=== PATIENT | female | born 1940 | race Caucasian/White ===

== ENCOUNTER → 2018-10-20 14:11 | Outpatient (CLI) | payer OTHER, SELFPAY ==
--- NOTE | 2018-10-20 | DI.ECHO.S_ITS ---
[facility]---------+ [facility] +---------+ : : [address] : [address] : : : : [id number] : : : : Phone: [phone]+ Echocardiogram Report + + :Name: SERENE EVANGELISTA Study Date: 10/20/2018 Height: 69 in : :[facility] Exam Location: [place] Weight: 148 lb : : Gender: Female BSA: 1.8 m2 : :: 1940 Age: 78 yrs BP: 120/78 mmHg: :Reason For Study: Tricuspid regurgitation : :Ordering Physician: Sal : :Kulwant Performed By: Janelle Vicente : :Referring: ASL AGEE : + + Interpretation Summary The left ventricle is normal in size. The ejection fraction is estimated to be 60-65%. The atrial septum is aneurysmal. There is mild aortic valve sclerosis. There is mild aortic regurgitation. There is moderate to severe tricuspid regurgitation. The right ventricular systolic pressure is estimated to be at least 28 mmHg based on an estimated right atrial pressure of 3 mm Hg. Compared to the prior echo exam, there has been no change in TR severity. Procedure: A two-dimensional transthoracic echocardiogram with color flow and Doppler was performed. The study quality was technically adequate. Comparison is made with the echocardiogram of 08/18/2017. The patient was in normal sinus rhythm during the exam. The patient had occasional PACs during the exam. Left Ventricle: The left ventricle is normal in size. There is normal left ventricular wall thickness. Proximal septal thickening is noted. The ejection fraction is estimated to be 60-65%. Left ventricular wall motion is normal. Right Ventricle: The right ventricle is mildly dilated. The right ventricular systolic function is normal. Atria: The left atrium is mildly dilated. Borderline right atrial enlargement. The interatrial septum is intact with no evidence for an atrial septal defect. The atrial septum is aneurysmal. Echolucency noted on the RA aspect of IAS is artifactual. Mitral Valve: The mitral valve leaflets appear mildly thickened, but open well. There is trace mitral regurgitation. Aortic Valve: The aortic valve is trileaflet. The aortic valve opens well. There is mild aortic valve sclerosis. There is mild aortic regurgitation. Tricuspid Valve: The tricuspid annulus is dilated. The tricuspid valve leaflets are thin and pliable. There is moderate to severe tricuspid regurgitation. The right ventricular systolic pressure is estimated to be at least 28 mmHg based on an estimated right atrial pressure of 3 mm Hg. Compared to the prior echo exam, there has been no change in TR severity. Pulmonic Valve: The pulmonic valve is not well seen, but is grossly normal. There is a trace or physiologic amount of pulmonic regurgitation. Great Vessels: The aortic root is normal size. The ascending aorta could not be visualized. The IVC is of normal diameter and collapses greater than 50% with a sniff. This suggests a low right atrial pressure of 3 mm Hg. Pericardium/ Pleura There is no pericardial effusion. There is an anterior echo-free space consistent with a fat pad. There is no pleural effusion. MMode/2D Measurements & Calculations LVIDd: 4.3 cm LVOT diam: 2.3 cm LVIDs: 2.4 cm Ao root diam: 3.5 cm FS: 43.7 % Ao Arch Diam (Prox Trans): 2.9 cm IVSd: 0.92 cm LVPWd: 1.1 cm LV peng. diameter/BSA (cm/m^2): 2.4 LV sys. diameter/BSA (cm/m^2): 1.3 LA A2 area: 17.7 cm2 RA long axis: 5.0 cm LA A4 area: 24.1 cm2 RA area: 17.7 cm2 LA length (vol): 5.0 cm RA vol: 53.1 ml LA vol: 72.4 ml RA : 29.2 ml/m2 LA vol index: 39.8 ml/m2 Doppler Measurements & Calculations Ao V2 max: 108.4 cm/sec LVOT Max Onofre: 86.5 cm/sec Ao V2 mean: 77.8 cm/sec LV V1 max P.0 mmHg Ao max P.7 mmHg LV V1 VTI: 15.2 cm Ao mean P.6 mmHg VINNIE(I,D): 3.3 cm2 Ao V2 VTI: 19.3 cm VINNIE(V,D): 3.3 cm2 sev ratio: 0.79 VINNIE indexed to BSA (cm^2/m^2): 1.8 MV E max onofre: 50.1 cm/sec TR max onofre: 248.9 cm/sec MV A max onofre: 79.1 cm/sec TR max P.8 mmHg MV E/A: 0.63 Med Peak E' Onofre: 6.7 cm/sec E/E' med: 7.4 Lat Peak E' Onofre: 7.7 cm/sec E/E' lat: 6.5 E/e' average: 7.0 MV dec time: 0.14 sec SV(LVOT): 62.7 ml Reading Physician:04:56 PM
== END ==
PROVIDERS: PCP Family Medicine; Visit Provider Internal Medicine Cardiovascular Disease
DX: I08.2 Rheumatic disorders of both aortic and tricuspid valves (principal)
CPT/HCPCS: 93306

== ENCOUNTER → 2018-12-09 12:24 | Outpatient (CLI) | payer OTHER, SELFPAY ==
--- NOTE | 2018-12-09 | DI.MRI.S_ITS ---
PROCEDURE: MR KNEE LT WO CON INDICATIONS: Unilateral primary osteoarthritis, left knee TECHNIQUE: Noncontrast sagittal PD fast spin echo and T2 fast spin echo with fat saturation, sagittal 3-D FLASH with fat saturation; coronal T1 spin echo and PD fast spin echo with fat saturation, and axial PD fast spin echo with fat saturation through the knee. COMPARISON: None. FINDINGS: Image quality: Excellent. Menisci: There is peripheral displacement of medial meniscus bowing medial collateral ligament. Complex tear involving body and posterior horn of medial meniscus is seen extending to both superior and inferior articulating surfaces. There is also suggestion of oblique tear involving anterior horn of lateral meniscus extending to inferior articulating surface. The meniscal root ligaments appear intact. Cruciate ligaments: There is absence of normal anterior cruciate ligament, suggestive of chronic ACL rupture. Posterior cruciate ligament is intact. Medial structures: The medial collateral ligament appears intact. The The posterior oblique ligament, semimembranosus tendon insertions, oblique popliteal ligament, and meniscocapsular junction appear intact. Visualized portions of the pes anserinus tendons appear normal. No abnormal bursal fluid. Lateral structures: The lateral collateral ligament, long and short heads of the biceps femoris tendon appear intact. The popliteus tendon appears normal; the popliteofibular ligament appears intact. The posterosuperior and anteroinferior popliteomeniscal fascicles appear intact. The arcuate and fabellofibular ligaments appear intact, on either side of the lateral inferior geniculate artery. Iliotibial band appears normal. Anterior structures: The quadriceps and patellar tendons appear intact. Patellar alignment is normal. No femoral trochlear dysplasia or ventral trochlear prominence. No edema in the infrapatellar fat pad. Bones and cartilage: A moderate to severe tricompartmental osteoarthritis and chondromalacia is seen more prominently involving lateral femoral tibial compartment. Marrow edema involving lateral tibial plateau is seen with multiple subchondral cysts formation which may represent osteochondral lesions and measures up to 5 x 3 mm in size. No acute fracture or dislocation. Joint space: There is moderate amount of joint fluid.. Small popliteal cyst is seen.. Normal appearing synovial plicae are incidentally noted. IMPRESSION: 1. Suggestion of chronic ACL rupture. Posterior cruciate ligament is intact. 2. Moderate to severe tricompartmental osteoarthritis more prominent in lateral femoral tibial compartment. Suggestion of osteochondral lesions involving lateral tibial plateau. No fracture or dislocation. Moderate amount of joint effusion. Small popliteal cyst. 3. Complex tear involving body and posterior horn of medial meniscus extending to both superior and inferior articulating surfaces. Oblique tear involving anterior horn of lateral meniscus extending to inferior articulating surface. Dictated by: Diego De La Paz M.D. on 12/09/2018 at 14:04 Approved by: Diego De La Paz M.D. on 12/09/2018 at 14:11
== END ==
PROVIDERS: PCP Family Medicine; Visit Provider Orthopaedic Surgery
DX: M17.12 Unilateral primary osteoarthritis, left knee (principal); M25.462 Effusion, left knee; M71.22 Synovial cyst of popliteal space [Baker], left knee; S83.232A Complex tear of medial meniscus, current injury, left knee, initial encounter; S83.282A Other tear of lateral meniscus, current injury, left knee, initial encounter
CPT/HCPCS: 73721

== ENCOUNTER 2019-02-09 12:05 | Inpatient (IN) | payer OTHER, SELFPAY ==
[2019-02-01 12:58] VITALS: BMI 23.8
[2019-02-09] VITALS (15 sets, daily range): BP systolic 98–144; BP diastolic 59–88; PULSE 62–94; RESP 10–24; TEMP 35.6–36.8; O2SAT 94–100; BMI 23.8
--- NOTE | 2019-02-09 06:00 | DI.RAD.S_ITS ---
PROCEDURE: XR KNEE LT 1TO2V INDICATIONS: post op films TECHNIQUE: 2 view(s) of the knee acquired. COMPARISON: None. FINDINGS: Bones: Patient is status post knee joint arthroplasty. Hardware components are in expected positions. Visualized bony structures are intact. Soft tissues: Overlying postoperative changes are noted. IMPRESSION: Status post knee arthroplasty. Dictated by: Ania Perez M.D. on 02/10/2019 at 11:27 Approved by: Ania Perez M.D. on 02/10/2019 at 11:28
[2019-02-09] MEDS: PREGABALIN 75 MG CAPSULE PO (12:36)
[2019-02-09] MEDS: ACETAMINOPHEN 325 MG TABLET 975 MG PO ×2 (12:36→20:27)
[2019-02-09] MEDS: LACTATED RINGERS 1,000 ML 42 ML IV (12:36)
[2019-02-09] MEDS: VANCOMYCIN 1,000 MG/200 ML PIGGYBACK 200 MG IV (12:37)
--- NOTE | 2019-02-09 12:54 | SUR.PREOP ---
pt has large scrape to right knee. Informed Dr. Forrest and showed her the abrasion.
--- NOTE | 2019-02-09 13:05 | PM.PREOP ---
Pre-operative Note Interval Note History & Physical reviewed/Exam performed by Physician: Yes Changes to H&P: No
--- NOTE | 2019-02-09 13:05 | PM.OP.1 ---
Operative Date/Time/Diagnoses Date of procedure: 02/09/19 Time of procedure: 13:56 Pre-op diagnosis: Left knee osteoarthritis Post-op diagnosis: same Procedure & Clinicians Procedure: Left total knee arthroplasty Same procedure as scheduled: Yes Indications: The patient has had progressively worsening left knee pain with radiographic changes consistent with arthritis. Non-operative management has failed and the patient has requested total knee replacement. The risks, benefits and alternatives to surgery were discussed with the patient prior to proceeding. Risks discussed included, but were not limited to, failure to relieve pain, stiffness, infection, nerve damage, deep venous thrombosis, pulmonary embolism, stroke, coma, heart attack, permanent paralysis and , as well as the potential need for eventual revision of the prosthetic. Surgeon: Ro Forrest Special Agent In Charge: Judith Angelo Anesthesia Type: General and Spinal Operative Notes Findings: Severe left knee osteoarthritis, good stability, Closure Type: primary Specimen(s): none sent Prosthetic devices, grafts, tissues, transplants, or devices: Journey BCS 2 size 6 femur, size 5 tibia, +10 poly, 38 mm patella Applied: drain(s) Estimated Blood Loss (mL): 250 Blood products transfused: none Tourniquet time (min): 85 Procedure in detail: The patient was seen in the pre-operative area, where the patient identified the left knee as the operative site and this was marked with my initials. The patient received pre-operative antibiotics, and was taken to the operating room and placed on the operative table in the supine position. After satisfactory anesthesia, a multimedia editor out was performed. The left leg was encircled with a tourniquet about the proximal thigh, and the leg was prepared from the toes to the tourniquet with ChloroPrep in the usual fashion and draped through sterile drapes. The leg was elevated and exsanguinated with Eschmark bandage and the tourniquet inflated to [250] mmHg pressure. The knee was approached through an approximately 18 cm incision centered over the patella and carried into the knee through a medial parapatellar arthrotomy. A portion of the medial and lateral meniscus was resected. Soft tissue was carefully mobilized around the patella the patella was measured with a caliper. Bone was resected from the patella and the patellar height was reconstituted with up an appropriate sized patellar component. A cover was then placed on the patella. A small amount of additional medial and lateral meniscus was resected. The visionare guide fit well to the distal femur. It looked like an appropriate distal femoral cut and the cut was made without difficulty. The rotation was assessed and the appropriate size femoral guide was placed on the distal femur and finishing cuts were made. There was no evidence of notching. The anterior, posterior and chamfer cuts were then made. The posterior osteophytes and soft tissues were then removed. The posterior capsule was injected with part of a mixture of 60 ml 0.25% Marcaine mixed with 20 ml Exparel for post operative pain control. The remainder of this mixture was injected into the capsule and subcutaneous tissues during cement curing. The tibia was prepared and the visionaire guide fit well to the distal tibia. The rotation was assessed. The patient was placed in extension residual medial and lateral meniscus as well as any residual bone was carefully resected. [2mm] additional tibia was resected. Hemostasis was achieved especially posteriorly. Additional local was injected into the posterior capsule. The extension gap was assessed and additional releases for gap balancing were performed as necessary. It was checked with the gap associate product manager. The femoral component was trial was placed and the notch was finished. Trial tibial and femoral components were then placed and the knee placed through a range of motion. Range of motion was [0-130], with good stability throughout the range. The trials were then removed, and the tibia was finished. The bone was prepared with pulsatile lavage, and dried with a sponge. Cement was applied and the final prosthetics placed. Excess cement was removed during and after cement curing. A brief Betadine soak was performed. After confirming there was no extruded cement posteriorly, the final tibial insert was placed. The knee was copiously irrigated and the tourniquet deflated. Hemostasis was obtained with the Bovie. A drain was placed and brought out superolaterally. The capsule was closed with interrupted Vicryl. The subcutaneous layer was closed with barbed sutures, and the skin with a running 3-0 V-Lock suture and Surgical glue. An Aquacel Ag dressing was applied and the patient was taken to recovery having tolerated the procedure well. Complications: none Condition: stable Disposition: Acute Care Plan for aftercare: The patient will be maintained on a standard total knee replacement protocol with weight bearing as tolerated. The patient will receive aspirin and sequential compression devices for DVT prophylaxis. The patient will be discharged home when safe for the home environment.
--- NOTE | 2019-02-09 13:08 | P.OP_ITS ---
Operative Date/Time/Diagnoses Date of procedure: 02/09/19 Time of procedure: 13:56 Pre-op diagnosis: Left knee osteoarthritis Post-op diagnosis: same Procedure & Clinicians Procedure: Left total knee arthroplasty Same procedure as scheduled: Yes Indications: The patient has had progressively worsening left knee pain with radiographic changes consistent with arthritis. Non-operative management has failed and the patient has requested total knee replacement. The risks, benefits and alternatives to surgery were discussed with the patient prior to proceeding. Risks discussed included, but were not limited to, failure to relieve pain, stiffness, infection, nerve damage, deep venous thrombosis, pulmonary embolism, stroke, coma, heart attack, permanent paralysis and , as well as the potential need for eventual revision of the prosthetic. Surgeon: Ro Forrest Insurance Assistant: Judith Angelo Anesthesia Type: General and Spinal Operative Notes Findings: Severe left knee osteoarthritis, good stability, Closure Type: primary Specimen(s): none sent Prosthetic devices, grafts, tissues, transplants, or devices: Journey BCS 2 size 6 femur, size 5 tibia, +10 poly, 38 mm patella Applied: drain(s) Estimated Blood Loss (mL): 250 Blood products transfused: none Tourniquet time (min): 85 Procedure in detail: The patient was seen in the pre-operative area, where the patient identified the left knee as the operative site and this was marked with my initials. The patient received pre-operative antibiotics, and was taken to the operating room and placed on the operative table in the supine position. After satisfactory anesthesia, a time clock inspector out was performed. The left leg was encircled with a tourniquet about the proximal thigh, and the leg was prepared from the toes to the tourniquet with ChloroPrep in the usual fashion and draped through sterile drapes. The leg was elevated and exsanguinated with Eschmark bandage and the tourniquet inflated to [250] mmHg pressure. The knee was approached through an approximately 18 cm incision centered over the patella and carried into the knee through a medial parapatellar arthrotomy. A portion of the medial and lateral meniscus was resected. Soft tissue was carefully mobilized around the patella the patella was measured with a caliper. Bone was resected from the patella and the patellar height was reconstituted with up an appropriate sized patellar component. A cover was then placed on the patella. A small amount of additional medial and lateral meniscus was resected. The visionare guide fit well to the distal femur. It looked like an appropriate distal femoral cut and the cut was made without difficulty. The rotation was assessed and the appropriate size femoral guide was placed on the distal femur and finishing cuts were made. There was no evidence of notching. The anterior, posterior and chamfer cuts were then made. The posterior osteophytes and soft tissues were then removed. The posterior capsule was injected with part of a mixture of 60 ml 0.25% Marcaine mixed with 20 ml Exparel for post operative pain control. The remainder of this mixture was injected into the capsule and subcutaneous tissues during cement curing. The tibia was prepared and the visionaire guide fit well to the distal tibia. The rotation was assessed. The patient was placed in extension residual medial and lateral meniscus as well as any residual bone was carefully resected. [2mm] additional tibia was resected. Hemostasis was achieved especially posteriorly. Additional local was injected into the posterior capsule. The extension gap was assessed and additional releases for gap balancing were performed as necessary. It was checked with the gap clinical administrator. The femoral component was trial was yasmeen vinh and the notch was finished. Trial tibial and femoral components were then placed and the knee placed through a range of motion. Range of motion was [0- 130], with good stability throughout the range. The trials were then removed, and the tibia was finished. The bone was prepared with pulsatile lavage, and dried with a sponge. Cement was applied and the final prosthetics placed. Excess cement was removed during and after cement curing. A brief Betadine soak was performed. After confirming there was no extruded cement posteriorly, the final tibial insert was placed. The knee was copiously irrigated and the tourniquet deflated. Hemostasis was obtained with the Bovie. A drain was placed and brought out superolaterally. The capsule was closed with interrupted Vicryl. The subcutaneous layer was closed with barbed sutures, and the skin with a running 3-0 V-Lock suture and Surgical glue. An Aquacel Ag dressing was applied and the patient was taken to recovery having tolerated the procedure well. Complications: none Condition: stable Disposition: Acute Care Plan for aftercare: The patient will be maintained on a standard total knee replacement protocol with weight bearing as tolerated. The patient will receive aspirin and sequential compression devices for DVT prophylaxis. The patient will be discharged home when safe for the home environment.
[2019-02-09] MEDS: CEFAZOLIN 2 GM/100 ML FROZ.PIGGY IV ×2 (14:11→21:27)
[2019-02-09] MEDS: TRANEXAMIC ACID 1,000 MG VIAL 1000 MG INJ ×2 (14:41→15:24)
--- NOTE | 2019-02-09 15:11 | SUR.OPER ---
Supine on padded OR bed. Pillow under head, arms secured on padded armboards <90 degree abduction. Safety belt across torso. Non-operative leg secured with tape over blanket over lower leg. Operative leg secured in DeMayo/Rohan positioner. Foam padded brace at thigh of operative leg.
--- NOTE | 2019-02-09 15:20 | SUR.OPER ---
GLASSES TO PACU WITH PATIENT IN LABELED CASE.
[2019-02-09] MEDS: BUPIVACAINE LIPOSOME 266 MG/20 ML VIAL INJ (15:22)
[2019-02-09] MEDS: BUPIVACAINE 0.25% W/ EPI 30 ML VIAL 60 ML INJ (15:22)
--- NOTE | 2019-02-09 17:21 | SUR.PHASEI ---
REPORT CALLED TO MIKE HENRIQUEZ ON ACUTE CARE FLOOR. PT IN STABLE CONDITION, VSS. PT LAYING IN BED WITH EYES CLOSED, EASILY AROUSABLE TO VOICE WHEN SPOKEN TO. PT BEING TRANSFERRED TO ACUTE CARE FLOOR AT THIS TIME.
--- NOTE | 2019-02-09 17:33 | SUR.PHASEI ---
PT TRANSFERRED TO ACUTE CARE FLOOR IN STABLE CONDITION. BEDSIDE REPORT GIVEN TO MIKE HENRIQUEZ UPON ARRIVAL TO ROOM. NO CHANGE IN PT CONDITION DURING TRANSPORT TO ACUTE CARE FLOOR. TRANSFERRED CARE OF PT TO MIKE HENRIQUEZ AT THAT TIME.
--- NOTE | 2019-02-09 17:54 | PC.NURSE ---
Andree shift note: Patient admitted from PACU, awake, alert and pleasant. Oriented to room, environment, and plan of care. VSS and afebrile. On RA 98%. Call light within reach.
[2019-02-09] MEDS: LACTATED RINGERS 1,000 ML 125 ML IV (18:06)
[2019-02-09] MEDS: ASPIRIN EC 81 MG TABLET PO (20:28)
[2019-02-09] MEDS: DOCUSATE 100 MG CAPSULE PO (20:28)
[2019-02-09] MEDS: SIMVASTATIN 10 MG TABLET PO (20:28)
[2019-02-10] VITALS (9 sets, daily range): BP systolic 106–130; BP diastolic 49–70; PULSE 59–87; RESP 16–20; TEMP 36.2–36.9; O2SAT 93–100
[2019-02-10] MEDS: OXYCODONE IR 5 MG TABLET PO ×5 (00:30→21:29)
--- NOTE | 2019-02-10 00:46 | PC.NURSE ---
Addendum entered by Rohini Arroyo R.N. 02/10/19 05:57: Slept most of night. States pain this morning is 6/10; medicated with Oxycodone but declines ice pack. Original Note: Patient is alert and oriented. Breath sounds CTA with RA sat of 100%; on continuous oximetry. HRR but bradycardic at 59 bpm. Denies nausea. BT hypoactive and denies flatus. Having urinary urgency but denies dysuria or frequency. Is able to turn self in bed. Needing 1 assist + walker when up to BSC. Aquacel + bharat wrap to left knee is CDI. Hemovac is intact and compressed. Initially having minimal pain and declined pain medication but after being up to urinate states pain is 9/10 so medicated with Oxycodone and ice applied; left leg elevated on pillows. Does have 1+ edema in left LE. Had fall prior to admission and has abrasion on right anterior LE just above knee and a bruised left 4th toe. Wearing bilateral SCD's. CMS is intact. Fall risk score is high and bed alarm is activated.
[2019-02-10] MEDS: LACTATED RINGERS 1,000 ML 125 ML IV (03:07)
[2019-02-10] MEDS: CEFAZOLIN 2 GM/100 ML FROZ.PIGGY IV (05:49)
[2019-02-10] MEDS: LEVOTHYROXINE 25 MCG TABLET PO (05:49)
[2019-02-10 07:16] LABS: Hematocrit 36.6 % (36-46); Hemoglobin 12.3 g/dL (12.0-16.0)
[2019-02-10] MEDS: ASPIRIN EC 81 MG TABLET PO ×2 (09:07→20:13)
[2019-02-10] MEDS: LISINOPRIL 5 MG TABLET PO (09:07)
[2019-02-10] MEDS: METOPROLOL ER 25 MG TABLET PO (09:07)
[2019-02-10] MEDS: FUROSEMIDE 20 MG TABLET PO (09:07)
[2019-02-10] MEDS: DOCUSATE 100 MG CAPSULE PO ×2 (09:07→20:13)
[2019-02-10] MEDS: ACETAMINOPHEN 325 MG TABLET 975 MG PO ×3 (09:09→20:11)
--- NOTE | 2019-02-10 09:20 | PT.IIE ---
Current Diagnoses Rheumatoid arthritis, unspecified (02/09/19) Unilateral primary osteoarthritis, left knee (02/09/19) Surgery Performed Operation Date: 02/09/19 13:45 Actual Procedures p Total Knee Arthroplasty(Left) - Ro Forrest MD Surgical History (Last Updated 02/01/19 @ 14:34 by Radha Chandler RN) Hx of hand surgery (Acute) Hx of tonsillectomy (Acute) Hx of tubal ligation (Acute) Medical History (Last Updated 02/01/19 @ 14:34 by Radha Chandler RN) Asthma (Acute) Atrial fibrillation (Acute) COPD (chronic obstructive pulmonary disease) (Acute) Depression (Acute) Easy bruisability (Acute) Edema (Acute) Former smoker (Acute) GI bleed (Acute ~2018) HLD (hyperlipidemia) (Acute) HTN (hypertension) (Acute) Hip fracture, left (Acute ~10/2010) History of left heart catheterization (Acute ~10/2010) Hypothyroidism (Acute) NSVT (nonsustained ventricular tachycardia) (Acute) Neck pain (Acute) Neuropathy (Acute) Pulmonary hypertension, mild (Acute) Raynauds phenomenon (Acute) Rheumatoid arthritis (Acute) Tinnitus (Acute) Tricuspid regurgitation (Acute) Physical Therapy Inpatient Evaluation/Re-Eval M1 PT/OT-IP Prior Functional Status Start: 02/10/19 13:01 Freq: NEEDED Status: Active Protocol: Document 02/10/19 09:20 AB (Rec: 02/10/19 13:16 AB [id number]) Medical Review Prior Functional Status Medical History Reviewed Yes Communication able to make needs known Mobility and Gait pt stated that she is independent with all mobilities and ambulation without AD but occasionally uses a SPC. Social History Household Members children Living Arrangements House Number of Floors (Floors) One Floor Number of Stairs To Enter/Railing? 3 steps with L rail ascending Home Environment Standard Height Toilet Walk in Shower Built-In Shower Seat Home Equipment Straight Cane Hand Held Shower Grab Bars Near Toilet Additional Social History Comment pt's son lives with her and can assist pt if needed. M2 PT-IP Current Condition Start: 02/10/19 13:01 Freq: NEEDED Status: Active Protocol: Document 02/10/19 09:20 AB (Rec: 02/10/19 13:16 AB [id number]) Physical Therapy Current Condition Current Condition Evaluation Date 02/10/19 Treatment Diagnosis s/p L TKA; difficulty in walking Onset Date 02/09/19 Weight Bearing Status Weight Bearing Status Weight Bear as Tolerated M3 PT-IP Subjective Start: 02/10/19 13:01 Freq: NEEDED Status: Active Protocol: Document 02/10/19 09:20 AB (Rec: 02/10/19 13:16 AB [id number]) Subjective Physical Therapy Visit Type Type Initial Evaluation Visit Start Time 09:20 Visit Stop Time 10:06 Total Visit Minutes 46 Number of CUSTOM CAR BUILDER Visits 0 Physical Therapy Visit Comments Patient Comments pt agreeable to do PT Therapy Pain Assessment Pain When Pain Assessed At Rest Pain Present Pain Present Pain Reported Location Left Knee Intensity 4 Scale Used increases with weight bearing Pain Management Techniques Apply Cold Re-positioning Timing of Activity with Medications M4 PT-IP Mobility and Gait Start: 02/10/19 13:01 Freq: NEEDED Status: Active Protocol: Document 02/10/19 09:20 AB (Rec: 02/10/19 13:16 AB [id number]) PT-Bed Mobility Assessment Supine to Sit Supine to Sit Standby Assistance 1 Person Assistance PT-Transfer Assessment Sit to and From Stand Sit to and from Stand Minimal Assistance 1 Person Assistance Use of Upper Extremities Equipment Transfer Assistive Device Gait Belt Front Wheeled Walker Orthotic/Prosthetic Devices or Brace: No Transfers Transfer Destination Chair Bedside Commode Transfer Technique pt ambulated using FWW Transfer Ability Level of Assist Minimal Assistance Use of Upper Extremities Comments Mobility Comments pt is easily distracted and requires cues to focus on task . initial goal was to ambulate to the toilet but pt unable to complete and has to sit on the chair. Pt c/o dizziness during mobility. BP checked: 143/86 pt required increase time to complete tasks with frequent stand rest breaks during ambulation to the chair. pt requested to the bedside commode and completed stand step transfer using FWW min A and cues. Gait Assessment Gait Gait Assistance Required: Minimum Assistance Distance (Feet) 10 Able to Maintain Weight Bearing Status Yes During Gait Assistive Devices Assistive Device Gait Belt Front Wheeled Walker Gait Deviations General Gait Pattern Antalgic Decreased Stride Length Decreased Feet Clearance Step-to Gait Factors Limiting Gait Function Factors Limiting Gait Function Decreased Activity Tolerance Decreased Strength Difficulty Following Directions Limited Range of Motion Pain Poor Balance Poor Safety Awareness PT-Balance Assessment Sitting Balance and Reactions Static Sitting Balance Ability Good Dynamic Sitting Balance Ability Good Standing Balance and Reactions Static Standing Balance Ability Fair Dynamic Standing Balance Ability Fair Device Used FWW M5 PT-IP Objective Assessments Start: 02/10/19 13:01 Freq: NEEDED Status: Active Protocol: Document 02/10/19 09:20 AB (Rec: 02/10/19 13:16 AB [id number]) Orientation Orientation/Cognition Level of Alertness Alert Orientation Name Place Situation Safety Awareness Decreased Safety Awareness Memory Description Short Term Impaired Gross Range of Motion Lower Extremity ROM Impairments L knee flexion: ~ 70 deg L knee extension: ~ 15 deg to O Strength Lower Extremity Strength Assessment Left Impaired Hip 4-/5 Knee 3+/5 Coordination Assessment Gross Coordination Gross Coordination WNL Sensation Assessment Sensation Gross Sensation WNL Muscle Tone Muscle Tone WNL Yes M6 PT-IP Treatment Start: 02/10/19 13:01 Freq: NEEDED Status: Active Protocol: Document 02/10/19 09:20 AB (Rec: 02/10/19 13:16 AB [id number]) Physical Therapy Treatment Exercises Exercises Quad Sets Heel Slides Education Education Provided Precautions Weight Bearing Status Post-Op Packet Safety M7 PT-IP Assessment and Plan Start: 02/10/19 13:01 Freq: NEEDED Status: Active Protocol: Document 02/10/19 09:20 AB (Rec: 02/10/19 13:16 AB [id number]) PT Summary Assessment and Plan Potential Rehabilitation Potential Good Status of Condition at Evaluation Evolving Summary Impairments Pain ROM Strength Balance Coordination Sensation Tone Cognition Bed Mobility Transfers Gait Activity Tolerance Assessment Summary pt requiring min A with mobility but unable to tolerate much activity this morning and was only able to ambulate ~ 10 ft to get to the chair. pt with c/o dizziness during mobility. pt also requires max cues with all tasks. will continue to assess progress. Goals Bed Mobility Goal Standby Assistance Transfer Goal Standby Assistance Front Wheeled Walker Gait Goal Standby Assistance Front Wheel Walker Gait Distance 150 Other Goals up/down 3 steps using L rail ascending SBA Days to Meet Goals 5 Frequency of Treatment Frequency Of Treatment Twice a Day Treatment Plan Physical Therapy Treatment Plan Bed Mobility Training Transfer Training Gait Training Therapeutic Exercise Balance Retraining Post Op Education Discharge Planning Hot or Cold Pack Neuromuscular Re-ed Coordination Retraining Manual Therapy Other Recommendations and Next Treatment ambulation, stair climbing Focus Recommendations To Nursing Amount of Assist Needed 1 Person Assist Discharge Recommendations PT Discharge Recommendations Home with 24/ Assist SNF Rehab Outpatient PT Other Discharge Recommendations depending on progress: SNF vs home wiht 24/7 and outpt PT
--- NOTE | 2019-02-10 10:21 | P.DS_ITS ---
History of Present Illness Date Patient Seen: 02/10/19 Time Patient Seen: 10:18 Chief complaint: [id number] Narrative: Hospital day 2, postop day 1 following left total knee arthroplasty by Dr. Forrest. Patient remained stable. Pain controlled with Tylenol and oxycodone. She has not had physical therapy yet. Has Hemovac in place. She is a [facility] patient and would like to go home. She does have a son who is her caregiver. She is scheduled to go to [facility] and [place]. Discharge Providers Date of admission: 02/09/19 12:05 Discharge Date: 02/10/19 Primary care physician: Leslie Williamson MD Consults: 02/09/19 06:00 Consult to Anesthesiology Routine Comment: Consulting Provider: Anesthesiologist Reason for consultation: Regional block for post operative pain control 02/09/19 17:35 Consult to Discharge Planning Routine Comment: Consult to Physical Therapy Evaluate & Treat Comment: Physician Instructions: postop TKA protocol Consult to Respiratory Therapy Evaluate & Treat Comment: Physician Instructions: Evaluate and treat 02/09/19 17:44 Consult to Respiratory Therapy Evaluate & Treat Comment: Physician Instructions: Evaluate and treat Discharge provider: Home Baez PA-C Summary Discharge Diagnosis: Status post left total knee arthroplasty Hospital Course: Patient brought to hospital on 02/09/2019 for above noted surgery. She remained stable postoperatively. Progressed with PT. Discharged home on postop day 1. Status at Discharge Cognitive/behavioral status at discharge: oriented Functional status at discharge: uses cane/walker Overall status at discharge: patient is progressing back to baseline Time Spent with Patient Less than 30 minutes Exam Vital Signs (past 8 hours): - 02/10/19 06:00 02/10/19 07:30 02/10/19 09:04 Temperature 97.2 F L Pulse Rate 67 80 Respiratory Rate 17 Blood Pressure 114/66 118/67 Pulse Oximetry 98 96 99 Oxygen Delivery Method Room Air Oxygen Flow Rate 0 Narrative Exam Narrative: Alert, oriented no acute distress resting in bed. Legs. Sammy wrap an Aquacel dressing to left knee is dry without drainage or inflammation. Hemovac in place. No calf pain or swelling. Pulses symmetrical. Objective Labs Result Diagrams: 02/10/19 06:50 Labs: Laboratory Results - last 24 hr 02/10/19 06:50 Hgb 12.3 Hct 36.6 Discharge Plan Discharge Plan Patient Disposition: Home Discharge comment: Discharge home today after cleared by PT. She has a [facility] patient and has prescription at home for oxycodone. She is scheduled to go to [facility] in [place]. Discharge Med Rec/Prescriptions Prescriptions: New acetaminophen 325 mg Tablet 975 mg PO TID Qty: 30 RF: 0 aspirin 81 mg Tablet,Delayed Release (Dr/Ec) 81 mg PO BID Qty: 60 RF: 0 Continued simvastatin [Zocor] 20 MG tablet 10 mg PO HS Qty: 0 RF: 0 Enbrel 50 MG/1 ML syringe 50 mg SC QWEEK Qty: 0 RF: 0 methotrexate sodium 2.5 mg Tablet 7 tab PO QWEEK Qty: 0 RF: 0 lisinopril 5 mg Tablet 5 mg PO DAILY RF: 0 metoprolol succinate 25 mg Tablet Extended Release 24 Hr 25 mg PO DAILY RF: 0 furosemide 20 mg Tablet 20 mg PO QAM RF: 0 levothyroxine 25 mcg Capsule 25 mcg PO DAILY RF: 0 ranitidine HCl 150 mg Capsule 150 mg PO BEDTIME RF: 0 Discontinued aspirin 81 mg Tablet,Delayed Release (Dr/Ec) 81 mg PO DAILY RF: 0 Follow up/Referrals: Leslie Williamson MD [Primary Care Provider] - Provider Discharge Instructions Diet: Diet as Tolerated Activity: Ambulate as tolerated. Use walker as needed. Do range of motion of left knee as much as possible. Cold/Heat Therapy: Cold pack to left knee as needed. Skin/Wound/Dressing Care Report to your healthcare provider any signs of infection, such as:: chills, fever, night sweats, increased pain, unusual drainage and unusual redness Dressing: Keep Aquacel dressing in place until postop visit. Visit Report/Discharge Packet Instructions: DI for Knee Replacement, How to Prevent Falls, DI for Postoperative Pain Stand Alone Forms: Surgery Discharge Visit Report Forms: Stroke Signs & Symptoms Discharge Data Primary Care Provider: Leslie Williamson Attending Provider: Ro Forrest Admit Date/Time: 02/09/19 12:05
--- NOTE | 2019-02-10 11:32 | CM.IDA ---
Initial DCP Assessment Note: Pt is a 78 yo female, resident of [place], now POD#1 from Lft knee surgery w/ Dr Forrest PCP: Leslie Williamson Payer: Tino RAY Reviewed chart, pt discussed in multidisciplinary rounds this morning. Pt has planned for home, DC order from [facility] has already been initiated this morning pending eval from PT and clearance for home. No needs expected from DC planning team although will remain available in case this changes today. ADRIANA Gonzalez Discharge Planning/Care Management CM Discharge Assessment Start: 02/10/19 11:06 Freq: Status: Active Protocol: Document 02/10/19 11:06 ZOE (Rec: 02/10/19 11:32 ZOE [id number]) Discharge Planning Assessment Assigned Medical Sales Associate ADRIANA Black DPOA/Assigned Designee Name yasmine Pantoja Contact Information [phone] Advance Directives? Yes Advance Directives on File No History Provided By Patient Family Member Medical Record Prior Living Arrangements House Household Members children Independent with ADL's Yes Is patient alert and oriented? Yes Barriers to Discharge No Comment Pending PT eval Discharge Plan Home Transportation Arrangement Family Referrals Initiated None needed Review Status In Process
--- NOTE | 2019-02-10 13:45 | PT.IPTN ---
Current Diagnoses Rheumatoid arthritis, unspecified (02/09/19) Unilateral primary osteoarthritis, left knee (02/09/19) Surgery Performed Operation Date: 02/09/19 13:45 Actual Procedures p Total Knee Arthroplasty(Left) - Ro Forrest MD Physical Therapy Treatment Note M2 PT-IP Current Condition Start: 02/10/19 13:01 Freq: NEEDED Status: Active Protocol: Document 02/10/19 09:20 AB (Rec: 02/10/19 13:16 AB [id number]) Physical Therapy Current Condition Current Condition Evaluation Date 02/10/19 Treatment Diagnosis s/p L TKA; difficulty in walking Onset Date 02/09/19 Weight Bearing Status Weight Bearing Status Weight Bear as Tolerated M3 PT-IP Subjective Start: 02/10/19 13:01 Freq: NEEDED Status: Active Protocol: Document 02/10/19 14:25 GGD (Rec: 02/10/19 16:20 GGD [id number]) Subjective Physical Therapy Visit Type Type Treatment Note Visit Start Time 13:55 Visit Stop Time 14:25 Total Visit Minutes 30 Number of DOOR REPAIRMAN Visits 1 Physical Therapy Visit Comments Patient Comments Pt states she is feeling better. Therapy Pain Assessment Pain When Pain Assessed At Rest Pain Present Pain Present Pain Reported M4 PT-IP Mobility and Gait Start: 02/10/19 13:01 Freq: NEEDED Status: Active Protocol: Document 02/10/19 14:25 GGD (Rec: 02/10/19 16:20 GGD [id number]) PT-Transfer Assessment Sit to and From Stand Sit to and from Stand Contact Guard Assistance 1 Person Assistance Equipment Transfer Assistive Device Gait Belt Front Wheeled Walker Orthotic/Prosthetic Devices or Brace: No Transfers Transfer Destination Chair Wheelchair Transfer Ability Level of Assist Contact Guard Assistance 1 Person Assistance Use of Upper Extremities Comments Mobility Comments Pt needed min cues Gait Assessment Gait Gait Assistance Required: Minimum Assistance Distance (Feet) 150 Able to Maintain Weight Bearing Status Yes During Gait Assistive Devices Assistive Device Gait Belt Front Wheeled Walker Gait Deviations General Gait Pattern Antalgic Decreased Stride Length Decreased Feet Clearance Step-to Gait Factors Limiting Gait Function Factors Limiting Gait Function Decreased Activity Tolerance Decreased Strength Difficulty Following Directions Limited Range of Motion Pain Poor Balance Poor Safety Awareness Comments Gait Comments Pt ambulated 50 feet and then 100 feet with FWW and CGA Stair Climbing Assessment Evaluation Level of Assist On Stairs Contact Guard Assistance Devices Stair Climbing Assistive Devices Left Railing Technique/Endurance Stair Climbing Direction Ascend and Descend Stair Climbing Technique Step to Step Number of Steps Climbed 3 Stair Climbing Set # Repetitions (reps) 1 Comments Stair Climbing Comments pt need mod cues. M5 PT-IP Objective Assessments Start: 02/10/19 13:01 Freq: NEEDED Status: Active Protocol: Document 02/10/19 09:20 AB (Rec: 02/10/19 13:16 AB [id number]) Orientation Orientation/Cognition Level of Alertness Alert Orientation Name Place Situation Safety Awareness Decreased Safety Awareness Memory Description Short Term Impaired Gross Range of Motion Lower Extremity ROM Impairments L knee flexion: ~ 70 deg L knee extension: ~ 15 deg to O Strength Lower Extremity Strength Assessment Left Impaired Hip 4-/5 Knee 3+/5 Coordination Assessment Gross Coordination Gross Coordination WNL Sensation Assessment Sensation Gross Sensation WNL Muscle Tone Muscle Tone WNL Yes M6 PT-IP Treatment Start: 02/10/19 13:01 Freq: NEEDED Status: Active Protocol: Document 02/10/19 14:25 GGD (Rec: 02/10/19 16:20 GGD [id number]) Physical Therapy Treatment Exercises Exercises Ankle Pumps Quad Sets Heel Slides Seated Knee Flexion/Extension Education Education Provided Safety M7 PT-IP Assessment and Plan Start: 02/10/19 13:01 Freq: NEEDED Status: Active Protocol: Document 02/10/19 14:25 GGD (Rec: 02/10/19 16:20 GGD [id number]) PT Summary Assessment and Plan Summary Assessment Summary Pt improving with mobility. She was able to progress gait distance. She need mod cues for gait pattern and knee flexion. She was safe with stair mobility. Pt safe for home D/C when medically stable . Frequency of Treatment Frequency Of Treatment Twice a Day Treatment Plan Physical Therapy Treatment Plan Bed Mobility Training Transfer Training Gait Training Therapeutic Exercise Balance Retraining Post Op Education Discharge Planning Hot or Cold Pack Neuromuscular Re-ed Coordination Retraining Manual Therapy Recommendations To Nursing Amount of Assist Needed 1 Person Assist Discharge Recommendations PT Discharge Recommendations Home with Assistance Outpatient PT Equipment Needed for Home Before FWW Discharge
--- NOTE | 2019-02-10 13:48 | PC.NURSE ---
Pain controleld with PRN Oxycodone given X2 this shift, first dose this AM, pt reported feeling slightly whoozy. Still able to ambulate OOB with PT. Hemovac drain removed at 1345 without difficulty, Cleansed area with NS, Dry 2X2 folded gauze and tegaderm placed over site. Left knee aquacel dressing CDI. CMS+, PPP, Pt has chronic edema to BLE L>R. Plan to discharge home tomorrow. LIU Zhou aware around 1230.
[2019-02-10] MEDS: SIMVASTATIN 10 MG TABLET PO (20:10)
[2019-02-11 05:06] VITALS: BP 150/77; PULSE 83; RESP 16; TEMP 36.5; O2SAT 98
[2019-02-11] MEDS: LEVOTHYROXINE 25 MCG TABLET PO (06:28)
[2019-02-11 09:00] VITALS: BP 110/80; PULSE 92; RESP 15; TEMP 36.9; O2SAT 96
[2019-02-11] MEDS: METOPROLOL ER 25 MG TABLET PO (09:35)
[2019-02-11] MEDS: OXYCODONE IR 5 MG TABLET PO (09:35)
[2019-02-11] MEDS: ASPIRIN EC 81 MG TABLET PO (09:35)
[2019-02-11] MEDS: FUROSEMIDE 20 MG TABLET PO (09:35)
[2019-02-11] MEDS: ACETAMINOPHEN 325 MG TABLET 975 MG PO (09:36)
[2019-02-11] MEDS: DOCUSATE 100 MG CAPSULE PO (09:36)
--- NOTE | 2019-02-11 10:55 | PT.IPTN ---
Current Diagnoses Rheumatoid arthritis, unspecified (02/09/19) Unilateral primary osteoarthritis, left knee (02/09/19) Surgery Performed Operation Date: 02/09/19 13:45 Actual Procedures p Total Knee Arthroplasty(Left) - Ro Forrest MD Physical Therapy Treatment Note M2 PT-IP Current Condition Start: 02/10/19 13:01 Freq: NEEDED Status: Active Protocol: Document 02/10/19 09:20 AB (Rec: 02/10/19 13:16 AB [id number]) Physical Therapy Current Condition Current Condition Evaluation Date 02/10/19 Treatment Diagnosis s/p L TKA; difficulty in walking Onset Date 02/09/19 Weight Bearing Status Weight Bearing Status Weight Bear as Tolerated M3 PT-IP Subjective Start: 02/10/19 13:01 Freq: NEEDED Status: Active Protocol: Document 02/11/19 10:55 GGD (Rec: 02/11/19 11:38 GGD [id number]) Subjective Physical Therapy Visit Type Type Treatment Note Visit Start Time 10:30 Visit Stop Time 10:55 Total Visit Minutes 25 Number of INFORMATION SYSTEMS ANALYST Visits 2 Physical Therapy Visit Comments Patient Comments Pt states her knee hurting more. Therapy Pain Assessment Pain When Pain Assessed At Rest Pain Present Pain Present Pain Reported Location Left Knee Intensity 6 Scale Used Numeric (1 - 10) Pain Management Techniques Apply Cold Re-positioning Timing of Activity with Medications M4 PT-IP Mobility and Gait Start: 02/10/19 13:01 Freq: NEEDED Status: Active Protocol: Document 02/11/19 10:55 GGD (Rec: 02/11/19 11:38 GGD [id number]) PT-Bed Mobility Assessment Sit to Supine Sit to Supine Standby Assistance Scooting Scooting to Edge of Bed Standby Assistance PT-Transfer Assessment Sit to and From Stand Sit to and from Stand Contact Guard Assistance 1 Person Assistance Equipment Transfer Assistive Device Gait Belt Front Wheeled Walker Orthotic/Prosthetic Devices or Brace: No Transfers Transfer Destination Chair Transfer Ability Level of Assist Contact Guard Assistance 1 Person Assistance Use of Upper Extremities Comments Mobility Comments Pt needed min cues. Gait Assessment Gait Gait Assistance Required: Minimum Assistance Distance (Feet) 220 Able to Maintain Weight Bearing Status Yes During Gait Assistive Devices Assistive Device Gait Belt Front Wheeled Walker Gait Deviations General Gait Pattern Antalgic Decreased Stride Length Decreased Feet Clearance Step-to Gait Factors Limiting Gait Function Factors Limiting Gait Function Decreased Activity Tolerance Decreased Strength Difficulty Following Directions Limited Range of Motion Pain Poor Balance Poor Safety Awareness M5 PT-IP Objective Assessments Start: 02/10/19 13:01 Freq: NEEDED Status: Active Protocol: Document 02/10/19 09:20 AB (Rec: 02/10/19 13:16 AB [id number]) Orientation Orientation/Cognition Level of Alertness Alert Orientation Name Place Situation Safety Awareness Decreased Safety Awareness Memory Description Short Term Impaired Gross Range of Motion Lower Extremity ROM Impairments L knee flexion: ~ 70 deg L knee extension: ~ 15 deg to O Strength Lower Extremity Strength Assessment Left Impaired Hip 4-/5 Knee 3+/5 Coordination Assessment Gross Coordination Gross Coordination WNL Sensation Assessment Sensation Gross Sensation WNL Muscle Tone Muscle Tone WNL Yes M6 PT-IP Treatment Start: 02/10/19 13:01 Freq: NEEDED Status: Active Protocol: Document 02/11/19 10:55 GGD (Rec: 02/11/19 11:38 GGD [id number]) Physical Therapy Treatment Exercises Exercises Ankle Pumps Quad Sets Heel Slides Seated Knee Flexion/Extension Education Education Provided Safety Equipment Issued Equipment Type and Company FWW M7 PT-IP Assessment and Plan Start: 02/10/19 13:01 Freq: NEEDED Status: Active Protocol: Document 02/11/19 10:55 GGD (Rec: 02/11/19 11:38 GGD [id number]) PT Summary Assessment and Plan Summary Assessment Summary Pt able to progress gait distance. She need min cues for safety and gait pattern. Pt safe for home D/C when medically stable. Frequency of Treatment Frequency Of Treatment Twice a Day Treatment Plan Physical Therapy Treatment Plan Bed Mobility Training Transfer Training Gait Training Therapeutic Exercise Balance Retraining Post Op Education Discharge Planning Hot or Cold Pack Neuromuscular Re-ed Coordination Retraining Manual Therapy Recommendations To Nursing Amount of Assist Needed 1 Person Assist Discharge Recommendations PT Discharge Recommendations Home with Assistance Outpatient PT
[2019-02-11 12:44] VITALS: O2SAT 97
--- NOTE | 2019-02-11 13:15 | PC.NURSE ---
Discharge Pt cleared by PT, up with SBA and FWW. pt states she took all belongings with her. d/c instructions provided to pt and her family. Aware to check on f/u apts with MD. PT already scheduled. Clarified with [facility] [place], ok for pt to take tylenol and ibuprofen, relayed to pt and family. Has oxy at home already. PIV removed without issue. pt left in w/c with EXHIBITS COORDINATOR escort.
== END 2019-02-11 12:45 | disposition home or self-care (01) | DRG 470 ==
PROVIDERS: Admitting Provider Orthopaedic Surgery; PCP Family Medicine; Visit Provider Orthopaedic Surgery
PROC: 0SRD0JZ Replacement of Left Knee Joint with Synthetic Substitute, Open Approach (ICD-10-PCS; CPT 27447; principal; 2019-02-09 13:45)
DX: M17.12 Unilateral primary osteoarthritis, left knee (principal); I47.2 Ventricular tachycardia; M06.9 Rheumatoid arthritis, unspecified; I10 Essential (primary) hypertension; E78.5 Hyperlipidemia, unspecified; I36.1 Nonrheumatic tricuspid (valve) insufficiency
CPT/HCPCS: 36415; 73560; 85014; 85018; 94762; 97116; 97162; 97530; C1776; C9290; J0690; J1100; J2250; J2405; J2704; J3010

== ENCOUNTER → 2019-02-16 15:12 | Outpatient (CLI) | payer OTHER, SELFPAY ==
[2019-02-09 17:55] VITALS: BMI 23.8
--- NOTE | 2019-02-16 | DI.US.S_ITS ---
PROCEDURE: US PERIPH VENOUS LOW EXTREM LT INDICATIONS: OSTEOARTHRITISOF LEFT KNEE / POST PROCEDURE TECHNIQUE: Real-time imaging, as well as color and pulse Doppler interrogation, were performed of the lower extremity deep veins from the inguinal ligament to the popliteal fossa. COMPARISON: None. FINDINGS: The common femoral, femoral and popliteal veins are normally compressible, and free of intraluminal thrombus. Color and pulse Doppler demonstrate normal phasic intraluminal flow. There is normal augmentation response to distal compression maneuver. IMPRESSION: No DVT found. Dictated by: John Daniels M.D. on 02/16/2019 at 16:34 Approved by: John Daniels M.D. on 02/16/2019 at 16:34
== END ==
PROVIDERS: Family Provider Family Medicine; PCP Family Medicine; Visit Provider Physician Assistant Medical
DX: M17.12 Unilateral primary osteoarthritis, left knee (principal)
CPT/HCPCS: 93971

== ENCOUNTER 2019-02-27 17:16 | Emergency (ER) | payer OTHER, SELFPAY ==
[2019-02-09 17:55] VITALS: BMI 23.8
[2019-02-27 17:21] VITALS: BP 159/88; PULSE 86; RESP 18; TEMP 36.6; O2SAT 100; BMI 22.7
[2019-02-27 17:57] LABS: Add Manual Diff / Slide Review NO; Basophils Absolute Auto 100 /uL (0-100); Basophils Percent Auto 0.7 % (0-2); Eosinophils Absolute Auto 100 /uL (0-450); Eosinophils Percent Auto 1.5 % (2-4); Hematocrit 32.7 % (36-46); Lymphocytes Absolute Auto 1500 /uL (1100-4500); Lymphocytes Percent Auto 18.6 % (25-40); Mean Corpuscular HGB Conc 33.6 % (30-36); Mean Corpuscular Hemoglobin 33.4 PG (26-34); Mean Corpuscular Volume 99.3 fL (80-100); Monocytes Absolute Auto 1200 /uL (0-900); Monocytes Percent Auto 14.1 % (3-14); Neutrophils Absolute Auto 5400 /uL (1500-7000); Neutrophils Percent Auto 65.1 % (50-75); Platelet Count 494 X10^3/uL (150-400); Red Blood Cell Count 3.29 X10^6/uL (4.0-5.2); Red Cell Distribution Width 15.5 % (11.6-14.8); White Blood Cell Count 8.3 X10^3/uL (4.5-11.0)
[2019-02-27 18:04] LABS: Alanine Aminotransferase 20 IU/L (9-52); Albumin 3.8 g/dL (3.5-5.0); Albumin Globulin Ratio 1.2 (1.0-2.8); Alkaline Phosphatase 163 U/L (38-126); Aspartate Aminotransferase 22 IU/L (14-36); BUN Creatinine Ratio 22.2 (6-22); Bilirubin Total 0.4 mg/dL (0.2-1.3); Blood Urea Nitrogen 20 mg/dL (7-17); Calcium 9.2 mg/dL (8.4-10.2); Carbon Dioxide 28 mmol/L (22-32); Chloride 105 mmol/L (98-107); Estimated Glomerular Filt Rate > 60.0 mL/min (>60); Globulin 3.1 g/dL (1.7-4.1); Glucose 103 mg/dL (80-110); HEMOLYSIS < 15 (0-50); Potassium 3.7 mmol/L (3.4-5.1); Sodium 141 mmol/L (137-145); Total Protein 6.9 g/dL (6.3-8.2)
[2019-02-27 20:17] VITALS: BP 156/70; PULSE 75; RESP 18; O2SAT 100
--- NOTE | 2019-02-27 20:28 | DI.US.S_ITS ---
PROCEDURE: US PERIPH VENOUS LOW EXTREM LT INDICATIONS: PAIN, REDNESS,SWELLING, WARMTH, RECENT SURGURY TECHNIQUE: Real-time imaging, as well as color and pulse Doppler interrogation, were performed of the lower extremity deep veins from the inguinal ligament to the popliteal fossa. COMPARISON: None. FINDINGS: The common femoral, femoral and popliteal veins are normally compressible, and free of intraluminal thrombus. Color and pulse Doppler demonstrate normal phasic intraluminal flow. There is normal augmentation response to distal compression maneuver. Incidental note made of a 4.4 x 0.7 x 0.6 cm popliteal cyst. IMPRESSION: No evidence of deep vein thrombosis involving the left lower extremity. Dictated by: Carmen Bazan MD, PhD on 02/28/2019 at 7:10 Approved by: Carmen Bazan MD, PhD on 02/28/2019 at 7:10
[2019-02-27 20:47] LABS: C-Reactive Protein Quant 2.2 mg/dL (<1.0)
[2019-02-27 21:01] LABS: Erythrocyte Sedimentation Rate 40 MM/HR (0-20)
[2019-02-27 21:53] VITALS: BP 139/72; PULSE 81; RESP 16; TEMP 36.4; O2SAT 96
[2019-02-27] MEDS: DOXYCYCLINE HYCLATE 100 MG TABLET PO (23:07)
[2019-02-27 23:11] VITALS: BP 141/79; PULSE 79; RESP 16; O2SAT 99
--- NOTE | 2019-02-28 05:08 | ED_ITS ---
HPI - Extremity Problem General Chief complaint: Extremity Problem,Nontraumatic Stated complaint: L Lower extremity pain, cellulitis Time Seen by Provider: 02/27/19 19:00 Source: patient and EMS Mode of arrival: EMS Limitations: no limitations History of Present Illness HPI Narrative: 78-year-old female nonsmoker with history of hypertension, hyperlipidemia, COPD, migraines and recent left knee surgery with subsequent left lower extremity cellulitis finish her antibiotics earlier today and states she still has some swelling and pain in her leg. She denies systemic findings such as fever, chills nor nausea or vomiting. She denies any drainage from the incisions she denies any abdominal pain or dysuria, frequency or urgency. She denies any injury. MD Complaint: extremity pain and extremity swelling Onset (ago): day(s) Pain Consistency: constant Location: left Quality: aching Radiation: none Relieving factors: rest Exacerbating factors: walking and palpation Associated symptoms: denies other symptoms Context: recent surgery/procedure and history of DVT Related Data Home Medications Medication Instructions Recorded Confirmed Enbrel 50 mg SC QWEEK #0 08/10/11 02/09/19 methotrexate sodium 7 tab PO QWEEK #0 08/10/11 02/09/19 furosemide 20 mg PO QAM 02/01/19 02/27/19 metoprolol succinate 25 mg PO DAILY 02/01/19 02/27/19 levothyroxine 25 mcg PO DAILY 02/27/19 02/27/19 lisinopril 5 mg PO DAILY 02/27/19 02/27/19 ranitidine HCl 150 mg PO DAILY 02/27/19 02/27/19 simvastatin 10 mg PO DAILY 02/27/19 02/27/19 Previous Rx's Medication Instructions Recorded acetaminophen 975 mg PO TID #30 tab 02/10/19 aspirin 81 mg PO BID #60 tab 02/10/19 doxycycline hyclate 100 mg PO BID #20 tab 02/27/19 Allergies Allergy/AdvReac Type Severity Reaction Status Date / Time NSAIDS (Non-Steroidal AdvReac Mild Gastrointestinal Verified 02/27/19 17:19 Anti-Inflamma Upset Review of Systems Constitutional Denies chills, Denies fever(s), Denies lethargy and Denies weakness Eyes Denies change in vision, Denies eye discharge, Denies irritation and Denies loss of vision ENT Ears, Nose, Mouth, and Throat: Denies change in voice, Denies neck pain and Denies sore throat Cardiovascular Denies chest pain, Denies irregular heart rhythm, Denies lightheadedness, Denies palpitations, Denies dyspnea, Denies dyspnea on exertion and Denies orthopnea Respiratory Denies cough, Denies dyspnea, Denies dyspnea on exertion and Denies wheezing Gastrointestinal Gastrointestinal: Denies abdominal pain, Denies change in bowel habits, Denies diarrhea, Denies nausea and Denies vomiting Genitourinary Denies hematuria, Denies flank pain, Denies urinary incontinence and Denies urinary urgency Musculoskeletal Denies neck pain Integumentary/Breasts Denies pruritus, Reports erythema, Denies rash and Denies wounds Neurologic Denies confusion, Denies loss of vision and Denies weakness Psychiatric Denies anxiety, Denies confusion, Denies depression, Denies homicidal ideation and Denies suicidal ideation Endocrine Denies palpitations Hematologic/Lymphatic Denies easy bruising Allergic/Immunologic Denies wheezing [facility] Medical History Asthma (Acute) Atrial fibrillation (Acute) COPD (chronic obstructive pulmonary disease) (Acute) Depression (Acute) Easy bruisability (Acute) Edema (Acute) Former smoker (Acute) GI bleed (Acute ~2017) HLD (hyperlipidemia) (Acute) HTN (hypertension) (Acute) Hip fracture, left (Acute ~10/2010) History of left heart catheterization (Acute ~10/2010) Hypothyroidism (Acute) NSVT (nonsustained ventricular tachycardia) (Acute) Neck pain (Acute) Neuropathy (Acute) Pulmonary hypertension, mild (Acute) Raynauds phenomenon (Acute) Rheumatoid arthritis (Acute) Tinnitus (Acute) Tricuspid regurgitation (Acute) Surgical History Hx of hand surgery (Acute) Hx of tonsillectomy (Acute) Hx of tubal ligation (Acute) Social History household members: children Smoking Status: Former smoker alcohol intake: former Social History household members: children Smoking Status: Former smoker alcohol intake: former Exam Narrative Exam Narrative: GENERAL: 78-year-old female appears stated age, in no obvious distress, a bit anxious HEAD: Atraumatic. Normocephalic. EYES: Pupils equal round and reactive. Extraocular motions intact. ENT: Nose without bleeding, purulent drainage or septal hematoma. Airway patent. NECK: Trachea midline. No JVD or lymphadenopathy. Supple, nontender, no meningeal signs. CARDIOVASCULAR: Regular rate and rhythm without murmurs, gallops, or rubs. RESPIRATORY: Clear to auscultation. Breath sounds equal bilaterally. No wheezes, rales, or rhonchi. GASTROINTESTINAL: Abdomen soft, non-tender, nondistended. No hepato- splenomegaly, or palpable masses. No guarding. EXTREMITIES: Left knee demonstrates appropriate healing. Incisions are clean, dry and intact. No swelling, erythema or effusion of knee. There is some swelling of the left lower extremity below the knee was 1+ edema and mild erythema with warmth to touch. She does complain of pain on palpation of her calf. BACK: Nontender without deformity or crepitance. No flank tenderness. NEURO: AOx3. SKIN: No rash or erythema. Initial Vital Signs Initial Vital Signs: Vital Signs Temperature 97.8 F 02/27/19 17:21 Pulse Rate 86 02/27/19 17:21 Respiratory Rate 18 02/27/19 17:21 Blood Pressure 159/88 H 02/27/19 17:21 Pulse Oximetry 100 02/27/19 17:21 Course Orders Ordered: ED Orders 02/27/19 20:28 periph venous low extrem lt Stat Discontinued Medications Doxycycline Hyclate (Vibramycin) 100 mg PO NOW ONE Stop: 02/27/19 23:00 Last Admin: 02/27/19 23:07 Dose: 100 mg Reevaluation(s) Reevaluation #1: Patient ambulates using a walker without any significant difficulty. Her son agrees to meet her at the cab and will ensure she gets in the home safely, he lives with her Vital Signs - 8 hr 02/27/19 21:53 02/27/19 23:11 Temperature 97.6 F Pulse Rate 81 79 Respiratory Rate 16 16 Blood Pressure [Right Arm] 139/72 141/79 H Pulse Oximetry 96 99 MDM - Extremity (Nontraumatic) Lab Data Result diagrams: 02/27/19 17:45 02/27/19 17:45 Lab Results 02/27/19 02/27/19 02/27/19 Range/Units 17:45 17:45 17:45 WBC 8.3 (4.5-11.0) X10^3/uL RBC 3.29 L (4.0-5.2) X10^6/uL Hgb 11.0 L (12.0-16.0) g/dL Hct 32.7 L (36-46) % MCV 99.3 (80-100) fL MCH 33.4 (26-34) PG MCHC 33.6 (30-36) % RDW 15.5 H (11.6-14.8) % Plt Count 494 H (150-400) X10^3/uL Neut % (Auto) 65.1 (50-75) % Lymph % (Auto) 18.6 L (25-40) % Allen % (Auto) 14.1 H (3-14) % Eos % (Auto) 1.5 L (2-4) % Baso % (Auto) 0.7 (0-2) % Neut # (Auto) 5400 (8647-7268) /uL Lymph # (Auto) 1500 (9669-4384) /uL Allen # (Auto) 1200 H (0-900) /uL Eos # (Auto) 100 (0-450) /uL Baso # (Auto) 100 (0-100) /uL ESR 40 H (0-20) MM/HR Sodium 141 (137-145) mmol/L Potassium 3.7 (3.4-5.1) mmol/L Chloride 105 (98-107) mmol/L Carbon Dioxide 28 (22-32) mmol/L BUN 20 H (7-17) mg/dL Creatinine 0.90 (0.52-1.04) mg/dL Estimated GFR > 60.0 (>60) mL/min BUN/Creatinine Ratio 22.2 H (6-22) Glucose 103 (80-110) mg/dL Calcium 9.2 (8.4-10.2) mg/dL Total Bilirubin 0.4 (0.2-1.3) mg/dL AST 22 (14-36) IU/L ALT 20 (9-52) IU/L Alkaline Phosphatase 163 H (38-126) U/L C-Reactive Protein (<1.0) mg/dL Total Protein 6.9 (6.3-8.2) g/dL Albumin 3.8 (3.5-5.0) g/dL Globulin 3.1 (1.7-4.1) g/dL Albumin/Globulin Ratio 1.2 (1.0-2.8) 02/27/19 Range/Units 17:45 WBC (4.5-11.0) X10^3/uL RBC (4.0-5.2) X10^6/uL Hgb (12.0-16.0) g/dL Hct (36-46) % MCV (80-100) fL MCH (26-34) PG MCHC (30-36) % RDW (11.6-14.8) % Plt Count (150-400) X10^3/uL Neut % (Auto) (50-75) % Lymph % (Auto) (25-40) % Allen % (Auto) (3-14) % Eos % (Auto) (2-4) % Baso % (Auto) (0-2) % Neut # (Auto) (7165-3144) /uL Lymph # (Auto) (5140-6037) /uL Allen # (Auto) (0-900) /uL Eos # (Auto) (0-450) /uL Baso # (Auto) (0-100) /uL ESR (0-20) MM/HR Sodium (137-145) mmol/L Potassium (3.4-5.1) mmol/L Chloride (98-107) mmol/L Carbon Dioxide (22-32) mmol/L BUN (7-17) mg/dL Creatinine (0.52-1.04) mg/dL Estimated GFR (>60) mL/min BUN/Creatinine Ratio (6-22) Glucose (80-110) mg/dL Calcium (8.4-10.2) mg/dL Total Bilirubin (0.2-1.3) mg/dL AST (14-36) IU/L ALT (9-52) IU/L Alkaline Phosphatase (38-126) U/L C-Reactive Protein 2.2 H (<1.0) mg/dL Total Protein (6.3-8.2) g/dL Albumin (3.5-5.0) g/dL Globulin (1.7-4.1) g/dL Albumin/Globulin Ratio (1.0-2.8) Imaging Data Venous US: Radiologist's impression: Negative for DVT MDM Narrative Medical decision making narrative: 78-year-old female with relatively recent left total knee presents with minimal ongoing redness, warmth and swelling and had just completed a 7 day course of doxycycline for the treatment of cellulitis. She denies systemic findings to suggest sepsis. Labs are very reassuring as is physical exam. Ultrasound rules out DVT. Ambulation trial goes well. Return precautions given, patient had questions answered to her a pparent satisfaction Discharge Plan Departure Patient Disposition: Home Clinical Impression: Lower extremity edema Cellulitis Qualifiers: Site of cellulitis: extremity Site of cellulitis of extremity: lower extremity Laterality: left Qualified Code(s): L03.116 - Cellulitis of left lower limb Discharge Date/Time: 02/28/19 00:40 Interventions: ED Discharge Assessment Last Done: 02/28/19 00:40 Instructions: DI for Cellulitis -- Adult Activity Restrictions/Additional Instructions: *You have been diagnosed with [left lower leg swelling, possible mild cellulitis. DVT has been ruled out] *What to do: *Take medications as directed *Follow up with your primary care provider in 2-3 days, call for an appointment. Let them know you were seen in the Emergency Department and that we ask that you be seen in follow up *Return to ER if you should have any new, worsening or concerning symptoms Prescriptions: New doxycycline hyclate 100 mg tablet 100 mg PO BID Qty: 20 RF: 0 No Action Enbrel 50 MG/1 ML syringe 50 mg SC QWEEK Qty: 0 RF: 0 methotrexate sodium 2.5 mg Tablet 7 tab PO QWEEK Qty: 0 RF: 0 metoprolol succinate 25 mg Tablet Extended Release 24 Hr 25 mg PO DAILY RF: 0 furosemide 20 mg Tablet 20 mg PO QAM RF: 0 acetaminophen 325 mg Tablet 975 mg PO TID Qty: 30 RF: 0 aspirin 81 mg Tablet,Delayed Release (Dr/Ec) 81 mg PO BID Qty: 60 RF: 0 simvastatin 10 mg tablet 10 mg PO DAILY RF: 0 levothyroxine 25 mcg tablet 25 mcg PO DAILY RF: 0 ranitidine HCl 150 mg Tablet 150 mg PO DAILY RF: 0 lisinopril 10 mg tablet 5 mg PO DAILY RF: 0 Referrals: Leslie Williamson MD [Primary Care Provider] -
== END 2019-02-28 00:40 | disposition home or self-care (01) ==
PROVIDERS: Emergency Medicine; Emergency Provider Emergency Medicine; Family Provider Family Medicine; PCP Family Medicine
DX: R60.0 Localized edema (principal); L03.116 Cellulitis of left lower limb
CPT/HCPCS: 36415; 80053; 85025; 85651; 86140; 93971; 99283; 99284

== ENCOUNTER 2019-06-07 14:49 | Observation (INO) | payer OTHER, SELFPAY ==
[2019-02-09 17:55] VITALS: BMI 23.8
[2019-06-07 15:06] VITALS: BP 118/71; PULSE 76; RESP 19; O2SAT 100
--- NOTE | 2019-06-07 15:29 | ED.LOWEXIN ---
HPI - Extremity Injury (Lower) <Estela FreyLADARIUS - Last Filed: 06/07/19 21:11> General Chief Complaint: Extremity Injury, Lower Stated Complaint: GLF, hip pain Time Seen by Provider: 06/07/19 14:56 Source: patient Mode of arrival: Ambulatory History of Present Illness HPI Narrative: 79-year-old female presents emergency department after being sent from the Orthopedics office for fall during and ortho visit reguarding left femur fracture. After the fall, she sustaining a left inferior and superior pubic rami fracture. She was seeing Dr. Forrest at this time. The clinic had physical therapy evaluate the patient but she was unable to ambulate successfully. Patient lives at home with her son and is unable to make it into the house due to stairs. Additionally, provider had concern about the care of the elder by her son due to the signs drinking habits. Patient reports left-sided hip pain 5/10 dull aching that is worse with movement and better with rest. She denies any chest pain, shortness of breath, fevers, chills, nausea, vomiting, diarrhea, or other concerns. Related Data Home Medications Medication Instructions Recorded Confirmed Enbrel 50 mg SC QWEEK #0 08/10/11 06/07/19 methotrexate sodium 6 tab PO QWEEK #0 08/10/11 06/07/19 furosemide 20 mg PO QAM 02/01/19 06/07/19 metoprolol succinate 25 mg PO DAILY 02/01/19 06/07/19 levothyroxine 25 mcg PO DAILY 02/27/19 06/07/19 lisinopril 5 mg PO DAILY 02/27/19 06/07/19 simvastatin 10 mg PO DAILY 02/27/19 06/07/19 ascorbic acid (vitamin C) 1,000 mg PO DAILY 06/07/19 06/07/19 biotin 5,000 mcg SUBLINGUAL DAILY 06/07/19 06/07/19 calcium carbonate [Calcium 500] 1,200 mg PO DAILY 06/07/19 06/07/19 cholecalciferol (vitamin D3) 2,000 unit PO DAILY 06/07/19 06/07/19 [Vitamin D3] cyanocobalamin (vitamin B-12) 5,000 mcg SUBLINGUAL DAILY 06/07/19 06/07/19 [Vitamin B-12] folic acid 1,600 mcg PO DAILY 06/07/19 06/07/19 magnesium 500 mg PO DAILY 06/07/19 06/07/19 nb-dp-MO-vit G-mhxpt-qcm-coQ10 1 cap PO DAILY 06/07/19 06/07/19 [Daily Multivitamin] omega 2-gqr-zzo-fish oil [Fish Oil] 1 cap PO DAILY 06/07/19 06/07/19 pantoprazole 40 mg PO DAILY 06/07/19 06/07/19 thiamine HCl (vitamin B1) [Vitamin 100 mg PO DAILY 06/07/19 06/07/19 B-1] Allergies Allergy/AdvReac Type Severity Reaction Status Date / Time NSAIDS (Non-Steroidal AdvReac Mild Gastrointestinal Verified 02/27/19 17:19 Anti-Inflamma Upset aspirin AdvReac Verified 06/07/19 20:17 Review of Systems <LADARIUS Aguirre - Last Filed: 06/07/19 21:11> Review of Systems Narrative: REVIEW OF SYSTEMS: GENERAL: Denies fever or chills. HENT: No head trauma. EYES: No double vision or vision loss. CARDIOVASCULAR: No chest pain or syncope. RESPIRATORY: No shortness of breath or cough. GASTROINTESTINAL: No nausea, vomiting, diarrhea, or constipation. GENITOURINARY: No flank pain or dysuria. MUSCULOSKELETAL: Complains of left hip pain, see HPI. INTEGUMENTARY: No rash, lesions, or pruritus. NEURO: No numbness, tingling. PSYCH: No behavior or mood changes. Patient History <LADARIUS Aguirre - Last Filed: 06/07/19 21:11> Medical History Asthma (Acute) Atrial fibrillation (Acute) COPD (chronic obstructive pulmonary disease) (Acute) Depression (Acute) Easy bruisability (Acute) Edema (Acute) Former smoker (Acute) GI bleed (Acute ~2018) Hip fracture, left (Acute ~10/2010) History of left heart catheterization (Acute ~10/2010) HLD (hyperlipidemia) (Acute) HTN (hypertension) (Acute) Hypothyroidism (Acute) Neck pain (Acute) Neuropathy (Acute) NSVT (nonsustained ventricular tachycardia) (Acute) Pulmonary hypertension, mild (Acute) Raynauds phenomenon (Acute) Rheumatoid arthritis (Acute) Tinnitus (Acute) Tricuspid regurgitation (Acute) Surgical History Hx of hand surgery (Acute) Hx of tonsillectomy (Acute) Hx of tubal ligation (Acute) Social History household members: children Smoking Status: Former smoker alcohol intake: former Substance Use Type: does not use Exam <LADARIUS Aguirre - Last Filed: 06/07/19 21:11> Initial Vital Signs Initial Vital Signs: Vital Signs Pulse Rate 76 06/07/19 15:06 Respiratory Rate 19 06/07/19 15:06 Blood Pressure 118/71 06/07/19 15:06 Pulse Oximetry 100 06/07/19 15:06 PHYSICAL EXAMINATION: GENERAL: Well groomed, alert, and cooperative. Answers questions promptly and appropriately. Vital signs noted. HENT: Normocephalic, atraumatic. EYES: Symmetrical, sclera white, no periorbital swelling. CARDIOVASCULAR: S1 and S2 sounds normal. Regular rate and rhythm, no murmurs, clicks, or bruits. RESPIRATORY: Normal respiratory rate, trachea midline, airway patent. No stridor, nasal flaring or accessory muscle use. Lungs are clear in all woods. MUSCULOSKELETAL: Tenderness to left hip and groin with palpation, unable to bear weight on left leg, two person assist required to transfer patient. Tenderness with palpation to left. EXTREMITIES: CMS intact. Pedal pulses 2+ and equal bilaterally. SKIN: Warm, dry, soft, appropriate color for ethnicity. No lesions, rashes, or wounds. NEURO: Alert and Oriented X 3. No sensory deficits. PSYCH: Appropriate affect and mood. <Misael Mendoza DO - Last Filed: 06/07/19 21:18> Initial Vital Signs Initial Vital Signs: Vital Signs Pulse Rate 76 06/07/19 15:06 Respiratory Rate 19 06/07/19 15:06 Blood Pressure 118/71 06/07/19 15:06 Pulse Oximetry 100 06/07/19 15:06 Course <LADARIUS Aguirre - Last Filed: 06/07/19 21:11> Course Course Narrative: I spoke with Dr. Forrest prior to patient's arrival who reports inferior and superior left pelvic rami fracture on x-ray an office. PT evaluated patient and patient cannot ambulate on leg, she reports she had extensive pain. I spoke with Dr. Constantino about patient admission, she suggested plevic CT, basic labs, and urine for admission. Dr. Constantino accepted patient for observation. Patient refused insertion of Fletcher catheter. Dr. Forrest saw the patient in the emergency department. Orders Ordered: ED Orders 06/07/19 16:29 CT pelvis wo con Stat 06/07/19 17:51 Consult to Orthopedic Surgery Stat 06/07/19 18:10 Complete Blood Count AUTO DIFF Stat Comprehensive Metabolic Panel Stat Influenza Virus Vaccine (Flu Vaccine) 0.5 ml IM .ONCE ONE Stop: 06/08/19 09:01 Reevaluation(s) Reevaluation #1: Patient staffed with Dr. Mendoza. Vital Signs Vital signs: Vital Signs - 8 hr 06/07/19 15:06 06/07/19 18:00 06/07/19 18:26 Pulse Rate 76 76 81 Respiratory Rate 19 17 12 Blood Pressure [Left Arm] 118/71 148/77 H 158/57 H Pulse Oximetry 100 96 98 <Misael Mendoza DO - Last Filed: 06/07/19 21:18> Orders Ordered: ED Orders 06/07/19 16:29 CT pelvis wo con Stat 06/07/19 17:51 Consult to Orthopedic Surgery Stat 06/07/19 18:10 Complete Blood Count AUTO DIFF Stat Comprehensive Metabolic Panel Stat Influenza Virus Vaccine (Flu Vaccine) 0.5 ml IM .ONCE ONE Stop: 06/08/19 09:01 Vital Signs Vital signs: Vital Signs - 8 hr 06/07/19 15:06 06/07/19 18:00 06/07/19 18:26 Pulse Rate 76 76 81 Respiratory Rate 19 17 12 Blood Pressure [Left Arm] 118/71 148/77 H 158/57 H Pulse Oximetry 100 96 98 MDM - Extremity Injury (Lower) <LADARIUS Aguirre - Last Filed: 06/07/19 21:11> Medical Records Attestation: I reviewed the patient's medical records. Lab Data Attestation: I reviewed the patient's lab results. Result diagrams: 06/07/19 18:10 06/07/19 18:10 Labs: Lab Results 11/13/19 11/13/19 Range/Units 18:10 18:10 WBC 8.9 (4.5-11.0) X10^3/uL RBC 3.81 L (4.0-5.2) X10^6/uL Hgb 11.8 L (12.0-16.0) g/dL Hct 35.9 L (36-46) % MCV 94.1 (80-100) fL MCH 31.0 (26-34) PG MCHC 32.9 (30-36) % RDW 16.4 H (11.6-14.8) % Plt Count 263 (150-400) X10^3/uL Neut % (Auto) 76.4 H (50-75) % Lymph % (Auto) 15.5 L (25-40) % [place] % (Auto) 6.6 (3-14) % Eos % (Auto) 1.3 L (2-4) % Baso % (Auto) 0.2 (0-2) % Neut # (Auto) 6800 (5480-7435) /uL Lymph # (Auto) 1400 (1565-5764) /uL [place] # (Auto) 600 (0-900) /uL Eos # (Auto) 100 (0-450) /uL Baso # (Auto) 0 (0-100) /uL Sodium 139 (137-145) mmol/L Potassium 4.0 (3.4-5.1) mmol/L Chloride 103 (98-107) mmol/L Carbon Dioxide 27 (22-32) mmol/L BUN 29 H (7-17) mg/dL Creatinine 1.00 (0.52-1.04) mg/dL Estimated GFR 53.3 L (>60) mL/min BUN/Creatinine Ratio 29.0 H (6-22) Glucose 104 (80-110) mg/dL Calcium 9.2 (8.4-10.2) mg/dL Total Bilirubin 0.5 (0.2-1.3) mg/dL AST 31 (14-36) IU/L ALT 19 (<35) IU/L Alkaline Phosphatase 137 H (38-126) U/L Total Protein 6.9 (6.3-8.2) g/dL Albumin 4.1 (3.5-5.0) g/dL Globulin 2.8 (1.7-4.1) g/dL Albumin/Globulin Ratio 1.5 (1.0-2.8) Urine Dip Bedside Urine Glucose Negative Bedside Urine Bilirubin - Negative Bedside Urine Ketone - Negative Urine Specific [place] 1.010 Bedside Urine Occult Blood - Negative Bedside Urine pH 8 Bedside Urine Protein - Negative Bedside Urine Urobilinogen - Negative Bedside Urine Nitrite - Negative Bedside Urine Leukocytes - Negative Esterase Imaging Data Pelvis CT: Radiologist's impression: [address] [address] [address] Scan Report Signed Patient: Eileen Yeh [facility]#: [id number] : 9Acct:[id number] Age/Sex: 79 / FDate of Service: 06/07/19 Loc: ED Accession Number: [id number] Procedure: CT pelvis wo con Ordering Provider: Estela Frey PROCEDURE: CT PEL WO CON INDICATIONS: Left hip pain TECHNIQUE: Noncontrast 3 mm axial sections acquired through the bony pelvis, with coronal and sagittal reformatting. COMPARISON: [facility], , XR PELVIS WITH LATERAL HIP LEFT, 06/07/2019, 13:46. FINDINGS: Image quality: Diagnostic. Beam hardening artifact from left hip prosthesis is seen. Bones: Patient is status post left total hip arthroplasty. Comminuted fracture involving medial aspect of left superior pubic ramus is seen. There is also acute on chronic fracture involving left inferior pubic ramus. No right hip fracture or dislocation is seen. Right-sided superior and inferior pubic rami are intact. No gross left-sided hardware loosening or failure is noted. There is moderate right hip joint osteoarthritis with no evidence of avascular necrosis of femoral head. Osteoarthritic change is also seen in symphysis pubis and bilateral sacroiliac joints. No gross acute sacral fracture. No acute coccygeal fracture. Soft tissues: There is no peritoneal free fluid or free air. Prominent cystic structures in bilateral adnexa are seen, which may represent bilateral ovarian cysts and measures 3.8 x 5.7 cm in size on the left side and 3.1 x 5.7 cm in size on the right side. Extensive sigmoid diverticulosis is seen, no CT evidence of acute diverticulitis. No evidence of bowel structure. Visualized bilateral kidneys show no hydronephrosis. There is suggestion of cholelithiasis with no obvious CT evidence of acute cholecystitis. IMPRESSION: 1. Prior left total hip arthroplasty. No gross hardware loosening or failure. 2. Acute comminuted fracture involving left superior pubic ramus. Acute on chronic comminuted left inferior pubic ramus fracture. No right hip or right hemipelvic fracture. 3. Osteoarthritic changes throughout bony pelvis. No evidence of avascular necrosis of right femoral head. 4. Prominent cystic structures in bilateral adnexa which may represent ovarian cysts. TRAINING DEVELOPMENT MANAGER correlation is recommended to rule out cystic neoplasm. Extensive sigmoid diverticulosis and mild fecal stasis throughout the colon. No CT evidence of acute cholecystitis. No free fluid or free air. Dictated by: Diego De La Paz M.D. on 06/07/2019 at 17:05 Approved by: Diego De La Paz M.D. on 06/07/2019 at 17:12 [facility] Narrative Medical decision making narrative: This is an 79-year-old female with a history of a left femur fracture and RA, presents emergency department after a fall in the orthopedics office in a sustained pelvic rami fracture. Patient was failed her PT evaluation in the office due to pain and inability to bear weight on her leg. Patient was admitted to Dr. Constantino, whom admitted patient under observation. No acute changes are disease processes suspect due to unremarkable lab work. Fracture confirmed via CT without concern for pelvic hematoma. <Misael Mendoza, - Last Filed: 06/07/19 21:18> Lab Data Labs: Lab Results 06/07/19 06/07/19 Range/Units 18:10 18:10 WBC 8.9 (4.5-11.0) X10^3/uL RBC 3.81 L (4.0-5.2) X10^6/uL Hgb 11.8 L (12.0-16.0) g/dL Hct 35.9 L (36-46) % MCV 94.1 (80-100) fL MCH 31.0 (26-34) PG MCHC 32.9 (30-36) % RDW 16.4 H (11.6-14.8) % Plt Count 263 (150-400) X10^3/uL Neut % (Auto) 76.4 H (50-75) % Lymph % (Auto) 15.5 L (25-40) % [place] % (Auto) 6.6 (3-14) % Eos % (Auto) 1.3 L (2-4) % Baso % (Auto) 0.2 (0-2) % Neut # (Auto) 6800 (7588-9861) /uL Lymph # (Auto) 1400 (2343-8693) /uL [place] # (Auto) 600 (0-900) /uL Eos # (Auto) 100 (0-450) /uL Baso # (Auto) 0 (0-100) /uL Sodium 139 (137-145) mmol/L Potassium 4.0 (3.4-5.1) mmol/L Chloride 103 (98-107) mmol/L Carbon Dioxide 27 (22-32) mmol/L BUN 29 H (7-17) mg/dL Creatinine 1.00 (0.52-1.04) mg/dL Estimated GFR 53.3 L (>60) mL/min BUN/Creatinine Ratio 29.0 H (6-22) Glucose 104 (80-110) mg/dL Calcium 9.2 (8.4-10.2) mg/dL Total Bilirubin 0.5 (0.2-1.3) mg/dL AST 31 (14-36) IU/L ALT 19 (<35) IU/L Alkaline Phosphatase 137 H (38-126) U/L Total Protein 6.9 (6.3-8.2) g/dL Albumin 4.1 (3.5-5.0) g/dL Globulin 2.8 (1.7-4.1) g/dL Albumin/Globulin Ratio 1.5 (1.0-2.8) Urine Dip Bedside Urine Glucose Negative Bedside Urine Bilirubin - Negative Bedside Urine Ketone - Negative Urine Specific [place] 1.010 Bedside Urine Occult Blood - Negative Bedside Urine pH 8 Bedside Urine Protein - Negative Bedside Urine Urobilinogen - Negative Bedside Urine Nitrite - Negative Bedside Urine Leukocytes - Negative Esterase Discharge Plan Departure Admit Date/Time: 06/07/19 19:00 Admit Provider: Martina Constantino <Misael Mendoza, DO - Last Filed: 06/07/19 21:18> Sign Out Provider Sign Out Attestation: Dr Mendoza Co-Sign Statement: I was available for consultation during this patient's emergency department visit. This chart is signed by myself for administrative purposes only. I did not have direct contact with this patient during this visit. They were seen independently by the APC.
--- NOTE | 2019-06-07 16:29 | DI.CT.S_ITS ---
PROCEDURE: CT PEL WO CON INDICATIONS: Left hip pain TECHNIQUE: Noncontrast 3 mm axial sections acquired through the bony pelvis, with coronal and sagittal reformatting. COMPARISON: [facility], [place], XR PELVIS WITH LATERAL HIP LEFT, 06/07/2019, 13:46. FINDINGS: Image quality: Diagnostic. Beam hardening artifact from left hip prosthesis is seen. Bones: Patient is status post left total hip arthroplasty. Comminuted fracture involving medial aspect of left superior pubic ramus is seen. There is also acute on chronic fracture involving left inferior pubic ramus. No right hip fracture or dislocation is seen. Right-sided superior and inferior pubic rami are intact. No gross left-sided hardware loosening or failure is noted. There is moderate right hip joint osteoarthritis with no evidence of avascular necrosis of femoral head. Osteoarthritic change is also seen in symphysis pubis and bilateral sacroiliac joints. No gross acute sacral fracture. No acute coccygeal fracture. Soft tissues: There is no peritoneal free fluid or free air. Prominent cystic structures in bilateral adnexa are seen, which may represent bilateral ovarian cysts and measures 3.8 x 5.7 cm in size on the left side and 3.1 x 5.7 cm in size on the right side. Extensive sigmoid diverticulosis is seen, no CT evidence of acute diverticulitis. No evidence of bowel structure. Visualized bilateral kidneys show no hydronephrosis. There is suggestion of cholelithiasis with no obvious CT evidence of acute cholecystitis. IMPRESSION: 1. Prior left total hip arthroplasty. No gross hardware loosening or failure. 2. Acute comminuted fracture involving left superior pubic ramus. Acute on chronic comminuted left inferior pubic ramus fracture. No right hip or right hemipelvic fracture. 3. Osteoarthritic changes throughout bony pelvis. No evidence of avascular necrosis of right femoral head. 4. Prominent cystic structures in bilateral adnexa which may represent ovarian cysts. LANDSCAPE DRAFTER correlation is recommended to rule out cystic neoplasm. Extensive sigmoid diverticulosis and mild fecal stasis throughout the colon. No CT evidence of acute cholecystitis. No free fluid or free air. Dictated by: Diego De La Paz M.D. on 06/07/2019 at 17:05 Approved by: Diego De La Paz M.D. on 06/07/2019 at 17:12
[2019-06-07 18:00] VITALS: BP 148/77; PULSE 76; RESP 17; O2SAT 96
[2019-06-07 18:26] VITALS: BP 158/57; PULSE 81; RESP 12; O2SAT 98
[2019-06-07 18:32] LABS: Add Manual Diff / Slide Review NO; Basophils Absolute Auto 0 /uL (0-100); Basophils Percent Auto 0.2 % (0-2); Eosinophils Absolute Auto 100 /uL (0-450); Eosinophils Percent Auto 1.3 % (2-4); Hematocrit 35.9 % (36-46); Hemoglobin 11.8 g/dL (12.0-16.0); Lymphocytes Absolute Auto 1400 /uL (1100-4500); Lymphocytes Percent Auto 15.5 % (25-40); Mean Corpuscular HGB Conc 32.9 % (30-36); Mean Corpuscular Volume 94.1 fL (80-100); Monocytes Absolute Auto 600 /uL (0-900); Monocytes Percent Auto 6.6 % (3-14); Neutrophils Absolute Auto 6800 /uL (1500-7000); Neutrophils Percent Auto 76.4 % (50-75); Platelet Count 263 X10^3/uL (150-400); Red Blood Cell Count 3.81 X10^6/uL (4.0-5.2); Red Cell Distribution Width 16.4 % (11.6-14.8); White Blood Cell Count 8.9 X10^3/uL (4.5-11.0)
[2019-06-07 18:47] LABS: Alanine Aminotransferase 19 IU/L (<35); Albumin 4.1 g/dL (3.5-5.0); Albumin Globulin Ratio 1.5 (1.0-2.8); Alkaline Phosphatase 137 U/L (38-126); Aspartate Aminotransferase 31 IU/L (14-36); Bilirubin Total 0.5 mg/dL (0.2-1.3); Blood Urea Nitrogen 29 mg/dL (7-17); Calcium 9.2 mg/dL (8.4-10.2); Carbon Dioxide 27 mmol/L (22-32); Chloride 103 mmol/L (98-107); Estimated Glomerular Filt Rate 53.3 mL/min (>60); Globulin 2.8 g/dL (1.7-4.1); Glucose 104 mg/dL (80-110); HEMOLYSIS < 15 (0-50); Sodium 139 mmol/L (137-145); Total Protein 6.9 g/dL (6.3-8.2)
[2019-06-07 20:10] VITALS: BMI 21.9
[2019-06-07 20:22] VITALS: BP 130/74; PULSE 92; RESP 19; TEMP 36.9; O2SAT 98
--- NOTE | 2019-06-07 21:49 | PC.NURSE ---
Admit Note - Patient admitted to room 227. Brought to room on stretcher by nursing staff. Transferred to bed using slider board. Alert and oriented with pleasant affect. Denies pain except with movement. Oriented to room and call light. Call light within reach and bed alarm on.
[2019-06-07] MEDS: SODIUM CHLORIDE 0.9% 1,000 ML 75 ML IV (21:55)
[2019-06-07 22:20] LABS: Bacteria Urine None Seen; WBC Urine None Seen (0-5/HPF)
[2019-06-07 22:21] LABS: Appearance Urine UA CLEAR; Bilirubin Urine UA NEGATIVE (NEGATIVE); Color Urine UA YELLOW; Glucose Urine UA NEGATIVE (Negative); Ketones Urine UA NEGATIVE (NEGATIVE); Leukocyte Esterase Urine UA NEGATIVE (NEGATIVE); Nitrite Urine UA NEGATIVE (Negative); Occult Blood Urine UA 1+ (Negative); Protein Urine UA NEGATIVE (Negative); Urobilinogen Urine UA 0.2 E.U./dL (0.2)
[2019-06-07 22:30] LABS: pH Urine UA 7.5 (4.5-8.0)
[2019-06-07 22:34] LABS: RBC Urine 1-5/HPF (0-5/HPF)
[2019-06-07 22:37] LABS: Culture Indicated Urine Cult Not Indicated
[2019-06-07 22:43] LABS: Magnesium 2.1 mg/dL (1.6-2.3)
--- NOTE | 2019-06-07 22:50 | P.HP_ITS ---
History of Present Illness History of Present Illness Date Patient Seen: 06/07/19 Time Patient Seen: 20:15 Chief complaint: GLF, hip pain Narrative: Ms. Eileen Yeh is an 79-year-old female with a complex medical history most significant for CAD, atrial fibrillation, COPD, hyperlipidemia, hypertension, hypothyroidism, peptic ulcer disease and osteop enia who presents to the ER following a fall at her orthopedist's office. The patient was being seen at Dr. Forrest is office in follow-up to a femur fracture when she sustained a ground level fall. The patient has been using a walker but at the encouragement of her physical therapist has been attempting to minimize its use and was walking unaided into the exam room when she stumbled and fell. She had no syncope and denies striking her head and denies neck or back pain. She had immediate left hip pain. Imaging was obtained at Dr. Forrest office which identifies a pubic rami fracture. The patient is sent to the ER for treatment due to intractable pain and inability to ambulate. The patient states that prior to her fall she is feeling well with no recent colds or illness and denies fevers or chills, nasal congestion or sore throat. She reports no chest pain or palpitations, shortness of breath cough or wheezing. She has had no abdominal pain or heartburn and no nausea vomiting. She denies constipation or diarrhea reports no urinary symptoms of frequency urgency or burning. She had recent cellulitis of the left lower extremity resolved with 3 courses of antibiotics on outpatient basis. Upon arrival to the emergency department she had a temperature of 98.4?, heart rate of 76, blood pressure 118/71, respirations of 19 saturating 100% on room air. A CT examination the pelvis reveals comminuted acute left superior pelvic rami fracture and a chronic inferior pubic rami fracture. Additionally identify cystic structures in bilateral and DEXA and sigmoid diverticulosis. Labs obtained reveal white count of 8.9, hemoglobin 11.8, hematocrit of 35.9 and platelets of 263. Her electrolytes are all within normal limits with a BUN of 29 and creatinine 1.0. She has a nonfasting glucose of 104. Her liver function tests reveal a total bilirubin of 0.5, AST 31, ALT 19 elevated alkaline phosphatase of 137. The patient is admitted to the hospital service for pelvic fracture with intractable pain and inability to ambulate. Patient History Medical History Asthma (Acute) Atrial fibrillation (Acute) COPD (chronic obstructive pulmonary disease) (Acute) Depression (Acute) Edema (Acute) Fracture of inferior pubic ramus (Inactive) Gastric ulcer (Acute) GI bleed (Acute ~2018) Gout (Acute) Hip fracture, left (Acute ~10/2010) HLD (hyperlipidemia) (Acute) HTN (hypertension) (Acute) Hypothyroidism (Acute) Migraine headache with aura (Acute) Neck pain (Acute) Neuropathy (Acute) NSVT (nonsustained ventricular tachycardia) (Acute) Osteopenia (Acute) Pulmonary hypertension, mild (Acute) Raynauds phenomenon (Acute) Rheumatoid arthritis (Acute) Tinnitus (Acute) Tricuspid regurgitation (Acute) Surgical History History of left heart catheterization (Acute ~10/2010) History of total hip arthroplasty (Acute) History of total knee arthroplasty (Acute) Hx of hand surgery (Acute) Hx of tonsillectomy (Acute) Hx of tubal ligation (Acute) Family & Social History Family History (Updated 06/08/19 @ 00:07 by LADARIUS Lee) Father Alcoholism /alcohol abuse Mother Migraines Brother History of knee replacement Sister No significant medical problems Son Alcoholism /alcohol abuse Social History: household members children Safety & Behavioral: Feels Safe in Current Yes Environment Been Physically Hurt or No Threatened By a Person Suicidal Ideation Description None Suicide Plan Description No Plan Tobacco & Substance use: Smoking Status Former smoker alcohol intake former Substance Use Type does not use Comment: The patient is for 4 years and [facility] her [facility] with [facility]. She reports no significant family history of cancer, heart disease, kidney disease or hypertension. 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 Alcohol: Formally consumed alcohol after work daily but no longer drinks for several years. Substance use: The patient denies recreational pharmaceuticals, herbal or cannabis products. Advanced directives: The patient does have formal advanced directive and states her desire to be FULL CODE. She designates her son Carlos Alberto to be her surrogate decision maker. Meds Home Medications and Allergies Home Medications Medication Instructions Recorded Confirmed Type Enbrel 50 mg SC QWEEK #0 08/10/11 06/07/19 History methotrexate sodium 6 tab PO QWEEK #0 08/10/11 06/07/19 History furosemide 20 mg PO QAM 02/01/19 06/07/19 History metoprolol succinate 25 mg PO DAILY 02/01/19 06/07/19 History levothyroxine 25 mcg PO DAILY 02/27/19 06/07/19 History lisinopril 5 mg PO DAILY 02/27/19 06/07/19 History simvastatin 10 mg PO DAILY 02/27/19 06/07/19 History ascorbic acid (vitamin C) 1,000 mg PO DAILY 06/07/19 06/07/19 History biotin 5,000 mcg SUBLINGUAL DAILY 06/07/19 06/07/19 History calcium carbonate [Calcium 500] 1,200 mg PO DAILY 06/07/19 06/07/19 History cholecalciferol (vitamin D3) 2,000 unit PO DAILY 06/07/19 06/07/19 History [Vitamin D3] cyanocobalamin (vitamin B-12) 5,000 mcg SUBLINGUAL DAILY 06/07/19 06/07/19 History [Vitamin B-12] folic acid 1,600 mcg PO DAILY 06/07/19 06/07/19 History magnesium 500 mg PO DAILY 06/07/19 06/07/19 History bf-rg-UP-vit I-oqnbh-anl-coQ10 1 cap PO DAILY 06/07/19 06/07/19 History [Daily Multivitamin] omega 2-guy-pbi-fish oil [Fish Oil] 1 cap PO DAILY 06/07/19 06/07/19 History pantoprazole 40 mg PO DAILY 06/07/19 06/07/19 History thiamine HCl (vitamin B1) [Vitamin 100 mg PO DAILY 06/07/19 06/07/19 History B-1] Allergies Allergy/AdvReac Type Severity Reaction Status Date / Time NSAIDS (Non-Steroidal AdvReac Mild Gastrointestinal Verified 02/27/19 17:19 Anti-Inflamma Upset aspirin AdvReac Verified 06/07/19 20:17 Review of Systems Review of Systems ROS Unobtainable: All systems reviewed & are unremarkable except as noted in HPI and below Exam Vital Signs (past 8 hours): - 06/07/19 18:00 06/07/19 18:26 06/07/19 20:22 Temperature 98.4 F Pulse Rate 76 81 92 H Respiratory Rate 17 12 19 Blood Pressure 130/74 Blood Pressure [Left Arm] 148/77 H 158/57 H Pulse Oximetry 96 98 98 06/07/19 23:00 Temperature 98.9 F Pulse Rate 78 Respiratory Rate 18 Blood Pressure 110/62 Blood Pressure [Left Arm] Pulse Oximetry 96 Oxygen Delivery Method Room Air Oxygen Flow Rate 0 Narrative Exam Narrative: GENERAL APPEARANCE: well developed, slender elderly female resting quietly in bed in no acute distress. HEENT: Atraumatic, wears glasses, PERRLA, conjunctiva clear, EOMs intact without nystagmus, no sinus tenderness to percussion, no rhinorrhea, mucous membranes are moist and pink without lesions or exudate. NECK/THYROID: neck supple, no JVD, no carotid bruit, no thyromegaly, trachea m idline. LYMPH NODES: no cervical or supraclavicular lymphadenopathy. SKIN: [place], warm and dry, residual redness left lower extremity with dry flaky skin without tenderness warmth or swelling. HEART: regular rate and rhythm, S1-S2, 1/6 systolic murmur, 2nd capillary refill, 1+ bilateral pedal edema LUNGS: clear to auscultation bilaterally, no coarseness crackles or wheezing, no cough present CHEST: Symmetrical movement, no accessory muscle use, no pain to AP and lateral compression. ABDOMEN: Soft, no distention, no abdominal tenderness, no guarding or peritoneal signs, no organomegaly, no flank or suprapubic tenderness, active bowel tones. EXTREMITIES: Moves distal extremities, decreased range of motion left leg due to pain, no deformities or joint effusions. NEUROLOGIC: AAO x4, no focal neurologic deficits, cranial nerves II-XII grossly intact, sensation intact to light touch, hearing grossly normal to speech. PSYCH: alert, cognitive function intact, good eye contact, appropriate with stable behavior Objective Labs Result Diagrams: 06/07/19 18:10 06/07/19 18:10 Labs: Laboratory Results - last 24 hr 06/07/19 06/07/19 06/07/19 18:10 18:10 18:10 WBC 8.9 RBC 3.81 L Hgb 11.8 L Hct 35.9 L MCV 94.1 MCH 31.0 MCHC 32.9 RDW 16.4 H Plt Count 263 Neut % (Auto) 76.4 H Lymph % (Auto) 15.5 L [place] % (Auto) 6.6 Eos % (Auto) 1.3 L Baso % (Auto) 0.2 Neut # (Auto) 6800 Lymph # (Auto) 1400 [place] # (Auto) 600 Eos # (Auto) 100 Baso # (Auto) 0 Sodium 139 Potassium 4.0 Chloride 103 Carbon Dioxide 27 BUN 29 H Creatinine 1.00 Estimated GFR 53.3 L BUN/Creatinine Ratio 29.0 H Glucose 104 Calcium 9.2 Magnesium 2.1 Total Bilirubin 0.5 AST 31 ALT 19 Alkaline Phosphatase 137 H Total Protein 6.9 Albumin 4.1 Globulin 2.8 Albumin/Globulin Ratio 1.5 Urine Color Urine Appearance Urine pH Ur Specific [place]hard Urine Protein Urine Glucose (UA) Urine Ketones Urine Occult Blood Urine Nitrate Urine Bilirubin Urine Urobilinogen Ur Leukocyte Esterase Urine RBC Urine WBC Urine Bacteria Ur Culture Indicated? 06/07/19 22:00 WBC RBC Hgb Hct MCV MCH MCHC RDW Plt Count Neut % (Auto) Lymph % (Auto) [place] % (Auto) Eos % (Auto) Baso % (Auto) Neut # (Auto) Lymph # (Auto) [place] # (Auto) Eos # (Auto) Baso # (Auto) Sodium Potassium Chloride Carbon Dioxide BUN Creatinine Estimated GFR BUN/Creatinine Ratio Glucose Calcium Magnesium Total Bilirubin AST ALT Alkaline Phosphatase Total Protein Albumin Globulin Albumin/Globulin Ratio Urine Color Yellow Urine Appearance Clear Urine pH 7.5 Ur Specific [place]hard 1.010 Urine Protein Negative Urine Glucose (UA) Negative Urine Ketones Negative Urine Occult Blood 1+ H Urine Nitrate Negative Urine Bilirubin Negative Urine Urobilinogen 0.2 Ur Leukocyte Esterase Negative Urine RBC 1-5/hpf Urine WBC None seen Urine Bacteria None seen Ur Culture Indicated? Cult not indicated Assessment & Plan Assessment & Plan narrative: This is an 79-year-old female patient who has a pre-existing left inferior pubic rami fracture and sustained a fall today fractu ring the left superior pubic rami. Patient has immobility is related to pain and cannot ambulate and lives at home with stairs. 1. Superior left pubic rami fracture, acute, present on admission, active. -patient stained a fall today when ambulating without her walker at her orthopedist's office where she is being followed up on for prior femur fracture. No associated trauma. -CT scan identifies an acute comminuted superior rami pelvic fracture with a chronic inferior ramus fracture. No disruption identified of her hip prosthesis. -the patient is unable to bear weight due to pain -we appreciate Dr. Forrest consult and recommendations. -ordered Tylenol 975 mg scheduled every 8 hours for pain. -oxycodone 5 mg every 6 hours as needed for severe pain. -PT and OT to consult and treat. 2. Paroxysmal atrial fibrillation, in sinus rhythm on admission, stable. -patient denies complaints chest pain palpitations has no shortness of breath. Her heart rhythm is regular with ectopic beats, no telemetry indicated -most recent echocardiogram of 10/20/2018 finds an EF of 60-65% with normal LV wall in function, mild aortic regurgitation and moderate to severe tricuspid regurgitation stable from prior exam. -she is not currently on any anticoagulation, history of gastric ulcers and GI bleed. -history of CAD for which she takes simvastatin 10 mg which is continued daily -continue home regimen of metoprolol succinate 25 mg daily. -will continue home regimen of magnesium supplement 500 mg daily. 3. Essential hypertension, chronic, stable. -blood pressure is well controlled with admitting blood pressure of 118/71. -Will continue patient's home regimen of lisinopril 5 mg daily and furosemide 20 mg daily. 4. Rheumatoid arthritis, chronic, stable. -will continue home regimens of Enbrel weekly (last dose 06/04/2019), methotrexate weekly. 5. Hypothyroidism, acquired, stable. -will continue home regimen of levothyroxine 25 mcg daily. 6. Gastric ulcers, chronic, stable. -will continue GI protection with pantoprazole 40 mg daily. This is an 79-year-old female patient who sustained a ground level fall resulting in pelvic fracture with intractable pain and and inability to ambulate. The patient is admitted as an inpatient with expected length of stay to be greater than 2 midnights. Scores GCS [place] coma scale eye opening: Spontaneous Vicki coma scale verbal response: Orientated [place] coma scale motor response: Obey commands Cow[place] coma scale total score: 15 Quality VTE Deep Vein Thrombosis/Pulmonary Embolism Present on Admission: No
[2019-06-07 23:00] VITALS: BP 110/62; PULSE 78; RESP 18; TEMP 37.2; O2SAT 96
[2019-06-08] VITALS (12 sets, daily range): BP systolic 94–142; BP diastolic 54–80; PULSE 72–88; RESP 16–19; TEMP 36.2–37.3; O2SAT 92–100
[2019-06-08 05:10] LABS: Add Manual Diff / Slide Review NO; Basophils Absolute Auto 0 /uL (0-100); Basophils Percent Auto 0.4 % (0-2); Eosinophils Absolute Auto 100 /uL (0-450); Eosinophils Percent Auto 2.6 % (2-4); Hematocrit 31.2 % (36-46); Hemoglobin 10.4 g/dL (12.0-16.0); Lymphocytes Absolute Auto 1100 /uL (1100-4500); Lymphocytes Percent Auto 21.8 % (25-40); Mean Corpuscular HGB Conc 33.4 % (30-36); Mean Corpuscular Hemoglobin 31.3 PG (26-34); Mean Corpuscular Volume 93.6 fL (80-100); Monocytes Absolute Auto 600 /uL (0-900); Monocytes Percent Auto 11.8 % (3-14); Neutrophils Absolute Auto 3300 /uL (1500-7000); Neutrophils Percent Auto 63.4 % (50-75); Platelet Count 214 X10^3/uL (150-400); Red Blood Cell Count 3.33 X10^6/uL (4.0-5.2); Red Cell Distribution Width 16.4 % (11.6-14.8); White Blood Cell Count 5.2 X10^3/uL (4.5-11.0)
[2019-06-08] MEDS: ACETAMINOPHEN 325 MG TABLET 975 MG PO ×2 (05:21→15:08)
[2019-06-08] MEDS: DOCUSATE 100 MG CAPSULE PO (05:21)
[2019-06-08] MEDS: OXYCODONE IR 5 MG TABLET PO (05:21)
[2019-06-08 05:37] LABS: Blood Urea Nitrogen 22 mg/dL (7-17); Calcium 8.6 mg/dL (8.4-10.2); Carbon Dioxide 26 mmol/L (22-32); Chloride 109 mmol/L (98-107); Estimated Glomerular Filt Rate 53.3 mL/min (>60); Glucose 105 mg/dL (80-110); HEMOLYSIS < 15 (0-50); Potassium 4.1 mmol/L (3.4-5.1); Sodium 140 mmol/L (137-145)
--- NOTE | 2019-06-08 05:53 | PC.NURSE ---
Addendum entered by Zandra Martinez R.N. 06/08/19 06:02: Fletcher patent in place due to pelvic fractures, draining clear yellow urine, 400cc out overnight. Con't IVF of NS @75cc/hr. Original Note: Pt rates pain at pelvis 2/10 when at rest in bed, reports pain increases to 8/10 with slight movement. Pt assist x1 overnight for slight position changes/shift weight. Pt given oxycodone at 0500 for major turn in bed. Skin intact without redness to sacrum/coccyx. Resolving cellulitis to LLE, appears pinkish with flaky skin. Pt compliant with SCDs. Winces with slight movement to bilat legs. Pt pleasant, A&O x4. Hx Rheumatoid arthritis and is on qweek Methotrexate, monitor for infection due to slight immunosuppression. Cardiac history including non sustained Vtach, no symptoms overnight. Fall risk, bed alarm on and teach back use of call light, pt made no attempts to get OOB unassisted overnight. Conversed with pt regarding her home life and if she feels safe, pt affirmed that she felt safe, stated I've never really thought about it.
[2019-06-08] MEDS: CALCIUM CARBONATE 500 MG TAB 1000 MG PO (08:26)
[2019-06-08] MEDS: THIAMINE 100 MG TABLET PO (08:26)
[2019-06-08] MEDS: SIMVASTATIN 10 MG TABLET PO (08:26)
[2019-06-08] MEDS: PANTOPRAZOLE 40 MG TABLET PO (08:28)
[2019-06-08] MEDS: CHOLECALCIFEROL (VITAMIN D3) 1,000 UNIT TABLET 2000 UNIT PO (08:28)
[2019-06-08] MEDS: HEPARIN 5,000 UNIT/ML VIAL 5000 UNIT SUBCUT ×2 (08:31→21:06)
[2019-06-08] MEDS: LEVOTHYROXINE 25 MCG TABLET PO (08:36)
[2019-06-08] MEDS: METOPROLOL ER 25 MG TABLET PO (08:38)
[2019-06-08] MEDS: INFLUENZA VACCINE 0.5 ML SYRINGE IM (08:43)
--- NOTE | 2019-06-08 09:40 | PT.IIE ---
This is to certify that I have reviewed this documentation and is involved with this pt's care Surgical History (Last Reviewed 06/08/19 @ 00:05 by LADARIUS Lee) History of left heart catheterization (Acute ~10/2010) History of total hip arthroplasty (Acute) History of total knee arthroplasty (Acute) Hx of hand surgery (Acute) Hx of tonsillectomy (Acute) Hx of tubal ligation (Acute) Medical History (Last Reviewed 06/08/19 @ 00:05 by LADARIUS Lee) Asthma (Acute) Atrial fibrillation (Acute) COPD (chronic obstructive pulmonary disease) (Acute) Depression (Acute) Edema (Acute) Fracture of inferior pubic ramus (Inactive) Gastric ulcer (Acute) GI bleed (Acute ~2018) Gout (Acute) Hip fracture, left (Acute ~10/2010) HLD (hyperlipidemia) (Acute) HTN (hypertension) (Acute) Hypothyroidism (Acute) Migraine headache with aura (Acute) Neck pain (Acute) Neuropathy (Acute) NSVT (nonsustained ventricular tachycardia) (Acute) Osteopenia (Acute) Pulmonary hypertension, mild (Acute) Raynauds phenomenon (Acute) Rheumatoid arthritis (Acute) Tinnitus (Acute) Tricuspid regurgitation (Acute) Physical Therapy Inpatient Evaluation/Re-Eval M1 PT/OT-IP Prior Functional Status Start: 06/08/19 11:36 Freq: NEEDED Status: Active Protocol: Document 06/08/19 09:40 MT (Rec: 06/08/19 12:11 MT [id number]) Medical Review Prior Functional Status Medical History Reviewed Yes Diet/Fluid Consistency Regular Communication Pt able to make needs known Mobility and Gait Pt reports being independent with 2WW and SPC. Per her PT, she was told to try to wean off the walker, so she was starting to not use an AD. Activities of Daily Living and IADL's pt reports being independent with all of her ADL's Social History Household Members children Living Arrangements House Number of Floors (Floors) One Floor Number of Stairs To Enter/Railing? Pt has 3 stairs to enter into house with railing on L side Home Environment Standard Height Toilet,Walk in Shower,Built-In Shower Seat Home Equipment Front Wheel Walker,Straight Cane,Shower Seat with Backrest ,Shower Seat without Backrest, Hand Held Shower,Grab Bars Near Toilet Employment Status Retired Additional Social History Comment Pt reported that her son would be able to assist her, but on further questioning it sounded like the pt's son would not be able to provide her with that much assistance. M2 PT-IP Current Condition Start: 06/08/19 11:36 Freq: NEEDED Status: Active Protocol: Document 06/08/19 09:40 MT (Rec: 06/08/19 12:11 MT [id number]) Physical Therapy Current Condition Current Condition Evaluation Date 06/08/19 Treatment Diagnosis reduced mobility and impaired gait s/p superior R pelvic fracture from GLF Onset Date 06/07/19 Precautions Other Precautions falls Weight Bearing Status Weight Bearing Status Weight Bear as Tolerated M3 PT-IP Subjective Start: 06/08/19 11:36 Freq: NEEDED Status: Active Protocol: Document 06/08/19 09:40 MT (Rec: 06/08/19 12:11 MT [id number]) Subjective Physical Therapy Visit Type Type Initial Evaluation Visit Start Time 09:40 Visit Stop Time 10:20 Total Visit Minutes 40 Number of TOOL ROOM MACHINIST Visits 0 Physical Therapy Visit Comments Patient Comments Pt was agreeable to particiapte in PT session Therapy Pain Assessment Pain When Pain Assessed At Rest Pain Present Pain Present Pain Reported Location Left Hip Intensity 0 Scale Used 8/10 at it's worst Description Aching Pain Behaviors Facial Grimacing M4 PT-IP Mobility and Gait Start: 06/08/19 11:36 Freq: NEEDED Status: Active Protocol: Document 06/08/19 09:40 MT (Rec: 06/08/19 12:11 MT [id number]) PT-Bed Mobility Assessment Rolling Type of Rolling Roll to Left Level of Assist Maximal Assistance,2 Person Assistance Supine to Sit Supine to Sit Maximum Assistance,2 Person Assistance Scooting Scooting to Edge of Bed Standby Assistance Scooting Up and Down in Bed Standby Assistance PT-Transfer Assessment Sit to and From Stand Sit to and from Stand Maximum Assistance,2 Person Assistance,Use of Upper Extremities Equipment Transfer Assistive Device Gait Belt,Front Wheeled Walker Orthotic/Prosthetic Devices or Brace: No Transfers Transfer Destination Chair Transfer Technique sit to stand with ambulation to chair Transfer Ability Level of Assist Moderate Assistance,Maximum Assistance,2 Person Assistance ,Use of Upper Extremities Comments Mobility Comments Pt was found laying in bed. Pt's vitals were assess prior to movement: BP: 103/56, O2: 94%. Pt performed bed mobility involving rolling to the left with MaxAx2 and cueing for proper hand/foot placement and sequencing of task. Pt performed supine to sit bed mobiltiy with MaxA x2 and cueing for proper hand/ foot placement and sequencing of events. Pt was able to further scoot herself to the edge of bed with SBA. Pt performed sit to stand transfer MaxAx2 with 2WW and cueing for pushing up from bed and proper use fo AD for safety. Gait Assessment Gait Gait Assistance Required: Minimum Assistance,Moderate Assistance,Maximum Assistance, 2 Person Assist Distance (Feet) 15 Able to Maintain Weight Bearing Status Yes During Gait Assistive Devices Assistive Device Gait Belt,Front Wheeled Walker Orthotic/Prosthetic Devices or Brace: No Gait Deviations General Gait Pattern Antalgic,Ataxic,Decreased Stride Length,Decreased Feet Clearance,Flexed Trunk,Step-to Gait Factors Limiting Gait Function Factors Limiting Gait Function Decreased Activity Tolerance, Decreased Strength,Pain,Poor Balance Comments Gait Comments Pt ambulated 15ft within her room. Pt was educated on how to use the walker to push through with her arms to take weigth off her L LE and on proper sequencing of steps with use fo AD. She initally required MaxA x2 w/ 2WW in for ambulation and max cueing for proper sequencing of ambulation with AD and safety, but pt was able to progress to [place] x1 during ambulation with 2WW. Stair Climbing Assessment Comments Stair Climbing Comments not assessed at this time PT-Balance Assessment Sitting Balance and Reactions Static Sitting Balance Ability Good Dynamic Sitting Balance Ability Good Standing Balance and Reactions Static Standing Balance Ability Fair Dynamic Standing Balance Ability Fair Device Used 2WW M5 PT-IP Objective Assessments Start: 06/08/19 11:36 Freq: NEEDED Status: Active Protocol: Document 06/08/19 09:40 MT (Rec: 06/08/19 12:11 MT [id number]) Orientation Orientation/Cognition Level of Alertness Alert Orientation Name,Place,Situation Language Function Ability No Deficits Noted Safety Awareness Understands Safety Issues Memory Description No Deficits Noted Gross Range of Motion Lower Extremity ROM Assessment Left Impaired Impairments limited L LE d/t pain Strength Upper Extremity Strength Assessment Left Impaired Lower Extremity Strength Assessment Left Impaired Hip flexion: 3/5 Knee flexion: 4/5 extension: 4/5 Ankle WFL Comments Strength Comments limited L LE d/t pain M6 PT-IP Treatment Start: 06/08/19 11:36 Freq: NEEDED Status: Active Protocol: Document 06/08/19 09:40 MT (Rec: 06/08/19 12:11 MT [id number]) Physical Therapy Treatment Education Education Provided Weight Bearing Status,Safety M7 PT-IP Assessment and Plan Start: 06/08/19 11:36 Freq: NEEDED Status: Active Protocol: Document 06/08/19 09:40 MT (Rec: 06/08/19 12:11 MT [id number]) PT Summary Assessment and Plan Potential Rehabilitation Potential Good Status of Condition at Evaluation Evolving Summary Impairments Pain,ROM,Strength,Balance,Bed Mobility,Transfers,Gait, Activity Tolerance Assessment Summary See above for mobility and gait notes. Pt presents to PT with severe pain in her L LE following GLF from which she sustained a superior pelvic fracture. She was educated that she is WBAT on her R side . She requires MaxAx2 and 2WW with bed mobility and transfers. She intially required MaxAx2 for ambualtion , but was able to progress to [place] x1 with 2WW. She requires frequnet cueing for saefty and sequencing of tasks . She has decreased balance and strength due to pain, putting at high risk of falls, and it is unsure whether her son will be able to provide her with the assistance she needs at home. She will benefit from discharge to a SNF in order to get the assistance level that she needs to be safe with her mobility and ambulation. Goals Bed Mobility Goal Standby Assistance Transfer Goal Standby Assistance,Front Wheeled Walker Gait Goal Standby Assistance,Front Wheel Walker Gait Distance 100 Other Goals SBA with ascend/descend 3 steps with L HR and 2WW Days to Meet Goals 5 Frequency of Treatment Frequency Of Treatment Twice a Day Treatment Plan Physical Therapy Treatment Plan Bed Mobility Training,Transfer Training,Gait Training, Therapeutic Exercise,Balance Retraining,Discharge Planning, Hot or Cold Pack Recommendations To Nursing Amount of Assist Needed 2 Person Assist Discharge Recommendations PT Discharge Recommendations SNF Rehab
--- NOTE | 2019-06-08 10:42 | CM.DANOTE ---
Addendum entered by Lachelle Newton R.N. 06/08/19 16:13: Initiated PASSRSheila at [place] is aware that patient will be ready for discharge tomorrow. Addendum entered by Lachelle Newton R.N. 06/08/19 14:51: Also, gave Leydi at [facility], information on patient in case [facility] does not call back. Addendum entered by Lachelle Newton R.N. 06/08/19 14:47: Patient stated, she would want to go to [facility], if she needs skilled. Attempted to reach Melissa at [facility] admissions, left her a voice mail regarding potential referral, and faxed her over clinicals. If no response, can attempt [facility] Addendum entered by Lachelle Newton R.N. 06/08/19 14:24: Noted that P.T. is recommending skilled, two person transfer. Went ahead and faxed today's P.T. note to [place] for review, and let them know that patient should be discharged tomorrow, but will need jail. Will speak to patient again regarding jail facilities. Original Note: DCP: Case received, EMR reviewed and met with patient. Introduced self and role. Was able to meet with patient to obtain baseline health and activity information. DCP template/assessment completed with information currently available. Patient is an 79 year old female who admitted yesterday afternoon to the care of the hospitalist/orthopedic team. PCP: Dr. Williamson. Payer: confirmed: [facility]. Patient came to the hospital sent over by the orthopedic office secondary to a fall at the clinic. Patient stated she was using her cane when they called her name, and her foot stuck to the ground, and she fell. Stated, I should have been using my walker. Patient is alert and oriented. She stated that her son lives with her, and lost his approximately 10 years ago. She stated that he is an alcoholic. Asked patient if she felt safe at home, if he ever became agitated or irritable with her, and she denied, and stated that she feels safe. She mentioned that after he lost his , he started drinking. He had gone to at one time as well, but she stated, he just likes to drink. Asked her if her son helps her around the house, and she stated, yes, but I have to ask him. She uses her walker at home at baseline, and mentioned that she has been able to cook meals, and is still driving. Mentioned possibility of jail if approved by [place]. She would need to work with physical therapy here at hospital to see how she does. Patient stated, I would prefer to go home, I was at [facility] for several days, and had to pay $400.00 when I left. It is unclear at this time as to why she had to pay, if [employer] covered her. P: DCP will follow case closely, she may need jail, and she could potentially have surgery here. Will follow closely, and work with orthopedic and P.T. team to collaborate for safe discharge planning for patient. Lachelle Newton RN/[employer] Intern
[2019-06-08] MEDS: SODIUM CHLORIDE 0.9% 1,000 ML 75 ML IV (11:35)
--- NOTE | 2019-06-08 12:58 | DIET.PN ---
Dietary Note Assessment: Mrs. Yeh is an 79 yof assessed as high risk. She is admitted for a GLF w/ hip pain. She has a hx of CAD, atrial fibrillation, COPD, hyperlipidemia, hypertension, hypothyroidism, peptic ulcer disease and osteopenia. During our visit she admits to eating processed foods and loves candy. She discusses family hx of alcoholism and that since her passed 4 yrs ago she is living with her son who is a very heavy drinker and she is concerned for him. She does not report any dietary restrictions. HT: 170.18 cm WT: 64.7 kg UBW: 66 kg BMI: 22.3 Labs: Hgb: 10.4 Hct: 31.2 BUN: 22 eGFR: 53.3 Alk Phos: 137 MNA: 11 Tor: 17 Nutrition Diagnosis: No nutrition DX. Interventions: 1. Discussed HH nutrition therapy. Reviewed sodium needs/day as well as HH fats. 2. Discussed pro needs. Rec aiming for 1-2 oz pro for bf and 3 oz w/ lunch/dinner. Diet Order: Heart Healthy Monitoring/Evaluations:
--- NOTE | 2019-06-08 14:14 | PC.NURSE ---
Pain/mobility: Pt reports the oxycodone is to strong for her, made her sleepy and didn't wear off until lunch. Offered to obtain something else for pain but pt is reporting the tylenol seems to be working for now. If she changes her mind she will let staff know. Did work with PT and has been in chair for several hours, she says she is still comfortable. Bp sl low this am and Dr. Gonzalez made aware, lisinopril and lasix held for today. hx of a-fib so metoprolol was given. Awaits ortho consult. Cont w/poc.
--- NOTE | 2019-06-08 15:12 | PM.PN.1 ---
Subjective Subjective Date Patient Seen: 06/08/19 Time Patient Seen: 15:25 Interval history: Eileen Yeh is an 79 year old female with PMH of CAD, atrial fibrillation, COPD, hyperlipidemia, hypertension, hypothyroidism, peptic ulcer disease and osteopenia who presents to the ER following a fall at her orthopedist's office. She had a pre-existing left inferior pubic rami fracture and sustained a fracture after the fall the left superior pubic rami. Patient has immobility is related to pain and cannot ambulate and lives at home with stairs. She further has a complex home social situation per orthopedic providers and concern about her ability to get proper care at home. I spoke with Dr. Forrest, her orthopedic surgeon, who states that she is weight-bearing as tolerated on that hip and that there will be no operative intervention for this fracture. She should continue to work with physical therapy, and will attempt to place into rehab given her new decrease from baseline with the above fracture. Exam Vital Signs (past 8 hours): - 06/08/19 07:40 06/08/19 08:05 06/08/19 08:38 Temperature 97.2 F L Pulse Rate 72 Respiratory Rate 16 Blood Pressure 95/54 L 97/64 Pulse Oximetry 97 96 06/08/19 10:25 06/08/19 11:00 Temperature 97.9 F Pulse Rate 76 72 Respiratory Rate 16 Blood Pressure 130/69 98/57 L Pulse Oximetry 96 Oxygen Delivery Method Room Air Oxygen Flow Rate 0 Narrative Exam Narrative: GENERAL APPEARANCE: well developed, slender elderly female resting quietly in bed in no acute distress. HEENT: Atraumatic, wears glasses, PERRLA, conjunctiva clear, EOMs intact without nystagmus, no sinus tenderness to percussion, no rhinorrhea, mucous membranes are moist and pink without lesions or exudate. NECK/THYROID: neck supple, no JVD, no carotid bruit, no thyromegaly, trachea midline. LYMPH NODES: no cervical or supraclavicular lymphadenopathy. SKIN: [place], warm and dry, residual redness left lower extremity with dry flaky skin without tenderness warmth or swelling. HEART: regular rate and rhythm, S1-S2, 1/6 systolic murmur, 2nd capillary refill, 1+ bilateral pedal edema LUNGS: clear to auscultation bilaterally, no coarseness crackles or wheezing, no cough present CHEST: Symmetrical movement, no accessory muscle use, no pain to AP and lateral compression. ABDOMEN: Soft, no distention, no abdominal tenderness, no guarding or peritoneal signs, no organomegaly, no flank or suprapubic tenderness, active bowel tones. EXTREMITIES: Moves distal extremities, decreased range of motion left leg due to pain, no deformities or joint effusions. NEUROLOGIC: AAO x4, no focal neurologic deficits, cranial nerves II-XII grossly intact, sensation intact to light touch, hearing grossly normal to speech. PSYCH: alert, cognitive function intact, good eye contact, appropriate with stable behavior Objective Labs Result Diagrams: 06/08/19 04:50 06/08/19 04:50 Labs: Laboratory Results - last 24 hr 06/07/19 06/07/19 06/07/19 18:10 18:10 18:10 WBC 8.9 RBC 3.81 L Hgb 11.8 L Hct 35.9 L MCV 94.1 MCH 31.0 MCHC 32.9 RDW 16.4 H Plt Count 263 Neut % (Auto) 76.4 H Lymph % (Auto) 15.5 L [place] % (Auto) 6.6 Eos % (Auto) 1.3 L Baso % (Auto) 0.2 Neut # (Auto) 6800 Lymph # (Auto) 1400 [place] # (Auto) 600 Eos # (Auto) 100 Baso # (Auto) 0 Sodium 139 Potassium 4.0 Chloride 103 Carbon Dioxide 27 BUN 29 H Creatinine 1.00 Estimated GFR 53.3 L BUN/Creatinine Ratio 29.0 H Glucose 104 Calcium 9.2 Magnesium 2.1 Total Bilirubin 0.5 AST 31 ALT 19 Alkaline Phosphatase 137 H Total Protein 6.9 Albumin 4.1 Globulin 2.8 Albumin/Globulin Ratio 1.5 Urine Color Urine Appearance Urine pH Ur Specific [place] Urine Protein Urine Glucose (UA) Urine Ketones Urine Occult Blood Urine Nitrate Urine Bilirubin Urine Urobilinogen Ur Leukocyte Esterase Urine RBC Urine WBC Urine Bacteria Ur Culture Indicated? 06/07/19 06/08/19 06/08/19 22:00 04:50 04:50 WBC 5.2 RBC 3.33 L Hgb 10.4 L Hct 31.2 L MCV 93.6 MCH 31.3 MCHC 33.4 RDW 16.4 H Plt Count 214 Neut % (Auto) 63.4 Lymph % (Auto) 21.8 L [place] % (Auto) 11.8 Eos % (Auto) 2.6 Baso % (Auto) 0.4 Neut # (Auto) 3300 Lymph # (Auto) 1100 [place] # (Auto) 600 Eos # (Auto) 100 Baso # (Auto) 0 Sodium 140 Potassium 4.1 Chloride 109 H Carbon Dioxide 26 BUN 22 H Creatinine 1.00 Estimated GFR 53.3 L BUN/Creatinine Ratio 22.0 Glucose 105 Calcium 8.6 Magnesium Total Bilirubin AST ALT Alkaline Phosphatase Total Protein Albumin Globulin Albumin/Globulin Ratio Urine Color Yellow Urine Appearance Clear Urine pH 7.5 Ur Specific [place] 1.010 Urine Protein Negative Urine Glucose (UA) Negative Urine Ketones Negative Urine Occult Blood 1+ H Urine Nitrate Negative Urine Bilirubin Negative Urine Urobilinogen 0.2 Ur Leukocyte Esterase Negative Urine RBC 1-5/hpf Urine WBC None seen Urine Bacteria None seen Ur Culture Indicated? Cult not indicated Assessment & Plan Assessment & Plan narrative: This is an 79-year-old female patient who has a pre-existing left inferior pubic rami fracture and sustained a fall fracturing the left superior pubic rami. Patient has immobility is related to pain and cannot ambulate and lives at home with stairs. Physical therapy has recommended SNF rehab. There will be no operative intervention for the acute fracture. 1. Superior left pubic rami fracture, acute, present on admission, active. -patient stained a fall today when ambulating without her walker at her orthopedist's office where she is being followed up on for prior femur fracture. No associated trauma. -CT scan identifies an acute comminuted superior rami pelvic fracture with a chronic inferior ramus fracture. No disruption identified of her hip prosthesis. -weight-bearing as tolerated per Orthopedic surgery, no operative interventions. -ordered Tylenol 975 mg scheduled every 8 hours for pain. -oxycodone 5 mg every 6 hours as needed for severe pain. -PT and OT to consult and treat. 2. Paroxysmal atrial fibrillation, in sinus rhythm on admission, stable. -patient denies complaints chest pain palpitations has no shortness of breath. Her heart rhythm is regular with ectopic beats, no telemetry indicated -most recent echocardiogram of 10/20/2018 finds an EF of 60-65% with normal LV wall in function, mild aortic regurgitation and moderate to severe tricuspid regurgitation stable from prior exam. -she is not currently on any anticoagulation, history of gastric ulcers and GI bleed. -history of CAD for which she takes simvastatin 10 mg which is continued daily -continue home regimen of metoprolol succinate 25 mg daily. -will continue home regimen of magnesium supplement 500 mg daily. 3. Essential hypertension, chronic, stable. -blood pressure is well controlled with admitting blood pressure of 118/71. -Will continue patient's home regimen of lisinopril 5 mg daily and furosemide 20 mg daily. 4. Rheumatoid arthritis, chronic, stable. -will continue home regimens of Enbrel weekly (last dose 06/04/2019), methotrexate weekly. 5. Hypothyroidism, acquired, stable. -will continue home regimen of levothyroxine 25 mcg daily. 6. Gastric ulcers, chronic, stable. -will continue GI protection with pantoprazole 40 mg daily. This is an 79-year-old female patient who sustained a ground level fall resulting in pelvic fracture with intractable pain and and inability to ambulate. [place] authorization for rehab will be attempted tomorrow, plan is for discharge to rehab at this time. Quality VTE Deep Vein Thrombosis/Pulmonary Embolism Present on Admission: No
--- NOTE | 2019-06-08 15:30 | OT.IP.TRT ---
Occupational Therapy Treatment Note M3 OT- IP Subjective and Pain Start: 06/08/19 16:47 Freq: Status: Active Protocol: Document 06/08/19 15:30 PJM (Rec: 06/08/19 16:49 PJM [id number]) OT- Subjective Occupational Therapy Visit Type Type Administrative Note Visit Start Time 15:30 Notes OT referral received. Pt too fatigued from previous P.T. session to participate in eval today. Will see pt in AM. No charge.
--- NOTE | 2019-06-08 15:43 | PT.IPTN ---
Physical Therapy Treatment Note M2 PT-IP Current Condition Start: 06/08/19 11:36 Freq: NEEDED Status: Active Protocol: Document 06/08/19 09:40 MT (Rec: 06/08/19 12:11 MT [id number]) Physical Therapy Current Condition Current Condition Evaluation Date 06/08/19 Treatment Diagnosis reduced mobility and impaired gait s/p superior R pelvic fracture from GLF Onset Date 06/07/19 Precautions Other Precautions falls Weight Bearing Status Weight Bearing Status Weight Bear as Tolerated M3 PT-IP Subjective Start: 06/08/19 11:36 Freq: NEEDED Status: Active Protocol: Document 06/08/19 15:20 SHARRON (Rec: 06/08/19 16:09 SHARRON [id number]) Subjective Physical Therapy Visit Type Type Treatment Note Visit Start Time 15:20 Visit Stop Time 15:43 Total Visit Minutes 23 Notes Treatment supervised by TATYANA Aguayo. Number of STONE SANDBLASTER Visits 1 Physical Therapy Visit Comments Patient Comments Pt agreeable to work with therapy. Therapy Pain Assessment Pain When Pain Assessed At Rest Pain Present Pain Present Pain Reported Location Left Hip Intensity 4 Scale Used Numeric (1 - 10) Description Aching Pain Management Techniques Modification of Treatment,Re- positioning M4 PT-IP Mobility and Gait Start: 06/08/19 11:36 Freq: NEEDED Status: Active Protocol: Document 06/08/19 15:20 SHARRON (Rec: 06/08/19 16:09 SHARRON [id number]) PT-Bed Mobility Assessment Rolling Type of Rolling Roll to Right Level of Assist Moderate Assistance,1 Person Assistance Supine to Sit Supine to Sit Moderate Assistance,1 Person Assistance Scooting Scooting to Edge of Bed Standby Assistance Scooting Up and Down in Bed Standby Assistance PT-Transfer Assessment Sit to and From Stand Sit to and from Stand Contact Guard Assistance,1 Person Assistance,Use of Upper Extremities Equipment Transfer Assistive Device Gait Belt,Front Wheeled Walker Orthotic/Prosthetic Devices or Brace: No Transfers Transfer Destination Bed Transfer Technique Pt ambulated with FWW. Transfer Ability Level of Assist Minimal Assistance,Moderate Assistance,1 Person Assistance Comments Mobility Comments Pt had increased mobility and decreased need for assistance this afternoon. Pt was in bed upon arrival. Reported 4/10 pain. Initiated training to use gait belt to self assist LE out of bed. Pt required mod A of LE support for sup<>sit EOB, able to scoot SBA. Demonstrated proper STS w/ FWW and CGA and use of UE. Cueing to bring FWW all the way back to bed and reach back for stand<>sit. Pt left in bed with all needs in reach and denied increase in pain. Gait Assessment Gait Gait Assistance Required: Contact Guard Assist,1 Person Assist Distance (Feet) 15 Able to Maintain Weight Bearing Status Yes During Gait Assistive Devices Assistive Device Gait Belt,Front Wheeled Walker Orthotic/Prosthetic Devices or Brace: No Gait Deviations General Gait Pattern Antalgic,Ataxic,Decreased Stride Length,Decreased Feet Clearance,Flexed Trunk,Step-to Gait Factors Limiting Gait Function Factors Limiting Gait Function Decreased Activity Tolerance, Decreased Strength,Pain,Poor Balance Comments Gait Comments Pt ambulated from R side of bed around to L side with FWW and CGA. Required frequent cueing to bend L knee and practice heel to toe stepping. Step to gait and decreased stride length due to L hip pain while weight bearing on L LE. Heavily relied on use of bilat UE to decrease weight bearing on L LE. Stair Climbing Assessment Comments Stair Climbing Comments not assessed at this time PT-Balance Assessment Sitting Balance and Reactions Static Sitting Balance Ability Good Dynamic Sitting Balance Ability Good Standing Balance and Reactions Static Standing Balance Ability Fair Dynamic Standing Balance Ability Fair Device Used FWW M5 PT-IP Objective Assessments Start: 06/08/19 11:36 Freq: NEEDED Status: Active Protocol: Document 06/08/19 09:40 MT (Rec: 06/08/19 12:11 MT [id number]) Orientation Orientation/Cognition Level of Alertness Alert Orientation Name,Place,Situation Language Function Ability No Deficits Noted Safety Awareness Understands Safety Issues Memory Description No Deficits Noted Gross Range of Motion Lower Extremity ROM Assessment Left Impaired Impairments limited L LE d/t pain Strength Upper Extremity Strength Assessment Left Impaired Lower Extremity Strength Assessment Left Impaired Hip flexion: 3/5 Knee flexion: 4/5 extension: 4/5 Ankle WFL Comments Strength Comments limited L LE d/t pain M6 PT-IP Treatment Start: 06/08/19 11:36 Freq: NEEDED Status: Active Protocol: Document 06/08/19 15:20 SHARRON (Rec: 06/08/19 16:09 SHARRON [id number]) Physical Therapy Treatment Education Education Provided Weight Bearing Status,Safety M7 PT-IP Assessment and Plan Start: 06/08/19 11:36 Freq: NEEDED Status: Active Protocol: Document 06/08/19 15:20 SHARRON (Rec: 06/08/19 16:09 SHARRON [id number]) PT Summary Assessment and Plan Potential Rehabilitation Potential Good Status of Condition at Evaluation Evolving Summary Impairments Pain,ROM,Strength,Balance,Bed Mobility,Transfers,Gait, Activity Tolerance Assessment Summary Pt had improved ambulation from min A to CGA. Required frequent cueing during ambulation for step pattern and L knee flexion because pt ambulates by lifting L heel and weight shifting onto R LE to advance L LE. Poor balance due to pain and deconditioning , will benefit from SNF to increase pts LOF. Goals Bed Mobility Goal Standby Assistance Transfer Goal Standby Assistance,Front Wheeled Walker Gait Goal Standby Assistance,Front Wheel Walker Gait Distance 100 Other Goals SBA with ascend/descend 3 steps with L HR and 2WW Days to Meet Goals 5 Frequency of Treatment Frequency Of Treatment Twice a Day Treatment Plan Physical Therapy Treatment Plan Bed Mobility Training,Transfer Training,Gait Training, Therapeutic Exercise,Balance Retraining,Discharge Planning, Hot or Cold Pack Recommendations To Nursing Amount of Assist Needed 1 Person Assist Discharge Recommendations PT Discharge Recommendations SNF Rehab
[2019-06-09] VITALS (8 sets, daily range): BP systolic 103–148; BP diastolic 59–90; PULSE 65–85; RESP 14–16; TEMP 36.6–36.9; O2SAT 93–99
[2019-06-09] MEDS: SODIUM CHLORIDE 0.9% 1,000 ML 75 ML IV (01:43)
[2019-06-09] MEDS: ACETAMINOPHEN 325 MG TABLET 975 MG PO ×3 (05:46→20:43)
[2019-06-09] MEDS: LEVOTHYROXINE 25 MCG TABLET PO (06:08)
--- NOTE | 2019-06-09 06:27 | PC.NURSE ---
Pt denies pain at rest and pain increases to 5/10 when repositioning in bed. Able to shift weight in bed with prompts. Fletcher remains in place due to pelvic fractures. DC plan for pt to go to rehab to build strength. Pt compliant with SCDS. IVF of NS 75cc/hr. Drinking water at bedside overnight, took AM pills with applesauce.
[2019-06-09] MEDS: CHOLECALCIFEROL (VITAMIN D3) 1,000 UNIT TABLET 2000 UNIT PO (08:51)
[2019-06-09] MEDS: CALCIUM CARBONATE 500 MG TAB 1000 MG PO (08:51)
[2019-06-09] MEDS: METOPROLOL ER 25 MG TABLET PO (08:52)
[2019-06-09] MEDS: LISINOPRIL 10 MG TABLET 5 MG PO (08:52)
[2019-06-09] MEDS: THIAMINE 100 MG TABLET PO (08:52)
[2019-06-09] MEDS: SIMVASTATIN 10 MG TABLET PO (08:52)
[2019-06-09] MEDS: PANTOPRAZOLE 40 MG TABLET PO (08:52)
[2019-06-09] MEDS: HEPARIN 5,000 UNIT/ML VIAL 5000 UNIT SUBCUT ×2 (08:52→20:43)
[2019-06-09] MEDS: FUROSEMIDE 20 MG TABLET PO (08:52)
--- NOTE | 2019-06-09 09:35 | OT.IP.EVAL ---
Past Medical History (Last Reviewed 06/08/19 @ 00:05 by LADARIUS Lee) Asthma (Acute) Atrial fibrillation (Acute) COPD (chronic obstructive pulmonary disease) (Acute) Depression (Acute) Edema (Acute) Fracture of inferior pubic ramus (Inactive) Gastric ulcer (Acute) GI bleed (Acute ~2018) Gout (Acute) Hip fracture, left (Acute ~10/2010) HLD (hyperlipidemia) (Acute) HTN (hypertension) (Acute) Hypothyroidism (Acute) Migraine headache with aura (Acute) Neck pain (Acute) Neuropathy (Acute) NSVT (nonsustained ventricular tachycardia) (Acute) Osteopenia (Acute) Pulmonary hypertension, mild (Acute) Raynauds phenomenon (Acute) Rheumatoid arthritis (Acute) Tinnitus (Acute) Tricuspid regurgitation (Acute) Surgical History (Last Reviewed 06/08/19 @ 00:05 by LADARIUS Lee) History of left heart catheterization (Acute ~10/2010) History of total hip arthroplasty (Acute) History of total knee arthroplasty (Acute) Hx of hand surgery (Acute) Hx of tonsillectomy (Acute) Hx of tubal ligation (Acute) Occupational Therapy Inpatient Evaluation/Re-Eval M1 PT/OT-IP Prior Functional Status Start: 06/08/19 11:36 Freq: NEEDED Status: Active Protocol: Document 06/09/19 09:30 [facility] (Rec: 06/09/19 09:51 [facility] [id number]) Medical Review Prior Functional Status Medical History Reviewed Yes Diet/Fluid Consistency Regular Communication Pt able to make needs known Mobility and Gait Pt reports being independent with 2WW and SPC. Per her PT, she was told to try to wean off the walker, so she was starting to not use an AD. Activities of Daily Living and IADL's pt reports being independent with all of her ADL's and IADl 's. Pt's son take care of the cat. Social History Household Members children Living Arrangements House Number of Floors (Floors) One Floor Number of Stairs To Enter/Railing? Pt has 3 stairs to enter into house with railing on L side Home Environment Standard Height Toilet,Walk in Shower,Built-In Shower Seat Home Equipment Front Wheel Walker,Straight Cane,Shower Seat with Backrest ,Shower Seat without Backrest, Hand Held Shower,Grab Bars Near Toilet Employment Status Retired Additional Social History Comment Pt reported that her son would be able to assist her, but on further questioning it sounded like the pt's son would not be able to provide her with that much assistance. M2 OT-IP Current Condition Start: 06/08/19 16:47 Freq: Status: Active Protocol: Document 06/09/19 09:30 [facility] (Rec: 06/09/19 09:51 [facility] [id number]) Occupational Therapy Current Condition Current Condition Evaluation Date 06/09/19 Treatment Diagnosis left comminuted superior pelvis rami fx, decreased seflf-care and mobility Diagnosis Onset Date 06/06 Weight Bearing Status Weight Bearing Status Weight Bear as Tolerated M3 OT- IP Subjective and Pain Start: 06/08/19 16:47 Freq: Status: Active Protocol: Document 06/09/19 09:30 [facility] (Rec: 06/09/19 09:51 [facility] [id number]) OT- Subjective Occupational Therapy Visit Type Type Initial Evaluation Visit Start Time 09:35 Visit Stop Time 10:29 Total Visit Minutes 54 Occupational Therapy Visit Comments Patient Comments Pt already in the recliner and eating breakfast. Patient/Caregiver Goals Pt wanting to go to skilled rehab prior to going home. OT Pain Assessment Pain When Pain Assessed During Mobility Pain Present Pain Present Pain Reported Location Left Hip Intensity 8 Scale Used Numeric (1 - 10) M4 OT- IP ADL's Start: 06/08/19 16:47 Freq: Status: Active Protocol: Document 06/09/19 09:30 [facility] (Rec: 06/09/19 09:51 [facility] [id number]) OT [id number] General Evaluation Self-Feeding Ability Independent OT ADL-Grooming General Evaluation Grooming Ability Standby Assistance Areas Needing Assistance Retrieving/Set-up of Grooming Items Comments OT Grooming Comments Pt able to stand by sink with with FWW and needing assist for set-up. OT ADL-Oral Care General Eval Oral Care Ability Independent OT ADL-Dressing General Eval Lower Body Dressing Ability Moderate Assistance Areas Needing Assistance Underpants/Brief,Pants/Shorts Comments OT Dressing Comments Pt able to lean forwards while sitting to vani/doff socks. Pt needing assist to stand and assist to help get LB clothing over her hips due to decreased balance. OT ADL-Toileting Comments OT Toileting Comments Pt asif in. M5 OT- IP IADL's Start: 06/08/19 16:47 Freq: Status: Active Protocol: Document 06/09/19 09:30 [facility] (Rec: 06/09/19 09:51 [facility] [id number]) OT-Instrumental Activities of Daily Living Home Safety Awareness Awareness of Need for Assistance at Home Good Awareness Ability to Problem Solve Emergency Able to Problem Solve Situations Home Safety Comments Pt 80% accurate for home safety questions and stated would open the door for a stranger. When cued , pt realized would look through the peep hole first before opening the door. Medication Management Medication Management Comments Pt states does her own medications. Money Management Money Management Comments Pt states pays her own bills. Pt needing increased time for money management questions. At this time would benefit from supervision. Meal Preparation Meal Preparation Comments At this time, pt will need assist. Veterinary Medicine Teacher Veterinary Medicine Teacher Caregiver Provides Assist M6 OT- IP Functional Cognition Start: 06/08/19 16:47 Freq: Status: Active Protocol: Document 06/09/19 09:30 [facility] (Rec: 06/09/19 09:51 [facility] [id number]) Cognitive Factors Limiting Selfcare Function Cognitive Ability Level of Alertness Alert Patient Orientation Name,Age,Birthday,Month,Date, Year,Day of Week,Place, Situation Attention Span Ability Capable of Focused Attention, Capable of Sustained Attention Ability to Follow Commands Able to Follow One Step Commands Memory Description Short Term Impaired Problem Solving Ability Unable to Identify Errors, Needs Assist to Identify Solutions Executive Function Ability Unable to Remember Details Cognitive Tests SLUMS Pt scored 23/30 which implies mild cognitive deficits as normal core for her education level is 27/30. Pt having trouble to recall the directions. Cognitive Comments Cognitive Assessment Comments Pt during SLums, only able to recall 3/5 words, able to name 11 animals in one minute, unable to draw the clock hands correctly, and only able to recall 3/4 questions after paragraph read. OT- Vision and Hearing OT- Hearing Assessment OT- Hearing Assessment WFL OT- Vision Assessment Visual Acuity Glasses All The Time Vision Assessment Comments Pt able to read the clock. M7 OT- IP Mobility and Balance Start: 06/08/19 16:47 Freq: Status: Active Protocol: Document 06/09/19 09:30 [facility] (Rec: 06/09/19 09:51 [facility] [id number]) OT-Transfer Assessment Sit to and From Stand Sit to and from Stand Moderate Assistance Transfers Transfer Ability Minimal Assistance/MODA Technique Transfer Destination Chair Transfer Technique Stand Step Pivot Devices Transfer Assistive Devices Gait Belt,Front Wheeled Walker Comments Mobility Comments Pt needing MODA to come to stand and heavily relies on her BUE so able to take a few steps to th sink with FWW AND patricia. Pt will need more assist coming up from lower surfaces . Pt only able to tolerate walking 5 ft and after grooming needing MIN/MODA with FWW to get back to the recliner. OT- Balance Assessment Sitting Balance and Reactions Static Sitting Balance Ability Normal Dynamic Sitting Balance Ability Normal Standing Balance and Reactions Static Standing Balance Ability Fair M8 OT- IP Objective Assessments Start: 06/08/19 16:47 Freq: Status: Active Protocol: Document 06/09/19 09:30 [facility] (Rec: 06/09/19 09:51 [facility] [id number]) OT Gross Range of Motion Upper Extremity Range of Motion Assessment Within Functional Limits OT Strength Upper Extremity Strength Assessment Within Functional Limits OT-Muscle Tone Assessment Muscle Tone WNL Yes M9 OT- IP Assessment and Plan Start: 06/08/19 16:47 Freq: Status: Active Protocol: Document 06/09/19 09:30 [facility] (Rec: 06/09/19 09:51 [facility] [id number]) OT Summary Assessment and Plan Potential Rehabilitation Potential Good Analytic Complexity at Evaluation Low Summary OT Impairments Pain,Balance,Functional Cognition,Functional Mobility, Dressing,Toileting,Bathing, Toilet Transfers,Shower Transfers Progress Towards Goals Slow Progress due to Pain,Slow Progress due to Activity Tolerance Assessment Summary Pt low complexity and main barriers are steps, pain, decreased activity tolerance and now needing assist for ADl's and functional mobility. Pt heavily relies on her BUE on the FWW in order to take steps . Pt needing MODA to come up to stand from the recliner. Pt is a high fall risk and would benefit from skilled rehab prior to going home as currently far from baseline of being JOCELYN with all ADL and functional mobility needs. Goals Grooming Goal Independent Dressing Goal Independent Toileting Goal Independent Bathing Goal Independent Toilet Transfer Goal Independent Shower Transfer Goal Independent Days to Meet Goals 15 Frequency of Treatment Frequency Of Treatment Once a Day Treatment Plan OT Treatment Plan ADL Training,Functional Cognition Training,Functional Mobility,Patient/Family Education,Discharge Planning Other Treatment Recommendations and Next Shower Treatment Focus Discharge Recommendations OT Discharge Recommendations SNF Rehab
--- NOTE | 2019-06-09 11:13 | PM.CHAP ---
Nice visit with patient. Many family grief issues. Info re grief support at . Spiritual support.
--- NOTE | 2019-06-09 11:25 | CM.DPC ---
Addendum entered by Roseline Forrest R.N. 06/09/19 14:54: CM/RN spoke to Dr. Pollard and let her know that [facility] cannot take the patient until 10am tomorrow due to the medication issue. PEDRO Called and left a voicemail with Melissa at [facility] attempting to confirm transport time for tomorrow. [facility] called and left a message with Leydi to call CM back. Roseline Forrest RN. Addendum entered by Roseline Forrest R.N. 06/09/19 14:10: DCP continued: Melissa from [facility] called and stated that they need the patients son to bring home medication Embriel to [facility] prior to them accepting the patient for admission and they would need to know by 2pm for transport. CM/RN contacted the patients son at [phone]. Patients son stated he would bring over patients medication today. CM/RN called Melissa back at 1:45pm to let her know that the patients son stated he would bring the medication to [facility] and Melissa said that they cannot accept the patient until they have the medication there at their facility even though the next dose of this medication is not due until Wednesday06/11/2019. Melissa said they can accept patient tomorrow as long as her medication is delivered to [facility] today and have transport ready at 10am. CM/RN contacted Leydi at [facility] to see it they are willing to accept the patient today for admission. Leydi stated that she will work on it and get back to soon. CM/RN let patients nurse know what was going on. Roseline Forrest RN. Original Note: DCP continued: EMR Reviewed: RN/CM called [place] to verify that we have an authorization for SNF placement at [facility]. PEDRO contacted Melissa to verify they will accept the patient. Melissa stated they will accept the patient. PEDRO Faxed a copy of [facility] to [facility] along with the current progress notes and OT/PT notes. Melissa set up transport for picker and sorter load and unload at 2pm. CM/Rn let patients RN know as well as the SHIFT SUPERVISOR RN to get the D/C packet ready. PEDRO spoke with Dr. Pollard and she will get his D/C orders done at will be set for D/C at 2pm. Plan: D/C to [facility] today at 2pm. CM/RN to Follow patient to assist with any d/c planning needs that might arise. Roseline Forrest RN
--- NOTE | 2019-06-09 11:26 | P.DS_ITS ---
History of Present Illness History of Present Illness Date Patient Seen: 06/09/19 Chief complaint: GLF, hip pain Narrative: Ms. Eileen Yeh is an 79-year-old female with a com plex medical history most significant for CAD, atrial fibrillation, COPD, hyperlipidemia, hypertension, hypothyroidism, peptic ulcer disease and osteopenia who presents to the ER following a fall at her orthopedist's office. The patient was being seen at Dr. Forrest is office in follow-up to a femur fracture when she sustained a ground level fall. The patient has been using a walker but at the encouragement of her physical therapist has been attempting to minimize its use and was walking unaided into the exam room when she stumbled and fell. She had no syncope and denies striking her head and denies neck or back pain. She had immediate left hip pain. Imaging was obtained at Dr. Forrest office which identifies a pubic rami fracture. The patient is sent to the ER for treatment due to intractable pain and inability to ambulate. The patient states that prior to her fall she is feeling well with no recent colds or illness and denies fevers or chills, nasal congestion or sore throat. She reports no chest pain or palpitations, shortness of breath cough or wheezing. She has had no abdominal pain or heartburn and no nausea vomiting. She denies constipation or diarrhea reports no urinary symptoms of frequency urgency or burning. She had recent cellulitis of the left lower extremity resolved with 3 courses of antibiotics on outpatient basis. Upon arrival to the emergency department she had a temperature of 98.4?, heart rate of 76, blood pressure 118/71, respirations of 19 saturating 100% on room air. A CT examination the pelvis reveals comminuted acute left superior pelvic rami fracture and a chronic inferior pubic rami fracture. Additionally identify cystic structures in bilateral and DEXA and sigmoid diverticulosis. Labs obtained reveal white count of 8.9, hemoglobin 11.8, hematocrit of 35.9 and platelets of 263. Her electrolytes are all within normal limits with a BUN of 29 and creatinine 1.0. She has a nonfasting glucose of 104. Her liver function tests reveal a total bilirubin of 0.5, AST 31, ALT 19 elevated alkaline phosphatase of 137. The patient is admitted to the hospital service for pelvic fracture with intractable pain and inability to ambulate. Discharge Providers Provider Date of admission: 06/07/19 19:00 Discharge Date: 06/09/19 Primary care physician: Leslie Williamson MD Consults: 06/07/19 17:51 Consult to Orthopedic Surgery Stat Comment: Consulting Provider: Ro Forrest Reason for consultation: Patient of Dr. Forrest's; Dr. Forrest requesting consult. 06/07/19 20:14 Consult to Dietitian, Adult Routine Comment: Reason For Exam: assessed at high risk 06/07/19 21:26 Consult to Discharge Planning Routine Comment: Consult to Occupational Therapy Evaluate & Treat Comment: pelvic fx, wt bearing as tolerated Physician Instructions: Evaluate and treat Consult to Physical Therapy Evaluate & Treat Comment: pelvic fx, wt bearing as tolerated Physician Instructions: Evaluate and Treat 06/08/19 00:22 Consult to Orthopedic Surgery Routine Comment: Consulting Provider: Ro Forrest Reason for consultation: Acute superior, chronic inferior left pubic rami fracture Has provider been notified: Yes Discharge provider: Britney Pollard MD Summary Hospital Course Discharge Diagnosis: 1. Acute superior pubic ramus fracture following a fall 2. Chronic inferior pubic ramus fracture 3. Osteoporosis 4. Osteopenia 5. Coronary artery disease 6. History of atrial fibrillation 7. COPD 8. Hyperlipidemia 9. Hypothyroidism Hospital Course: Patient was admitted to the hospital following a ground level fall. She underwent CT scan which demonstrated an acute superior pubic ramus fracture. The patient had a chronic inferior pubic ramus fracture. She had difficulty ambulating. She was seen by Physical therapy and Occupational therapy. Arrangements were made for her to go to subacute rehabilitation at discharge patient reports her pain is improved today. She has no specific compl aints. Patient was able to transfer from the bed to the chair without difficulty. The patient was evaluated by PT OT and arrangements were made for her to be discharged to [facility] for ongoing care. Status at Discharge Cognitive/behavioral status at discharge: oriented Functional status at discharge: uses cane/walker Overall status at discharge: patient is not back to baseline Time Spent with Patient Time spent: Less than 30 minutes Exam Vital Signs (past 8 hours): - 06/09/19 05:00 06/09/19 08:00 Temperature 97.8 F 98.4 F Pulse Rate 85 65 Respiratory Rate 16 16 Blood Pressure 124/71 129/80 Pulse Oximetry 94 93 Oxygen Delivery Method Room Air Oxygen Flow Rate 0 Narrative Exam Narrative: Pleasant female sitting in a chair in no obvious distress Lungs: Clear to auscultation Cardiac exam: Regular rate rhythm normal S1-S2 Abdomen: Soft and nontender Extremities: No edema Objective Labs Result Diagrams: 06/08/19 04:50 06/08/19 04:50 Discharge Plan Discharge Plan Discharge Problem: Decreased GFR, Fracture of inferior pubic ramus Patient Disposition: SNF Transfer to: [facility] Transportation: [facility] I certify the postop hospital detention care is medically necessary on a continuing basis for any conditions for which he/ she received care during this hospitalization.: Yes The receiving facility has agreed to accept transfer and provide medical treatment.: Yes Discharge orders & Medications Prescriptions: New oxycodone 5 mg Tablet 5 mg PO Q6HR PRN (Reason: Pain, Severe (7-10)) Qty: 10 RF: 0 Continued Enbrel 50 MG/1 ML syringe 50 mg SC QWEEK Qty: 0 RF: 0 methotrexate sodium 2.5 mg Tablet 6 tab PO QWEEK Qty: 0 RF: 0 metoprolol succinate 25 mg Tablet Extended Release 24 Hr 25 mg PO DAILY RF: 0 furosemide 20 mg Tablet 20 mg PO QAM RF: 0 simvastatin 10 mg tablet 10 mg PO DAILY RF: 0 levothyroxine 25 mcg tablet 25 mcg PO DAILY RF: 0 lisinopril 10 mg tablet 5 mg PO DAILY RF: 0 pantoprazole 40 mg Tablet,Delayed Release (Dr/Ec) 40 mg PO DAILY RF: 0 ascorbic acid (vitamin C) 1,000 mg Tablet 1,000 mg PO DAILY RF: 0 Daily Multivitamin 200-100-500 mcg Capsule 1 cap PO DAILY RF: 0 thiamine HCl (vitamin B1) [Vitamin B-1] 100 mg Tablet 100 mg PO DAILY RF: 0 calcium carbonate [Calcium 500] 500 mg calcium (1,250 mg) Tablet 1,200 mg PO DAILY RF: 0 magnesium 250 mg Tablet 500 mg PO DAILY RF: 0 folic acid 800 mcg Tablet 1,600 mcg PO DAILY RF: 0 cholecalciferol (vitamin D3) [Vitamin D3] 2,000 unit Tablet 2,000 unit PO DAILY RF: 0 omega 0-tsr-lbn-fish oil [Fish Oil] 1,000 mg (120 mg-180 mg) Capsule 1 cap PO DAILY RF: 0 cyanocobalamin (vitamin B-12) [Vitamin B-12] 5,000 mcg Tablet, Sublingual 5,000 mcg SUBLINGUAL DAILY RF: 0 biotin 5,000 mcg Tablet, Sublingual 5,000 mcg SUBLINGUAL DAILY RF: 0 Follow up/Referrals: Leslie Williamson MD [Primary Care Provider] - Diet/Activity/Treatments Diet: Low-fat and Low-sodium Liquid consistency: Normal/Thin Food texture: Regular Skin/Wound/Dressing Care Report to your healthcare provider any signs of infection, such as:: chills, fever and night sweats Special Rehabilitation Services Reason for rehabilitation: Recovery r/t decondition Rehab type: Physical therapy and Occupational therapy Discharge Data Primary Care Provider: Leslie Williamson Attending Provider: Martina Constantino Admit Date/Time: 06/07/19 19:00 Quality VTE Deep Vein Thrombosis/Pulmonary Embolism Present on Admission: No
--- NOTE | 2019-06-09 11:28 | PT.IPTN ---
Physical Therapy Treatment Note M2 PT-IP Current Condition Start: 06/08/19 11:36 Freq: NEEDED Status: Active Protocol: Document 06/08/19 09:40 MT (Rec: 06/08/19 12:11 MT [id number]) Physical Therapy Current Condition Current Condition Evaluation Date 06/08/19 Treatment Diagnosis reduced mobility and impaired gait s/p superior R pelvic fracture from GLF Onset Date 06/07/19 Precautions Other Precautions falls Weight Bearing Status Weight Bearing Status Weight Bear as Tolerated M3 PT-IP Subjective Start: 06/08/19 11:36 Freq: NEEDED Status: Active Protocol: Document 06/09/19 11:28 AB (Rec: 06/09/19 12:15 AB [email or web address]) Subjective Physical Therapy Visit Type Type Treatment Note Visit Start Time 11:28 Visit Stop Time 11:49 Total Visit Minutes 21 Number of POST DOCTORAL FELLOW Visits 0 Physical Therapy Visit Comments Patient Comments pt agreed to do PT Therapy Pain Assessment Pain When Pain Assessed During Mobility Location Left Hip Scale Used pain scale not stated Pain Management Techniques Re-positioning,Timing of Activity with Medications M4 PT-IP Mobility and Gait Start: 06/08/19 11:36 Freq: NEEDED Status: Active Protocol: Document 06/09/19 11:28 AB (Rec: 06/09/19 12:15 AB [email or web address]) PT-Transfer Assessment Sit to and From Stand Sit to and from Stand Contact Guard Assistance, Minimal Assistance,1 Person Assistance,Use of Upper Extremities Equipment Transfer Assistive Device Gait Belt,Front Wheeled Walker Orthotic/Prosthetic Devices or Brace: No Gait Assessment Gait Gait Assistance Required: Contact Guard Assist,Minimum Assistance Distance (Feet) 30 Able to Maintain Weight Bearing Status Yes During Gait Assistive Devices Assistive Device Gait Belt,Front Wheeled Walker Orthotic/Prosthetic Devices or Brace: No Gait Deviations General Gait Pattern Antalgic,Decreased Stride Length,Decreased Feet Clearance,Step-to Gait Factors Limiting Gait Function Factors Limiting Gait Function Decreased Activity Tolerance, Decreased Strength,Limited Range of Motion,Pain,Poor Balance,Poor Safety Awareness Comments Gait Comments pt requires increase time to complete tasks. presents with very slow radha with ambulation and antalgic gait. occasionally requires assist with weight shifting and cues for safety. M5 PT-IP Objective Assessments Start: 06/08/19 11:36 Freq: NEEDED Status: Active Protocol: Document 06/08/19 09:40 MT (Rec: 06/08/19 12:11 MT [id number]) Orientation Orientation/Cognition Level of Alertness Alert Orientation Name,Place,Situation Language Function Ability No Deficits Noted Safety Awareness Understands Safety Issues Memory Description No Deficits Noted Gross Range of Motion Lower Extremity ROM Assessment Left Impaired Impairments limited L LE d/t pain Strength Upper Extremity Strength Assessment Left Impaired Lower Extremity Strength Assessment Left Impaired Hip flexion: 3/5 Knee flexion: 4/5 extension: 4/5 Ankle WFL Comments Strength Comments limited L LE d/t pain M6 PT-IP Treatment Start: 06/08/19 11:36 Freq: NEEDED Status: Active Protocol: Document 06/09/19 11:28 AB (Rec: 06/09/19 12:15 AB [email or web address]) Physical Therapy Treatment Education Education Provided Safety M7 PT-IP Assessment and Plan Start: 06/08/19 11:36 Freq: NEEDED Status: Active Protocol: Document 06/09/19 11:28 AB (Rec: 06/09/19 12:15 AB [email or web address]) PT Summary Assessment and Plan Potential Rehabilitation Potential Good Summary Impairments Pain,ROM,Strength,Balance, Coordination,Sensation, Cognition,Bed Mobility, Transfers,Gait,Activity Tolerance Progress Towards Goals Progressing Toward Goals Assessment Summary pt requiring CGA to min A with ambulation using FWW but presents with decrease activity tolerance and requires increase time to complete tasks. pt will benefit from SNF rehab to improve mobility and functional independence. Goals Bed Mobility Goal Standby Assistance Transfer Goal Standby Assistance,Front Wheeled Walker Gait Goal Standby Assistance,Front Wheel Walker Gait Distance 100 Other Goals SBA with ascend/descend 3 steps with L HR and 2WW Days to Meet Goals 5 Frequency of Treatment Frequency Of Treatment Twice a Day Treatment Plan Physical Therapy Treatment Plan Bed Mobility Training,Transfer Training,Gait Training, Therapeutic Exercise,Balance Retraining,Discharge Planning, Hot or Cold Pack Recommendations To Nursing Amount of Assist Needed 1 Person Assist Discharge Recommendations PT Discharge Recommendations SNF Rehab
--- NOTE | 2019-06-09 12:30 | PM.PN.1 ---
Subjective Subjective Date Patient Seen: 06/09/19 Time Patient Seen: 07:50 Interval history: Patient complains of pain in left hip and groin. Pain well managed. Mobilizing with PT/OT - 1 assist. No other complaints. Denies fever, chills, shortness of breath, chest pain, calf pain. Exam Vital Signs (past 8 hours): - 06/09/19 05:00 06/09/19 07:40 06/09/19 08:00 Temperature 97.8 F 98.4 F Pulse Rate 85 65 Respiratory Rate 16 16 Blood Pressure 124/71 129/80 Pulse Oximetry 94 95 93 Oxygen Delivery Method Room Air Oxygen Flow Rate 0 Narrative Exam Narrative: 79 year old female lying comfortably in bed, in no apparent distress. A&Ox3. L hip ttp, mild swelling and ecchymosis. Able to actively plantar flex/dorsiflex. Sensory function grossly intact to light touch in LE bl. Dorsalis pedis 2+ bl. Capillary refill <2sec LE bl. Calves soft, warm, compressible, nttp. Objective Labs Result Diagrams: 06/08/19 04:50 06/08/19 04:50 Assessment & Plan Assessment & Plan narrative: comminuted acute left superior pelvic rami fracture and a chronic inferior pubic rami fracture secondary to ground level fall - weight-bearing as tolerated - no operative intervention - continue mobilizing with physical therapy/occupational therapy Likely discharge to [facility] rehab Quality VTE Deep Vein Thrombosis/Pulmonary Embolism Present on Admission: No
--- NOTE | 2019-06-09 12:48 | CM.DPC ---
DCP Cont: Faxed signed med list, SNF orders and discharge summary to [facility] at fax # [phone]. Fax confirmation scanned in. [employer]
[2019-06-09] MEDS: SODIUM CHLORIDE 0.9% FLUSH 10 ML IV (20:43)
[2019-06-10] VITALS: O2SAT 96
[2019-06-10 00:15] VITALS: BP 126/71; PULSE 79; RESP 17; TEMP 37.3; O2SAT 97
[2019-06-10 04:00] VITALS: O2SAT 96
[2019-06-10] MEDS: ACETAMINOPHEN 325 MG TABLET 975 MG PO (05:23)
[2019-06-10] MEDS: SODIUM CHLORIDE 0.9% FLUSH 10 ML IV (05:23)
[2019-06-10] MEDS: LEVOTHYROXINE 25 MCG TABLET PO (05:26)
[2019-06-10 05:52] VITALS: BP 136/79; PULSE 65; RESP 18; TEMP 37.2; O2SAT 95
[2019-06-10 07:35] VITALS: BP 123/78; PULSE 77; RESP 16; TEMP 36.4; O2SAT 94
[2019-06-10 07:53] VITALS: O2SAT 96
--- NOTE | 2019-06-10 08:51 | P.EN_ITS ---
Event Note Date Patient Seen: 06/10/19 Event Note: Patient was scheduled to be discharged yesterday. However the assisted facility declined to accept her. Her Fletcher catheter was discontinued. She continues to have some pain with ambulation. Patient was able to ambulate 2 ft without difficulty. She has no other complaints. Physical examination Lungs: Clear to auscultation Cardiac exam: Regular rate and rhythm normal S1-S2 with a 2/6 systolic ejection murmur Abdomen: Soft nontender nondistended Extremity: No edema Patient will be discharged to the assisted unit at [facility]
--- NOTE | 2019-06-10 08:54 | CM.DPC ---
DCP continued: EMR Reviewed: CM/ RN spoke with Melissa at [facility] this morning and determined that they have patients Embril medication due for wednesday. They received it yesterday at 3:40pm. [facility] agreed to accept patient and has transport set up to pick patient up at 11am. Patients nurse notified, D/C Summary, medications, SNF order and PASRR faxed to [facility] at [phone]. Roseline Vasquez RN.
[2019-06-10] MEDS: CALCIUM CARBONATE 500 MG TAB 1000 MG PO (08:59)
[2019-06-10] MEDS: METOPROLOL ER 25 MG TABLET PO (09:02)
[2019-06-10] MEDS: SIMVASTATIN 10 MG TABLET PO (09:02)
[2019-06-10] MEDS: LISINOPRIL 10 MG TABLET 5 MG PO (09:02)
[2019-06-10] MEDS: FUROSEMIDE 20 MG TABLET PO (09:03)
[2019-06-10] MEDS: PANTOPRAZOLE 40 MG TABLET PO (09:03)
[2019-06-10] MEDS: THIAMINE 100 MG TABLET PO (09:03)
[2019-06-10] MEDS: CHOLECALCIFEROL (VITAMIN D3) 1,000 UNIT TABLET 2000 UNIT PO (09:03)
[2019-06-10] MEDS: HEPARIN 5,000 UNIT/ML VIAL 5000 UNIT SUBCUT (09:06)
--- NOTE | 2019-06-10 09:10 | PT.IPTN ---
Physical Therapy Treatment Note M2 PT-IP Current Condition Start: 06/08/19 11:36 Freq: NEEDED Status: Discharge Protocol: Document 06/08/19 09:40 MT (Rec: 06/08/19 12:11 MT [id number]) Physical Therapy Current Condition Current Condition Evaluation Date 06/08/19 Treatment Diagnosis reduced mobility and impaired gait s/p superior R pelvic fracture from GLF Onset Date 06/07/19 Precautions Other Precautions falls Weight Bearing Status Weight Bearing Status Weight Bear as Tolerated M3 PT-IP Subjective Start: 06/08/19 11:36 Freq: NEEDED Status: Discharge Protocol: Document 06/10/19 09:10 AB (Rec: 06/10/19 12:28 AB [id number]) Subjective Physical Therapy Visit Type Type Treatment Note Visit Start Time 09:10 Visit Stop Time 09:33 Total Visit Minutes 23 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 of 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 Visits 0 Physical Therapy Visit Comments Patient Comments pt agreeable to do PT Therapy Pain Assessment Pain When Pain Assessed During Mobility Pain Present Pain Present Pain Reported Location Left Hip Scale Used unable to stated pain scale Pain Management Techniques Timing of Activity with Medications M4 PT-IP Mobility and Gait Start: 06/08/19 11:36 Freq: NEEDED Status: Discharge Protocol: Document 06/10/19 09:10 AB (Rec: 06/10/19 12:28 AB [id number]) PT-Transfer Assessment Sit to and From Stand Sit to and from Stand Contact Guard Assistance,1 Person Assistance,Use of Upper Extremities Equipment Transfer Assistive Device Gait Belt,Front Wheeled Walker Orthotic/Prosthetic Devices or Brace: No Gait Assessment Gait Gait Assistance Required: Contact Guard Assist Distance (Feet) 40 Able to Maintain Weight Bearing Status Yes During Gait Assistive Devices Assistive Device Gait Belt,Front Wheeled Walker Orthotic/Prosthetic Devices or Brace: No Gait Deviations General Gait Pattern Antalgic,Decreased Stride Length,Decreased Feet Clearance Factors Limiting Gait Function Factors Limiting Gait Function Decreased Activity Tolerance, Decreased Strength,Limited Range of Motion,Pain,Poor Balance,Poor Safety Awareness Comments Gait Comments pt completed ambulation in room using FWW ~ 40 ft and cues for safety. pt presents with antalgic gait, difficulty with moving LLE and requires increase time to complete task . M5 PT-IP Objective Assessments Start: 06/08/19 11:36 Freq: NEEDED Status: Discharge Protocol: Document 06/08/19 09:40 MT (Rec: 06/08/19 12:11 MT [id number]) Orientation Orientation/Cognition Level of Alertness Alert Orientation Name,Place,Situation Language Function Ability No Deficits Noted Safety Awareness Understands Safety Issues Memory Description No Deficits Noted Gross Range of Motion Lower Extremity ROM Assessment Left Impaired Impairments limited L LE d/t pain Strength Upper Extremity Strength Assessment Left Impaired Lower Extremity Strength Assessment Left Impaired Hip flexion: 3/5 Knee flexion: 4/5 extension: 4/5 Ankle WFL Comments Strength Comments limited L LE d/t pain M6 PT-IP Treatment Start: 06/08/19 11:36 Freq: NEEDED Status: Discharge Protocol: Document 06/09/19 11:28 AB (Rec: 06/09/19 12:15 AB [email or web address]) Physical Therapy Treatment Education Education Provided Safety M7 PT-IP Assessment and Plan Start: 06/08/19 11:36 Freq: NEEDED Status: Discharge Protocol: Document 06/10/19 09:10 AB (Rec: 06/10/19 12:28 AB [id number]) PT Summary Assessment and Plan Potential Rehabilitation Potential Good Summary Impairments Pain,ROM,Strength,Balance, Coordination,Sensation,Tone, Cognition,Bed Mobility, Transfers,Gait,Activity Tolerance Progress Towards Goals Progressing Toward Goals Assessment Summary Pt progressing with PT but continues to be limited with mobility requiring CGA for safety and has decrease activity tolerance. pt will benefit from SNF rehab to improve mobility and independence. Goals Bed Mobility Goal Standby Assistance Transfer Goal Standby Assistance,Front Wheeled Walker Gait Goal Standby Assistance,Front Wheel Walker Gait Distance 100 Other Goals SBA with ascend/descend 3 steps with L HR and 2WW Days to Meet Goals 5 Frequency of Treatment Frequency Of Treatment Twice a Day Treatment Plan Physical Therapy Treatment Plan Bed Mobility Training,Transfer Training,Gait Training, Therapeutic Exercise,Balance Retraining,Discharge Planning, Hot or Cold Pack Recommendations To Nursing Amount of Assist Needed 1 Person Assist Discharge Recommendations PT Discharge Recommendations SNF Rehab
--- NOTE | 2019-06-10 11:44 | PC.NURSE ---
Day shift: Pt left unit w/ SNF transport person at approx 1130. Packet is w/ Pt. Pt has all personal belongings. scripts in packet.
--- NOTE | 2019-06-10 12:00 | PC.NURSE ---
Day shift: Report called to [facility]. All questions answered.
== END 2019-06-10 12:00 ==
LOC: ED 18:56 → AC 19:00
PROVIDERS: Nurse Practitioner Adult Health; Admitting Provider Internal Medicine; Emergency Provider Nurse Practitioner; Family Provider Family Medicine; PCP Family Medicine; Visit Provider Internal Medicine
DX: S32.512A Fracture of superior rim of left pubis, initial encounter for closed fracture (principal); M25.552 Pain in left hip; Z23 Encounter for immunization; I25.10 Atherosclerotic heart disease of native coronary artery without angina pectoris; J44.9 Chronic obstructive pulmonary disease, unspecified; I10 Essential (primary) hypertension; I48.0 Paroxysmal atrial fibrillation; E03.9 Hypothyroidism, unspecified; K25.7 Chronic gastric ulcer without hemorrhage or perforation; W18.30XA Fall on same level, unspecified, initial encounter; Z91.81 History of falling; Y93.9 Activity, unspecified; Y92.531 Health care provider office as the place of occurrence of the external cause; S72.92XD Unspecified fracture of left femur, subsequent encounter for closed fracture with routine healing
CPT/HCPCS: 36415; 51701; 72192; 80048; 80053; 81001; 81003; 83735; 85025; 90471; 90656; 94760; 96360; 96361; 96372; 97116; 97162; 97165; 97530; 97535; 99283; 99284; G0378; J1644; Q2038

== ENCOUNTER → 2020-07-31 14:16 | Outpatient (CLI) | payer OTHER, SELFPAY ==
[2020-07-31 16:07] LABS: COVID19 -Nasal RAPID Negative (Negative)
== END ==
PROVIDERS: Family Provider Family Medicine; PCP Family Medicine; Visit Provider Physician Assistant
DX: Z20.822 Contact with and (suspected) exposure to COVID-19 (principal)
CPT/HCPCS: 87635

== ENCOUNTER 2020-08-02 09:50 | Day surgery (SDC) | payer OTHER, SELFPAY ==
[2020-07-30 10:54] VITALS: BMI 23.5
[2020-08-02] VITALS (11 sets, daily range): BP systolic 114–128; BP diastolic 57–76; PULSE 60–76; RESP 12–18; TEMP 36.5–36.9; O2SAT 94–98; BMI 23.5
[2020-08-02] MEDS: LACTATED RINGERS 1,000 ML 100 ML IV ×2 (10:58→12:24)
--- NOTE | 2020-08-02 11:31 | PM.PREOP ---
Pre-operative Note COVID-19 COVID-19 status: Negative Interval Note History & Physical reviewed/Exam performed by Physician: Yes Changes to H&P: No
--- NOTE | 2020-08-02 11:51 | PM.OP.1 ---
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 She has failed conservative treatment. He has been indicated for surgery. She is managed by rehabilitation counsellor for her medications and she has appropriately held her Enbrel. She will continue her methotrexate. She has been indicated for a hallux interphalangeal fusion for severe hallux valgus interphalangeal and lesser toe rheumatoid deformities. She will have excision of the 2nd through 5th metatarsal heads and correction of the hammertoes. This will be a variation of the clean Brambila procedure however dressing the interphalangeal joint of the great toe rather than the 1st MTP. The risks and benefits of the procedure have been discussed with the patient even opportunity to ask questions. The risks of surgery include but are not limited to infection, malunion, nonunion, persistence of pain, damage to nerves and blood vessels, posttraumatic arthritis, DVT, PE, cardiopulmonary complications and . The patient expressed a thorough understanding of the risks and benefits of surgery and has elected to proceed. Consent was signed in the office. Surgeon: Yaneth Fuller Continuing Education Director: Judith Angelo Anesthesia Type: General and Peripheral nerve block Operative Notes Findings: Left foot deformity is hallux valgus interphalangeus the left. Rigid hammertoe deformities of the 2nd 3rd 4th and 5th toes with metatarsalgia a tailor's bunionette. Closure Type: primary Specimen(s): none sent Prosthetic devices, grafts, tissues, transplants, or devices: 4.0 headless cannulated screw paragon 28 062 K-wire x4 Applied: implant(s) ( 062 K-wires. 4.0 cannulated screw for IP fusion) Estimated Blood Loss (mL): 20 Blood products transfused: none Tourniquet time (min): 79 Procedure in detail: patient seen in the preoperative area the her site of surgery marked informed consent confirmed. She was brought back to the operating room by the anesthesia team. A regional block was placed by the anesthesia team for postoperative pain control. Patient was positioned supine on the operative table. All bony problems well padded. Well-padded thigh tourniquet was placed. An SCD was on the contralateral lower extremity. A formal time-out procedure was performed confirming the patient's side and site of surgery administration of preoperative antibiotics and presence of informed consent. All were in agreement. Attention was turned to the right lower extremity. The incision sites were marked out on the skin. An Esmarch bandage was used for exsanguination the tourniquet raised to 250 mm of mercury Great toe IP joint fusion: incision started with a lazy-S incision over the IP joint of the left great toe. This was taken down the directly through the soft tissues and extensor tendon to the level of the bone. Flaps were elevated. The extremely eburnated proximal phalanx bone at the IP joint was demonstrated. A saw was used to excise a wedge of this at the level of the deformity. The wedge was wider medially to account for the hallux valgus interphalangeus. Once this was removed the distal phalanx bone was debrided down to bleeding cancellous bone. The joint was reduced and pinned. A guide hole was placed through the proximal phalanx then the wire was advanced out the distal phalanx out the tip of the toe and then advanced back into the proximal phalanx. I an incision was made over the wire. This was measured. A of 4-0 headless screw was selected. This was overdrilled and then placed obtaining excellent correction and compression. Wire was removed. Metatarsal head excisions: attention was turned to the metatarsal head resections. A separate incision was placed between the 2nd and 3rd metatarsal heads this was taken down through the skin subcutaneous tissue. The extensor tendons were Z-lengthened. The 2nd metatarsal neck was exposed and Hohmann retractors placed around this. The saw was used to make an osteotomy of and the 2nd metatarsal head was excised. Next attention was turned to the 3rd metatarsal where again the metatarsal neck was exposed and the saw again was used to transect the metatarsal neck and then the combination of towel clip and a rongeur to remove the metatarsal head. Noted that the metatarsal head bone of the lesser toes was extremely osteopenic and crushed and crumbled with excision. Next a separate incision was made over the metatarsal head of the 4th metatarsal in the same fashion the subcutaneous tissues were divided the extensor tendons were lengthening and the metatarsal neck was isolated and then transected with a saw and the metatarsal head was removed. A separate incision more lateral over the 5th metatarsal head was then made because of the severe bunionette deformity. Extensor tendon was lengthened and the neck was exposed and extend excised in the same fashion as dictated above. hammertoe corrections: attention was then turned to the 2nd 3rd 4th and 5th hammertoe corrections. Incisions were made over the PIP joints extensor tendon was split and retracted to the side is is were longitudinal incisions. The proximal phalanx was exposed after each joint and then transected with the saw shortening the toe and allowing correction. Curettes were used to prepare the middle phalanx base. These were then aligned and at 062 K-wires were advanced from the proximal phalanx out the middle phalanx and distal end of the toe and then readvanced into the metatarsal for each of the 2nd 3rd 4th and 5th metatarsals. Fluoroscopic imaging in the OR confirmed alignment of the IP J screw and the 2nd 3rd 4th and 5th metatarsal and toe K-wires. Gigi satisfied with our alignment of the IPJ and lesser toes. All were plantigrade and straight. Tourniquet was released. The toes pinked up well. Hemostasis was achieved. The wounds were irrigated. The extensor tendons were sewn in the lengthened fashion with 4-0 Vicryl. Subcutaneous closure was with 4-0 Vicryl and 4-0 Monocryl. 4-0 nylon was placed in the skin. Xeroform gauze Webril was placed. And the placed was placed into a postoperative boot. She was woken from anesthesia and taken to recovery room in good condition. There no immediate complications from this procedure. Complications: none Post-operative Condition: stable Disposition: PACU Plan for aftercare: heel weight-bearing in the boot. Oxycodone for pain control. pins will stay in place 6 weeks
[2020-08-02] MEDS: CEFAZOLIN 2 GM/100 ML FROZ.PIGGY IV (11:56)
--- NOTE | 2020-08-02 12:27 | SUR.OPER ---
Supine on padded OR bed, head on pillow, arms secured on padded arm boards at <90 degrees abduction, legs uncrossed, safety belt at abdomen, left leg on blankets stacks, right leg taped to bed, bump under left hip.
--- NOTE | 2020-08-02 12:49 | P.PCN_ITS ---
Procedures Date/Time Date of procedure: 08/02/20 Time of procedure: 11:40 General Procedure description: Ultrasound guided popliteal sciatic nerve block for post op pain control after left foot surgery by Dr. Fuller. Risk and benefits of p rocedure discussed with patient. ASA monitoring applied to patient. Oxygen given via nasal cannula. 2 mg Versed and 50 mcg fentanyl given for procedural sedation. Skin site was prepped with chlorhexidine and allowed to fully dry. Sterile gloves, mask, hat and probe cover were used to maintain sterility. 2% lidocaine and 30ga needle was used to make a small skin wheal at needle insertion site. Under ultrasound guidance, a 21ga 100mm Pajunk needle was directed near the division of the sciatic nerve into tibial and peroneal nerve in the popliteal fossa (lateral approach). Patient reported no parasthesias. After negative aspiration, 20 mL 0.5% ropivicaine and 10mg dexamethasone were injected around sciatic nerve. Patient tolerated procedure well.
[2020-08-02] MEDS: OXYCODONE IR 5 MG TABLET PO (15:12)
--- NOTE | 2020-08-02 16:38 | SUR.PHASEII ---
Pt met criteria for discharge: VSS, Awake/Alert, Denied pain or nausea. Up to toilet to void x 1. Able to drink fluids without diffuculty. Discharge instructions discussed at length, all questions answered. Assisted pt with getting dressed. Transported via W/C to private vehicle.
== END 2020-08-02 16:28 | disposition home or self-care (01) ==
PROVIDERS: Family Provider Family Medicine; PCP Family Medicine; Referring Provider Orthopaedic Surgery Foot and Ankle Surgery; Visit Provider Orthopaedic Surgery Foot and Ankle Surgery
PROC: (CPT 28755; principal; 2020-08-02 11:15)
DX: M05.772 Rheumatoid arthritis with rheumatoid factor of left ankle and foot without organ or systems involvement (principal); M20.42 Other hammer toe(s) (acquired), left foot; M20.12 Hallux valgus (acquired), left foot; M21.622 Bunionette of left foot; I25.10 Atherosclerotic heart disease of native coronary artery without angina pectoris; I10 Essential (primary) hypertension; E78.5 Hyperlipidemia, unspecified; J44.9 Chronic obstructive pulmonary disease, unspecified
CPT/HCPCS: 28755; 28285 ×4; 28112 ×3; 28113; J0690; J1100; J2250; J2405; J2704; J3010

== ENCOUNTER → 2020-09-13 10:59 | Outpatient (CLI) | payer OTHER, SELFPAY ==
--- NOTE | 2020-09-13 | DI.CT.S_ITS ---
PROCEDURE: CT CHEST WO CON INDICATIONS: Sprain of left sternoclavicular joint TECHNIQUE: Noncontrast 5 mm thick sections acquired from the pulmonary apices to the posterior costophrenic angles. 1 mm lung window, 5 mm thick coronal and sagittal and 7 mm axial MIP reformats were then acquired. For radiation dose reduction, the following was used: automated exposure control, adjustment of mA and/or kV according to patient size. COMPARISON: None. FINDINGS: Image quality: Excellent. Lungs and pleura: There is a small central patch of airspace opacity in the posterior right upper lobe (3/94) in close association with bronchovascular markings. Patchy mild pleural plaquing is present at both lung apices. Part solid 5 mm nodule posterolateral right lower lobe (3/130). There are several tiny juxta fissural nodules bilaterally. No pleural effusions or pneumothorax. Central and peripheral airways are patent and normal in caliber. Mediastinum: Heart size is normal. Moderate coronary artery calcification. No pericardial effusion. No mediastinal adenopathy by size criteria. The ascending aorta is aneurysmal measuring 4.3 cm in AP diameter. Mild arch calcification. Distal thoracic aorta is normal caliber.. Esophagus is normal in caliber. Large hiatal hernia. Bones and chest wall: There is an impacted, comminuted, subacute appearing fracture of the proximal left clavicle head with involvement of the sternoclavicular joint. There is very slight widening of the left SC joint compared to the right. Partially ossified callus is seen cranially to the left clavicle head. There is asymmetric overlying soft tissue thickening. Small dystrophic fragments are seen within the sternoclavicular joints bilaterally. The sternomanubrial joint appears intact. There are nondisplaced deformities of the right anterior 2nd and 3rd ribs. There is a chronic appearing anterior wedge compression fracture of T7 and degenerative disc and endplate changes in the lower thoracic spine. No axillary or supraclavicular adenopathy by size criteria. Thyroid gland is normal . Abdomen: Visualized upper abdominal solid organs and bowel loops appear normal in the absence of contrast. IMPRESSION: 1. Subacute, healing impacted left clavicle head fracture with slight widening of the sternoclavicular joint. 2. Subtle nondisplaced right 2nd and 3rd anterior rib fractures of uncertain chronicity. 3. Mildly aneurysmal ascending thoracic aorta. Consider follow-up. 4. Large hiatal hernia. 5. Small scattered pulmonary nodules and a small patch of airspace opacity in the right upper lobe. 6-12 month follow-up chest CT is recommended based on patient risk factors. Dictated by: Nora Gaston M.D. on 09/13/2020 at 11:09 Approved by: Nora Gaston M.D. on 09/13/2020 at 11:28
== END ==
PROVIDERS: Family Provider Family Medicine; PCP Physician Assistant Medical; Referring Provider Orthopaedic Surgery Foot and Ankle Surgery; Visit Provider Orthopaedic Surgery Foot and Ankle Surgery
DX: S43.62XA Sprain of left sternoclavicular joint, initial encounter (principal); S42.002A Fracture of unspecified part of left clavicle, initial encounter for closed fracture; S22.41XA Multiple fractures of ribs, right side, initial encounter for closed fracture; R91.8 Other nonspecific abnormal finding of lung field; I71.2 Thoracic aortic aneurysm, without rupture; K44.9 Diaphragmatic hernia without obstruction or gangrene; X58.XXXA Exposure to other specified factors, initial encounter
CPT/HCPCS: 71250

== ENCOUNTER → 2021-03-11 14:57 | Outpatient (CLI) | payer OTHER, SELFPAY ==
--- NOTE | 2021-03-11 | DI.ECHO.S_ITS ---
[place]---------+ [facility] +---------+ : : [address] : : : : [id number] : : : : Phone: [phone] Echocardiogram Report + + :Name: SERENE EVANGELISTA Study Date: 03/11/2021 Height: 67 in : :[facility] ReadingLocation: Weight: 145 lb : : Gender: Female BSA: 1.8 m2 : :: 1940 Age: 80 yrs BP: 161/93 mmHg: :Reason For Study: TRICUSPID INSUFFICIENCY : :Ordering Physician: CYNDIE, : :SAL Performed By: Crissy Mcqueen : :Referring: SAL AGEE : + + Interpretation Summary The left ventricle is normal in size. The ejection fraction is estimated to be 55-60%. LV dyssynchrony during PVCs. The right ventricle is mildly dilated. The right ventricular systolic function is normal. There is moderate to severe tricuspid regurgitation. Compared to the prior echo exam, there has been no change in TR severity. The right ventricular systolic pressure is estimated to be at least 38 mmHg based on an estimated right atrial pressure of 3 mm Hg. Compared to the prior echo exam, there has been an increase in the severity of pulmonary hypertension. There is mild luminal irregularity and echogenicity in the abdominal aorta, suggestive of aortic atherosclerotic disease. Mild atherosclerotic plaque(s) in the aortic arch. Procedure: A two-dimensional transthoracic echocardiogram with color flow and Doppler was performed. The study quality was technically adequate. Comparison is made with the echocardiogram of 10/20/2018. The patient was in sinus rhythm with heart rates between 76-92 bpm during the exam. The patient had frequent PVCs during the exam. Left Ventricle: The left ventricle is normal in size. Proximal septal thickening is noted. There is no thrombus. The ejection fraction is estimated to be 55-60%. LV dyssynchrony during PVCs. Diastolic parameters suggest a relaxation abnormality of the left ventricle, consistent with probable normal filling pressures. Right Ventricle: The right ventricle is mildly dilated. The right ventricular systolic function is normal. Atria: The left atrial size is normal. The left atrium has mildly decreased in size since the prior echo exam. The right atrium is mildly dilated. There is no Doppler evidence for an interatrial shunt. Mitral Valve: The mitral valve leaflets appear mildly thickened, but open well. There is mild mitral annular calcification. There is mild mitral regurgitation. Aortic Valve: The aortic valve is trileaflet. The aortic valve opens well. There is no aortic valve stenosis. There is mild aortic regurgitation. Tricuspid Valve: The tricuspid valve leaflets are thin and pliable. There is moderate to severe tricuspid regurgitation. The right ventricular systolic pressure is estimated to be at least 38 mmHg based on an estimated right atrial pressure of 3 mm Hg. Compared to the prior echo exam, there has been no change in TR severity. Compared to the prior echo exam, there has been an increase in the severity of pulmonary hypertension. Pulmonic Valve: The pulmonic valve leaflets are thin and pliable; valve motion is normal. There is mild pulmonic regurgitation. Great Vessels: The aortic root is normal size. The ascending aorta is mildly enlarged. There is mild luminal irregularity and echogenicity in the abdominal aorta, suggestive of aortic atherosclerotic disease. Mild atherosclerotic plaque(s) in the aortic arch. The IVC is of normal diameter and collapses greater than 50% with a sniff. This suggests a low right atrial pressure of 3 mm Hg. Pericardium/ Pleura There is no pericardial effusion. There is no pleural effusion. MMode/2D Measurements & Calculations LVIDd: 4.1 cm LVOT diam: 2.1 cm LVIDs: 2.6 cm Ao root diam: 3.4 cm FS: 36.7 % asc Aorta Diam: 3.7 cm IVSd: 0.73 cm Ao Arch Diam (Prox Trans): 3.4 cm LVPWd: 0.64 cm LV peng. diameter/BSA (cm/m^2): 2.3 LV sys. diameter/BSA (cm/m^2): 1.5 LA A2 area: 17.2 cm2 RA long axis: 5.5 cm LA A4 area: 18.3 cm2 RA area: 19.1 cm2 LA length (vol): 5.0 cm RA vol: 56.5 ml LA vol: 53.3 ml RA : 32.0 ml/m2 LA vol index: 30.2 ml/m2 IVC diam: 0.70 cm RVD1 (basal): 3.0 cm TAPSE: 2.8 cm Doppler Measurements & Calculations Ao V2 max: 110.3 cm/sec LVOT Max Onofre: 92.2 cm/sec Ao V2 mean: 72.8 cm/sec LV V1 max P.4 mmHg Ao max P.9 mmHg LV V1 VTI: 18.1 cm Ao mean P.4 mmHg VINNIE(I,D): 2.9 cm2 Ao V2 VTI: 21.6 cm VINNIE(V,D): 2.9 cm2 sev ratio: 0.84 VINNIE indexed to BSA (cm^2/m^2): 1.6 MV E max onofre: 54.5 cm/sec TR max onofre: 296.4 cm/sec MV A max onofre: 77.8 cm/sec TR max P.1 mmHg MV E/A: 0.70 PA V2 max: 84.2 cm/sec Med Peak E' Onofre: 5.5 cm/sec PA V2 mean: 55.6 cm/sec E/E' med: 9.9 PA mean P.4 mmHg Lat Peak E' Onofre: 7.9 cm/sec PA pr(Accel): 44.7 mmHg E/E' lat: 6.9 E/e' average: 8.4 MV dec time: 0.19 sec SV(LVOT): 62.5 ml Reading Physician:04:47 PM
== END ==
PROVIDERS: Family Provider Family Medicine; PCP Physician Assistant Medical; Referring Provider Internal Medicine Cardiovascular Disease; Visit Provider Internal Medicine Cardiovascular Disease
DX: I08.3 Combined rheumatic disorders of mitral, aortic and tricuspid valves (principal); I77.89 Other specified disorders of arteries and arterioles
CPT/HCPCS: 93306

== ENCOUNTER → 2022-05-13 12:40 | Outpatient (CLI) | payer OTHER, SELFPAY | PROVIDERS: Family Provider Family Medicine; PCP Physician Assistant Medical; Referring Provider Physician Assistant Medical; Visit Provider Family Medicine | DX: I89.0 Lymphedema, not elsewhere classified (principal); L97.822 Non-pressure chronic ulcer of other part of left lower leg with fat layer exposed; L08.9 Local infection of the skin and subcutaneous tissue, unspecified; M06.9 Rheumatoid arthritis, unspecified; Z79.899 Other long term (current) drug therapy | CPT/HCPCS: 87070; 87075; 87077; 87147; 87185; 87186; 87205; 97597; 99204; 99213 ==

== ENCOUNTER → 2022-05-15 14:04 | Outpatient (CLI) | payer OTHER, SELFPAY | PROVIDERS: Family Provider Family Medicine; PCP Physician Assistant Medical; Referring Provider Physician Assistant Medical; Visit Provider Nurse Practitioner Family | DX: I87.2 Venous insufficiency (chronic) (peripheral) (principal); L97.822 Non-pressure chronic ulcer of other part of left lower leg with fat layer exposed | CPT/HCPCS: 29581 ==

== ENCOUNTER → 2022-05-21 13:06 | Outpatient (CLI) | payer OTHER, SELFPAY | PROVIDERS: Family Provider Family Medicine; PCP Physician Assistant Medical; Referring Provider Physician Assistant Medical; Visit Provider Family Medicine | DX: I89.0 Lymphedema, not elsewhere classified (principal); L97.821 Non-pressure chronic ulcer of other part of left lower leg limited to breakdown of skin; L08.9 Local infection of the skin and subcutaneous tissue, unspecified; B95.61 Methicillin susceptible Staphylococcus aureus infection as the cause of diseases classified elsewhere; M06.9 Rheumatoid arthritis, unspecified; Z79.899 Other long term (current) drug therapy | CPT/HCPCS: 97597; 99214 ==

== ENCOUNTER → 2022-05-27 13:50 | Outpatient (CLI) | payer OTHER, SELFPAY | PROVIDERS: Family Provider Family Medicine; PCP Physician Assistant Medical; Referring Provider Physician Assistant Medical; Visit Provider Family Medicine | DX: S41.102A Unspecified open wound of left upper arm, initial encounter (principal); E11.628 Type 2 diabetes mellitus with other skin complications | CPT/HCPCS: 97597; 99213 ==

== ENCOUNTER → 2022-06-04 13:21 | Outpatient (CLI) | payer OTHER, SELFPAY | PROVIDERS: Family Provider Family Medicine; PCP Physician Assistant Medical; Referring Provider Physician Assistant Medical; Visit Provider Family Medicine | DX: I89.0 Lymphedema, not elsewhere classified (principal); I87.2 Venous insufficiency (chronic) (peripheral); Z79.899 Other long term (current) drug therapy | CPT/HCPCS: 99212 ==

== ENCOUNTER 2023-04-10 18:06 | Observation (INO) | payer OTHER, SELFPAY ==
[2023-04-10] VITALS (20 sets, daily range): BP systolic 92–170; BP diastolic 50–73; PULSE 60–98; RESP 16–29; TEMP 36.6; O2SAT 93–99; BMI 23.1
--- NOTE | 2023-04-10 18:38 | ED_ITS ---
HPI - General Adult General Chief complaint: Fall Stated complaint: Fall/+LOC/No Thinners Time Seen by Provider: 04/10/23 18:09 Source: patient Mode of arrival: EMS History of Present Illness HPI narrative: 82-year-old woman with a history of rheumatoid arthritis, hypertension, hyperlipidemia, COPD prior femur fracture secondary to falls, multiple falls and concern for home situation was found outside her house face down on the ground b y her neighbor 911 was called. The patient does not recall falling or events around it. She is slightly confused. She is not nauseated. She has moderate facial trauma and C2 tenderness on palpation. She has some minor other musculoskeletal aches and pains. She states that recently she is actually been doing relatively well. She had a flat tire yesterday she and her neighbor took the tire to [facility] this morning came back ate lunch and everything seemed fine. She is not complaining of chest pain, recent fevers or cough, abdominal pain dyspnea and she has chronic lower extremity lymphedema with wound care compression dressings in place. Related Data Home Medications Medication Instructions Recorded Confirmed methotrexate sodium 2.5 mg tablet 6 tab PO QWEEK ##0 08/10/11 12/23/21 furosemide 20 mg tablet 20 mg PO QAM 02/01/19 12/23/21 metoprolol succinate 25 mg 25 mg PO DAILY 02/01/19 12/23/21 tablet,extended release 24 hr levothyroxine 25 mcg tablet 25 mcg PO DAILY 02/27/19 12/23/21 lisinopril 10 mg tablet 5 mg PO DAILY 02/27/19 12/23/21 simvastatin 10 mg tablet 10 mg PO DAILY 02/27/19 12/23/21 ascorbic acid (vitamin C) 1,000 mg 1,000 mg PO DAILY 06/07/19 12/23/21 tablet biotin 5,000 mcg sublingual tablet 5,000 mcg sublingual DAILY 06/07/19 12/23/21 calcium carbonate 500 mg calcium 1,200 mg PO DAILY 06/07/19 12/23/21 (1,250 mg) tablet (Calcium 500) cholecalciferol (vitamin D3) 50 2,000 unit PO DAILY 06/07/19 12/23/21 mcg (2,000 unit) tablet (Vitamin D3) cyanocobalamin (vitamin B-12) 5,000 mcg sublingual DAILY 06/07/19 12/23/21 5,000 mcg sublingual tablet (Vitamin B-12) folic acid 800 mcg tablet 1,600 mcg PO DAILY 06/07/19 12/23/21 magnesium 250 mg tablet 500 mg PO DAILY 06/07/19 12/23/21 [id number] 200 mcg-vit K 100 1 cap PO DAILY 06/07/19 08/02/20 mcg-lycop 500 [id number] capsule (Daily Multivitamin) omega 5-miu-oge-fish oil 1,000 mg 1 cap PO DAILY 06/07/19 12/23/21 (120 mg-180 mg) capsule (Fish Oil) pantoprazole 40 mg tablet,delayed 40 mg PO DAILY 06/07/19 12/23/21 release Previous Rx's Medication Instructions Recorded ondansetron HCl 4 mg tablet 4 mg PO Q8H PRN nausea and 08/02/20 (Zofran) vomiting #5 tabs Allergies Allergy/AdvReac Type Severity Reaction Status Date / Time aspirin AdvReac Mild Gastrointestinal Verified 04/10/23 18:13 Upset NSAIDS (Non-Steroidal AdvReac Mild Gastrointestinal Verified 04/10/23 18:13 Anti-Inflamma Upset Review of Systems Review of Systems Narrative: Pertinent positive and negative findings as per HPI Patient History Medical History (Updated 04/10/23 @ 21:51 by Lamar Inman MD) Asthma Atrial fibrillation CAD (coronary artery disease) COPD (chronic obstructive pulmonary disease) DDD (degenerative disc disease) Depression Edema Fracture of inferior pubic ramus Gastric ulcer GI bleed (~2018) Gout Hip fracture, left (~10/2010) History of varicose veins HLD (hyperlipidemia) HTN (hypertension) Hypothyroidism Memory impairment Migraine headache with aura Neck pain Neuropathy NSVT (nonsustained ventricular tachycardia) Osteopenia Peripheral neuropathy Pulmonary hypertension, mild Raynauds phenomenon Rheumatoid arthritis DALE (stress urinary incontinence, female) Tinnitus Tricuspid regurgitation Surgical History (Updated 07/30/20 @ 11:50 by Radha Chandler RN) History of left heart catheterization History of total hip arthroplasty History of total knee arthroplasty (02/09/19) Hx of hand surgery Hx of tonsillectomy Hx of tubal ligation Family History (Updated 06/08/19 @ 00:07 by LADARIUS Lee) Father Alcoholism /alcohol abuse Mother Migraines Brother History of knee replacement Sister No significant medical problems Son Alcoholism /alcohol abuse Social History household members: children Smoking Status: Former smoker alcohol intake: former Smoking Status: Former smoker alcohol intake frequency: holidays/special occasions only Substance Use Type: does not use Exam Initial Vital Signs Initial Vital Signs: Vital Signs Temperature 97.8 F 04/10/23 17:40 Pulse Rate 98 H 04/10/23 17:40 Respiratory Rate 16 04/10/23 17:40 Blood Pressure 170/71 H 04/10/23 17:40 Pulse Oximetry 99 04/10/23 17:40 Oxygen Delivery Method Room Air 04/10/23 17:40 General: Frail-appearing, in no acute distress. Able to give answer questions and participate with exam but has minimal recollection of events HEENT: Moist mucous membranes, normal sclera with reactive pupils, shows a contusion mid forehead over the bridge of her nose the upper lip midline and over the tip of her chin. No TMJ tenderness and no dental articulation abnormalities Neck: No JVD, C2 midline tenderness to palpation Respiratory: Lungs are clear to auscultation, no wheezing no rales no rhonchi. Full and symmetrical air movement Cardiac: Regular rate and rhythm no murmurs no bruits Abdomen: Soft, nontender, good bowel tones, no flank pain Skin: Warm and dry, abrasion to the left knee that is minor large hematoma approximately 24 hours old on her right hip and upper thigh. Lymphedema dressings are not removed Neurologic: Grossly neurologically intact with no obvious asymmetries or abnormalities, NIH=0 Extremities: No tenderness at pelvis, hips or knees. Well perfused. She does have secondary sequelae of rheumatoid arthritis in her hands and shoulders. Right shoulder with some tenderness over the anterior deltoid with otherwise uninhibited range of motion at that joint Psych: Cooperative, slightly confused but good eye contact, fluent speech and appropriate affect Procedures Orthopedic Joint Reduction Right 4th finger PIP: Time of procedure: 22:55 Side: right Joint Reduction Location: finger Analgesia: nerve block Local Anesthesia: lidocaine 1% Amount of anesthesic used (mL): 3 Technique used: direct manipulation Post-reduction neuro exam: intact Post-reduction vascular: intact Post Reduction X-Ray Obtained: No Splint Applied: Yes Patient Tolerated Procedure: Well Additional Comments: Was able to flex her finger through full range of motion after the reduction. Course Orders Ordered: ED Orders 04/10/23 18:46 XR hand RT min 3V Stat XR shoulder RT min 2V Stat 04/10/23 18:48 CT cervical spine wo con Stat CT head/brain wo con Stat XR chest 1V Stat 04/10/23 18:52 Comprehensive Metabolic Panel Stat Troponin I Stat 04/10/23 19:13 EKG-12 Lead Stat 04/10/23 20:23 Urinalysis and Microscopic Stat 04/10/23 21:50 Trop I [Troponin I] Stat Discontinued Medications Lidocaine HCl (Lidocaine 1% 20 Ml) 20 ml INJ INTRA-OP ONE Stop: 04/10/23 20:45 Last Admin: 04/10/23 20:47 Dose: 20 ml Documented By: GEORGE Vital Signs Vital signs: Vital Signs - 8 hr 04/10/23 17:40 04/10/23 18:13 04/10/23 18:13 Temperature 97.8 F Pulse Rate 98 H 96 H Respiratory Rate 16 Blood Pressure 170/71 H 170/70 H Pulse Oximetry 99 97 Oxygen Delivery Method Room Air 04/10/23 18:30 04/10/23 18:30 04/10/23 18:45 Temperature Pulse Rate 83 Respiratory Rate 18 Blood Pressure 119/63 132/73 Pulse Oximetry 97 Oxygen Delivery Method Room Air 04/10/23 18:45 04/10/23 20:20 04/10/23 20:21 Temperature Pulse Rate 88 60 87 Respiratory Rate 29 H Blood Pressure Pulse Oximetry 97 98 Oxygen Delivery Method Room Air 04/10/23 20:21 04/10/23 20:30 04/10/23 20:30 Temperature Pulse Rate 82 Respiratory Rate Blood Pressure 145/73 H 141/70 H Pulse Oximetry 98 Oxygen Delivery Method Room Air 04/10/23 20:45 04/10/23 20:45 04/10/23 21:00 Temperature Pulse Rate 80 Respiratory Rate 16 Blood Pressure 147/73 H 133/60 Pulse Oximetry 99 Oxygen Delivery Method 04/10/23 21:00 04/10/23 21:15 04/10/23 21:15 Temperature Pulse Rate 80 83 Respiratory Rate 24 24 Blood Pressure 134/61 Pulse Oximetry 98 98 Oxygen Delivery Method Room Air 04/10/23 21:30 04/10/23 21:46 04/10/23 21:46 Temperature Pulse Rate 84 84 Respiratory Rate 24 23 Blood Pressure 121/59 L Pulse Oximetry 98 Oxygen Delivery Method 04/10/23 22:00 04/10/23 22:00 Temperature Pulse Rate 82 Respiratory Rate 25 H Blood Pressure 115/68 Pulse Oximetry 97 Oxygen Delivery Method Room Air Medical Decision Making Lab Data 04/10/23 18:52 Labs: Lab Results 04/10/23 04/10/23 04/10/23 Range/Units 18:52 20:23 21:50 Sodium 139 (137-145) mmol/L Potassium 3.9 (3.4-5.1) mmol/L Chloride 107 (98-107) mmol/L Carbon Dioxide 26 (22-32) mmol/L BUN 24 H (7-17) mg/dL Creatinine 0.79 (0.52-1.04) mg/dL Estimated GFR > 60 (>60) mL/min BUN/Creatinine Ratio 30.4 H (6-22) Glucose 106 (80-110) mg/dL Calcium 8.8 (8.4-10.2) mg/dL Total Bilirubin 0.7 (0.2-1.3) mg/dL AST 33 (14-36) IU/L ALT 22 (<35) IU/L Alkaline Phosphatase 50 (38-126) U/L Troponin I < 0.012 < 0.012 (0.01-0.034) ng/mL Total Protein 7.1 (6.3-8.2) g/dL Albumin 4.1 (3.5-5.0) g/dL Globulin 3.0 (1.7-4.1) g/dL Albumin/Globulin Ratio 1.4 (1.0-2.8) Urine Color Yellow Urine Appearance Clear Urine pH 6.0 (4.5-8.0) Ur Specific Duff 1.010 (1.000-1.035) Urine Protein Negative (Negative) Urine Glucose (UA) Negative (Negative) g/dL Urine Ketones Trace H (NEGATIVE) Urine Occult Blood Negative (Negative) Urine Nitrate Negative (Negative) Urine Bilirubin Negative (NEGATIVE) Urine Urobilinogen 0.2 (0.2) E.U./dL Ur Leukocyte Esterase Negative (NEGATIVE) Urine RBC 0-1/hpf (0-5/HPF) Urine WBC 0-1/hpf (0-5/HPF) Ur Squamous Epith Cells 0-1 /hpf (0-5/HPF) Urine Bacteria Occasional (0-1) (None) Ur Culture Indicated? Cult not indicated Urine Dip Bedside Urine Glucose Negative Bedside Urine Bilirubin - Negative Bedside Urine Ketone +/- 5 Urine Specific Duff 1.01 Bedside Urine Occult Blood - Negative Bedside Urine pH 6 Bedside Urine Protein - Negative Bedside Urine Urobilinogen - Negative Bedside Urine Nitrite - Negative Bedside Urine Leukocytes - Negative Esterase Point of care testing: Urine Dip Bedside Urine Glucose Negative Bedside Urine Bilirubin - Negative Bedside Urine Ketone +/- 5 Urine Specific Duff 1.01 Bedside Urine Occult Blood - Negative Bedside Urine pH 6 Bedside Urine Protein - Negative Bedside Urine Urobilinogen - Negative Bedside Urine Nitrite - Negative Bedside Urine Leukocytes - Negative Esterase MDM Narrative Medical decision making narrative: CC: Syncope, fall Complicating co-morbidities: No recollection of events, hypertension, hyperlipidemia, frequent falls Data collected from: patient, medics Social determinants of health that may influence the patients condition: Currently lives at home with her son who recently had hip surgery and she describes ?they have been taking care of each other? Medical records reviewed: Seen at [facility], no significant hospital records are available, prior ER notes reviewed Differential considered: Syncope -uncertain etiology but stroke, cardiac arrhythmia, acute coronary syndrome all within the differential. Trauma with facial injury, possibility of intracranial hemorrhage cervical spine injury right shoulder injury finger fracture Exam documented above, pertinent findings include: Significant contusion along the midline of her face. There is no maxillary tenderness and no mandibular tenderness abnormalities or articulation abnormalities to suggest a jaw fracture. Cervical spine is tender at C2 midline. She has some tenderness in the right anterior shoulder with a mild effusion unclear if this is new or chronic. Some swelling and ecchymosis around the PIP joint right 4th finger, she has a large bruise on her right hip from a fall off the couch last night, minor abrasion on the left knee. Heart, lungs, abdomen, neurologic exam are all otherwise unremarkable. She does have compression wraps in place for her chronic lower extremity lymphedema Lab Test results independently reviewed as above. Pertinent findings: CBC shows normal white blood cell count mild anemia at 10.4 and 31.2 with a normal MCV Chemistries are reassuring with no evidence of acute renal failure. No liver abnormality Troponin is 0.012 Urine has trace ketones only Independently reviewed EKG as above sinus rhythm at a rate of 81. Normal intervals, normal axis. No acute ischemic changes Imaging studies independently reviewed: CT scan of the head shows no acute intracranial abnormalities or bleed Chest x-ray shows no acute disease, moderate cardiomegaly, multiple nonacute left rib fractures CT cervical spine shows no acute bony abnormalities Shoulder x-ray shows no acute bony abnormalities, question of a Hill-Sachs deformity of the humeral head and suspected rotator cuff calcific tendinitis XR hand dislocated 4th pip joint. Radiologist questions the distal ulnar fracture. There is no clinical correlation, she does not have wrist pain and specifically does not have distal ulnar tenderness Consultations: Dr Oconnell, hospitalist Treatments: Right PIP dislocation is relocated. Digital nerve block is used. Splint is placed by me, she is neurovascularly intact after splint placement Re-evaluations: Findings reviewed with the patient. It is point I do not have evidence for stroke, acute coronary syndrome, cardiac dysrhythmia remains within the differential. She still has no recollection of events and it is unclear if this is because of the fall and the loss of consciousness with head injury and concussion or because of her baseline cognitive difficulties. At this point I have no explanation for her syncopal episode and it sounds like there was a relatively prolonged loss of consciousness. Recommendation at this point will be to admit for further workup of her syncopal episode. Additional Information: MIPS: Emergency Medicine: Utilization of CT for Minor Blunt Head Trauma (Adult) Patient is 18 or older, presenting with minor blunt head trauma. Head CT was ordered by an emergency health care legal assistant for trauma because Reasons: Patient is 65 or older Other: significant midline facial bruising Patient has loss of consciousness and (must select one of the following): -Short term memory deficit -Evidence of trauma above the clavicles Discharge Plan Departure Patient Disposition: Admitted as Observation Clinical Impression: Syncope, Concussion, Contusion of face, Closed dislocation finger, proximal interphalangeal joint, traumatic, Contusion of hip, right, Frequent falls, Coagulopathy Prescriptions: No Action methotrexate sodium 2.5 mg Tablet 6 tab PO QWEEK Qty: 0 Rx Instructions: Every wednesday metoprolol succinate 25 mg Tablet Extended Release 24 Hr 25 mg PO DAILY furosemide 20 mg Tablet 20 mg PO QAM simvastatin 10 mg tablet 10 mg PO DAILY levothyroxine 25 mcg tablet 25 mcg PO DAILY lisinopril 10 mg tablet 5 mg PO DAILY pantoprazole 40 mg Tablet,Delayed Release (Dr/Ec) 40 mg PO DAILY ascorbic acid (vitamin C) 1,000 mg Tablet 1,000 mg PO DAILY Daily Multivitamin 200-100-500 mcg Capsule 1 cap PO DAILY calcium carbonate [Calcium 500] 500 mg calcium (1,250 mg) Tablet 1,200 mg PO DAILY magnesium 250 mg Tablet 500 mg PO DAILY folic acid 800 mcg Tablet 1,600 mcg PO DAILY cholecalciferol (vitamin D3) [Vitamin D3] 2,000 unit Tablet 2,000 unit PO DAILY omega 3-nop-ssg-fish oil [Fish Oil] 1,000 mg (120 mg-180 mg) Capsule 1 cap PO DAILY cyanocobalamin (vitamin B-12) [Vitamin B-12] 5,000 mcg Tablet, Sublingual 5,000 mcg SUBLINGUAL DAILY biotin 5,000 mcg Tablet, Sublingual 5,000 mcg SUBLINGUAL DAILY ondansetron HCl [Zofran] 4 mg tablet 4 mg PO Q8H PRN (Reason: nausea and vomiting) Qty: 5 1RF Referrals: Sneha Lam PA-C [Primary Care Provider] - Admit Date/Time: 04/10/23 22:54 Admit Provider: Germán Oconnell
--- NOTE | 2023-04-10 18:46 | DI.RAD.S_ITS ---
PROCEDURE: XR SHOULDER RT MIN 2V INDICATIONS: fall TECHNIQUE: 3 views of the shoulder were acquired. COMPARISON: None. FINDINGS: Bones: Question Hill-Sachs deformity of the humeral head. No fractures or dislocations. No suspicious bony lesions. Visualized ribs appear intact. Soft tissues: Calcification over the humeral head likely related to calcific tendinitis of the rotator cuff tendons. IMPRESSION: 1. No acute osseous abnormality. 2. Question Hill-Sachs deformity of the humeral head. 3. Suspect rotator cuff calcific tendinitis. Dictated by: Dany Fitzpatrick M.D. on 04/10/2023 at 19:55 Approved by: Dany Fitzpatrick M.D. on 04/10/2023 at 19:56
--- NOTE | 2023-04-10 18:46 | DI.RAD.S_ITS ---
PROCEDURE: XR HAND RT MIN 3V INDICATIONS: fall TECHNIQUE: 2 views of the hand(s) acquired. COMPARISON: [facility], CR, XR SHOULDER RT MIN 2V, 04/10/2023, 18:55. FINDINGS: Bones: There is distal ulnar fracture of uncertain chronicity. Severe degenerative joint disease in wrist and hand. There is subluxation at the 2nd and 3rd metacarpophalangeal joint. Cystic changes in the distal radius at the radiocarpal joint. Carpal bones are normally aligned. No suspicious bony lesions. There is osteopenia. Soft tissues: No suspicious soft tissue calcifications. Soft tissue swelling. IMPRESSION: 1. Possible distal ulnar fracture. 2. Severe degenerative joint disease in wrist and hand. 3. Subluxation at the 2nd and 3rd metacarpophalangeal joint. 4. Osteopenia. 5. Soft tissue swelling on round wrist. Dictated by: Dany Fitzpatrick M.D. on 04/10/2023 at 19:54 Approved by: Dany Fitzpatrick M.D. on 04/10/2023 at 20:56
--- NOTE | 2023-04-10 18:48 | DI.CT.S_ITS ---
PROCEDURE: CT CERVICAL SPINE WO CON INDICATIONS: Fall. TECHNIQUE: Noncontrast 3 mm thick sections acquired from the skull base to the T4 level. Sagittal and coronal reformats were then constructed. For radiation dose reduction, the following was used: automated exposure control, adjustment of mA and/or kV according to patient size. COMPARISON: None. FINDINGS: Image quality: Excellent. Bones: No fractures or dislocations. Grade 1 anterolisthesis of C4 on C5 and C7 on T1. Degenerative disc disease, severe at C5-C6 and moderate at other levels. Moderate to severe bilateral facet arthropathy throughout in cervical spine. Osteopenia. Visualized superior ribs are intact. Soft tissues: Prevertebral soft tissues are normal in thickness. No paravertebral hematomas. No apical pneumothoraces. IMPRESSION: 1. No cervical spine fractures. 2 degenerative changes as described. Dictated by: Dany Fitzpatrick M.D. on 04/10/2023 at 19:17 Approved by: Dany Fitzpatrick M.D. on 04/10/2023 at 19:19
--- NOTE | 2023-04-10 18:48 | DI.CT.S_ITS ---
PROCEDURE: CT HEAD/BRAIN WO CON INDICATIONS: Fall. TECHNIQUE: Noncontrast 4.5 mm thick angled axial sections acquired from the foramen magnum to the vertex, with coronal and sagittal reformats. For radiation dose reduction, the following was used: automated exposure control, adjustment of mA and/or kV according to patient size. COMPARISON: None. FINDINGS: Image quality: Excellent. CSF spaces: Basal cisterns are patent. No extra-axial fluid collections. The ventricles are symmetric in size and shape. Brain: No intracranial bleeds or masses. There is moderate cerebral volume loss, with resultant ventricular and sulcal prominence. There are severe periventricular and deep white matter chronic small vessel ischemic changes. There is intracranial internal carotid artery atherosclerosis. Skull and face: Calvarium and visualized facial bones appear intact, without suspicious lesions. Mild left frontal contusion. Sinuses: Visualized sinuses and mastoids are clear. IMPRESSION: 1. No acute intracranial abnormalities. 2. Cerebral volume loss and chronic microvascular ischemic changes. Dictated by: Dany Fitzpatrick M.D. on 04/10/2023 at 19:15 Approved by: Dany Fitzpatrick M.D. on 04/10/2023 at 19:16
--- NOTE | 2023-04-10 18:48 | DI.RAD.S_ITS ---
PROCEDURE: XR CHEST 1V INDICATIONS: syncope, fall TECHNIQUE: One view of the chest was acquired. COMPARISON: [facility] [place], [place], XR CHEST 1 VIEW, 08/07/2020, 15:18. [facility], CT, CT CHEST WO CON, 09/13/2020, 11:11. FINDINGS: Surgical changes and devices: None. Lungs and pleura: Lungs are clear. No pleural effusions or pneumothorax. Mediastinum: Mediastinal contours appear normal. Heart size is moderately increased. There is a moderate-sized hiatal hernia. Bones and chest wall: Multiple nonacute left rib fractures. No suspicious bony lesions. Overlying soft tissues appear unremarkable. IMPRESSION: 1. No acute cardiopulmonary disease. 2. Moderate cardiomegaly. 3. Moderate-sized hiatal hernia. 4. Multiple nonacute left rib fractures. Dictated by: Dany Fitzpatrick M.D. on 04/10/2023 at 19:53 Approved by: Dany Fitzpatrick M.D. on 04/10/2023 at 19:54
[2023-04-10 19:19] LABS: Alanine Aminotransferase 22 IU/L (<35); Albumin 4.1 g/dL (3.5-5.0); Albumin Globulin Ratio 1.4 (1.0-2.8); Alkaline Phosphatase 50 U/L (38-126); Aspartate Aminotransferase 33 IU/L (14-36); BUN Creatinine Ratio 30.4 (6-22); Bilirubin Total 0.7 mg/dL (0.2-1.3); Blood Urea Nitrogen 24 mg/dL (7-17); Calcium 8.8 mg/dL (8.4-10.2); Carbon Dioxide 26 mmol/L (22-32); Chloride 107 mmol/L (98-107); Estimated Glomerular Filt Rate > 60 mL/min (>60); Glucose 106 mg/dL (80-110); Potassium 3.9 mmol/L (3.4-5.1); Sodium 139 mmol/L (137-145); Total Protein 7.1 g/dL (6.3-8.2)
[2023-04-10 19:20] LABS: HEMOLYSIS 59 (0-50)
[2023-04-10 19:31] LABS: Troponin I < 0.012 ng/mL (0.01-0.034)
--- NOTE | 2023-04-10 19:57 | PC.NURSE ---
c-collar removed per Dr Inman
[2023-04-10 20:31] LABS: Appearance Urine UA CLEAR; Bilirubin Urine UA NEGATIVE (NEGATIVE); Color Urine UA YELLOW; Glucose Urine UA NEGATIVE (Negative); Ketones Urine UA TRACE (NEGATIVE); Leukocyte Esterase Urine UA NEGATIVE (NEGATIVE); Nitrite Urine UA NEGATIVE (Negative); Occult Blood Urine UA NEGATIVE (Negative); Protein Urine UA NEGATIVE (Negative); Urobilinogen Urine UA 0.2 E.U./dL (0.2)
[2023-04-10 20:41] LABS: Bacteria Urine Occasional (0-1); RBC Urine 0-1/HPF (0-5/HPF); WBC Urine 0-1/HPF (0-5/HPF)
[2023-04-10 20:42] LABS: Culture Indicated Urine Cult Not Indicated; Squamous Epithelial Cell Urine 0-1 /HPF (0-5/HPF)
[2023-04-10] MEDS: LIDOCAINE 1% 20 ML INJ (20:47)
[2023-04-10 22:22] LABS: Troponin I < 0.012 ng/mL (0.01-0.034)
--- NOTE | 2023-04-10 22:53 | PC.NURSE ---
Pt blood pressure decreased. Asked patient if she took any of her home meds and she reported yes. Pt reports taking metoprolol ER 25mg and Lisinopril 5mg. Education given regarding not taking home medications while in the ED and hospital. Pt verbalized understanding. Provider Storm made aware.
--- NOTE | 2023-04-11 05:16 | P.HP_ITS ---
There is already finalized H & P. Please delete this unfinished H&P History of Present Illness History of Present Illness Chief complaint: Fall/+LOC/No Thinners Narrative: 82 y/y with PMH of HTN, CAD, COPD, Hypothyroidism, A-fib, neuropathy, Raynauds, RA, sustained syncopal episode, GLF with facial injury and consussion. Found by a neighbour in her yard. She he complete amnesia for the period preceding the syncope, likely from concussion. Complains on facial pain and neck pain, Rt wrist pain where she sustained 2nd and 3rd MCP dislocations. Denies palpityations, chest pain or shortness of breath. [facility] Medical History Asthma Atrial fibrillation CAD (coronary artery disease) COPD (chronic obstructive pulmonary disease) DDD (degenerative disc disease) Depression Edema Fracture of inferior pubic ramus Gastric ulcer GI bleed (~2017) Gout Hip fracture, left (~10/2010) History of varicose veins HLD (hyperlipidemia) HTN (hypertension) Hypothyroidism Memory impairment Migraine headache with aura Neck pain Neuropathy NSVT (nonsustained ventricular tachycardia) Osteopenia Peripheral neuropathy Pulmonary hypertension, mild Raynauds phenomenon Rheumatoid arthritis DALE (stress urinary incontinence, female) Tinnitus Tricuspid regurgitation Surgical History History of left heart catheterization History of total hip arthroplasty History of total knee arthroplasty (02/09/19) Hx of hand surgery Hx of tonsillectomy Hx of tubal ligation Family History Father Alcoholism /alcohol abuse Mother Migraines Brother History of knee replacement Sister No significant medical problems Son Alcoholism /alcohol abuse Social History household members: children Smoking Status: Former smoker alcohol intake: former Meds Home Medications and Allergies Home Medications Medication Instructions Recorded Confirmed Type methotrexate sodium 2.5 mg tablet 6 tab PO QWEEK ##0 08/10/11 04/11/23 History metoprolol succinate 25 mg 25 mg PO DAILY 02/01/19 04/11/23 History tablet,extended release 24 hr levothyroxine 25 mcg tablet 75 mcg PO DAILY 02/27/19 04/11/23 History lisinopril 10 mg tablet 5 mg PO DAILY 02/27/19 04/11/23 History pantoprazole 40 mg tablet,delayed 40 mg PO DAILY 06/07/19 04/11/23 History release atorvastatin 20 mg tablet 20 mg PO DAILY 04/11/23 04/11/23 History cephalexin 500 mg capsule 500 mg PO 3XD 04/11/23 04/11/23 History methylprednisolone 4 mg PO DAILY 04/11/23 04/11/23 History tolterodine 4 mg capsule,extended 4 mg PO DAILY 04/11/23 04/11/23 History release 24 hr Allergies Allergy/AdvReac Type Severity Reaction Status Date / Time aspirin AdvReac Mild Gastrointestinal Verified 04/10/23 18:13 Upset NSAIDS (Non-Steroidal AdvReac Mild Gastrointestinal Verified 04/10/23 18:13 Anti-Inflamma Upset Review of Systems Constitutional Comments: w/o fever or chills Eyes Comments: w/o recent vision changes ENT Comments: w/o vertigo, headache or dizziness preceding the fall Cardiovascular Comments: w/o palpitations or chest pain Respiratory Comments: has baseline shortness of breath from asthma or COPD, no recent flares Gastrointestinal Comments: w/o pain Genitourinary Comments: w/o dysuria Musculoskeletal Comments: facial tenderness, neck tenderness Neurologic Comments: w/o deficits Psychiatric Comments: lucid, appropriate mood Endocrine Comments: w/o polyuria or polydipsia, w/o heat or cold intolerance Hematologic/Lymphatic Comments: w/o bleeding Exam Vital Signs (past 8 hours): - 04/10/23 21:30 04/10/23 21:46 04/10/23 21:46 Pulse Rate 84 84 Respiratory Rate 24 23 Blood Pressure 121/59 L Pulse Oximetry 98 Oxygen Delivery Method 04/10/23 22:00 04/10/23 22:00 04/10/23 22:15 Pulse Rate 82 Respiratory Rate 25 H Blood Pressure 115/68 113/60 Pulse Oximetry 97 Oxygen Delivery Method Room Air 04/10/23 22:15 04/10/23 22:30 04/10/23 22:30 Pulse Rate 80 81 Respiratory Rate 20 19 Blood Pressure 110/57 L Pulse Oximetry 98 96 Oxygen Delivery Method 04/10/23 22:45 04/10/23 22:45 04/10/23 22:46 Pulse Rate 79 82 Respiratory Rate 18 Blood Pressure 93/50 L Pulse Oximetry 93 94 Oxygen Delivery Method Room Air 04/10/23 22:46 04/10/23 23:00 04/10/23 23:00 Pulse Rate 82 Respiratory Rate 20 Blood Pressure 99/56 L 92/53 L Pulse Oximetry 93 Oxygen Delivery Method 04/10/23 23:15 04/10/23 23:15 04/10/23 23:30 Pulse Rate 80 Respiratory Rate 18 Blood Pressure 94/52 L 95/53 L Pulse Oximetry 93 Oxygen Delivery Method Room Air 04/10/23 23:30 04/10/23 23:22 Pulse Rate 78 Respiratory Rate 18 Blood Pressure Pulse Oximetry 94 Oxygen Delivery Method Room Air Room Air Oxygen Delivery Method Room Air Const Other: sitting in bed in no distress HENMT Other: extensive facial bruising Eyes Other: batool, eomi Neck Other: supple Neuro Other: w/o acute deficits Extrem Other: 2nd and 3rd Rt fingers Objective Labs 04/10/23 18:52 Labs: Laboratory Results - last 24 hr 04/10/23 04/10/23 04/10/23 18:52 20:23 21:50 Sodium 139 Potassium 3.9 Chloride 107 Carbon Dioxide 26 BUN 24 H Creatinine 0.79 Estimated GFR > 60 BUN/Creatinine Ratio 30.4 H Glucose 106 Calcium 8.8 Total Bilirubin 0.7 AST 33 ALT 22 Alkaline Phosphatase 50 Troponin I < 0.012 < 0.012 Total Protein 7.1 Albumin 4.1 Globulin 3.0 Albumin/Globulin Ratio 1.4 Urine Color Yellow Urine Appearance Clear Urine pH 6.0 Ur Specific [place] 1.010 Urine Protein Negative Urine Glucose (UA) Negative Urine Ketones Trace H Urine Occult Blood Negative Urine Nitrate Negative Urine Bilirubin Negative Urine Urobilinogen 0.2 Ur Leukocyte Esterase Negative Urine RBC 0-1/hpf Urine WBC 0-1/hpf Ur Squamous Epith Cells 0-1 /hpf Urine Bacteria Occasional (0-1) Ur Culture Indicated? Cult not indicated
[2023-04-11 05:50] VITALS: BP 112/67; PULSE 70; RESP 18; TEMP 36.3; O2SAT 97
[2023-04-11 06:22] LABS: Add Manual Diff / Slide Review NO; Basophils Absolute Auto 100 /uL (0-100); Basophils Percent Auto 0.8 % (0-2); Eosinophils Absolute Auto 100 /uL (0-450); Hemoglobin 11.3 g/dL (12.0-16.0); Lymphocytes Absolute Auto 1900 /uL (1100-4500); Mean Corpuscular HGB Conc 34.4 % (30-36); Mean Corpuscular Hemoglobin 33.1 PG (26-34); Mean Corpuscular Volume 96.1 fL (80-100); Monocytes Absolute Auto 900 /uL (0-900); Monocytes Percent Auto 12.3 % (3-14); Neutrophils Absolute Auto 4200 /uL (1500-7000); Neutrophils Percent Auto 58.9 % (50-75); Platelet Count 214 X10^3/uL (150-400); Red Blood Cell Count 3.43 X10^6/uL (4.0-5.2); Red Cell Distribution Width 14.9 % (11.6-14.8); White Blood Cell Count 7.1 X10^3/uL (4.5-11.0)
[2023-04-11 06:30] LABS: BUN Creatinine Ratio 26.4 (6-22); Blood Urea Nitrogen 19 mg/dL (7-17); Calcium 8.9 mg/dL (8.4-10.2); Carbon Dioxide 26 mmol/L (22-32); Chloride 108 mmol/L (98-107); Estimated Glomerular Filt Rate > 60 mL/min (>60); Glucose 99 mg/dL (80-110); HEMOLYSIS < 15 (0-50); Potassium 3.4 mmol/L (3.4-5.1); Sodium 139 mmol/L (137-145)
[2023-04-11 08:15] VITALS: BP 112/61; PULSE 74; RESP 19; TEMP 35.9; O2SAT 97
--- NOTE | 2023-04-11 08:54 | PM.HP.1 ---
History of Present Illness History of Present Illness Chief complaint: Fall/+LOC/No Thinners Narrative: 82 y/y with PMH of HTN, CAD, COPD, Hypothyroidism, A-fib, neuropathy, Raynauds, RA, sustained syncopal episode, GLF with facial injury and consussion. Found by a neighbour in her yard. She he complete amnesia for the period preceding the syncope, likely from concussion. Complains on facial pain and neck pain, Rt wrist pain where she sustained 2nd and 3rd MCP dislocations. Denies palpityations, chest pain or shortness of breath. [facility] Medical History Asthma Atrial fibrillation CAD (coronary artery disease) COPD (chronic obstructive pulmonary disease) DDD (degenerative disc disease) Depression Edema Fracture of inferior pubic ramus Gastric ulcer GI bleed (~2017) Gout Hip fracture, left (~10/2010) History of varicose veins HLD (hyperlipidemia) HTN (hypertension) Hypothyroidism Memory impairment Migraine headache with aura Neck pain Neuropathy NSVT (nonsustained ventricular tachycardia) Osteopenia Peripheral neuropathy Pulmonary hypertension, mild Raynauds phenomenon Rheumatoid arthritis DALE (stress urinary incontinence, female) Tinnitus Tricuspid regurgitation Surgical History History of left heart catheterization History of total hip arthroplasty History of total knee arthroplasty (02/09/19) Hx of hand surgery Hx of tonsillectomy Hx of tubal ligation Family History Father Alcoholism /alcohol abuse Mother Migraines Brother History of knee replacement Sister No significant medical problems Son Alcoholism /alcohol abuse Social History household members: children Smoking Status: Former smoker alcohol intake: former Meds Home Medications and Allergies Home Medications Medication Instructions Recorded Confirmed Type methotrexate sodium 2.5 mg tablet 6 tab PO QWEEK ##0 08/10/11 04/11/23 History metoprolol succinate 25 mg 25 mg PO DAILY 02/01/19 04/11/23 History tablet,extended release 24 hr levothyroxine 25 mcg tablet 75 mcg PO DAILY 02/27/19 04/11/23 History lisinopril 10 mg tablet 5 mg PO DAILY 02/27/19 04/11/23 History pantoprazole 40 mg tablet,delayed 40 mg PO DAILY 06/07/19 04/11/23 History release atorvastatin 20 mg tablet 20 mg PO DAILY 04/11/23 04/11/23 History cephalexin 500 mg capsule 500 mg PO 3XD 04/11/23 04/11/23 History methylprednisolone 4 mg PO DAILY 04/11/23 04/11/23 History tolterodine 4 mg capsule,extended 4 mg PO DAILY 04/11/23 04/11/23 History release 24 hr Allergies Allergy/AdvReac Type Severity Reaction Status Date / Time aspirin AdvReac Mild Gastrointestinal Verified 04/10/23 18:13 Upset NSAIDS (Non-Steroidal AdvReac Mild Gastrointestinal Verified 04/10/23 18:13 Anti-Inflamma Upset Review of Systems Constitutional Comments: generalized weakness Eyes Comments: w/o recent vision changes ENT Comments: w/o headache, dizziness or vertigo prior to the event Cardiovascular Comments: w/o palpitations Respiratory Comments: baseline shortness of breath Gastrointestinal Comments: w/o pain Genitourinary Comments: w/o dysuria Musculoskeletal Comments: art 2nd and 3rd fingers and Rty wrist pain Facial pain Exam Vital Signs (past 8 hours): - 04/11/23 05:50 04/11/23 08:15 Temperature 97.4 F L 96.7 F L Pulse Rate 70 74 Respiratory Rate 18 19 Blood Pressure 112/67 112/61 Pulse Oximetry 97 97 Oxygen Flow Rate 0 Oxygen Delivery Method Room Air Oxygen Flow Rate 0 Const Other: in no distress HENMT Other: extensive facial bruising Eyes Other: batool, eomi Neck Other: tender posterior neck, normal ROMs Resp Other: normal respiratory effort, not wheezy Cardio Other: RRR GI Other: not distended Extrem Other: 2nd and 3rd rt fingers splinted b/l hand deformities from RA Objective Labs 04/11/23 06:00 04/11/23 06:00 Labs: Laboratory Results - last 24 hr 04/10/23 04/10/23 04/10/23 18:52 20:23 21:50 WBC RBC Hgb Hct MCV MCH MCHC RDW Plt Count Neut % (Auto) Lymph % (Auto) [place] % (Auto) Eos % (Auto) Baso % (Auto) Neut # (Auto) Lymph # (Auto) [place] # (Auto) Eos # (Auto) Baso # (Auto) Sodium 139 Potassium 3.9 Chloride 107 Carbon Dioxide 26 BUN 24 H Creatinine 0.79 Estimated GFR > 60 BUN/Creatinine Ratio 30.4 H Glucose 106 Calcium 8.8 Magnesium Total Bilirubin 0.7 AST 33 ALT 22 Alkaline Phosphatase 50 Troponin I < 0.012 < 0.012 Total Protein 7.1 Albumin 4.1 Globulin 3.0 Albumin/Globulin Ratio 1.4 Urine Color Yellow Urine Appearance Clear Urine pH 6.0 Ur Specific [place] 1.010 Urine Protein Negative Urine Glucose (UA) Negative Urine Ketones Trace H Urine Occult Blood Negative Urine Nitrate Negative Urine Bilirubin Negative Urine Urobilinogen 0.2 Ur Leukocyte Esterase Negative Urine RBC 0-1/hpf Urine WBC 0-1/hpf Ur Squamous Epith Cells 0-1 /hpf Urine Bacteria Occasional (0-1) Ur Culture Indicated? Cult not indicated 04/11/23 04/11/23 06:00 06:00 WBC 7.1 RBC 3.43 L Hgb 11.3 L Hct 33.0 L MCV 96.1 MCH 33.1 MCHC 34.4 RDW 14.9 H Plt Count 214 Neut % (Auto) 58.9 Lymph % (Auto) 27.0 [place] % (Auto) 12.3 Eos % (Auto) 1.0 L Baso % (Auto) 0.8 Neut # (Auto) 4200 Lymph # (Auto) 1900 [place] # (Auto) 900 Eos # (Auto) 100 Baso # (Auto) 100 Sodium 139 Potassium 3.4 Chloride 108 H Carbon Dioxide 26 BUN 19 H Creatinine 0.72 Estimated GFR > 60 BUN/Creatinine Ratio 26.4 H Glucose 99 Calcium 8.9 Magnesium 2.0 Total Bilirubin AST ALT Alkaline Phosphatase Troponin I Total Protein Albumin Globulin Albumin/Globulin Ratio Urine Color Urine Appearance Urine pH Ur Specific [place] Urine Protein Urine Glucose (UA) Urine Ketones Urine Occult Blood Urine Nitrate Urine Bilirubin Urine Urobilinogen Ur Leukocyte Esterase Urine RBC Urine WBC Ur Squamous Epith Cells Urine Bacteria Ur Culture Indicated? Assessment & Plan Assessment & Plan narrative: 1. Syncope / HTN - potline monitor - holding BBB and ACEI - borderline hypotensive 2. GLF / Consussion - she has retrograde memory loss - extensive facial bruising but w/o fractures - pain management 3. MCP dislocation of Rt 2nd and 3rd fingers - splinted in ED 4.GERD - PPI 5. RA - methylprednisolone, methotrexate 6. Hypothyroidism - levothyroxine 7. Urinary Incontinence - Tolterodine 8. HLD - statin DVT prophylaxis - SCDs
[2023-04-11] MEDS: OXYBUTYNIN 5 MG ER TAB 10 MG PO (10:55)
[2023-04-11] MEDS: PANTOPRAZOLE DR 40 MG TABLET PO (10:55)
[2023-04-11] MEDS: methylPREDNISolone 4 MG TABLET PO (10:55)
[2023-04-11] MEDS: ACETAMINOPHEN 325 MG TABLET 650 MG PO (10:57)
--- NOTE | 2023-04-11 10:59 | CM.DANOTE ---
Addendum entered by Lachelle Newton R.N. 04/11/23 14:46: Spoke to Gayathri, [place] most likely will not cover alf. Went ahead and met with patient, went over home health agencies on notebook, stated she heard that [facility] is pretty good. Ordering [facility]. Called [facility], spoke to Erika, told her about the referral. Faxing over face sheet, PCandidot. notes, face to face, orders, and H&P. Patient is going to see if she can find someone to pick her up, when she is ready to discharge. Ordering RN, P.T, and O.t. Original Note: DCP: Case received, EMR reviewed and met with patient. Introduced self and role. Was able to obtain information regarding patient's baseline activity level prior to hospitalization. DCP assessment completed with information currently available. Patient is an 82 year old female who admitted yesterday evening to the care of the hospitalist team. PCP: Dr. Sneha Lam. Payer: confirmed: [facility] [employer]. Patient came to the hospital via ambulance secondary to a ground level fall that occurred outside her home. Notes indicate that patient's neighbor had found patient on the ground, face down. She then called 911. Notes also indicate she did not recall falling, or the events around it. Patient had a flat tire yesterday, and asked the neighbor to take the tire to [facility]. She had lunch, was feeling fine. Patient was admitted for syncope, right hand dislocation to 4th joint. Patient had also noted facial injury and concussion. Met with patient in her room. She was sitting up in her chair, noted bandage and splint to her right hand, facial bruising. She was alert, stated, she did remember falling and losing her balance. Confirmed that she resides in [place] with son, Josue. Stated that her son was recovering from recent hip surgery from [facility]. Her son is not currently driving, but patient has been prior to the fall, and uses no DME. Discussed home health services versus skilled. Asked patient if she had been falling frequently at home, stated, she had not fallen in a while. Discussed working with P.T. here in the hospital. She is [place], and mentioned the possibility of home versus alf. Stated, if she does go home, has no one to pick her up. She is open to home health, as long as her insurance covers it. She is also open to alf if she needs to go, let her know that this will depend upon how she does with P.T, and if [facility] will auth her. Placed P.T. orders per hospitalist. P: DCP to continue to follow. Will see how she does with P.T. Plan will be home with home health versus alf depending upon how she mobilizes. Lachelle Newton RN/Wall And Floor Tiler Discharge Planning/Care Management CM Discharge Assessment Start: 04/11/23 10:54 Freq: Status: Active Protocol: Document 04/11/23 10:54 (Rec: 04/11/23 10:59 [id number]) Discharge Planning Assessment Assigned Hand Plug Shaper Lachelle Newton RN/Wall And Floor Tiler Advance Directives? Yes Advance Directives on File No History Provided By Patient,Family Member,Medical Record Prior Living Arrangements House Household Members children Type of transporation used prior to Drives own vehicle admit Independent with ADL's Yes Is patient alert and oriented? Yes Caregiver for Another No Patient/Family Preference Halfway Facility,Home with Home Health Comment Will need to work with P.T. first Barriers to Discharge Yes Comment lives with son that recently had hip surgery, frequent falls. Discharge Plan Halfway Facility Transportation Arrangement Friend, or facility if able to get into alf. Referrals Initiated Other Additional Comment Will see how she does with P.T . If patient plan is home with home health No : Has signed face to face form been completed? If patient plan is SNF: Has PASSR been No completed? SNF/HH Preference Awaiting P.T, heath, and if [facility] will auth. Whiteboard Updated in Patient Room with Yes name and ext. # of Hand Plug Shaper Review Status In Process Next Review Type Continued Stay Review
[2023-04-11 12:18] VITALS: BP 101/56; PULSE 69; RESP 18; TEMP 36; O2SAT 97
--- NOTE | 2023-04-11 13:06 | PT.IIE ---
Surgical History (Last Reviewed 04/11/23 @ 05:22 by Germán Oconnell MD) History of left heart catheterization History of total hip arthroplasty History of total knee arthroplasty (02/09/19) Hx of hand surgery Hx of tonsillectomy Hx of tubal ligation Medical History (Last Reviewed 04/11/23 @ 05:22 by Germán Oconnell MD) Asthma Atrial fibrillation CAD (coronary artery disease) COPD (chronic obstructive pulmonary disease) DDD (degenerative disc disease) Depression Edema Fracture of inferior pubic ramus Gastric ulcer GI bleed (~2017) Gout Hip fracture, left (~10/2010) History of varicose veins HLD (hyperlipidemia) HTN (hypertension) Hypothyroidism Memory impairment Migraine headache with aura Neck pain Neuropathy NSVT (nonsustained ventricular tachycardia) Osteopenia Peripheral neuropathy Pulmonary hypertension, mild Raynauds phenomenon Rheumatoid arthritis DALE (stress urinary incontinence, female) Tinnitus Tricuspid regurgitation Physical Therapy Inpatient Evaluation/Re-Eval M1 PT/OT-IP Prior Functional Status Start: 04/11/23 13:55 Freq: NEEDED Status: Active Protocol: Document 04/11/23 13:55 AB (Rec: 04/11/23 14:17 AB [id number]) Medical Review Prior Functional Status Medical History Reviewed Yes Communication Pt is able to express all needs. Mobility and Gait Pt reports she sometimes uses SPC or 4WW to ambulate in her home, and SPC for community distances. Activities of Daily Living and IADL's IND with ADLs and IADLs, though reports she recieves assistance from her son before his surgery with some activities. Prior Functional Level (Other details) Pt reports hx of falls prior to this fall. Social History Household Members children Living Arrangements House Number of Floors (Floors) One Floor Number of Stairs To Enter/Railing? 3 PARISA with hand rail on left side Home Environment Walk in Shower,Built-In Shower Seat Home Equipment Four Wheel Walker,Straight Cane,Raised Toilet Seat w/ Armrests,Shower Seat with Backrest,Hand Held Shower, Hospital Bed Additional Social History Comment Pt reports her son recently had back sx, so he is unable to assist her. She also reports she has a hospital bed that she does not use, but that her bed is adjustable. M2 PT-IP Current Condition Start: 04/11/23 13:55 Freq: NEEDED Status: Active Protocol: Document 04/11/23 13:55 AB (Rec: 04/11/23 14:17 AB [id number]) Physical Therapy Current Condition Current Condition Evaluation Date 04/11/23 Treatment Diagnosis Fall, frequent falls; imbalance Onset Date M3 PT-IP Subjective Start: 04/11/23 13:55 Freq: NEEDED Status: Active Protocol: Document 04/11/23 13:55 AB (Rec: 04/11/23 14:17 AB [id number]) Subjective Physical Therapy Visit Type Type Initial Evaluation Visit Start Time 13:06 Visit Stop Time 13:40 Total Visit Minutes 34 Notes Pt present in bed with HOB elevated, having finished her lunch. Number of LAMINATOR PREFORMS Visits 0 Physical Therapy Visit Comments Patient Comments The pt reports she is having some pain in her ribs, but is agreeable to PT eval this afternoon. Therapy Pain Assessment Pain When Pain Assessed At Rest Pain Present Pain Present Pain Reported M4 PT-IP Mobility and Gait Start: 04/11/23 13:55 Freq: NEEDED Status: Active Protocol: Document 04/11/23 13:55 AB (Rec: 04/11/23 14:17 AB [id number]) PT-Bed Mobility Assessment Rolling Type of Rolling Bilateral Level of Assist Standby Assistance Supine to Sit Supine to Sit Standby Assistance Sit to Supine Sit to Supine Standby Assistance Scooting Scooting to Edge of Bed Standby Assistance Scooting Up and Down in Bed Standby Assistance PT-Transfer Assessment Sit to and From Stand Sit to and from Stand Standby Assistance,Use of Upper Extremities Equipment Transfer Assistive Device Gait Belt,Front Wheeled Walker Transfers Transfer Destination Bed Transfer Technique Stand Step Pivot Transfer Ability Level of Assist Standby Assistance,Use of Upper Extremities Comments Mobility Comments Pt demonstrates significant foward trunk lean when performing STS. She also requires 2 attempts to stand. Gait Assessment Gait Gait Assistance Required: Contact Guard Assist Distance (Feet) 100 Assistive Devices Assistive Device Gait Belt,Front Wheeled Walker Gait Deviations General Gait Pattern Decreased Stride Length,Flexed Trunk,Narrow Based Gait Factors Limiting Gait Function Factors Limiting Gait Function Decreased Activity Tolerance, Decreased Strength,Poor Balance Comments Gait Comments Pt requires verbal cues to maintain FWW near her and to improve foward flexed posture while ambulating. Stair Climbing Assessment Evaluation Level of Assist On Stairs Contact Guard Assistance Devices Stair Climbing Assistive Devices Left Railing Technique/Endurance Stair Climbing Direction Ascend and Descend Stair Climbing Technique Step to Step Number of Steps Climbed 3 Query Text: Stair Climbing Set # Repetitions (reps) 1 PT-Balance Assessment Sitting Balance and Reactions Static Sitting Balance Ability Good Dynamic Sitting Balance Ability Fair Standing Balance and Reactions Static Standing Balance Ability Fair Dynamic Standing Balance Ability Fair Device Used FWW M5 PT-IP Objective Assessments Start: 04/11/23 13:55 Freq: NEEDED Status: Active Protocol: Document 04/11/23 13:55 AB (Rec: 04/11/23 14:17 AB [id number]) Orientation Orientation/Cognition Level of Alertness Alert Orientation Name,Date,Place,Situation Language Function Ability No Deficits Noted Safety Awareness Understands Safety Issues Memory Description No Deficits Noted Gross Range of Motion Upper Extremity ROM Assessment Within Functional Limits Lower Extremity ROM Assessment Within Functional Limits Strength Upper Extremity Strength Assessment Within Functional Limits Lower Extremity Strength Assessment Within Functional Limits M6 PT-IP Treatment Start: 04/11/23 13:55 Freq: NEEDED Status: Active Protocol: Document 04/11/23 13:55 AB (Rec: 04/11/23 14:17 AB [id number]) Physical Therapy Treatment Education Education Provided Safety Brace Education Patient Other Treatments Other Treatment Performed At end of session, the pt returned to bed with all needs met and call light within reach. M7 PT-IP Assessment and Plan Start: 04/11/23 13:55 Freq: NEEDED Status: Active Protocol: Document 04/11/23 13:55 AB (Rec: 04/11/23 14:17 AB [id number]) PT Summary Assessment and Plan Potential Rehabilitation Potential Good Status of Condition at Evaluation Stable Summary Impairments Pain,Strength,Balance,Bed Mobility,Transfers Assessment Summary Eileen Yeh is an 82 year old female patient who presents after and fall, and has a history of fall. Today's PT evaluation revealed LE weakness, balance deficits with dynamic activities in sitting, statically in standing and dynamically in standing. She requires SBA for bed mobility, STS and transfers, and CGA for ambulation and stairs due to imbalance and instability noted. She is able to ambulate 100 ft with FWW and CGA before requiring a break, and is able to ascend/descend stairs with CGA using 1 hand rail. Based on her current level of function home health PT is recommended to improve these deficits and reduce her fall risk upon discharge. Continued skilled PT intervention is recommended during the pt's hospital stay to help her discharge at her highest level of function. Goals Bed Mobility Goal Independent Transfer Goal Independent,Front Wheeled Walker Gait Goal Independent,Cane,Front Wheel Walker Gait Distance 200 Other Goals Pt to be able to ascend/ descend 3 steps using 1 hand rail independently to demonstrate she is able to go home safely. Days to Meet Goals 10 Frequency of Treatment Frequency Of Treatment Once a Day Treatment Plan Physical Therapy Treatment Plan Bed Mobility Training,Transfer Training,Gait Training, Therapeutic Exercise,Balance Retraining,Discharge Planning, Hot or Cold Pack,Neuromuscular Re-ed Precautions Other Precautions Fall risk Recommendations To Nursing Amount of Assist Needed Standby Assistance,1 Person Assist Discharge Recommendations PT Discharge Recommendations Home with Assistance,Home Health Other Discharge Recommendations Home health PT is recommended due to balance deficits and increased risk for falls. Equipment Needed for Home Before May need FWW depending on Discharge level of function at discharge . Transportation Needs at Discharge Private Vehicle,Wheelchair/ Cabulance
[2023-04-11] MEDS: POTASSIUM CHLORIDE 20 MEQ TAB PO (13:46)
[2023-04-11 16:00] VITALS: BP 118/63; PULSE 74; RESP 17; TEMP 36.5; O2SAT 98
--- NOTE | 2023-04-11 16:40 | DI.CT.S_ITS ---
PROCEDURE: CT UE RT WO CON INDICATIONS: Possible distal ulnar fx TECHNIQUE: Noncontrast 1 mm axial sections acquired through the carpal bones, with coronal and sagittal reformats. COMPARISON: [facility], CR, XR HAND RT MIN 3V, 04/10/2023, 18:55. [facility], CR, XR SHOULDER RT MIN 2V, 04/10/2023, 18:55. FINDINGS: Image quality: Excellent. Bones: In this patient with this given history, scrutiny is given to distal ulna. There is a potential fracture along the radial aspect of the ulna, which is best seen on series 4, image 60. However, this is said with confidence, given the regional osteophytes. There is a lucent lesion seen involving the distal radius, with well-defined sclerotic margins. There is absence of the cortex along the palmar aspect of the distal radius. No associated fracture is identified. There is prominent degenerative change seen throughout, with prominent irregular osteophyte formation. This is seen involving the radiocarpal and ulnar carpal interface. The radial ulnar interface also demonstrates prominent focal degenerative change. Degenerative change can be seen throughout the carpus, which is overall worst proximally. Soft tissues: Generalized soft tissue swelling is seen. Calcification can be seen involving the triangular fibrocartilage. IMPRESSION: There is a potential fracture seen involving the distal ulna. Differential diagnosis includes osteophytes, however. There is a chronic appearing lesion involving the distal radius, with well-defined sclerotic margins. However, there is absence of portions of the cortex seen along the palmar aspect of the distal radius. Although no acute fractures seen at this site, this patient is at high risk for a future pathologic fracture. Advanced underlying degenerative changes are seen. Dictated by: Dany Lopez M.D. on 04/11/2023 at 16:39 Approved by: Dany Lopez M.D. on 04/11/2023 at 16:48
--- NOTE | 2023-04-11 16:40 | P.PN_ITS ---
Subjective Subjective Interval history: 82-year-old female with hypertension, coronary artery disease, COPD, hypo thyroidism, AFib, peripheral neuropathy, Raynaud's, rheumatoid arthritis on methotrexate, who was admitted overnight after a syncopal episode. Patient was found by a neighbor in her yd. Patient does not recall the episode. She was found to have facial bruising/injuries without any fracture. She was complaining also of right wrist pain and was noted to have sublux 2nd and 3rd MCP joints. There is also question of distal ulnar fracture. Right humeral head revealed a possible Hill-Sachs deformity. Further workup revealed negative C-spine findings negative head CT, and multiple nonacute rib fractures. Exam Vital Signs (past 8 hours): - 04/11/23 12:18 Temperature 96.8 F L Pulse Rate 69 Respiratory Rate 18 Blood Pressure 101/56 L Pulse Oximetry 97 Oxygen Delivery Method Room Air Oxygen Flow Rate 0 Narrative Exam Narrative: GEN: Very pleasant elderly female, Alert and oriented x 3, NAD HEENT:NC, Face symmetric, significant bruising noted bilaterally under her eyes, to the nasal bridge and punctate bruising noted to the rest of her nose CHEST: Respiratory excursions symmetric, CTAB CV: RRR, no M/R/G ABD: Soft, NT/ND, BT present in all 4 quadrants, no organomegaly or masses EXTR: warm, well perfused, no C/C/E, significant deformity noted related to rheumatoid arthritis, as she was worried her splint was too tight on her right 4th finger, I did loosen it there is some MCP swelling/bruising but there was no evidence of impaired circulation, the nail bed and fingertips were pink SKIN: warm and dry, no rash NEURO: Alert and oriented x 3, nonfocal Objective Labs 04/11/23 06:00 04/11/23 06:00 Labs: Laboratory Results - last 24 hr 04/10/23 04/10/23 04/10/23 18:52 20:23 21:50 WBC RBC Hgb Hct MCV MCH MCHC RDW Plt Count Neut % (Auto) Lymph % (Auto) [place] % (Auto) Eos % (Auto) Baso % (Auto) Neut # (Auto) Lymph # (Auto) [place] # (Auto) Eos # (Auto) Baso # (Auto) Sodium 139 Potassium 3.9 Chloride 107 Carbon Dioxide 26 BUN 24 H Creatinine 0.79 Estimated GFR > 60 BUN/Creatinine Ratio 30.4 H Glucose 106 Calcium 8.8 Magnesium Total Bilirubin 0.7 AST 33 ALT 22 Alkaline Phosphatase 50 Troponin I < 0.012 < 0.012 Total Protein 7.1 Albumin 4.1 Globulin 3.0 Albumin/Globulin Ratio 1.4 Urine Color Yellow Urine Appearance Clear Urine pH 6.0 Ur Specific [place] 1.010 Urine Protein Negative Urine Glucose (UA) Negative Urine Ketones Trace H Urine Occult Blood Negative Urine Nitrate Negative Urine Bilirubin Negative Urine Urobilinogen 0.2 Ur Leukocyte Esterase Negative Urine RBC 0-1/hpf Urine WBC 0-1/hpf Ur Squamous Epith Cells 0-1 /hpf Urine Bacteria Occasional (0-1) Ur Culture Indicated? Cult not indicated 04/11/23 04/11/23 06:00 06:00 WBC 7.1 RBC 3.43 L Hgb 11.3 L Hct 33.0 L MCV 96.1 MCH 33.1 MCHC 34.4 RDW 14.9 H Plt Count 214 Neut % (Auto) 58.9 Lymph % (Auto) 27.0 Gage % (Auto) 12.3 Eos % (Auto) 1.0 L Baso % (Auto) 0.8 Neut # (Auto) 4200 Lymph # (Auto) 1900 [place] # (Auto) 900 Eos # (Auto) 100 Baso # (Auto) 100 Sodium 139 Potassium 3.4 Chloride 108 H Carbon Dioxide 26 BUN 19 H Creatinine 0.72 Estimated GFR > 60 BUN/Creatinine Ratio 26.4 H Glucose 99 Calcium 8.9 Magnesium 2.0 Total Bilirubin AST ALT Alkaline Phosphatase Troponin I Total Protein Albumin Globulin Albumin/Globulin Ratio Urine Color Urine Appearance Urine pH Ur Specific [place] Urine Protein Urine Glucose (UA) Urine Ketones Urine Occult Blood Urine Nitrate Urine Bilirubin Urine Urobilinogen Ur Leukocyte Esterase Urine RBC Urine WBC Ur Squamous Epith Cells Urine Bacteria Ur Culture Indicated? [facility] Medical History Asthma Atrial fibrillation CAD (coronary artery disease) COPD (chronic obstructive pulmonary disease) DDD (degenerative disc disease) Depression Edema Fracture of inferior pubic ramus Gastric ulcer GI bleed (~2018) Gout Hip fracture, left (~10/2010) History of varicose veins HLD (hyperlipidemia) HTN (hypertension) Hypothyroidism Memory impairment Migraine headache with aura Neck pain Neuropathy NSVT (nonsustained ventricular tachycardia) Osteopenia Peripheral neuropathy Pulmonary hypertension, mild Raynauds phenomenon Rheumatoid arthritis DALE (stress urinary incontinence, female) Tinnitus Tricuspid regurgitation Surgical History History of left heart catheterization History of total hip arthroplasty History of total knee arthroplasty (02/09/19) Hx of hand surgery Hx of tonsillectomy Hx of tubal ligation Family History Father Alcoholism /alcohol abuse Mother Migraines Brother History of knee replacement Sister No significant medical problems Son Alcoholism /alcohol abuse Social History household members: children Smoking Status: Former smoker alcohol intake: former Assessment & Plan Assessment & Plan narrative: 1. Syncope [place] likely to be secondary to borderline hypotension last night. Her antihypertensive therapy was therefore held. Her blood pressures have remained relatively hypotensive with her most recent blood pressure being 101/56. CT scan showed no acute process. Her last echocardiogram was 2 years ago, at that time revealed no evidence of aortic stenosis. Her EF was 55-60%. She did have moderate to severe tricuspid regurgitation. Could consider repeating an echocardiogram to ensure that her LV function remains intact. However, given her relative hypotension and advanced age, it might be prudent to reduce her antihypertensive therapy and tolerate blood pressures that are overall higher. 2. Possible distal right ulnar fracture CT of the upper extremity. 3. 2/3 right MCP dislocations Patient has a splint on her 4th digit. And son her x-ray was concerning for a 4th digit PIP dislocation (may simply be secondary to her rheumatoid arthritis). Splint can remain in place for pain, but may not be required overall. 4. Hypertension As noted blood pressures have been relatively low. Holding her antihypertensive therapy. 5. Coronary artery disease Currently asymptomatic 6. Hypothyroidism Continue levothyroxine. Will check a TSH to ensure her thyroid replacement is adequate 7. Rheumatoid arthritis Patient is on methotrexate, therefore has been placed in chemotherapy precautions. She is also chronically on methylprednisolone. This has been continued. 8. Urinary incontinence Continue Detrol 9. Hyperlipidemia Continue statin therapy Code status Full Prophylaxis Low [place] score Disposition PT evaluated today and feels she is safe to discharge home with home health. Patient does report that her son is chronically ill and can not provide much help to her. He and she do live together. However, patient feels she will likely be able to continue independently at home with the assistance of home health. It may be prudent to initiate planning for higher level of care in the near future.
[2023-04-11 17:50] LABS: TSH w/ Reflex to FT4 1.24 uIU/mL (0.47-4.68)
[2023-04-11 20:00] VITALS: BP 122/61; PULSE 74; RESP 16; TEMP 35.9; O2SAT 96
[2023-04-11] MEDS: SENNOSIDES 8.6 MG TABLET 17.2 MG PO (20:21)
[2023-04-11] MEDS: ATORVASTATIN 20 MG TABLET PO (20:21)
[2023-04-12 00:14] VITALS: BP 105/55; PULSE 71; RESP 16; TEMP 35.8; O2SAT 93
[2023-04-12 04:50] VITALS: BP 108/71; PULSE 65; RESP 16; TEMP 35.8; O2SAT 95
[2023-04-12] MEDS: LEVOTHYROXINE 75 MCG TABLET PO (06:16)
[2023-04-12 06:44] LABS: Add Manual Diff / Slide Review NO; Basophils Absolute Auto 0 /uL (0-100); Basophils Percent Auto 0.6 % (0-2); Eosinophils Absolute Auto 200 /uL (0-450); Eosinophils Percent Auto 3.3 % (2-4); Hematocrit 34.1 % (36-46); Hemoglobin 11.6 g/dL (12.0-16.0); Lymphocytes Absolute Auto 1600 /uL (1100-4500); Lymphocytes Percent Auto 22.8 % (25-40); Mean Corpuscular Hemoglobin 32.8 PG (26-34); Mean Corpuscular Volume 96.6 fL (80-100); Monocytes Absolute Auto 900 /uL (0-900); Neutrophils Absolute Auto 4300 /uL (1500-7000); Neutrophils Percent Auto 60.3 % (50-75); Platelet Count 225 X10^3/uL (150-400); Red Blood Cell Count 3.52 X10^6/uL (4.0-5.2); Red Cell Distribution Width 15.1 % (11.6-14.8); White Blood Cell Count 7.1 X10^3/uL (4.5-11.0)
[2023-04-12 07:03] LABS: Blood Urea Nitrogen 20 mg/dL (7-17); Calcium 8.9 mg/dL (8.4-10.2); Carbon Dioxide 25 mmol/L (22-32); Chloride 107 mmol/L (98-107); Estimated Glomerular Filt Rate > 60 mL/min (>60); Glucose 103 mg/dL (80-110); HEMOLYSIS < 15 (0-50); Potassium 3.9 mmol/L (3.4-5.1); Sodium 138 mmol/L (137-145)
[2023-04-12 07:45] VITALS: BP 136/74; PULSE 69; RESP 20; TEMP 36.8; O2SAT 96
[2023-04-12] MEDS: OXYBUTYNIN 5 MG ER TAB 10 MG PO (08:50)
[2023-04-12] MEDS: PANTOPRAZOLE DR 40 MG TABLET PO (08:50)
[2023-04-12] MEDS: methylPREDNISolone 4 MG TABLET PO (08:50)
[2023-04-12] MEDS: SODIUM CHLORIDE 0.9% FLUSH 10 ML IV (09:39)
[2023-04-12 10:48] VITALS: BP 130/75; PULSE 70; RESP 19; TEMP 36.7; O2SAT 95
--- NOTE | 2023-04-12 11:00 | PM.DS.1 ---
History of Present Illness History of Present Illness Date Patient Seen: 04/12/23 Time Patient Seen: 09:35 Chief complaint: Fall/+LOC/No Thinners Narrative: 82 y/y with PMH of HTN, CAD, COPD, Hypothyroidism, A-fib, neuropathy, Raynauds, RA, sustained syncopal episode, GLF with facial injury and consussion. Found by a neighbour in her yard. She he complete amnesia for the period preceding the syncope, likely from concussion. Complains on facial pain and neck pain, Rt wrist pain where she sustained 2nd and 3rd MCP dislocations. Denies palpityations, chest pain or shortness of breath. Discharge Providers Provider Date of admission: 04/10/23 22:54 Discharge Date: 04/12/23 Primary care physician: Sneha Lam PA-C Consults: 04/11/23 11:09 Consult to Occupational Therapy Evaluate & Treat Comment: Physician Instructions: Evaluate and treat Consult to Physical Therapy Evaluate & Treat Comment: Physician Instructions: Evaluate and Treat 04/11/23 14:40 Consult to Home Health Routine Comment: Reason For Exam: Home Health RN, P.T, O.T. Discharge provider: Home Gonzalez DO Summary Hospital Course Discharge Diagnosis: 1. Syncope, due to iatrogenic hypotension 2. Possible distal right ulnar fracture 3. 2/3 right MCP dislocations 4. History of Hypertension 5. Coronary artery disease 6. Hypothyroidism 7. Rheumatoid arthritis 8. Urinary incontinence 9. Hyperlipidemia Hospital Course: 82-year-old female with hypertension, coronary artery disease, COPD, hypothyroidism, AFib, peripheral neuropathy, Raynaud's, rheumatoid arthritis on methotrexate, who was admitted after a syncopal episode.? Patient was found by a neighbor in her yd.? Patient does not recall the episode.? She was found to have facial bruising/injuries without any fracture.? She was complaining also of right wrist pain and was noted to have sublux 2nd and 3rd MCP joints.? There is also question of distal ulnar fracture.? Right humeral head revealed a possible Hill-Sachs deformity.? Further workup revealed negative C-spine findings negative head CT, and multiple nonacute rib fractures. After evaluation and noted borderline hypotension, her syncope is suspected to be due to hypotension. Her BP remained normal after cessation of her home antihypertensives and these were discontinued on discharge. She was evaluated by therapies and deemed appropriate for discharge home. She will follow up with her orthopedic provider for possible fractures noted above on presenting imaging. TSH was 1.24, no additional changes to thyroid medications are recommended on discharge. Time Spent with Patient Time spent: Less than 30 minutes Exam Vital Signs (past 8 hours): - 04/12/23 04:50 04/12/23 07:45 Temperature 96.4 F L 98.2 F Pulse Rate 65 69 Respiratory Rate 16 20 Blood Pressure 108/71 136/74 Pulse Oximetry 95 96 Oxygen Flow Rate 0 0 Oxygen Delivery Method Room Air Oxygen Flow Rate 0 Narrative Exam Narrative: GEN: Very pleasant elderly female, Alert and oriented x 3, NAD HEENT:NC, Face symmetric, significant bruising noted bilaterally under her eyes, to the nasal bridge and punctate bruising noted to the rest of her nose CHEST: Respiratory excursions symmetric, CTAB CV: RRR, no M/R/G ABD: Soft, NT/ND, BT present in all 4 quadrants, no organomegaly or masses EXTR: warm, well perfused, no C/C/E, significant deformity noted related to rheumatoid arthritis, as she was worried her splint was too tight on her right 4th finger, I did loosen it there is some MCP swelling/bruising but there was no evidence of impaired circulation, the nail bed and fingertips were pink SKIN: warm and dry, no rash NEURO: Alert and oriented x 3, nonfocal Objective Labs 04/12/23 06:21 04/12/23 06:21 Labs: Laboratory Results - last 24 hr 04/11/23 04/12/23 04/12/23 06:00 06:21 06:21 WBC 7.1 RBC 3.52 L Hgb 11.6 L Hct 34.1 L MCV 96.6 MCH 32.8 MCHC 34.0 RDW 15.1 H Plt Count 225 Neut % (Auto) 60.3 Lymph % (Auto) 22.8 L [place] % (Auto) 13.0 Eos % (Auto) 3.3 Baso % (Auto) 0.6 Neut # (Auto) 4300 Lymph # (Auto) 1600 [place] # (Auto) 900 Eos # (Auto) 200 Baso # (Auto) 0 Sodium 138 Potassium 3.9 Chloride 107 Carbon Dioxide 25 BUN 20 H Creatinine 0.74 Estimated GFR > 60 BUN/Creatinine Ratio 27.0 H Glucose 103 Calcium 8.9 TSH 1.24 PFSH Medical History Asthma Atrial fibrillation CAD (coronary artery disease) COPD (chronic obstructive pulmonary disease) DDD (degenerative disc disease) Depression Edema Fracture of inferior pubic ramus Gastric ulcer GI bleed (~2018) Gout Hip fracture, left (~10/2010) History of varicose veins HLD (hyperlipidemia) HTN (hypertension) Hypothyroidism Memory impairment Migraine headache with aura Neck pain Neuropathy NSVT (nonsustained ventricular tachycardia) Osteopenia Peripheral neuropathy Pulmonary hypertension, mild Raynauds phenomenon Rheumatoid arthritis DALE (stress urinary incontinence, female) Tinnitus Tricuspid regurgitation Surgical History History of left heart catheterization History of total hip arthroplasty History of total knee arthroplasty (02/09/19) Hx of hand surgery Hx of tonsillectomy Hx of tubal ligation Family History Father Alcoholism /alcohol abuse Mother Migraines Brother History of knee replacement Sister No significant medical problems Son Alcoholism /alcohol abuse Social History household members: children Smoking Status: Former smoker alcohol intake: former Discharge Plan Discharge Plan Patient Disposition: Home Provider Discharge Comment: You were admitted to the hospital after a fall. Your BP was a bit low, and you should stop taking your lisinopril. Please continue to follow up with primary care provider for BP management, and discuss your possible right forearm fracture with Dr. Forrest this week. Discharge orders & Medications Prescriptions: Continued methotrexate sodium 2.5 mg Tablet 6 tab PO QWEEK Qty: 0 Rx Instructions: Every wednesday cephalexin 500 mg capsule 500 mg PO 3XD atorvastatin 20 mg tablet 20 mg PO DAILY tolterodine 4 mg capsule,extended release 24hr 4 mg PO DAILY methylprednisolone tablet 4 mg PO DAILY Rx Instructions: Take 1 tab as directed levothyroxine 25 mcg tablet 75 mcg PO DAILY pantoprazole 40 mg Tablet,Delayed Release (Dr/Ec) 40 mg PO DAILY Discontinued metoprolol succinate 25 mg Tablet Extended Release 24 Hr 25 mg PO DAILY lisinopril 10 mg tablet 5 mg PO DAILY Follow up/Referrals: Sneha Lam PA-C [Primary Care Provider] - Diet/Activity/Treatments Diet: Diet as Tolerated and Regular Diet comment: As tolerated no restrictions Visit Report/Discharge Packet Instructions: How to Prevent Falls, DI for Hypotension Stand Alone Forms: Patient Portal/API, Stroke Signs & Symptoms Discharge Data Primary Care Provider: Sneha Lam Attending Provider: Germán Oconnell Admit Date/Time: 04/10/23 22:54 Discharges patient from system. Discharge Date/Time: 04/12/23 14:30
--- NOTE | 2023-04-12 11:44 | PT.IPTN ---
Physical Therapy Treatment Note M2 PT-IP Current Condition Start: 04/11/23 13:55 Freq: NEEDED Status: Active Protocol: Document 04/11/23 13:55 AB (Rec: 04/11/23 14:17 AB [id number]) Physical Therapy Current Condition Current Condition Evaluation Date 04/11/23 Treatment Diagnosis Fall, frequent falls; imbalance Onset Date M3 PT-IP Subjective Start: 04/11/23 13:55 Freq: NEEDED Status: Active Protocol: Document 04/12/23 11:44 AW (Rec: 04/12/23 12:03 AW [id number]) Subjective Physical Therapy Visit Type Type Treatment Note Visit Start Time 11:25 Visit Stop Time 11:44 Total Visit Minutes 19 Physical Therapy Visit Comments Patient Comments Pt is willing to participate with PT. Patient Goals She is hopeful to discharge home today. Therapy Pain Assessment Pain When Pain Assessed At Rest Pain Present Pain Present Pain Reported M4 PT-IP Mobility and Gait Start: 04/11/23 13:55 Freq: NEEDED Status: Active Protocol: Document 04/12/23 11:44 AW (Rec: 04/12/23 12:03 AW [id number]) PT-Bed Mobility Assessment Supine to Sit Supine to Sit Standby Assistance Scooting Scooting to Edge of Bed Standby Assistance PT-Transfer Assessment Sit to and From Stand Sit to and from Stand Standby Assistance,Use of Upper Extremities Equipment Transfer Assistive Device Gait Belt,4 Wheeled Walker Transfers Transfer Destination Chair,Toilet Transfer Technique Stand Step Pivot Transfer Ability Level of Assist Standby Assistance,Use of Upper Extremities Comments Mobility Comments Pt completed bed mobility from flat bed with SBA. She stood and used 4WW to ambulate 220 feet with SBA. She complained of R knee pain which is chronic. On return to the room , she transferred initially to a chair and then to the toilet using 4WW safely with SBA. She tends to lean forward with trunk nearly parallel to the floor during sit <> stand transfers but no LOB noted. Gait Assessment Gait Gait Assistance Required: Standby Assistance Distance (Feet) 220 Assistive Devices Assistive Device Gait Belt,4 Wheeled Walker Gait Deviations General Gait Pattern Antalgic,Decreased Stride Length,Decreased Feet Clearance,Flexed Trunk Factors Limiting Gait Function Factors Limiting Gait Function Decreased Strength,Pain,Poor Balance Comments Gait Comments Pt walks safely with 4WW and can drug safety scientist it sufficiently in spite of splinted right hand. Stair Climbing Assessment Evaluation Level of Assist On Stairs Standby Assistance,Contact Guard Assistance Devices Stair Climbing Assistive Devices Left Railing Technique/Endurance Stair Climbing Direction Ascend and Descend Stair Climbing Technique Step to Step Number of Steps Climbed 3 Stair Climbing Set # Repetitions (reps) 1 Comments Stair Climbing Comments Descends leading with RLE turned sideways, away from hand rail PT-Balance Assessment Sitting Balance and Reactions Static Sitting Balance Ability Good Dynamic Sitting Balance Ability Fair Standing Balance and Reactions Static Standing Balance Ability Fair Dynamic Standing Balance Ability Fair Device Used 4WW Functional Assessments Other Functional Tests Performed modified DGI: 11/04 (scores 1 point for each condition) M5 PT-IP Objective Assessments Start: 04/11/23 13:55 Freq: NEEDED Status: Active Protocol: Document 04/11/23 13:55 AB (Rec: 04/11/23 14:17 AB [id number]) Orientation Orientation/Cognition Level of Alertness Alert Orientation Name,Date,Place,Situation Language Function Ability No Deficits Noted Safety Awareness Understands Safety Issues Memory Description No Deficits Noted Gross Range of Motion Upper Extremity ROM Assessment Within Functional Limits Lower Extremity ROM Assessment Within Functional Limits Strength Upper Extremity Strength Assessment Within Functional Limits Lower Extremity Strength Assessment Within Functional Limits M6 PT-IP Treatment Start: 04/11/23 13:55 Freq: NEEDED Status: Active Protocol: Document 04/12/23 11:44 AW (Rec: 04/12/23 12:03 AW [id number]) Physical Therapy Treatment Education Education Provided Safety Other Treatments Other Treatment Performed Recommended use of FWW or 4WW at all times to mitigate falls risk. M7 PT-IP Assessment and Plan Start: 04/11/23 13:55 Freq: NEEDED Status: Active Protocol: Document 04/12/23 11:44 AW (Rec: 04/12/23 12:03 AW [id number]) PT Summary Assessment and Plan Potential Rehabilitation Potential Good Summary Impairments Pain,Strength,Balance,Bed Mobility,Transfers,Gait, Activity Tolerance Progress Towards Goals Progressing Toward Goals Assessment Summary Marcos continues to require SBA for mobility generally and CGA specifically on stairs. She complains of chronic right knee pain which may be affecting her balance although she indicates this is not her only balance concern. She scores 4/12 on modified Dynamic Gait Index, indicating significantly impaired dynamic balance. PT continues to recommend pt discharge home with assist and home PT to progress strength, gait, and balance. Goals Bed Mobility Goal Independent Transfer Goal Independent,Front Wheeled Walker Gait Goal Independent,Cane,Front Wheel Walker Gait Distance 200 Other Goals Pt to be able to ascend/ descend 3 steps using 1 hand rail independently to demonstrate she is able to go home safely. Days to Meet Goals 10 Frequency of Treatment Frequency Of Treatment Once a Day Treatment Plan Physical Therapy Treatment Plan Bed Mobility Training,Transfer Training,Gait Training, Therapeutic Exercise,Balance Retraining,Discharge Planning, Hot or Cold Pack,Neuromuscular Re-ed Other Recommendations and Next Treatment ambulation, stair climbing Focus Precautions Other Precautions Fall risk Recommendations To Nursing Amount of Assist Needed Standby Assistance,1 Person Assist Discharge Recommendations PT Discharge Recommendations Home with Assistance,Home Health Other Discharge Recommendations Home health PT is recommended due to balance deficits and increased risk for falls. Equipment Needed for Home Before Per pt, she has FWW and 4WW Discharge Transportation Needs at Discharge Private Vehicle
--- NOTE | 2023-04-12 11:58 | OT.IP.EVAL ---
Past Medical History (Last Reviewed 04/11/23 @ 05:22 by Germán Oconnell MD) Asthma Atrial fibrillation CAD (coronary artery disease) COPD (chronic obstructive pulmonary disease) DDD (degenerative disc disease) Depression Edema Fracture of inferior pubic ramus Gastric ulcer GI bleed (~2017) Gout Hip fracture, left (~10/2010) History of varicose veins HLD (hyperlipidemia) HTN (hypertension) Hypothyroidism Memory impairment Migraine headache with aura Neck pain Neuropathy NSVT (nonsustained ventricular tachycardia) Osteopenia Peripheral neuropathy Pulmonary hypertension, mild Raynauds phenomenon Rheumatoid arthritis DALE (stress urinary incontinence, female) Tinnitus Tricuspid regurgitation Surgical History (Last Reviewed 04/11/23 @ 05:22 by Germán Oconnell MD) History of left heart catheterization History of total hip arthroplasty History of total knee arthroplasty (02/09/19) Hx of hand surgery Hx of tonsillectomy Hx of tubal ligation Occupational Therapy Inpatient Evaluation/Re-Eval M1 PT/OT-IP Prior Functional Status Start: 04/11/23 13:55 Freq: NEEDED Status: Active Protocol: Document 04/12/23 12:22 CGR (Rec: 04/12/23 12:40 CGR [id number]) Medical Review Prior Functional Status Medical History Reviewed Yes Communication Pt is able to express all needs. Mobility and Gait Pt reports she sometimes uses SPC or 4WW to ambulate in her home, and SPC for community distances. Activities of Daily Living and IADL's IND with ADLs and IADLs, though reports she recieves assistance from her son before his surgery with some activities. Prior Functional Level (Other details) Pt reports hx of falls prior to this fall. Social History Household Members children Living Arrangements House Number of Floors (Floors) One Floor Number of Stairs To Enter/Railing? 3 PARISA with hand rail on left side Home Environment Walk in Shower,Built-In Shower Seat Home Equipment Four Wheel Walker,Straight Cane,Raised Toilet Seat w/ Armrests,Shower Seat with Backrest,Hand Held Shower, Hospital Bed Employment Status Retired Additional Social History Comment Pt reports her son recently had back sx, so he is unable to assist her. She also reports she has a hospital bed that she does not use, but that her bed is adjustable. M2 OT-IP Current Condition Start: 04/12/23 12:22 Freq: Status: Active Protocol: Document 04/12/23 12:22 CGR (Rec: 04/12/23 12:40 CGR [id number]) Occupational Therapy Current Condition Current Condition Evaluation Date 04/12/23 Treatment Diagnosis syncope, fall, facial injury, concussion, 2nd and third MCP dislocations Diagnosis Onset Date 04/10/23 M3 OT- IP Subjective and Pain Start: 04/12/23 12:22 Freq: Status: Active Protocol: Document 04/12/23 12:22 CGR (Rec: 04/12/23 12:40 CGR [id number]) OT- Subjective Occupational Therapy Visit Type Type Initial Evaluation Visit Start Time 11:43 Visit Stop Time 11:58 Total Visit Minutes 15 Notes P.T. finishing up with pt when OT entered. Occupational Therapy Visit Comments Patient Comments It is difficult to wipe with this thing (refering to splint ) OT Pain Assessment Pain When Pain Assessed During Mobility Pain Present Pain Present Pain Reported Location Bilateral Shoulder Scale Used did not rate Management Techniques Modification of Treatment,Re- positioning M4 OT- IP ADL's Start: 04/12/23 12:22 Freq: Status: Active Protocol: Document 04/12/23 12:22 CGR (Rec: 04/12/23 12:40 CGR [id number]) OT [id number] Comments OT Self-Feeding Comments not meal time OT ADL-Grooming General Evaluation Grooming Ability Standby Assistance Comments OT Grooming Comments standing at sink for washing hands. OT ADL-Oral Care Comments Oral Care Comments not performed OT ADL-Dressing General Eval Lower Body Dressing Ability Independent Areas Needing Assistance Socks OT ADL-Toileting General Evaluation Toileting Ability Independent Comments OT Toileting Comments Pt states difficulty with wiping but is able to do using both her right and left at different times. OT ADL-Bathing Comments OT Bathing Comments not performed M5 OT- IP IADL's Start: 04/12/23 12:22 Freq: Status: Active Protocol: Document 04/12/23 12:22 CGR (Rec: 04/12/23 12:40 CGR [id number]) OT-Instrumental Activities of Daily Living Deficits IADL Deficits Identified Deficits Home Safety Awareness Awareness of Need for Assistance at Home Decreased Awareness Ability to Problem Solve Emergency Able to Problem Solve Situations Medication Management Medication Management Caregiver Administers Money Management Money Management Caregiver Provides Assistance Meal Preparation Meal Preparation Caregiver Provides Assist Cardroom Hand Cardroom Hand Caregiver Provides Assist M6 OT- IP Functional Cognition Start: 04/12/23 12:22 Freq: Status: Active Protocol: Document 04/12/23 12:22 CGR (Rec: 04/12/23 12:40 R [id number]) Cognitive Factors Limiting Selfcare Function Cognitive Ability Level of Alertness Alert Patient Orientation Name,Age,Birthday,Month,Date, Year,Day of Week,Place, Situation Attention Span Ability Capable of Focused Attention, Capable of Sustained Attention Ability to Follow Commands Able to Follow One Step Commands with Increased Time, Able to Follow One Step Commands with Repetition OT- Vision and Hearing OT- Hearing Assessment OT- Hearing Assessment WFL OT- Vision Assessment Visual Acuity Glasses All The Time Visual Attentiveness WFL Occular Pursuits WFL Visual Convergence WFL Vision Assessment Comments Pt states that her glasses are now scratched from her fall. M7 OT- IP Mobility and Balance Start: 04/12/23 12:22 Freq: Status: Active Protocol: Document 04/12/23 12:22 CGR (Rec: 04/12/23 12:40 R [id number]) OT-Transfer Assessment Sit to and From Stand Sit to and from Stand Standby Assistance Transfers Transfer Ability Standby Assistance Technique Transfer Destination Chair,Toilet Transfer Technique Stand Step Pivot Devices Transfer Assistive Devices Gait Belt,4 Wheeled Walker Comments Mobility Comments pt in bathroom when OT entered . Pt ambualted from bathroom to sink then to toilet. OT- Balance Assessment Sitting Balance and Reactions Static Sitting Balance Ability Good Dynamic Sitting Balance Ability Good M8 OT- IP Objective Assessments Start: 04/12/23 12:22 Freq: Status: Active Protocol: Document 04/12/23 12:22 CGR (Rec: 04/12/23 12:40 R [id number]) OT Gross Range of Motion Upper Extremity Range of Motion Assessment Bilaterally Impaired ROM Impairments B shld impairments d/t pain, R wrist and hand impairments d/ t dislocation and possible fx. OT Strength Upper Extremity Strength Assessment Within Functional Limits Comments Strength Comments R hand and L shld not tested, otherwise 4 to 4-/5 OT- Coordination Assessment Upper Extremity Finger to Nose Test Within Functional Limits Finger Tapping Test Right UE Impaired OT-Muscle Tone Assessment Muscle Tone WNL Yes OT Sensation Assessment Edema Edema Absent M9 OT- IP Assessment and Plan Start: 04/12/23 12:22 Freq: Status: Active Protocol: Document 04/12/23 12:22 CGR (Rec: 04/12/23 12:40 CGR [id number]) OT Summary Assessment and Plan Potential Rehabilitation Potential Good Analytic Complexity at Evaluation Moderate Summary OT Impairments Pain,Strength,Balance, Functional Mobility,Grooming, Dressing,Toileting,Bathing, Toilet Transfers,Shower Transfers,Activity Tolerance Progress Towards Goals Slow Progress due to Pain,Slow Progress due to Activity Tolerance Assessment Summary Pt presents as a moderate complexity evaluation s/p admit for syncope and fall with concussion, facial injury , 2nd and 3rd R MCP dislocations and likely fx of the R distal ulna. Pt is able to ambulate around the room and perform simple ADLs. Pt will benefit from home health and meals on wheels for some time after her return home. Goals Grooming Goal Independent Dressing Goal Independent Toileting Goal Independent Bathing Goal Independent Toilet Transfer Goal Independent Shower Transfer Goal Independent Days to Meet Goals 10 Frequency of Treatment Frequency Of Treatment Once a Day Treatment Plan OT Treatment Plan ADL Training,Functional Mobility,Patient/Family Education,Discharge Planning Other Treatment Recommendations and Next shower, home safety Treatment Focus Discharge Recommendations OT Discharge Recommendations Home with 15/02 Assist Available Transportation Needs at Discharge Private Vehicle
--- NOTE | 2023-04-12 13:01 | CM.DPC ---
DCP Cont. BATCH FREEZER reviewed EMR for medical status and cont. d/c needs. Met w/pt at bedside, discussed the plan for [facility] to contact her after d/c to begin in-home OT/PT. Pt was unable to secure a ride home with a neighbor, BATCH FREEZER provided a taxi voucher for return home. Discussed food insecurity concerns. Provided pt with the info and contact information for Meals on Wheels through [employer]. Pt to d/c home today w/son as supportive cg. No further d/c needs indicated at this time.
--- NOTE | 2023-04-12 13:05 | PC.NURSE ---
Addendum entered by Jonathon Reyes R.N. 04/12/23 14:27: Patient taken out via wheelchair to catch taxi home. Original Note: Patient states she is unable to reach her friend today for a ride and her son does not drive. Taxi set up by case management. Patient states her son can meet her on the other end at home to help her get into the house safely. Patient worked with P.T. and O.T. this morning. Patient denies pain. Patient has no further questions or concerns at this time.
== END 2023-04-12 14:30 | disposition home or self-care (01) ==
LOC: ED 18:35 → AC 22:54
PROVIDERS: Family Medicine; Admitting Provider Internal Medicine; Emergency Provider Emergency Medicine; Family Provider Family Medicine; PCP Physician Assistant Medical; Referring Provider Emergency Medicine; Visit Provider Internal Medicine
DX: S00.83XA Contusion of other part of head, initial encounter (principal); R41.0 Disorientation, unspecified; W18.30XA Fall on same level, unspecified, initial encounter; I95.89 Other hypotension; Z91.81 History of falling; Y92.89 Other specified places as the place of occurrence of the external cause; I10 Essential (primary) hypertension; E78.5 Hyperlipidemia, unspecified; J44.9 Chronic obstructive pulmonary disease, unspecified; I48.91 Unspecified atrial fibrillation; S63.210A Subluxation of metacarpophalangeal joint of right index finger, initial encounter; S63.212A Subluxation of metacarpophalangeal joint of right middle finger, initial encounter; M06.9 Rheumatoid arthritis, unspecified; R32 Unspecified urinary incontinence
CPT/HCPCS: 26742; 36415; 70450; 71045; 72125; 73030; 73130; 73200; 80048; 80053; 81001; 81003; 83735; 84443; 84484; 85025; 93005; 93010; 97161; 97166; 97530; 99283; 99284; G0378; J8610

== ENCOUNTER → 2023-06-04 12:04 | Outpatient (CLI) | payer OTHER, SELFPAY ==
[2023-04-10 23:22] VITALS: BMI 23.1
[2023-06-04 13:39] LABS: Alanine Aminotransferase 16 IU/L (<35); Albumin 3.8 g/dL (3.5-5.0); Albumin Globulin Ratio 1.3 (1.0-2.8); Alkaline Phosphatase 71 U/L (38-126); Aspartate Aminotransferase 23 IU/L (14-36); BUN Creatinine Ratio 28.2 (6-22); Bilirubin Total 0.8 mg/dL (0.2-1.3); Blood Urea Nitrogen 20 mg/dL (7-17); Calcium 9.5 mg/dL (8.4-10.2); Carbon Dioxide 28 mmol/L (22-32); Chloride 103 mmol/L (98-107); Cholesterol 132 mg/dL (140-199); Estimated Glomerular Filt Rate > 60 mL/min (>60); Globulin 2.9 g/dL (1.7-4.1); Glucose 89 mg/dL (80-110); HDL Cholesterol 64 mg/dL (40-60); HEMOLYSIS < 15 (0-50); LDL Cholesterol Calculated 56 mg/dL (<100); Potassium 4.4 mmol/L (3.4-5.1); Sodium 139 mmol/L (137-145); Total Protein 6.7 g/dL (6.3-8.2); Triglycerides 60 mg/dL (35-150)
== END ==
PROVIDERS: Family Provider Family Medicine; PCP Physician Assistant Medical; Referring Provider Nurse Practitioner; Visit Provider Nurse Practitioner
DX: E78.5 Hyperlipidemia, unspecified (principal); I10 Essential (primary) hypertension
CPT/HCPCS: 36415; 80053; 80061

== ENCOUNTER → 2023-09-03 11:16 | Outpatient (CLI) | payer OTHER, SELFPAY ==
[2023-04-10 23:22] VITALS: BMI 23.1
[2023-09-03 13:32] LABS: Appearance Urine UA CLEAR; Bilirubin Urine UA NEGATIVE (NEGATIVE); Color Urine UA YELLOW; Glucose Urine UA NEGATIVE (Negative); Ketones Urine UA NEGATIVE (NEGATIVE); Leukocyte Esterase Urine UA NEGATIVE (NEGATIVE); Nitrite Urine UA NEGATIVE (Negative); Occult Blood Urine UA NEGATIVE (Negative); Protein Urine UA NEGATIVE (Negative); Urobilinogen Urine UA 0.2 E.U./dL (0.2)
[2023-09-03 13:34] LABS: Add Manual Diff / Slide Review NO; Basophils Absolute Auto 0 /uL (0-100); Basophils Percent Auto 0.5 % (0-2); Eosinophils Absolute Auto 100 /uL (0-450); Eosinophils Percent Auto 0.9 % (2-4); Hematocrit 37.9 % (36-46); Hemoglobin 12.9 g/dL (12.0-16.0); Lymphocytes Absolute Auto 1500 /uL (1100-4500); Lymphocytes Percent Auto 23.2 % (25-40); Mean Corpuscular Hemoglobin 32.3 PG (26-34); Mean Corpuscular Volume 95.2 fL (80-100); Monocytes Absolute Auto 600 /uL (0-900); Monocytes Percent Auto 9.3 % (3-14); Neutrophils Absolute Auto 4400 /uL (1500-7000); Neutrophils Percent Auto 66.1 % (50-75); Platelet Count 233 X10^3/uL (150-400); Red Blood Cell Count 3.98 X10^6/uL (4.0-5.2); Red Cell Distribution Width 16.7 % (11.6-14.8); White Blood Cell Count 6.7 X10^3/uL (4.5-11.0)
[2023-09-03 13:36] LABS: Urine Volume 10mL (spun); pH Urine UA 6.5 (4.5-8.0)
[2023-09-03 13:38] LABS: Bacteria Urine None Seen; Culture Indicated Urine Cult Not Indicated; RBC Urine None Seen (0-5/HPF); Squamous Epithelial Cell Urine None Seen (0-5/HPF); WBC Urine None Seen (0-5/HPF)
[2023-09-03 13:53] LABS: BUN Creatinine Ratio 31.3 (6-22); Blood Urea Nitrogen 25 mg/dL (7-17); Calcium 9.4 mg/dL (8.4-10.2); Carbon Dioxide 28 mmol/L (22-32); Chloride 103 mmol/L (98-107); Estimated Glomerular Filt Rate > 60 mL/min (>60); Glucose 95 mg/dL (80-110); HEMOLYSIS < 15 (0-50); Potassium 3.9 mmol/L (3.4-5.1); Sodium 141 mmol/L (137-145)
[2023-09-05 09:40] LABS: x Labcorp Estim. Avg Glu (eAG) 126 mg/dL (.)
== END ==
PROVIDERS: Family Provider Family Medicine; PCP Physician Assistant Medical; Referring Provider Orthopaedic Surgery; Visit Provider Orthopaedic Surgery
DX: Z01.818 Encounter for other preprocedural examination (principal); Z01.812 Encounter for preprocedural laboratory examination; R73.9 Hyperglycemia, unspecified; N39.0 Urinary tract infection, site not specified
CPT/HCPCS: 36415; 80048; 81001; 83036; 85025; 93005; 93010

== ENCOUNTER → 2023-11-25 10:29 | Outpatient (CLI) | payer OTHER, SELFPAY ==
[2023-04-10 23:22] VITALS: BMI 23.1
--- NOTE | 2023-11-25 10:29 | DI.ECHO.S_ITS ---
[facility] : : [address] : : [place] : : [id number] : : Phone: [phone] Echocardiogram Report + + :Name: SERENE EVANGELISTA Study Date: 11/25/2023 Height: 64 in : :[facility] ReadingLocation: Weight: 135 lb : : Gender: Female BSA: 1.7 m2 : :: 1940 Age: 83 yrs BP: 148/85 mmHg: :Reason For Study: ATHEROSCLEROTIC HEART DISEASE : :Ordering Physician: CYNDIE, : :SAL Performed By: Kartik Ashley : :Referring: SAL AGEE : + + Interpretation Summary The left ventricle is normal in size. The ejection fraction is estimated to be 60-65%. Previous LVEF 55 to 60%. The right ventricle is mildly dilated. The right ventricular systolic function is normal. There is mild to moderate aortic regurgitation. Previously mild AI. There is moderate to severe tricuspid regurgitation. Compared to the prior echo exam, there has been no change in TR severity. The right ventricular systolic pressure is estimated to be at least 44 mmHg based on an estimated right atrial pressure of 8 mm Hg. Previously 38 mmHg. There is mild luminal irregularity and echogenicity in the abdominal aorta, suggestive of aortic atherosclerotic disease. Mild atherosclerotic plaque(s) in the aortic arch. No significant change. Near the junction with right atrium, there is a elongated echogenic structure seen in the IVC which does not have any independent mobility. Reviewed previous echoes. Similar structure was seen in August 18, 2017 echo as well but less visible. In today's echocardiogram IVC is more visible. However in the echocardiogram done in September 2018 and February 2021, the structure was not well-visualized likely due to the way section of IVC obtained with ultrasound. Procedure: A two-dimensional transthoracic echocardiogram with color flow and Doppler was performed. The study quality was technically adequate. Comparison is made with the echocardiogram of 03/11/2021. The patient was in sinus rhythm with heart rates between 63-82 bpm during the exam. Left Ventricle: The left ventricle is normal in size. Proximal septal thickening is noted. There is no echo evidence for significant left ventricular outflow tract obstruction. There is no thrombus. The ejection fraction is estimated to be 60-65%. The left ventricular ejection fraction is normal. There are no focal wall motion abnormalities. Diastolic parameters suggest a relaxation abnormality of the left ventricle, consistent with probable normal filling pressures. Right Ventricle: The right ventricle is mildly dilated. There has been no significant change since the previous study. The right ventricular systolic function is normal. Atria: The left atrium is mildly dilated. The right atrium is mildly dilated. There has been no significant change since the previous study. The interatrial septum grossly appears intact with no obvious evidence for an atrial septal defect. Mitral Valve: There is mild mitral annular calcification. The mitral valve leaflets appear mildly thickened, but open well. There is no mitral valve stenosis. There is trace mitral regurgitation. Compared to the prior echo study, there has been a decrease in the severity of mitral regurgitation. Aortic Valve: The aortic valve is trileaflet. The aortic valve is mildly calcified. There is no aortic valve stenosis. There is mild to moderate aortic regurgitation. Tricuspid Valve: The tricuspid valve is normal. There is no tricuspid stenosis. There is moderate to severe tricuspid regurgitation. The right ventricular systolic pressure is estimated to be at least 44 mmHg based on an estimated right atrial pressure of 8 mm Hg. Compared to the prior echo exam, there has been no change in TR severity. Pulmonic Valve: The pulmonic valve is not well visualized. There is no pulmonic valvular stenosis. There is mild pulmonic regurgitation. Great Vessels: The aortic root is normal size. The ascending aorta could not be visualized. There is mild luminal irregularity and echogenicity in the abdominal aorta, suggestive of aortic atherosclerotic disease. Mild atherosclerotic plaque(s) in the aortic arch. The IVC is dilated (diameter is greater than 2.1 cm) yet it collapses greater than 50% with a sniff. This suggests a right atrial pressure of 8 mm Hg. Near the junction with right atrium, there is a elongated echogenic structure seen in the IVC which does not have any independent mobility. Reviewed previous echoes. Similar structure was seen in August 18, 2017 echo as well. In today's echocardiogram IVC is more visible. However in the echocardiogram done in September 2018 and February 2021, the structure was not well-visualized likely due to the way section of IVC obtained with ultrasound. Pericardium/ Pleura There is no pericardial effusion. There is no pleural effusion. MMode/2D Measurements & Calculations LVIDd: 4.5 cm LVOT diam: 2.4 cm LVIDs: 2.7 cm Ao root diam: 2.8 cm FS: 39.1 % Ao Arch Diam (Prox Trans): 3.4 cm IVSd: 0.88 cm LVPWd: 0.85 cm LV peng. diameter/BSA (cm/m^2): 2.7 LV sys. diameter/BSA (cm/m^2): 1.6 LA A2 area: 16.3 cm2 RA long axis: 5.3 cm LA A4 area: 18.0 cm2 RA area: 19.0 cm2 LA length (vol): 4.7 cm RA vol: 58.3 ml LA vol: 53.0 ml RA : 35.2 ml/m2 LA vol index: 32.0 ml/m2 IVC diam: 2.6 cm RVD1 (basal): 3.3 cm RVD2 (mid): 2.5 cm TAPSE: 1.9 cm Doppler Measurements & Calculations Ao V2 max: 138.8 cm/sec LVOT Max Onofre: 89.0 cm/sec Ao V2 mean: 85.3 cm/sec LV V1 max P.2 mmHg Ao max P.7 mmHg LV V1 VTI: 21.4 cm Ao mean P.4 mmHg VINNIE(I,D): 3.5 cm2 Ao V2 VTI: 26.9 cm VINNIE(V,D): 2.8 cm2 sev ratio: 0.79 VINNIE indexed to BSA (cm^2/m^2): 2.1 MV E max onofre: 60.1 cm/sec TR max onofre: 300.2 cm/sec MV A max onofre: 92.3 cm/sec TR max P.0 mmHg MV E/A: 0.65 PA V2 max: 96.2 cm/sec Med Peak E' Onofre: 6.5 cm/sec PA V2 mean: 63.3 cm/sec E/E' med: 9.3 PA mean P.8 mmHg Lat Peak E' Onofre: 8.8 cm/sec PA pr(Accel): 43.0 mmHg E/E' lat: 6.8 E/e' average: 8.1 MV dec time: 0.22 sec SV(LVOT): 93.7 ml Reading Physician:03:48 PM
--- NOTE | 2023-11-26 02:03 | DI.NM.S_ITS ---
DATE OF SERVICE: 11/25/2023 PROCEDURE: Pharmacologic vasodilator stress and rest myocardial perfusion imaging with gating to assess ejection fraction and regional wall motion. ORDERING PROVIDER: Fina Blum MD INDICATIONS: The patient is an 83-year-old female with known nonobstructive coronary disease and severe tricuspid regurgitation who requires orthopedic surgery. This study is performed for risk stratification. CARDIAC STRESS: Per protocol, 0.4 mg of regadenoson was infused with a normal hemodynamic response. She developed a mild cough and mild dyspnea, but no chest discomfort. Her resting ECG was normal,and there were no significant ST-segment shifts with stress. There were no arrhythmias. Per protocol, 24.7 millicuries of technetium-99m Myoview was injected, and she was imaged 15 minutes later using a gated SPECT acquisition protocol. Earlier in the day while at rest, she had been injected with 10.9 millicuries of technetium-99m Myoview and was imaged 15 minutes later, again using a gated SPECT acquisition protocol. FINDINGS: 1. Raw data. There is fair myocardial tracer uptake with mild breast shadows noted. While the lung/heart ratio is elevated at 0.63, which can be a sign of pulmonary congestion, this is not visually evident and is nonspecific. The TID ratio was normal at 1.13. 2. Quantitated gated SPECT: Post stress ejection fraction is 68% without any focal wall motion abnormality. The right ventricle is enlarged with increased tracer uptake, concerning for a right ventricular overload state. The resting ejection fraction is 65% with a normal resting end-diastolic volume of 96 mL. 3. Myocardial perfusion imaging: Post-stress supine images show a fairly normal myocardial perfusion pattern without any obvious perfusion defects although no prone images available for review. The resting images are somewhat compromised by suboptimal image quality with less intense tracer activity globally with a small defect in the distal inferior wall that was not evident on the stress images and likely reflects differential diaphragmatic attenuation. There are no reversible perfusion defects to suggest any significant ischemia. IMPRESSION: 1. Probable normal myocardial perfusion study. 2. No reversible perfusion defects to suggest myocardial ischemia or previous myocardial infarction. 3. Normal left ventricular size and systolic function without any focal wall motion abnormality. While the lung/heart ratio is elevated, which can be a sign of pulmonary congestion, this is not visually evident and requires clinical correlation. The right ventricle appears to be enlarged with increased tracer uptake, suggestive of a possible right ventricular overload condition, but again clinical correlation is necessary. 4. No angina or ECG evidence of ischemia with pharmacologic vasodilator stress. Isa Yehline - MARCELLUS/aleyda/donnell doc#: [id number]/job#: [id number] dd: 11/25/2023 16:22:00 dt: 11/26/2023 01:53:00 DICTATING MD/COPIES TO: Josue Arora MD; Fina Blum MD COPIES MNE: UBALDO;
== END ==
PROVIDERS: Family Provider Family Medicine; PCP Physician Assistant Medical; Referring Provider Internal Medicine Cardiovascular Disease; Visit Provider Internal Medicine Cardiovascular Disease
DX: I25.10 Atherosclerotic heart disease of native coronary artery without angina pectoris (principal); I51.7 Cardiomegaly; I35.1 Nonrheumatic aortic (valve) insufficiency; I07.1 Rheumatic tricuspid insufficiency; I70.0 Atherosclerosis of aorta
CPT/HCPCS: 78452; 93017; 93306; A9502; J2785

== ENCOUNTER 2024-06-20 16:41 | Inpatient (IN) | payer OTHER, SELFPAY ==
[2023-04-10 23:22] VITALS: BMI 23.1
[2024-06-07 12:42] VITALS: BMI 23.1
[2024-06-20] VITALS (13 sets, daily range): BP systolic 108–149; BP diastolic 51–80; PULSE 63–74; RESP 11–18; TEMP 35.4–36.6; O2SAT 92–98; BMI 23.0
--- NOTE | 2024-06-20 06:00 | DI.RAD.S_ITS ---
PROCEDURE: XR KNEE RT 1TO2V INDICATIONS: TKA TECHNIQUE: 2 view(s) of the knee acquired. COMPARISON: [facility], CR, XR KNEE LT 1TO2V, 02/09/2019, 16:53. FINDINGS: Bones: Patient is status post knee joint arthroplasty. Hardware components are in expected positions. Visualized bony structures are intact. Soft tissues: Overlying postoperative changes are noted. Normal postsurgical soft tissue emphysema is present. IMPRESSION: Expected post-operative appearance of a knee arthroplasty. Dictated by: Alonzo Cosby M.D. on 06/21/2024 at 12:56 Approved by: Alonzo Cosby M.D. on 06/21/2024 at 12:58
[2024-06-20] MEDS: ACETAMINOPHEN 325 MG TABLET 975 MG PO (12:33)
[2024-06-20] MEDS: VANCOMYCIN 1,000 MG/200 ML PIGGYBACK 200 MG IV (12:34)
--- NOTE | 2024-06-20 12:45 | PM.PREOP ---
Pre-operative Note Interval Note History & Physical reviewed/Exam performed by Physician: Yes Changes to H&P: No
--- NOTE | 2024-06-20 12:46 | P.OP_ITS ---
Operative Date/Time/Diagnoses Date of procedure: 06/20/24 Time of procedure: 13:00 Pre-op diagnosis: Severe right knee arthritis with history of rheumatoid arthritis and gross right knee instability Post-op diagnosis: same Procedure & Clinicians Procedure: Right total knee arthroplasty Same procedure as scheduled: Yes Indications: The patient has had progressively worsening right knee pain with radiographic changes consistent with arthritis. Non-operative management has failed and the patient has requested total knee replacement. The risks, benefits and alternatives to surgery were discussed with the patient prior to proceeding. Risks discussed included, but were not limited to, failure to relieve pain, stiffness, infection, nerve damage, deep venous thrombosis, pulmonary embolism, stroke, coma, heart attack, permanent paralysis and , as well as the potential need for eventual revision of the prosthetic. Surgeon: Ro Forrest Agricultural Education Instructor: Anatoly Poe Anesthesia Type: General Operative Notes Findings: Severe right knee osteoarthritis, instability, soft bone Closure Type: primary Specimen(s): none sent Prosthetic devices, grafts, tissues, transplants, or devices: [facility] 2 size femur 6, tibia 5, constrained poly 9, patella 35 by 7.5 Estimated Blood Loss (mL): 250 Blood products transfused: none Tourniquet time (min): 86 Procedure in detail: The patient was seen in the pre-operative area, where the patient identified the right knee as the operative site and this was marked with my initials. The patient received pre-operative antibiotics, and was taken to the operating room and placed on the operative table in the supine position. After satisfactory anesthesia, a radio time sales supervisor out was performed. The right leg was encircled with a tourniquet about the proximal thigh, and the leg was prepared from the toes to the tourniquet with ChloroPrep in the usual fashion and draped through sterile drapes. The leg was elevated and exsanguinated with Eschmark bandage and the tourniquet inflated to [250] mmHg pressure. A PA was used during the procedure and was essential for intraoperative retraction and safe implantation of the components. The knee was approached through an approximately 18 cm incision centered over the patella and carried into the knee through a medial parapatellar arthrotomy. Portion of the medial and lateral meniscus was resected. Soft tissue was carefully mobilized around the patella the patella was measured with a caliper. Bone was resected from the patella and the patellar height was reconstituted with up an appropriate sized patellar component. A cover was then placed on the patella. A small amount of additional medial and lateral meniscus was resected. Heladio pins were placed for robot assisted navigation. The tibial guide was pinned to the proximal tibia. The knee was carefully navigated plan was taken and developed to optimize range of motion and stability. The Cori robotic bur was used for the distal femoral resection. It looked like an appropriate distal femoral cut and the cut was made without difficulty. The rotation was assessed and the appropriate size femoral guide was placed on the distal femur and finishing cuts were made. There was no evidence of notching. The anterior, posterior and chamfer cuts were then made. The posterior osteophytes and soft tissues were then removed. The posterior capsule was injected with part of a mixture of 60 ml 0.25% Marcaine mixed with 20 ml Exparel for post operative pain control. The remainder of this mixture was injected into the capsule and subcutaneous tissues during cement curing. The tibial guide was pinned to the proximal tibia. It was carefully navigated with the Cori robotic navigation. A proximal tibial cut was made without difficulty. She did have very soft bone. The patient was placed in extension residual medial and lateral meniscus as well as any residual bone was carefully resected. [No] additional tibia was resected. Hemostasis was achieved especially posteriorly. Additional local was injected into the posterior capsule. The femoral component was trial was placed and the notch was finished. Trial tibial and femoral components were then placed and the knee placed through a range of motion. Range of motion was [0-130], with good stability throughout the range. The trials were then removed, and the tibia was finished. The bone was prepared with pulsatile lavage, and dried with a sponge. Cement was applied and the final prosthetics placed. Excess cement was removed during and after cement curing. A brief Betadine soak was performed. After confirming there was no extruded cement posteriorly, the final tibial insert was placed. The knee was copiously irrigated and the tourniquet deflated. Hemostasis was obtained with the Bovie cautery. The capsule was closed with interrupted # 1 Vicryl suture. The subcutaneous layer was closed with barbed sutures, and the skin with a running 3-0 V-Lock suture and skin chai. An Aquacel Ag dressing was applied and the patient was taken to recovery having tolerated the procedure well. Complications: none Post-operative Condition: stable Disposition: Acute Care Plan for aftercare: The patient will be maintained on a standard total knee replacement protocol with weight bearing as tolerated. The patient will receive Xarelto starting on and sequential compression devices for DVT prophylaxis. The patient will be discharged home when safe for the home environment. She has multiple multiple medical problems. She has a history of rheumatoid arthritis. She has significant osteoporosis. She has limited mobility. She has a history of COPD. She has a history of cardiac problems including intermittent cardiac arrhythmias. We spent 1 year working her up and stabilizing her in order to make her a surgical candidate. I think she would benefit substantially from short term inpatient status and stabilization medically and subsequent transferred to rehab. 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
[2024-06-20] MEDS: CEFAZOLIN 2 GM/100 ML PREMIX 100 ML IV ×2 (13:20→20:32)
--- NOTE | 2024-06-20 13:39 | SUR.OPER ---
Supine on padded OR bed. Pillow under head, arms secured on padded armboards <90 degree abduction. Safety belt across torso. Non-operative leg secured with tape over blanket over lower leg. Operative leg secured in DeMayo/Rohan/Nathe positioner. Foam padded brace at thigh of operative leg.
[2024-06-20] MEDS: BUPIVACAINE 0.25% (PF) 60 ML, EPINEPHrine 0.3 MG INJ (13:44)
[2024-06-20] MEDS: BUPIVACAINE LIPOSOME 266 MG/20 ML VIAL INJ (13:45)
[2024-06-20] MEDS: TRANEXAMIC ACID 1,000 MG VIAL 1000 MG INJ (15:17)
--- NOTE | 2024-06-20 15:42 | CM.DPNOTE ---
DCP Note TIMBER SELECTOR received notice from Dr. Forrest about potential need for SNF rehab for pt. pt lives with son but Dr. Forrest has concerns about sons ability to manage her needs at home. Dr. Forrest would like pt to be INPT if possible due to chronic medical concerns that could complicate pt's post op recovery. Pt is POD0 from knee replacement surgery. [facility]. PT/OT evals pending. CM team will continue to follow closely for DCP needs/preferences ARDIANA Plunkett
[2024-06-20] MEDS: OXYCODONE IR 5 MG TABLET PO ×2 (16:06→20:31)
[2024-06-20] MEDS: LACTATED RINGERS 1,000 ML 100 ML IV (16:51)
--- NOTE | 2024-06-20 17:24 | PC.NURSE ---
Pt to room 204 via bed from PACU at 1630. Pt is awake, alert, and oriented x 3. Family is at the bedside. Pt denies pain, nausea, or shortness of breath. IVF infusing as ordered, scd's on and running, bed alarm on for safety. Pt oriented to room, call light, bed controls, and tv controls. Pt agrees to call for assistance as needed and to not get up without assistance.
[2024-06-20] MEDS: DOCUSATE 100 MG CAPSULE PO (20:31)
[2024-06-21] VITALS: BP 145/80; PULSE 81; RESP 16; TEMP 36.4; O2SAT 94
[2024-06-21] MEDS: OXYCODONE IR 5 MG TABLET PO ×5 (00:22→18:47)
[2024-06-21] MEDS: CEFAZOLIN 2 GM/100 ML PREMIX 100 ML IV (04:18)
[2024-06-21] MEDS: LACTATED RINGERS 1,000 ML 100 ML IV (04:19)
[2024-06-21 04:25] VITALS: BP 154/90; PULSE 83; RESP 16; TEMP 36.5; O2SAT 93
[2024-06-21 05:48] LABS: Hematocrit 34.3 % (36-46); Hemoglobin 11.6 g/dL (12.0-16.0)
[2024-06-21] MEDS: LEVOTHYROXINE 25 MCG TABLET 75 MCG PO (05:53)
--- NOTE | 2024-06-21 06:59 | PM.PNPO.1 ---
Subjective Subjective Date Patient Seen: 06/21/24 Time Patient Seen: 11:01 Interval history: Eileen is sitting up in bed, feeling well. Not much pain. Does not feel comfortable going home d/t limited progress w/ PT; PT also recommending SNF. Exam Vital Signs (past 8 hours): - 06/21/24 00:00 06/21/24 04:25 Temperature 97.5 F L 97.7 F Pulse Rate 81 83 Respiratory Rate 16 16 Blood Pressure 145/80 H 154/90 H Pulse Oximetry 94 93 Oxygen Flow Rate 0 0 Oxygen Delivery Method Nasal Cannula Oxygen Flow Rate 0 Narrative Exam Narrative: 4/5 hip flexors, quadriceps, hamstrings; 5/5 DF, PF, EHL on right. Sensation to light touch intact throughout RLE, calf soft and compressible. LINA over TERRELL CDI, TERRELL functioning. Objective Labs 06/21/24 05:30 Labs: Laboratory Results - last 24 hr 06/21/24 05:30 Hgb 11.6 L Hct 34.3 L PFSH Medical History (Updated 06/07/24 @ 13:36 by Inga Metzger RN) Ulcer of right leg Ribs, multiple fractures (12/14/23) Sternal fracture (12/14/23) History of COVID-19 (~2021) Memory impairment DALE (stress urinary incontinence, female) History of varicose veins DDD (degenerative disc disease) Peripheral neuropathy CAD (coronary artery disease) Gastric ulcer Osteopenia Gout Migraine headache with aura Fracture of inferior pubic ramus Hip fracture, left (~10/2010) Atrial fibrillation Asthma Pulmonary hypertension, mild Tricuspid regurgitation NSVT (nonsustained ventricular tachycardia) Rheumatoid arthritis Tinnitus Depression Neck pain Hypothyroidism GI bleed (~2017) Edema HLD (hyperlipidemia) HTN (hypertension) COPD (chronic obstructive pulmonary disease) Raynauds phenomenon Neuropathy Surgical History (Updated 06/21/24 @ 07:00 by Milli Rosales PA-C) S/P foot surgery, left History of total hip arthroplasty History of total knee arthroplasty (02/09/19) History of left heart catheterization Hx of hand surgery Hx of tonsillectomy Hx of tubal ligation Family History Father Alcoholism /alcohol abuse Mother Migraines Brother History of knee replacement Sister No significant medical problems Son Alcoholism /alcohol abuse Social History household members: children Smoking Status: Former smoker alcohol intake: former Assessment & Plan Post-op Assessment and plan (1) Total knee replacement status: Assessment and Plan narrative: 1) She has a h/o a fib and DVT but is NOT chronically anticoagulated. She will start Xarelto 10mg on 06/22/2024 and continue for 20 days for VTE prophylaxis. 2) PT, WBAT to RLE. She will need SNF at discharge. Postoperative Procedures: Procedures Operation Date: 06/20/24 13:15 Actual Procedure Side Surgeon p Total Knee Arthroplasty - Robot Right Ro Forrest MD Postoperative day: 1 Quality VTE Deep Vein Thrombosis/Pulmonary Embolism Present on Admission: No
[2024-06-21 08:00] VITALS: BP 133/65; PULSE 84; RESP 17; TEMP 36.6; O2SAT 93
[2024-06-21] MEDS: ACETAMINOPHEN 325 MG TABLET 650 MG PO ×2 (08:46→14:24)
[2024-06-21] MEDS: METOPROLOL ER 25 MG TABLET PO (08:47)
[2024-06-21] MEDS: DOCUSATE 100 MG CAPSULE PO ×2 (08:47→20:14)
[2024-06-21] MEDS: PANTOPRAZOLE DR 40 MG TABLET PO (08:47)
--- NOTE | 2024-06-21 09:15 | PT.IIE ---
Current Diagnoses Unilateral primary osteoarthritis, right knee (06/20/24) Surgery Performed Operation Date: 06/20/24 13:15 Actual Procedures p Total Knee Arthroplasty - Robot(Right) - Ro Forrest MD Surgical History (Last Updated 12/08/23 @ 12:20 by Radha Chandler, RN) History of left heart catheterization History of total hip arthroplasty History of total knee arthroplasty (02/09/19) Hx of hand surgery Hx of tonsillectomy Hx of tubal ligation S/P foot surgery, left Medical History (Last Updated 06/07/24 @ 13:36 by Inga Metzger, MIKE) Asthma Atrial fibrillation CAD (coronary artery disease) COPD (chronic obstructive pulmonary disease) DDD (degenerative disc disease) Depression Edema Fracture of inferior pubic ramus Gastric ulcer GI bleed (~2017) Gout Hip fracture, left (~10/2010) History of COVID-19 (~2021) History of varicose veins HLD (hyperlipidemia) HTN (hypertension) Hypothyroidism Memory impairment Migraine headache with aura Neck pain Neuropathy NSVT (nonsustained ventricular tachycardia) Osteopenia Peripheral neuropathy Pulmonary hypertension, mild Raynauds phenomenon Rheumatoid arthritis Ribs, multiple fractures (12/14/23) Sternal fracture (12/14/23) DALE (stress urinary incontinence, female) Tinnitus Tricuspid regurgitation Ulcer of right leg Physical Therapy Inpatient Evaluation/Re-Eval M1 PT/OT-IP Prior Functional Status Start: 06/21/24 10:25 Freq: NEEDED Status: Active Protocol: Document 06/21/24 09:15 AB (Rec: 06/21/24 10:45 AB [id number]) Medical Review Prior Functional Status Medical History Reviewed Yes Communication able to make needs known; slow to respond and with decrease memory Mobility and Gait pt stated that she was modified independent with all mobilities but with h/o frequent falls; uses a 4WW indoors and FWW for outdoor mobility Social History Household Members children Living Arrangements House Number of Floors (Floors) One Floor Number of Stairs To Enter/Railing? 3 steps L rail ascending to enter Home Environment Standard Height Toilet,Walk in Shower Home Equipment Front Wheel Walker,Four Wheel Walker,Shower Seat with Backrest,Hand Held Shower,Grab Bars Near Toilet,Grab Bars In Shower Additional Social History Comment pt lives with her son M2 PT-IP Current Condition Start: 06/21/24 10:25 Freq: NEEDED Status: Active Protocol: Document 06/21/24 09:15 AB (Rec: 06/21/24 10:45 AB [id number]) Physical Therapy Current Condition Current Condition Evaluation Date 06/21/24 Treatment Diagnosis s/p R TKA; difficulty in walking Onset Date 06/20/24 M3 PT-IP Subjective Start: 06/21/24 10:25 Freq: NEEDED Status: Active Protocol: Document 06/21/24 09:15 AB (Rec: 06/21/24 10:45 AB [id number]) Subjective Physical Therapy Visit Type Type Initial Evaluation Visit Start Time 09:15 Visit Stop Time 10:05 Number of SLAB LIFTING ENGINEER Visits 0 Therapy Pain Assessment Pain When Pain Assessed During Mobility Pain Present Pain Present Pain Reported Location right knee Intensity 9 Scale Used Numeric (0 - 10) Pain Behaviors Facial Grimacing,Guarding, Holding Area,Wincing Pain Management Techniques Apply Cold,Distraction, Modification of Treatment,Re- positioning,Timing of Activity with Medications M4 PT-IP Mobility and Gait Start: 06/21/24 10:25 Freq: NEEDED Status: Active Protocol: Document 06/21/24 09:15 AB (Rec: 06/21/24 10:45 AB [id number]) PT-Bed Mobility Assessment Supine to Sit Supine to Sit Moderate Assistance,Head of Bed Elevated,Bedrails Scooting Scooting to Edge of Bed Maximum Assistance PT-Transfer Assessment Sit to and From Stand Sit to and from Stand Maximum Assistance,1 Person Assistance,2 Person Assistance ,Use of Upper Extremities Equipment Transfer Assistive Device Gait Belt,Front Wheeled Walker Orthotic/Prosthetic Devices or Brace: No Transfers Transfer Destination Chair,Bedside Commode Transfer Ability Level of Assist Maximum Assistance,2 Person Assistance,Use of Upper Extremities Comments Mobility Comments pt supine in bed and agreeable to do PT. obtained PLOF and home set up. BP in supine: 113/78 . post-op folder provided and reviewed contents with pt. pt completed supine to sit mod A and max cues. HOB elevated and pt used bed rail to assist. pt was able to sit on EOB SBA to CGA. pt requested to use the toilet. positioned bedside commode next to pt. pt completed sit to stand max A x 1-2 and max cues. increase posterior trunk lean. max A for standing balance. cued to use FWW for steadiness . completed step transfer to bedside commode max A x 2 and max cues. pt completed sit to stand from bedside commode max A x 1-2 and max cues. max A for standing balance using fWW while NAC assisted pt with hygiene care and brief management. moved chair behind pt and pt sit back on chair. max A x 1-2 for controlled descent. pt required max cues for all tasks and needs increase time to complete. pt rested. c/o knee pain. . informed nurse. pt agreed to try to ambulate. max A x 2 for sit to stand from chair and was able to take a few steps ~ 2ft using FWW max A x 1-2 and max cues and with chair follow. max A x 2 for controlled descent to the chair. positioned pt on the chair. call light and table placed within reach. Gait Assessment Gait Gait Assistance Required: Maximum Assistance,1 Person Assist,2 Person Assist Distance (Feet) 2 Able to Maintain Weight Bearing Status Yes During Gait Assistive Devices Assistive Device Gait Belt,Front Wheeled Walker Orthotic/Prosthetic Devices or Brace: No Gait Deviations General Gait Pattern Antalgic,Ataxic,Decreased Stride Length,Decreased Feet Clearance,Flexed Trunk,Step-to Gait Factors Limiting Gait Function Factors Limiting Gait Function Decreased Activity Tolerance, Decreased Strength,Difficulty Following Directions, Incoordination,Limited Range of Motion,Pain,Poor Balance, Poor Safety Awareness PT-Balance Assessment Sitting Balance and Reactions Static Sitting Balance Ability Good Dynamic Sitting Balance Ability Fair Standing Balance and Reactions Static Standing Balance Ability Poor Dynamic Standing Balance Ability Poor Device Used FWW M5 PT-IP Objective Assessments Start: 06/21/24 10:25 Freq: NEEDED Status: Active Protocol: Document 06/21/24 09:15 AB (Rec: 06/21/24 10:45 AB [id number]) Orientation Orientation/Cognition Level of Alertness Alert Orientation Name,Situation Language Function Ability Hard of Hearing Safety Awareness Decreased Safety Awareness Memory Description Short Term Impaired,Skilled Nursing Impaired Gross Range of Motion Lower Extremity ROM Impairments R knee flexion: ~ 60 deg Strength Lower Extremity Strength Assessment Bilaterally Impaired Comments Strength Comments LLE: 4-/5 RLE: 3+/5 Coordination Assessment Gross Coordination Gross Coordination WNL Sensation Assessment Sensation Gross Sensation WNL Other Assessments Other Other Assessments (+) R lower leg redness and edema: pt stated that she has lymphedema on RLE M6 PT-IP Treatment Start: 06/21/24 10:25 Freq: NEEDED Status: Active Protocol: Document 06/21/24 09:15 AB (Rec: 06/21/24 10:45 AB [id number]) Physical Therapy Treatment Exercises Exercises Heel Slides Education Education Provided Precautions,Weight Bearing Status,Post-Op Packet,Safety M7 PT-IP Assessment and Plan Start: 06/21/24 10:25 Freq: NEEDED Status: Active Protocol: Document 06/21/24 09:15 AB (Rec: 06/21/24 10:45 AB [id number]) PT Summary Assessment and Plan Potential Rehabilitation Potential Fair Status of Condition at Evaluation Evolving Summary Impairments Pain,ROM,Strength,Balance, Coordination,Sensation,Tone, Cognition,Bed Mobility, Transfers,Gait,Activity Tolerance Assessment Summary pt is an 84 y/o F s/p R TKA POD 1. pt is WBAT on RLE. pt requiring max A x 2 for transfers using FWW and only able to ambulate ~ 2 ft this morning using FWW max A x 1-2 and max cues. pt required max cues with all tasks and needs increase time to process instructions to complete. pt with h/o frequent falls at home and continues to be a high fall risk. pt presents with weakness, decrease balance and mobility and also has c/o increase R knee pain affecting level of assistance. pt will require 24/7 assist and needs 2 person assist at this time. pt will require SNF rehab to improve overall strength and function. Goals Bed Mobility Goal Standby Assistance Transfer Goal Minimal Assistance,Front Wheeled Walker Gait Goal Minimal Assistance,Front Wheel Walker Gait Distance 100 Other Goals improve bed mobility, transfers, ambulation using FWW ~ 150 ft SBA up/down 3 steps L rail ascending SBA Days to Meet Goals 10 Frequency of Treatment Frequency Of Treatment Twice a Day Treatment Plan Physical Therapy Treatment Plan Bed Mobility Training,Transfer Training,Gait Training, Therapeutic Exercise,Balance Retraining,Post Op Education, Discharge Planning,Hot or Cold Pack,Neuromuscular Re-ed, Coordination Retraining,Manual Therapy Weight Bearing Status Weight Bearing Status Weight Bear as Tolerated Allowed Weight Bearing Amount (enter % RLE WBAT or #) (%) Recommendations To Nursing Amount of Assist Needed 2 Person Assist Discharge Recommendations PT Discharge Recommendations SNF Rehab Transportation Needs at Discharge Wheelchair/Cabulance
[2024-06-21] MEDS: FUROSEMIDE 20 MG TABLET PO (09:56)
--- NOTE | 2024-06-21 10:47 | OT.IP.EVAL ---
Current Diagnoses Unilateral primary osteoarthritis, right knee (06/20/24) Presence of unspecified artificial knee joint (06/20/24) Surgery Performed Operation Date: 06/20/24 13:15 Actual Procedures p Total Knee Arthroplasty - Robot(Right) - Ro Forrest MD Past Medical History (Last Updated 06/07/24 @ 13:36 by Inga Metzger, MIKE) Asthma Atrial fibrillation CAD (coronary artery disease) COPD (chronic obstructive pulmonary disease) DDD (degenerative disc disease) Depression Edema Fracture of inferior pubic ramus Gastric ulcer GI bleed (~2017) Gout Hip fracture, left (~10/2010) History of COVID-19 (~2021) History of varicose veins HLD (hyperlipidemia) HTN (hypertension) Hypothyroidism Memory impairment Migraine headache with aura Neck pain Neuropathy NSVT (nonsustained ventricular tachycardia) Osteopenia Peripheral neuropathy Pulmonary hypertension, mild Raynauds phenomenon Rheumatoid arthritis Ribs, multiple fractures (12/14/23) Sternal fracture (12/14/23) DALE (stress urinary incontinence, female) Tinnitus Tricuspid regurgitation Ulcer of right leg Surgical History (Last Updated 12/08/23 @ 12:20 by Radha Chandler, MIKE) History of left heart catheterization History of total hip arthroplasty History of total knee arthroplasty (02/09/19) Hx of hand surgery Hx of tonsillectomy Hx of tubal ligation S/P foot surgery, left Occupational Therapy Inpatient Evaluation/Re-Eval M1 PT/OT-IP Prior Functional Status Start: 06/21/24 10:25 Freq: NEEDED Status: Active Protocol: Document 06/21/24 13:50 CGR (Rec: 06/21/24 14:03 CGR [id number]) Medical Review Prior Functional Status Medical History Reviewed Yes Communication able to make needs known; slow to respond and with decrease memory Mobility and Gait pt stated that she was modified independent with all mobilities but with h/o frequent falls; uses a 4WW indoors and FWW for outdoor mobility Activities of Daily Living and IADL's Pt was IND for all ADLs but occationally needs help with her bra clasp. Pt does her laundry and manages her medications but her son does the grocery shopping and they also get meals on wheels. Pt states that she still drives but hasn't driven in some time maybe 6 months. Social History Household Members children Living Arrangements House Number of Floors (Floors) One Floor Number of Stairs To Enter/Railing? 3 steps with L rail assending. Home Environment Standard Height Toilet,Walk in Shower Home Equipment Front Wheel Walker,Four Wheel Walker,Shower Seat with Backrest,Hand Held Shower,Grab Bars Near Toilet,Grab Bars In Shower Employment Status Retired Additional Social History Comment pt lives with her son M2 OT-IP Current Condition Start: 06/21/24 13:50 Freq: Status: Active Protocol: Document 06/21/24 13:50 CGR (Rec: 06/21/24 14:03 CGR [id number]) Occupational Therapy Current Condition Current Condition Evaluation Date 06/21/24 Treatment Diagnosis R TKA, WBAT Diagnosis Onset Date 06/20/24 Weight Bearing Status Weight Bearing Status Weight Bear as Tolerated M3 OT- IP Subjective and Pain Start: 06/21/24 13:50 Freq: Status: Active Protocol: Document 06/21/24 13:50 CGR (Rec: 06/21/24 14:03 CGR [id number]) OT- Subjective Occupational Therapy Visit Type Type Initial Evaluation Visit Start Time 10:22 Visit Stop Time 10:47 OT Pain Assessment Pain When Pain Assessed At Rest Pain Present Pain Present Pain Reported Location right knee Intensity 7 Scale Used Numeric (0 - 10) Management Techniques Modification of Treatment,Re- positioning,Timing of Activity with Medications M4 OT- IP ADL's Start: 06/21/24 13:50 Freq: Status: Active Protocol: Document 06/21/24 13:50 CGR (Rec: 06/21/24 14:03 CGR [id number]) OT [id number] Comments OT Self-Feeding Comments not meal time OT ADL-Grooming General Evaluation Grooming Ability Standby Assistance Areas Needing Assistance Retrieving/Set-up of Grooming Items,Face Washing Comments OT Grooming Comments seated in chair at sink OT ADL-Oral Care General Eval Oral Care Ability Standby Assistance Areas of Assistance Brushing Teeth,Retrieving/Set- Up of Items Comments Oral Care Comments seated in chair at sink OT ADL-Dressing Comments OT Dressing Comments not performed OT ADL-Toileting Comments OT Toileting Comments not performed, pt declined need OT ADL-Bathing Comments OT Bathing Comments not performed M5 OT- IP IADL's Start: 06/21/24 13:50 Freq: Status: Active Protocol: Document 06/21/24 13:50 CGR (Rec: 06/21/24 14:03 CGR [id number]) OT-Instrumental Activities of Daily Living Deficits IADL Deficits Identified Deficits Home Safety Awareness Awareness of Need for Assistance at Home Decreased Awareness Medication Management Medication Management Comments concerns regarding pt's ability to perform safely at this time. Money Management Money Management Comments concerns regarding pt's ability to perform safely at this time. Meal Preparation Meal Preparation Caregiver Provides Assist Quality Control Supervisor Quality Control Supervisor Caregiver Provides Assist Driving Driving Concerns Identified Regarding Safety Driving Comments Pt states she hasn't driven in 6 months. M6 OT- IP Functional Cognition Start: 06/21/24 13:50 Freq: Status: Active Protocol: Document 06/21/24 13:50 CGR (Rec: 06/21/24 14:03 CGR [id number]) Cognitive Factors Limiting Selfcare Function Cognitive Ability Level of Alertness Alert,Drowsy Patient Orientation Name,Age,Birthday,Date,Year, Day of Week,Place,Situation Attention Span Ability Capable of Focused Attention, Capable of Sustained Attention Ability to Follow Commands Able to Follow One Step Commands with Increased Time, Able to Follow One Step Commands with Repetition OT- Vision and Hearing OT- Hearing Assessment OT- Hearing Assessment WFL OT- Vision Assessment Visual Acuity Glasses For Reading Visual Attentiveness WFL Occular Pursuits WFL Visual Convergence WFL M7 OT- IP Mobility and Balance Start: 06/21/24 13:50 Freq: Status: Active Protocol: Document 06/21/24 13:50 CGR (Rec: 06/21/24 14:03 CGR [id number]) OT-Transfer Assessment Sit to and From Stand Sit to and from Stand Maximum Assistance,1 Person Assistance Transfers Transfer Ability Maximum Assistance,1 Person Assistance Technique Transfer Destination Chair Transfer Technique Stand Step Pivot Devices Transfer Assistive Devices Gait Belt,Front Wheeled Walker Comments Mobility Comments Pt took about 6 steps with max a, needing assist to move the R leg forward then vc to push through the walker to lift the L leg. Pt states fatigue after ~6 steps and returns to chair (which was pulled behind ). Pt then performed ADLs at sink and rolled back into place after therapy. OT- Gait Assessment Gait Gait Assistance Required: Maximum Assistance,1 Person Assist Assistive Devices Assistive Device Gait Belt,Front Wheeled Walker OT- Balance Assessment Sitting Balance and Reactions Static Sitting Balance Ability Good Dynamic Sitting Balance Ability Good M8 OT- IP Objective Assessments Start: 06/21/24 13:50 Freq: Status: Active Protocol: Document 06/21/24 13:50 CGR (Rec: 06/21/24 14:03 CGR [id number]) OT Gross Range of Motion Upper Extremity Range of Motion Assessment Within Functional Limits OT Strength Upper Extremity Strength Assessment Within Functional Limits Comments Strength Comments grossly 4/5 but with noted arthritic changes to her hands . OT- Coordination Assessment Upper Extremity Finger to Nose Test Within Functional Limits Finger Tapping Test Within Functional Limits OT-Muscle Tone Assessment Muscle Tone WNL Yes OT Sensation Assessment Edema Edema Present Edema Comments Pt's RLE is very swollen with some weeping. M9 OT- IP Assessment and Plan Start: 06/21/24 13:50 Freq: Status: Active Protocol: Document 06/21/24 13:50 CGR (Rec: 06/21/24 14:03 CGR [id number]) OT Summary Assessment and Plan Potential Rehabilitation Potential Good Analytic Complexity at Evaluation Moderate Summary OT Impairments Pain,Balance,Functional Cognition,Functional Mobility, Grooming,Dressing,Toileting, Bathing,Toilet Transfers, Shower Transfers,Activity Tolerance Progress Towards Goals Slow Progress due to Pain,Slow Progress due to Cognition Assessment Summary Pt presents as a moderate complexity evaluation s/p admit for R TKA. Pt tolerated session well with good effort but fatigues quickly and is currently reporting 7/10 pain. Pt performed ADLs seated at sink and left sitting up in chair at end of session, call button within reach and all needs at time met. Recommend pt d/c to SNF. Goals Grooming Goal Independent Dressing Goal Independent Toileting Goal Independent Bathing Goal Independent Toilet Transfer Goal Independent Shower Transfer Goal Independent Days to Meet Goals 30 Frequency of Treatment Other frequency 5x per week Treatment Plan OT Treatment Plan ADL Training,Functional Mobility,Patient/Family Education,Discharge Planning Other Treatment Recommendations and Next BSC transfer, shower if Treatment Focus appropriate, ADLs at sink Discharge Recommendations OT Discharge Recommendations SNF Rehab Transportation Needs at Discharge Wheelchair/Cabulance
--- NOTE | 2024-06-21 11:12 | CM.DANOTE ---
Initial DCP Assessment Visit Note Reviewed EMR and team rounds for status updates. Met with pt at bedside to introduce self and role, pt was found to be somnolent, yet able to share that although she knows that [employer] would not auth for inpt prior to the surgery, that there may still be medical necessity reasons why she may still qualify. Pt lives modified independently with her adult son in her own home in [place]. Her son recently had hip surgery, and has a chronic issue with is shoulder dislocating, so he is not able to assist her with postoperative care needs. Transport plan pending whether or not she goes to SNF rehab at d/c, or home w/Home Health. Payor: [facility] Adv Attending: Dr. Ro Forrest Pt is a 84 year-old F post-op day 1 from a R-knee total arthroplasty surgery. He has a hx of onging R-knee pain and instability, and had tried conservative efforts with a series of 3-knee injections without lasting benefit. Her Ortho provider was recommending SNF rehab if possible. This EXPELLER OPERATOR did forward pt's referral to [facility] for review. Pt was only able to take a few steps while working with PT today, and required a max. 2-person assist. Will continue to monitor for [facility] acceptance, she will need an auth prior to admission. Discharge Planning/Care Management Advanced directive, confirm from FAMILY Start: 06/20/24 17:21 Freq: Q24H Status: Active Protocol: Document 06/20/24 17:21 CM (Rec: 06/20/24 17:22 CM [id number]) Advance Directive, confirm on record Time 17:22 Person contacted Pt Copy received No CM Discharge Assessment Start: 06/21/24 10:51 Freq: Status: Active Protocol: Document 06/21/24 10:52 DPL (Rec: 06/21/24 11:01 DPL [id number]) Discharge Planning Assessment Assigned Business Support Specialist ADRIANA Borden Advance Directives? No Advance Directives on File No History Provided By Patient,Medical Record Has Patient been admitted in last 30 No days? Prior Living Arrangements House Household Members children Comment Pt lives with her son. Type of transporation used prior to Relies on Others admit Independent with ADL's No: Modified independent w/ walker and assistance from her son. Is patient alert and oriented? Yes Needs Assistance With Home Chores / Shopping Caregiver for Another No DME Already Rented / Owned Elevated Toilet Seat,FWW / Walker Patient/Family Preference Assisted Facility Barriers to Discharge No Comment lives with son that recently had hip surgery, frequent falls. Discharge Plan Assisted Facility Transportation Arrangement Facility Referrals Initiated Assisted,Other If patient plan is home with home health No : Has signed face to face form been completed? If patient plan is SNF: Has PASSR been Yes completed? Inpatient Status as of 06/21/24 Medicare Choice List Provided Yes Medicare choice list reviewed on patient electronic tablet with SNF/HH Preference [facility] Has Agency SNF been contacted Yes Whiteboard Updated in Patient Room with Yes name and ext. # of Business Support Specialist Review Status In Process Pre-Anesthesia Assessment Start: 06/07/24 12:42 Freq: Status: Complete Protocol: Document 06/07/24 12:42 LB (Rec: 06/07/24 13:28 LB [id number]) Pre-Anesthesia Assessment PAC Comment 06/07/24 Phone assessment. Preferred Name Gail Patient Information Reviewed Via Phone Assessment Assessment Completed With Patient Diagnostic Results BMP/CMP,CBC,EKG Comment 09/03/23 at . 09/21/23 outside EKG (SR). Primary Care Provider Sneha Lam Medical Clearance Received Yes Specialist Seen Leather Case Finisher,Emergency, Orthopedist,Other Primary Language Syrian Preferred Language Syrian Cleaning Supervisor Required No Height 162.56 cm Weight 61.235 kg Body Mass Index (BMI) 23.1 Hearing Ability Normal Visual Assist Glasses Dentition Type Teeth, Natural Present Other Aids No Hx Anesthesia Reactions Yes: Slow to waken. Hx Family Anesthesia Reaction No Hx Malignant Hyperthermia No Hx Blood Transfusions Yes: s/p vaginal delivery Hx Blood Transfusion Reaction No Anesthesia Review Requested No: Previously sent 12/08/23. Coat Room Attendant No alcohol intake former Smoking Status Former smoker Tobacco type cigarettes how long ago did patient quit smoking Smoked x 1 year age 19 Substance Use Type does not use Pain Present Pain Reported Comment Right knee. Musculoskeletal Symptoms Difficulty Walking,Joint Stiffness,Muscle Weakness History of Falling (Recent or History of Yes ) Comment most recent 12/14/23. Patient is completely paralyzed or No completely immobile Prosthesis or Orthotic Device Front Wheel Walker Comment Will bring walker. Is patient on oxygen? No Does patient have FABIAN/SOB No Hx Sleep Apnea No Currently Taking a Beta Madelin Yes: Metoprolol 25mg daily. Can You Climb a Flight of Stairs Without No SOB Hx Chest Pain No Hx SOB No Hx Syncope or Dizziness No Anti-Coagulant Therapy No Has a Leather Case Finisher Yes Leather Case Finisher name Dr Blum Cardiac Testing Yes: Nuc med & Echo @ [facility] Hx Pacemaker/ICD No Cardiac Clearance Received Yes Dysphagia No Gastrointestinal Symptoms Loose Stools,Reflux Bladder Pattern Incontinent, Stress Urinary Catheter Present No Hx Urinary Self Catheterization No Diabetes No Patient No Lactating No Hx Drug Resistant Organism No Presence of External or Internal Medical Yes: Left hip, left knee Devices Have you had any close contact with No someone diagnosed with COVID-19? Are you experiencing any of these No symptoms symptoms? Received a COVID vaccine? Yes Comment Denies covid last 2 months. Lives With children Current Living Arrangements House Number of Floors (Floors) One Floor Number of Stairs To Enter/Railing? 3 steps with railing to enter. Support System Child/Children Does the Patient Have Assistance After Yes Surgery Patient Discharge Plan Description Return Home,Assisted Facility/Rehab Additional comment Lives with son. PCP post op rehab admission Feels Safe in Current Environment Yes Do you have a plan to hurt yourself or No Plan others? Do You Have Any Spiritual Beliefs That No May Affect Your HC Choices? Do You Have Any Cultural Practices That No May Affect Your HC Choices? Who Can We Speak to About Patient's Care Family and friends. Identifying Code for Release of Patient Declines to issue. Information Emergency Contact Name Kevin underwood Emergency Contact or [phone] Advance Directives? Yes Advance Directives on File No PAC Instructions Assistance for 24 hours post- op,Do not shave/clip surgical site,Durable medical equipment ,Medications to take/avoid,No ETOH/petroleum product on skin DOS,NPO,Pre-surgical wash, Sensory aids,Sturdy shoes/ comfortable clothes,Do not bring valuables and remove jewelry
--- NOTE | 2024-06-21 13:51 | CM.DPC ---
T/C-[facility]ow Left message for our [facility] requesting authorization for SNF rehab. [facility] can accept on Wednesday if authorized. Pending response.
--- NOTE | 2024-06-21 14:05 | PT.IPTN ---
Current Diagnoses Unilateral primary osteoarthritis, right knee (06/20/24) Presence of unspecified artificial knee joint (06/20/24) Surgery Performed Operation Date: 06/20/24 13:15 Actual Procedures p Total Knee Arthroplasty - Robot(Right) - Ro Forrest MD Physical Therapy Treatment Note M2 PT-IP Current Condition Start: 06/21/24 10:25 Freq: NEEDED Status: Active Protocol: Document 06/21/24 09:15 AB (Rec: 06/21/24 10:45 AB [id number]) Physical Therapy Current Condition Current Condition Evaluation Date 06/21/24 Treatment Diagnosis s/p R TKA; difficulty in walking Onset Date 06/20/24 M3 PT-IP Subjective Start: 06/21/24 10:25 Freq: NEEDED Status: Active Protocol: Document 06/21/24 14:05 AB (Rec: 06/21/24 15:11 AB [id number]) Subjective Physical Therapy Visit Type Type Treatment Note Visit Start Time 14:05 Visit Stop Time 14:30 Number of CITRUS PEELER Visits 0 Physical Therapy Visit Comments Patient Comments agreeable to do PT; requested to go back to bed Therapy Pain Assessment Pain When Pain Assessed At Rest Location right knee Scale Used pain scale not stated Description Tightness,With Movement Pain Behaviors Facial Grimacing,Guarding, Wincing Pain Management Techniques Apply Cold,Distraction, Elevation,Modification of Treatment M4 PT-IP Mobility and Gait Start: 06/21/24 10:25 Freq: NEEDED Status: Active Protocol: Document 06/21/24 14:05 AB (Rec: 06/21/24 15:11 [id number]) PT-Bed Mobility Assessment Sit to Supine Sit to Supine Maximum Assistance,1 Person Assistance PT-Transfer Assessment Sit to and From Stand Sit to and from Stand Maximum Assistance,1 Person Assistance,Use of Upper Extremities Equipment Transfer Assistive Device Gait Belt,Front Wheeled Walker Orthotic/Prosthetic Devices or Brace: No Transfers Transfer Destination Bed Transfer Technique ambulated Transfer Ability Level of Assist Moderate Assistance,Maximum Assistance,1 Person Assistance ,Use of Upper Extremities Comments Mobility Comments pt sitting on the chair and agreed to do PT and wants to go back to bed. pt completed seated heel slides and knee extension/flexion. pt completed sit to stand max A and max cues. required 2 attempts to be able to stand. pt ambulated ~ 15 ft using FWW towards the bed mod A to max A and max cues. presents with slow paced gait with decrease LE elevation and step length. pt initially required assist to weight shift to be able to move LE forward. pt sat on EOB. completed sit to supine max A and max cues. positioned pt in bed. call light and table placed within reach. ice pack provided. Gait Assessment Gait Gait Assistance Required: Moderate Assistance,Maximum Assistance Distance (Feet) 15 Able to Maintain Weight Bearing Status Yes During Gait Assistive Devices Assistive Device Gait Belt,Front Wheeled Walker Orthotic/Prosthetic Devices or Brace: No Gait Deviations General Gait Pattern Antalgic,Decreased Stride Length,Decreased Feet Clearance,Step-to Gait Factors Limiting Gait Function Factors Limiting Gait Function Decreased Activity Tolerance, Decreased Strength,Difficulty Following Directions,Limited Range of Motion,Pain,Poor Balance,Poor Safety Awareness M5 PT-IP Objective Assessments Start: 06/21/24 10:25 Freq: NEEDED Status: Active Protocol: Document 06/21/24 09:15 AB (Rec: 06/21/24 10:45 [id number]) Orientation Orientation/Cognition Level of Alertness Alert Orientation Name,Situation Language Function Ability Hard of Hearing Safety Awareness Decreased Safety Awareness Memory Description Short Term Impaired,Group Home Impaired Gross Range of Motion Lower Extremity ROM Impairments R knee flexion: ~ 60 deg Strength Lower Extremity Strength Assessment Bilaterally Impaired Comments Strength Comments LLE: 4-/5 RLE: 3+/5 Coordination Assessment Gross Coordination Gross Coordination WNL Sensation Assessment Sensation Gross Sensation WNL Other Assessments Other Other Assessments (+) R lower leg redness and edema: pt stated that she has lymphedema on RLE M6 PT-IP Treatment Start: 06/21/24 10:25 Freq: NEEDED Status: Active Protocol: Document 06/21/24 14:05 AB (Rec: 06/21/24 15:11 [id number]) Physical Therapy Treatment Exercises Exercises Heel Slides,Seated Knee Flexion/Extension Education Education Provided Safety M7 PT-IP Assessment and Plan Start: 06/21/24 10:25 Freq: NEEDED Status: Active Protocol: Document 06/21/24 14:05 AB (Rec: 06/21/24 15:11 [id number]) PT Summary Assessment and Plan Potential Rehabilitation Potential Fair Summary Impairments Pain,ROM,Strength,Balance, Coordination,Sensation,Tone, Cognition,Bed Mobility, Transfers,Gait,Activity Tolerance Progress Towards Goals Slow Progress due to Pain,Slow Progress due to Activity Tolerance,Slow Progress - Other Assessment Summary pt progressing slowly and able to ambulate ~ 15 ft this afternoon using FWW mod to max A and max cues. pt continues to require max A for sit to stand and max cues with all tasks. pt will require SNF rehab to improve overall strength and mobility. Goals Bed Mobility Goal Standby Assistance Transfer Goal Minimal Assistance,Front Wheeled Walker Gait Goal Minimal Assistance,Front Wheel Walker Gait Distance 100 Other Goals improve bed mobility, transfers, ambulation using FWW ~ 150 ft SBA up/down 3 steps L rail ascending SBA Days to Meet Goals 10 Frequency of Treatment Frequency Of Treatment Twice a Day Treatment Plan Physical Therapy Treatment Plan Bed Mobility Training,Transfer Training,Gait Training, Therapeutic Exercise,Balance Retraining,Post Op Education, Discharge Planning,Hot or Cold Pack,Neuromuscular Re-ed, Coordination Retraining,Manual Therapy Weight Bearing Status Weight Bearing Status Weight Bear as Tolerated Allowed Weight Bearing Amount (enter % RLE WBAT or #) (%) Recommendations To Nursing Amount of Assist Needed 2 Person Assist Discharge Recommendations PT Discharge Recommendations SNF Rehab Transportation Needs at Discharge Wheelchair/Cabulance
[2024-06-21] MEDS: lisinopriL 5 MG TABLET PO (14:24)
[2024-06-21 20:00] VITALS: BP 108/57; PULSE 91; RESP 18; TEMP 36.6; O2SAT 95
[2024-06-21] MEDS: ATORVASTATIN 20 MG TABLET PO (20:14)
[2024-06-22] VITALS (8 sets, daily range): BP systolic 84–144; BP diastolic 43–67; PULSE 76–82; RESP 14–15; TEMP 36.3–37; O2SAT 91–97
[2024-06-22] MEDS: LEVOTHYROXINE 25 MCG TABLET 75 MCG PO (06:31)
[2024-06-22] MEDS: OXYCODONE IR 5 MG TABLET PO ×3 (06:31→15:55)
[2024-06-22] MEDS: DOCUSATE 100 MG CAPSULE PO ×2 (09:06→19:55)
[2024-06-22] MEDS: PANTOPRAZOLE DR 40 MG TABLET PO (09:07)
[2024-06-22] MEDS: lisinopriL 5 MG TABLET PO (09:07)
[2024-06-22] MEDS: METOPROLOL ER 25 MG TABLET PO (09:07)
[2024-06-22] MEDS: RIVAROXABAN 10 MG TABLET PO (09:07)
--- NOTE | 2024-06-22 09:28 | CM.DPC ---
DCP Cont. Reviewed EMR and team rounds for status updates. Received call from our [facility], she provided authorization for [facility] rehab, plan is for [facility] to transport her at 11:00am on Wednesday, 06/23. Notified [facility] of auth number. Authorization# [id number]
--- NOTE | 2024-06-22 10:10 | PM.PNPO.1 ---
Subjective Subjective Date Patient Seen: 06/22/24 Time Patient Seen: 10:10 Interval history: Pt sitting up in chair, reports much less discomfort today than yesterday. Working w/ PT but says she hasn't been walking d/t pain. Exam Vital Signs (past 8 hours): - 06/22/24 07:53 06/22/24 08:00 06/22/24 09:00 Temperature 98.6 F Pulse Rate 82 Respiratory Rate 15 Blood Pressure 108/57 L 122/66 Pulse Oximetry 93 Oxygen Delivery Method Room Air Oxygen Flow Rate 0 06/22/24 09:07 06/22/24 10:03 Temperature Pulse Rate 80 Respiratory Rate Blood Pressure 122/67 Pulse Oximetry Oxygen Delivery Method Oxygen Flow Rate Oxygen Delivery Method Room Air Oxygen Flow Rate 0 Narrative Exam Narrative: 4/5 hip flexors, quadriceps, hamstrings; 5/5 DF, PF, EHL on right. Sensation to light touch intact throughout RLE. Calf soft and compressible. TERRELL dressing with three spots of bloody drainage along the incision; otherwise intact, functioning. Objective Labs 06/21/24 05:30 PFS Medical History (Updated 06/07/24 @ 13:36 by Inga Metzger, MIKE) Ulcer of right leg Ribs, multiple fractures (12/14/23) Sternal fracture (12/14/23) History of COVID-19 (~2021) Memory impairment DALE (stress urinary incontinence, female) History of varicose veins DDD (degenerative disc disease) Peripheral neuropathy CAD (coronary artery disease) Gastric ulcer Osteopenia Gout Migraine headache with aura Fracture of inferior pubic ramus Hip fracture, left (~10/2010) Atrial fibrillation Asthma Pulmonary hypertension, mild Tricuspid regurgitation NSVT (nonsustained ventricular tachycardia) Rheumatoid arthritis Tinnitus Depression Neck pain Hypothyroidism GI bleed (~2017) Edema HLD (hyperlipidemia) HTN (hypertension) COPD (chronic obstructive pulmonary disease) Raynauds phenomenon Neuropathy Surgical History (Updated 06/21/24 @ 07:00 by Milli Rosales PA-C) S/P foot surgery, left History of total hip arthroplasty History of total knee arthroplasty (02/09/19) History of left heart catheterization Hx of hand surgery Hx of tonsillectomy Hx of tubal ligation Family History Father Alcoholism /alcohol abuse Mother Migraines Brother History of knee replacement Sister No significant medical problems Son Alcoholism /alcohol abuse Social History household members: children Smoking Status: Former smoker alcohol intake: former Assessment & Plan Post-op Assessment and plan (1) Total knee replacement status: Assessment and Plan narrative: 1) Continue PT, WBAT to RLE. Per CM note, d/c to [facility] tomorrow pending insurance auth. 2) She has a h/o a fib and DVT but is NOT chronically anticoagulated. She started Xarelto 10mg today and will continue for 19 days postop for VTE prophylaxis. Postoperative Procedures: Procedures Operation Date: 06/20/24 13:15 Actual Procedure Side Surgeon p Total Knee Arthroplasty - Robot Right Ro Forrest MD Postoperative day: 2 Quality VTE Deep Vein Thrombosis/Pulmonary Embolism Present on Admission: No
--- NOTE | 2024-06-22 10:50 | PT.IPTN ---
Current Diagnoses Unilateral primary osteoarthritis, right knee (06/20/24) Presence of unspecified artificial knee joint (06/20/24) Surgery Performed Operation Date: 06/20/24 13:15 Actual Procedures p Total Knee Arthroplasty - Robot(Right) - Ro Forrest MD Physical Therapy Treatment Note M2 PT-IP Current Condition Start: 06/21/24 10:25 Freq: NEEDED Status: Active Protocol: Document 06/21/24 09:15 AB (Rec: 06/21/24 10:45 AB [id number]) Physical Therapy Current Condition Current Condition Evaluation Date 06/21/24 Treatment Diagnosis s/p R TKA; difficulty in walking Onset Date 06/20/24 M3 PT-IP Subjective Start: 06/21/24 10:25 Freq: NEEDED Status: Active Protocol: Document 06/22/24 11:19 TS (Rec: 06/22/24 11:35 TS [id number]) Subjective Physical Therapy Visit Type Type Treatment Note Visit Start Time 10:50 Visit Stop Time 11:16 Number of MEDICAL CHARGE ENTRY SPECIALIST Visits 1 Physical Therapy Visit Comments Patient Comments Pt found resting in the chair, she is agreeable to PT. Therapy Pain Assessment Pain When Pain Assessed At Rest Pain Present Pain Present Pain Reported M4 PT-IP Mobility and Gait Start: 06/21/24 10:25 Freq: NEEDED Status: Active Protocol: Document 06/22/24 11:19 TS (Rec: 06/22/24 11:35 TS [id number]) PT-Transfer Assessment Sit to and From Stand Sit to and from Stand Maximum Assistance,1 Person Assistance,Use of Upper Extremities Equipment Transfer Assistive Device Gait Belt,Front Wheeled Walker Orthotic/Prosthetic Devices or Brace: No Comments Mobility Comments Pt scoots in the chair CGA with max cues for sequencing. STS with FWW MaxA x1. Pt ambulates ~10' ModA x1 with a slow step to gait, requires cues for step sequencing. Pt sat back in chair, requires MaxA for stand to sit with x2PA. Pt was left with OT in the room, all needs met. Gait Assessment Gait Gait Assistance Required: Moderate Assistance Distance (Feet) 15 Able to Maintain Weight Bearing Status Yes During Gait Assistive Devices Assistive Device Gait Belt,Front Wheeled Walker Orthotic/Prosthetic Devices or Brace: No Gait Deviations General Gait Pattern Antalgic,Decreased Stride Length,Decreased Feet Clearance,Step-to Gait Factors Limiting Gait Function Factors Limiting Gait Function Decreased Activity Tolerance, Decreased Strength,Difficulty Following Directions,Limited Range of Motion,Pain,Poor Balance,Poor Safety Awareness PT-Balance Assessment Sitting Balance and Reactions Static Sitting Balance Ability Good Dynamic Sitting Balance Ability Fair Standing Balance and Reactions Static Standing Balance Ability Poor Dynamic Standing Balance Ability Poor Device Used FWW M5 PT-IP Objective Assessments Start: 06/21/24 10:25 Freq: NEEDED Status: Active Protocol: Document 06/21/24 09:15 AB (Rec: 06/21/24 10:45 AB [id number]) Orientation Orientation/Cognition Level of Alertness Alert Orientation Name,Situation Language Function Ability Hard of Hearing Safety Awareness Decreased Safety Awareness Memory Description Short Term Impaired,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 Impaired Gross Range of Motion Lower Extremity ROM Impairments R knee flexion: ~ 60 deg Strength Lower Extremity Strength Assessment Bilaterally Impaired Comments Strength Comments LLE: 4-/5 RLE: 3+/5 Coordination Assessment Gross Coordination Gross Coordination WNL Sensation Assessment Sensation Gross Sensation WNL Other Assessments Other Other Assessments (+) R lower leg redness and edema: pt stated that she has lymphedema on RLE M6 PT-IP Treatment Start: 06/21/24 10:25 Freq: NEEDED Status: Active Protocol: Document 06/22/24 11:19 TS (Rec: 06/22/24 11:35 TS [id number]) Physical Therapy Treatment Education Education Provided Safety M7 PT-IP Assessment and Plan Start: 06/21/24 10:25 Freq: NEEDED Status: Active Protocol: Document 06/22/24 11:19 TS (Rec: 06/22/24 11:35 TS [id number]) PT Summary Assessment and Plan Potential Rehabilitation Potential Fair Summary Impairments Pain,ROM,Strength,Balance, Coordination,Sensation,Tone, Cognition,Bed Mobility, Transfers,Gait,Activity Tolerance Progress Towards Goals Slow Progress due to Pain,Slow Progress due to Activity Tolerance,Slow Progress - Other Assessment Summary Pt requiring MaxA for STS with use of FWW. She ambulates with a slow step to gait and required tactile cues for FWW and LLE. She ahs some difficulty following directions. PT is recommending SNF at this time. Goals Bed Mobility Goal Standby Assistance Transfer Goal Minimal Assistance,Front Wheeled Walker Gait Goal Minimal Assistance,Front Wheel Walker Gait Distance 100 Other Goals improve bed mobility, transfers, ambulation using FWW ~ 150 ft SBA up/down 3 steps L rail ascending SBA Days to Meet Goals 10 Frequency of Treatment Frequency Of Treatment Twice a Day Treatment Plan Physical Therapy Treatment Plan Bed Mobility Training,Transfer Training,Gait Training, Therapeutic Exercise,Balance Retraining,Post Op Education, Discharge Planning,Hot or Cold Pack,Neuromuscular Re-ed, Coordination Retraining,Manual Therapy Weight Bearing Status Weight Bearing Status Weight Bear as Tolerated Allowed Weight Bearing Amount (enter % RLE WBAT or #) (%) Recommendations To Nursing Amount of Assist Needed 1 Person Assist Discharge Recommendations PT Discharge Recommendations SNF Rehab Transportation Needs at Discharge Wheelchair/Cabulance
--- NOTE | 2024-06-22 10:51 | PC.NURSE ---
Around approximately 0900, this RN assessed pt's RLE and noted 2+ pitting edema and warmth to touch. Pt complained of pain in extremity and difficulty breathing. BP 122/66, 78 P, and 93% on RA. Once pt sat up in chair, she stated that the breathing difficulty had subsided. Medicated pt with PRN oxycodone. Attempted to notify LIU Rosales three times in person about patient's RLE. After PO medication of oxycodone, pt stated that pain was resolved. Voiced concerns about RLE to Dr. Venegas on the phone, and he advised to continue mobilizing patient as well as elevating and icing the extremity. No new orders at this time.
--- NOTE | 2024-06-22 11:23 | OT.IP.TRT ---
Current Diagnoses Unilateral primary osteoarthritis, right knee (06/20/24) Presence of unspecified artificial knee joint (06/20/24) Surgery Performed Operation Date: 06/20/24 13:15 Actual Procedures p Total Knee Arthroplasty - Robot(Right) - Ro Forrest MD Occupational Therapy Treatment Note M2 OT-IP Current Condition Start: 06/21/24 13:50 Freq: Status: Active Protocol: Document 06/21/24 13:50 CGR (Rec: 06/21/24 14:03 CGR [id number]) Occupational Therapy Current Condition Current Condition Evaluation Date 06/21/24 Treatment Diagnosis R TKA, WBAT Diagnosis Onset Date 06/20/24 Weight Bearing Status Weight Bearing Status Weight Bear as Tolerated M3 OT- IP Subjective and Pain Start: 06/21/24 13:50 Freq: Status: Active Protocol: Document 06/22/24 12:51 CGR (Rec: 06/22/24 13:03 CGR [id number]) OT- Subjective Occupational Therapy Visit Type Type Treatment Note Visit Start Time 11:08 Visit Stop Time 11:23 Notes Pt finishing up with P.T.A. when OT entered. OT Pain Assessment Pain When Pain Assessed During Mobility Pain Present Pain Present Pain Reported Location right knee Scale Used did not state Management Techniques Modification of Treatment,Re- positioning,Timing of Activity with Medications M4 OT- IP ADL's Start: 06/21/24 13:50 Freq: Status: Active Protocol: Document 06/22/24 12:51 CGR (Rec: 06/22/24 13:03 CGR [id number]) OT [id number] Comments OT Self-Feeding Comments not meal time OT ADL-Grooming General Evaluation Grooming Ability Standby Assistance Areas Needing Assistance Retrieving/Set-up of Grooming Items,Face Washing Comments OT Grooming Comments seated in chair at sink OT ADL-Oral Care General Eval Oral Care Ability Standby Assistance Areas of Assistance Brushing Teeth,Retrieving/Set- Up of Items Comments Oral Care Comments seated in chair at sink OT ADL-Dressing Comments OT Dressing Comments not performed OT ADL-Toileting Comments OT Toileting Comments not performed OT ADL-Bathing Comments OT Bathing Comments not performed M5 OT- IP IADL's Start: 06/21/24 13:50 Freq: Status: Active Protocol: Document 06/21/24 13:50 CGR (Rec: 06/21/24 14:03 R [id number]) OT-Instrumental Activities of Daily Living Deficits IADL Deficits Identified Deficits Home Safety Awareness Awareness of Need for Assistance at Home Decreased Awareness Medication Management Medication Management Comments concerns regarding pt's ability to perform safely at this time. Money Management Money Management Comments concerns regarding pt's ability to perform safely at this time. Meal Preparation Meal Preparation Caregiver Provides Assist Telephone Diaphragm Assembler Telephone Diaphragm Assembler Caregiver Provides Assist Driving Driving Concerns Identified Regarding Safety Driving Comments Pt states she hasn't driven in 6 months. M6 OT- IP Functional Cognition Start: 06/21/24 13:50 Freq: Status: Active Protocol: Document 06/21/24 13:50 CGR (Rec: 06/21/24 14:03 R [id number]) Cognitive Factors Limiting Selfcare Function Cognitive Ability Level of Alertness Alert,Drowsy Patient Orientation Name,Age,Birthday,Date,Year, Day of Week,Place,Situation Attention Span Ability Capable of Focused Attention, Capable of Sustained Attention Ability to Follow Commands Able to Follow One Step Commands with Increased Time, Able to Follow One Step Commands with Repetition OT- Vision and Hearing OT- Hearing Assessment OT- Hearing Assessment WFL OT- Vision Assessment Visual Acuity Glasses For Reading Visual Attentiveness WFL Occular Pursuits WFL Visual Convergence WFL M7 OT- IP Mobility and Balance Start: 06/21/24 13:50 Freq: Status: Active Protocol: Document 06/22/24 12:51 CGR (Rec: 06/22/24 13:03 R [id number]) OT-Transfer Assessment Sit to and From Stand Sit to and from Stand Maximum Assistance,1 Person Assistance,2 Person Assistance Transfers Transfer Ability Maximum Assistance,1 Person Assistance,2 Person Assistance Technique Transfer Destination Chair Transfer Technique Stand Step Pivot Devices Transfer Assistive Devices Gait Belt,Front Wheeled Walker Comments Mobility Comments Ot entered the room as P.T.A. was attempting to get patient to sit but pt was unable. This junior underwriter assisted pt with moving hands to chair then vc for stand to sit with PT assist. PT states he is finished so pt was rolled in chair over to sink for ADLs. Pt appears fatigued and with increased pain. Nursing notified and plans to bring pain medications. OT- Balance Assessment Sitting Balance and Reactions Static Sitting Balance Ability Good Dynamic Sitting Balance Ability Good M8 OT- IP Objective Assessments Start: 06/21/24 13:50 Freq: Status: Active Protocol: Document 06/21/24 13:50 CGR (Rec: 06/21/24 14:03 CGR [id number]) OT Gross Range of Motion Upper Extremity Range of Motion Assessment Within Functional Limits OT Strength Upper Extremity Strength Assessment Within Functional Limits Comments Strength Comments grossly 4/5 but with noted arthritic changes to her hands . OT- Coordination Assessment Upper Extremity Finger to Nose Test Within Functional Limits Finger Tapping Test Within Functional Limits OT-Muscle Tone Assessment Muscle Tone WNL Yes OT Sensation Assessment Edema Edema Present Edema Comments Pt's RLE is very swollen with some weeping. M9 OT- IP Assessment and Plan Start: 06/21/24 13:50 Freq: Status: Active Protocol: Document 06/22/24 12:51 CGR (Rec: 06/22/24 13:03 CGR [id number]) OT Summary Assessment and Plan Potential Rehabilitation Potential Good Analytic Complexity at Evaluation Moderate Summary OT Impairments Pain,Balance,Functional Cognition,Functional Mobility, Grooming,Dressing,Toileting, Bathing,Toilet Transfers, Shower Transfers,Activity Tolerance Progress Towards Goals Slow Progress due to Pain,Slow Progress due to Cognition Assessment Summary Pt presents as a moderate complexity evaluation s/p admit for R TKA. Pt with increased pain today and initially reports of chest pain and concern for RLE DVT. Nursing states that she spoke with MD and therapy and mobility cleared by MD at this time. Pt ambulated with assist of P.T. just prior to OT entering so ADLs seated were completed. Pt initially having difficulty following commands to use her LLE to hook and lift her RLE for movement of the chair but was able to perform with demonstration and extra time. Pt performed ADLs seated in chair and left sitting up in chair at end of session, call button within reach and chair fall alarm on. Goals Grooming Goal Independent Dressing Goal Independent Toileting Goal Independent Bathing Goal Independent Toilet Transfer Goal Independent Shower Transfer Goal Independent Days to Meet Goals 30 Frequency of Treatment Frequency Of Treatment Once a Day Other frequency 5x per week Treatment Plan OT Treatment Plan ADL Training,Functional Mobility,Patient/Family Education,Discharge Planning Other Treatment Recommendations and Next BSC transfer, shower if Treatment Focus appropriate, ADLs at sink Discharge Recommendations OT Discharge Recommendations SNF Rehab Transportation Needs at Discharge Wheelchair/Cabulance
[2024-06-22] MEDS: ACETAMINOPHEN 325 MG TABLET 650 MG PO (11:24)
--- NOTE | 2024-06-22 14:05 | PT.IPTN ---
Current Diagnoses Unilateral primary osteoarthritis, right knee (06/20/24) Presence of unspecified artificial knee joint (06/20/24) Surgery Performed Operation Date: 06/20/24 13:15 Actual Procedures p Total Knee Arthroplasty - Robot(Right) - Ro Forrest MD Physical Therapy Treatment Note M2 PT-IP Current Condition Start: 06/21/24 10:25 Freq: NEEDED Status: Active Protocol: Document 06/21/24 09:15 AB (Rec: 06/21/24 10:45 AB [id number]) Physical Therapy Current Condition Current Condition Evaluation Date 06/21/24 Treatment Diagnosis s/p R TKA; difficulty in walking Onset Date 06/20/24 M3 PT-IP Subjective Start: 06/21/24 10:25 Freq: NEEDED Status: Active Protocol: Document 06/22/24 14:36 TS (Rec: 06/22/24 14:42 TS [id number]) Subjective Physical Therapy Visit Type Type Treatment Note Visit Start Time 14:05 Visit Stop Time 14:30 Number of HEAD OF CYTOGENETICS Visits 2 Physical Therapy Visit Comments Patient Comments Pt found resting in the chair, she is agreeable to PT. Therapy Pain Assessment Pain When Pain Assessed During Mobility Pain Present Pain Present Pain Reported Location right knee Intensity 5 Scale Used Numeric (0 - 10) Description With Movement Pain Behaviors Facial Grimacing,Holding Area, Wincing Pain Management Techniques Apply Cold,Distraction, Elevation,Modification of Treatment M4 PT-IP Mobility and Gait Start: 06/21/24 10:25 Freq: NEEDED Status: Active Protocol: Document 06/22/24 14:36 TS (Rec: 06/22/24 14:42 TS [id number]) PT-Transfer Assessment Sit to and From Stand Sit to and from Stand Maximum Assistance,1 Person Assistance Equipment Transfer Assistive Device Gait Belt,Front Wheeled Walker Orthotic/Prosthetic Devices or Brace: No Comments Mobility Comments She performs ankle pumps, qud sets and heel slides prior to mobility. pt requires ModA for scooting in the chair. STS with FWW MaxA x1, pt requires cues for LLE underneath her and pushing from arms of the chair. pt is unsteady initially in standing. She sidesteps along chair ~6 steps . Pt sits back in the chair, all needs met. Gait Assessment Gait Gait Assistance Required: Moderate Assistance Distance (Feet) 2 Able to Maintain Weight Bearing Status Yes During Gait Assistive Devices Assistive Device Gait Belt,Front Wheeled Walker Orthotic/Prosthetic Devices or Brace: No Gait Deviations General Gait Pattern Antalgic,Decreased Stride Length,Decreased Feet Clearance,Step-to Gait Factors Limiting Gait Function Factors Limiting Gait Function Decreased Activity Tolerance, Decreased Strength,Difficulty Following Directions,Limited Range of Motion,Pain,Poor Balance,Poor Safety Awareness Comments Gait Comments Verbal cues for FWW management and step sequencing PT-Balance Assessment Sitting Balance and Reactions Static Sitting Balance Ability Good Dynamic Sitting Balance Ability Good Standing Balance and Reactions Static Standing Balance Ability Poor Dynamic Standing Balance Ability Poor Device Used FWW M5 PT-IP Objective Assessments Start: 06/21/24 10:25 Freq: NEEDED Status: Active Protocol: Document 06/21/24 09:15 AB (Rec: 06/21/24 10:45 AB [id number]) Orientation Orientation/Cognition Level of Alertness Alert Orientation Name,Situation Language Function Ability Hard of Hearing Safety Awareness Decreased Safety Awareness Memory Description Short Term Impaired,[place] Impaired Gross Range of Motion Lower Extremity ROM Impairments R knee flexion: ~ 60 deg Strength Lower Extremity Strength Assessment Bilaterally Impaired Comments Strength Comments LLE: 4-/5 RLE: 3+/5 Coordination Assessment Gross Coordination Gross Coordination WNL Sensation Assessment Sensation Gross Sensation WNL Other Assessments Other Other Assessments (+) R lower leg redness and edema: pt stated that she has lymphedema on RLE M6 PT-IP Treatment Start: 06/21/24 10:25 Freq: NEEDED Status: Active Protocol: Document 06/22/24 14:36 TS (Rec: 06/22/24 14:42 TS [id number]) Physical Therapy Treatment Education Education Provided Safety M7 PT-IP Assessment and Plan Start: 06/21/24 10:25 Freq: NEEDED Status: Active Protocol: Document 06/22/24 14:36 TS (Rec: 06/22/24 14:42 TS [id number]) PT Summary Assessment and Plan Potential Rehabilitation Potential Fair Summary Impairments Pain,ROM,Strength,Balance, Coordination,Sensation,Tone, Cognition,Bed Mobility, Transfers,Gait,Activity Tolerance Progress Towards Goals Slow Progress due to Pain,Slow Progress due to Activity Tolerance,Slow Progress - Other Assessment Summary Pt continues to make slow progress with her mobility. She required MaxA x1 for STS from the chair. She has difficulty with wbering and taking steps. She ambulated ~2 ' sidestepping this session. She required max cueing for all mobility, she follows instructions well. PT is recommending SNF at this time. Goals Bed Mobility Goal Standby Assistance Transfer Goal Minimal Assistance,Front Wheeled Walker Gait Goal Minimal Assistance,Front Wheel Walker Gait Distance 100 Other Goals improve bed mobility, transfers, ambulation using FWW ~ 150 ft SBA up/down 3 steps L rail ascending SBA Days to Meet Goals 10 Frequency of Treatment Frequency Of Treatment Twice a Day Treatment Plan Physical Therapy Treatment Plan Bed Mobility Training,Transfer Training,Gait Training, Therapeutic Exercise,Balance Retraining,Post Op Education, Discharge Planning,Hot or Cold Pack,Neuromuscular Re-ed, Coordination Retraining,Manual Therapy Other Recommendations and Next Treatment transfers, ther-ex, gait Focus Weight Bearing Status Weight Bearing Status Weight Bear as Tolerated Allowed Weight Bearing Amount (enter % RLE WBAT or #) (%) Recommendations To Nursing Amount of Assist Needed 2 Person Assist Discharge Recommendations PT Discharge Recommendations SNF Rehab Transportation Needs at Discharge Wheelchair/Cabulance
[2024-06-22] MEDS: ATORVASTATIN 20 MG TABLET PO (19:55)
[2024-06-23 03:30] VITALS: BP 113/58; PULSE 81; RESP 14; TEMP 36.6; O2SAT 92
[2024-06-23] MEDS: OXYCODONE IR 5 MG TABLET PO (06:05)
[2024-06-23] MEDS: LEVOTHYROXINE 25 MCG TABLET 75 MCG PO (06:05)
--- NOTE | 2024-06-23 07:33 | DI.US.S_ITS ---
PROCEDURE: US PERIPH VENOUS LOW EXTREM RT INDICATIONS: POST-OP EDEMA, PAIN TECHNIQUE: Real-time imaging, as well as color and pulse Doppler interrogation, were performed of the lower extremity deep veins from the inguinal ligament to the popliteal fossa, with documentation of the visualized calf veins. COMPARISON: None. FINDINGS: The common femoral, femoral, popliteal, and the visualized calf veins are normally compressible, and free of intraluminal thrombus. Color and pulse Doppler demonstrate normal phasic intraluminal flow. There is normal augmentation response to distal compression maneuver. Calf edema. IMPRESSION: Negative right lower extremity duplex venous ultrasound for DVT. Dictated by: Ernst House M.D. on 06/23/2024 at 8:38 Approved by: Ernst House M.D. on 06/23/2024 at 8:38
--- NOTE | 2024-06-23 07:41 | PM.DS.1 ---
History of Present Illness History of Present Illness Chief complaint: OPB Narrative: Eileen is a pleasant 84 year old female who is POD#3 s/p R TKA by Dr. Forrest. This morning patient reports she is doing well, pain well controlled w/ PO Oxycodone. She does report severe increase in pain w/ any WB activity. She [facility] pending insurance authorization. The patient does live at home with her son normally, she states he is home most of the day usually, they only have 3 steps into the house so she feels comfortable discharging to home from the SNF after her initial rehab. She has a walker at home. Declines any postop outpatient PT appointments scheduled. She does have a hx of DVT, she is not chronically anticoagulated however. We will plan for Xarelto for post-op DVT prophylaxis. She has not been up to use the restroom d/t pain w/ WB so she has a PureWik in place. Operative Date/Time/Diagnoses Date of procedure: 06/20/24 Time of procedure: 13:00 Pre-op diagnosis: Severe right knee arthritis with history of rheumatoid arthritis and gross right knee instability Post-op diagnosis: same Procedure & Clinicians Procedure: Right total knee arthroplasty Same procedure as scheduled: Yes Indications: The patient has had progressively worsening right knee pain with radiographic changes consistent with arthritis. Non-operative management has failed and the patient has requested total knee replacement. The risks, benefits and alternatives to surgery were discussed with the patient prior to proceeding. Risks discussed included, but were not limited to, failure to relieve pain, stiffness, infection, nerve damage, deep venous thrombosis, pulmonary embolism, stroke, coma, heart attack, permanent paralysis and , as well as the potential need for eventual revision of the prosthetic. Surgeon: Ro Forrest Associate Financial Representative: Anatoly Poe Anesthesia Type: General Discharge Providers Provider Date of admission: 06/20/24 16:41 Discharge Date: 06/23/24 Primary care physician: Sneha Lam PA-C Consults: 06/20/24 06:00 Consult to Anesthesiology Routine Comment: Consulting Provider: Anesthesiologist Reason for consultation: Regional block for post operative pain control Has provider been notified: No 06/20/24 16:41 Consult to Discharge Planning Routine Comment: Consult to Occupational Therapy Evaluate & Treat Comment: Physician Instructions: Evaluate and treat Consult to Physical Therapy Evaluate & Treat Comment: Physician Instructions: postop TKA protocol 06/20/24 17:21 Consult to Pastoral Services Routine Comment: would like Discharge provider: Joanie Perez PA-C Summary Hospital Course Discharge Diagnosis: R knee OA s/p R TKA Hospital Course: Hospital course complicated by difficulty w/ mobilization and limited progress w/ PT post-operatively. Exam Vital Signs (past 8 hours): - 06/23/24 03:30 Temperature 97.9 F Pulse Rate 81 Respiratory Rate 14 Blood Pressure 113/58 L Pulse Oximetry 92 Oxygen Flow Rate 0 Oxygen Delivery Method Room Air Oxygen Flow Rate 0 Narrative Exam Narrative: Patient lying comfortably in bed during our interview today. No acute distress. AOx3. Grossly normal alignment of the RLE with moderate swelling throughout the RLE. 4/5 strength with DF, PF, EHL Right. 5/5 DF, PF, EHL Left. Gross sensation intact throughout bilateral lower extremities. Left calf soft and non-tender. SCDs on and functioning on left calf. Right calf w/o SCD, there is swelling, warmth and tenderness to palpation. Brisk capillary refill. Post-surgical олег dressing clean, dry and intact over the right knee with 3 small spots of bloody drainage. Resp Effort & Inspection: normal respiratory effort and able to speak in complete sentences Objective Labs 06/21/24 05:30 [facility] Medical History (Updated 06/07/24 @ 13:36 by Inga Metzger RN) Ulcer of right leg Ribs, multiple fractures (12/14/23) Sternal fracture (12/14/23) History of COVID-19 (~2021) Memory impairment DALE (stress urinary incontinence, female) History of varicose veins DDD (degenerative disc disease) Peripheral neuropathy CAD (coronary artery disease) Gastric ulcer Osteopenia Gout Migraine headache with aura Fracture of inferior pubic ramus Hip fracture, left (~10/2010) Atrial fibrillation Asthma Pulmonary hypertension, mild Tricuspid regurgitation NSVT (nonsustained ventricular tachycardia) Rheumatoid arthritis Tinnitus Depression Neck pain Hypothyroidism GI bleed (~2017) Edema HLD (hyperlipidemia) HTN (hypertension) COPD (chronic obstructive pulmonary disease) Raynauds phenomenon Neuropathy Surgical History (Updated 06/21/24 @ 07:00 by Milli Rosales PA-C) S/P foot surgery, left History of total hip arthroplasty History of total knee arthroplasty (02/09/19) History of left heart catheterization Hx of hand surgery Hx of tonsillectomy Hx of tubal ligation Family History Father Alcoholism /alcohol abuse Mother Migraines Brother History of knee replacement Sister No significant medical problems Son Alcoholism /alcohol abuse Social History household members: children Smoking Status: Former smoker alcohol intake: former Discharge Assessment & Plan Assessment and Plan Assessment: Stable s/p R TKA Plan of Treatment: 1) Plan to discharge to SNF today pending insurance authorization. I have ordered a RLE US to asses for DVT, patient may not d/c prior to me reviewing these results. 2) Continue multimodal pain management with ice to the knee for additional pain control. 3) Xarelto 10 mg q.d. for 20 days postop for DVT prophylaxis. 4) Continue to work w/ physical therapy to improve range of motion and mobility 5) Keep dressing intact, clean, dry until 2 week postop appointment. No soaking the incision site in pools or tubs. No topical ointments or creams to the incision site. 6) [facility] for a postop appointment and wound check. All patient's questions were answered, she demonstrates understanding and are in agreement with the plan. Call our office if any questions or concerns arise. Discharge Plan Discharge Plan Patient Disposition: [facility] Transfer to: [facility] Discharge orders & Medications Prescriptions: New acetaminophen 325 mg Tablet 650 mg PO Q6H PRN (Reason: Fever/Mild Pain (1-3)) Qty: 90 0RF docusate sodium 100 mg Capsule 100 mg PO BID PRN (Reason: constipation) Qty: 30 0RF ondansetron 4 mg Tablet,Disintegrating 4 mg PO Q8HR PRN (Reason: nausea and vomiting) Qty: 10 0RF oxycodone 5 mg Tablet 5 mg PO Q6HR PRN (Reason: Pain, Moderate (4-6)) Qty: 30 0RF Xarelto 10 mg Tablet 10 mg PO DAILY 19 Days Qty: 19 0RF Continued methotrexate sodium 2.5 mg Tablet 6 tab PO QWEEK Qty: 0 Rx Instructions: Every Wednesday atorvastatin 20 mg tablet 20 mg PO DAILY furosemide 20 mg Tablet 20 mg PO QMWF metoprolol succinate 25 mg Tablet Extended Release 24 Hr 25 mg PO DAILY Enbrel 50 mg/mL (1 mL) Syringe 50 mg SUBCUT QWEEK Rx Instructions: lisinopril 2.5 mg tablet 5 mg PO DAILY levothyroxine 25 mcg tablet 75 mcg PO DAILY pantoprazole 40 mg Tablet,Delayed Release (Dr/Ec) 40 mg PO DAILY Follow up/Referrals: Ro Forrest MD [Physician] - 06/30/24 4:00 pm (Follow up w/ Gibson Baez PA-C, at [facility] office in [place] Sneha Lam PA-C [Primary Care Provider] - Diet/Activity/Treatments Diet: Diet as Tolerated Activity: Weightbearing as tolerated. Walk frequently! Cold/Heat Therapy: Ice to knee as needed for pain. Skin/Wound/Dressing Care Report to your healthcare provider any signs of infection, such as:: chills, fever, night sweats, unusual drainage and unusual redness Dressing: May remove LINA wrap and shower on 06/23/2024. Leave dressing in place until follow up in office. No bathing or otherwise soaking incision. Call the office if the dressing becomes saturated inside. Visit Report/Discharge Packet Instructions: DI for Knee Replacement Stand Alone Forms: Patient Portal/API, Surgery Discharge Discharge Data Primary Care Provider: Sneha Lam VTE Deep Vein Thrombosis/Pulmonary Embolism Present on Admission: No
[2024-06-23 07:55] VITALS: BP 101/51; PULSE 82; RESP 14; TEMP 36.4; O2SAT 91
[2024-06-23 08:06] VITALS: BP 101/51; PULSE 82
[2024-06-23] MEDS: DOCUSATE 100 MG CAPSULE PO (08:06)
[2024-06-23] MEDS: RIVAROXABAN 10 MG TABLET PO (08:06)
[2024-06-23] MEDS: PANTOPRAZOLE DR 40 MG TABLET PO (08:06)
[2024-06-23] MEDS: lisinopriL 5 MG TABLET PO (08:06)
[2024-06-23 08:07] VITALS: BP 101/51; PULSE 82
[2024-06-23] MEDS: METOPROLOL ER 25 MG TABLET PO (08:07)
[2024-06-23] MEDS: polyethylene glycoL 3350 17 GM POWD.PACK PO (08:09)
[2024-06-23 08:30] VITALS: PULSE 92
[2024-06-23] MEDS: FUROSEMIDE 20 MG TABLET PO (08:47)
--- NOTE | 2024-06-23 09:22 | CM.DPC ---
DCP Continued: Reviewed EMR and team rounds for pt?s medical status. Pt to discharge today to SNF Rehab ([facility]) at 11:00am, discharge orders and paperwork in. PASSR completed, all discharge clinicals sent to [facility] via secure email. Coordinator and pt RN notified of discharge time to [facility] and relayed report phone #. Plan: Pt to discharge to [facility] today, 06/23 at 11:00am via facility wheelchair van. CM Team will continue to follow for coordination of discharge plans. AMELIA Oliva
[2024-06-23 09:28] VITALS: O2SAT 92
--- NOTE | 2024-06-23 10:46 | PT.IPTN ---
Current Diagnoses Unilateral primary osteoarthritis, right knee (06/20/24) Presence of unspecified artificial knee joint (06/20/24) Surgery Performed Operation Date: 06/20/24 13:15 Actual Procedures p Total Knee Arthroplasty - Robot(Right) - Ro Forrest MD Physical Therapy Treatment Note M2 PT-IP Current Condition Start: 06/21/24 10:25 Freq: NEEDED Status: Discharge Protocol: Document 06/23/24 10:23 SP (Rec: 06/23/24 16:10 SP [id number]) Physical Therapy Current Condition Current Condition Evaluation Date 06/21/24 Treatment Diagnosis s/p R TKA; difficulty in walking Onset Date 06/20/24 M3 PT-IP Subjective Start: 06/21/24 10:25 Freq: NEEDED Status: Discharge Protocol: Document 06/23/24 10:23 SP (Rec: 06/23/24 16:10 SP [id number]) Subjective Physical Therapy Visit Type Type Treatment Note Visit Start Time 10:22 Visit Stop Time 10:46 Number of DUPLICATE MAKER Visits 3 Physical Therapy Visit Comments Patient Comments Pt up in chair when arrived, she was agreeable to working with [employer]PLICATE [employer]. Therapy Pain Assessment Pain When Pain Assessed During Mobility Pain Present Pain Present Denied Pain Location right knee Intensity 5 Scale Used 5/10 at rest, 4/10 with mobility Pain Behaviors Facial Grimacing Pain Management Techniques Distraction,Modification of Treatment,Re-positioning, Timing of Activity with Medications M4 PT-IP Mobility and Gait Start: 06/21/24 10:25 Freq: NEEDED Status: Discharge Protocol: Document 06/23/24 10:23 SP (Rec: 06/23/24 16:10 SP [id number]) PT-Transfer Assessment Sit to and From Stand Sit to and from Stand Moderate Assistance,Maximum Assistance,1 Person Assistance ,Use of Upper Extremities Equipment Transfer Assistive Device Gait Belt,Front Wheeled Walker Orthotic/Prosthetic Devices or Brace: No Transfers Transfer Destination Bed,Chair Transfer Technique Stand Step Pivot Transfer Ability Level of Assist Maximum Assistance,1 Person Assistance,Use of Upper Extremities Comments Mobility Comments Pt able scoot forward EO chair self, cues proper hand positioning on chair arms, slow to mobility due to pain. Sit>stand, cue push from chair then each UE onto FWW, Max A x1. Instruction wt shift in standing then R knee flexion prep mobility. Stand step pivot chair>bed, cues each LE then FWW repositioning with assist as needed. Cues for fully step back with FWW with her until feel legs on bed, RLE forward positioning then reach back each UE slow descend sit on bed, brief rest . Stand step pivot back to her chair, cues with improved RLE stand time for LLE repositioning while heavy BUE on FWW self support Mod A x1. DUPLICATE MAKER instructed seated AP, R knee flexion/ extension, and assisted LAQ x5 reps each. Pt was able to scoot self back in chair, DUPLICATE MAKER elevated pt's BLEs on chair leg rest with added pillow under calves, education try not put pillows under R knee to allow extension ROM, verbalized understanding. Discussed supine QS, heel slide but not performed while looking and HEP hand out in her PT folder. Pt had call light and all needs in reach with chair alarm donned. Gait Assessment Gait Gait Assistance Required: Moderate Assistance,Maximum Assistance,1 Person Assist Distance (Feet) 2 Able to Maintain Weight Bearing Status Yes During Gait Assistive Devices Assistive Device Gait Belt,Front Wheeled Walker Orthotic/Prosthetic Devices or Brace: No Gait Deviations General Gait Pattern Antalgic,Decreased Stride Length,Decreased Feet Clearance,Step-to Gait Factors Limiting Gait Function Factors Limiting Gait Function Decreased Activity Tolerance, Decreased Strength,Limited Range of Motion,Pain,Poor Balance,Poor Safety Awareness Comments Gait Comments Verbal cues for FWW management and step sequencing Stair Climbing Assessment Comments Stair Climbing Comments Unable to assess due to pain and decreased RLE stance time, has 3 steps L HR to enter home to complete for safe DC home when able. PT-Balance Assessment Sitting Balance and Reactions Static Sitting Balance Ability Good Dynamic Sitting Balance Ability Good Standing Balance and Reactions Static Standing Balance Ability Poor Dynamic Standing Balance Ability Poor Device Used FWW M5 PT-IP Objective Assessments Start: 06/21/24 10:25 Freq: NEEDED Status: Discharge Protocol: Document 06/21/24 09:15 AB (Rec: 06/21/24 10:45 AB [id number]) Orientation Orientation/Cognition Level of Alertness Alert Orientation Name,Situation Language Function Ability Hard of Hearing Safety Awareness Decreased Safety Awareness Memory Description Short Term Impaired,Alf Impaired Gross Range of Motion Lower Extremity ROM Impairments R knee flexion: ~ 60 deg Strength Lower Extremity Strength Assessment Bilaterally Impaired Comments Strength Comments LLE: 4-/5 RLE: 3+/5 Coordination Assessment Gross Coordination Gross Coordination WNL Sensation Assessment Sensation Gross Sensation WNL Other Assessments Other Other Assessments (+) R lower leg redness and edema: pt stated that she has lymphedema on RLE M6 PT-IP Treatment Start: 06/21/24 10:25 Freq: NEEDED Status: Discharge Protocol: Document 06/23/24 10:23 SP (Rec: 06/23/24 16:10 SP [id number]) Physical Therapy Treatment Exercises Exercises Ankle Pumps,Seated Knee Flexion/Extension Education Education Provided Safety M7 PT-IP Assessment and Plan Start: 06/21/24 10:25 Freq: NEEDED Status: Discharge Protocol: Document 06/23/24 10:23 SP (Rec: 06/23/24 16:10 SP [id number]) PT Summary Assessment and Plan Potential Rehabilitation Potential Fair Summary Impairments Pain,ROM,Strength,Balance, Coordination,Sensation,Tone, Cognition,Bed Mobility, Transfers,Gait,Activity Tolerance Progress Towards Goals Slow Progress due to Pain,Slow Progress due to Activity Tolerance Assessment Summary Pt continues demonstrate slow mobility due to pain and LE weakness. Required Max A x1 with FWW during STS and stand step pivot transfer x2 chair<> bed. Recommending SNF for progression strength and mobility. Goals Bed Mobility Goal Standby Assistance Transfer Goal Minimal Assistance,Front Wheeled Walker Gait Goal Minimal Assistance,Front Wheel Walker Gait Distance 100 Other Goals improve bed mobility, transfers, ambulation using FWW ~ 150 ft SBA up/down 3 steps L rail ascending SBA Days to Meet Goals 10 Frequency of Treatment Frequency Of Treatment Twice a Day Treatment Plan Physical Therapy Treatment Plan Bed Mobility Training,Transfer Training,Gait Training, Therapeutic Exercise,Balance Retraining,Post Op Education, Discharge Planning,Hot or Cold Pack,Neuromuscular Re-ed, Coordination Retraining,Manual Therapy Other Recommendations and Next Treatment transfers, ther-ex, gait Focus further distance, stair mgt when able Weight Bearing Status Weight Bearing Status Weight Bear as Tolerated Allowed Weight Bearing Amount (enter % RLE WBAT or #) (%) Recommendations To Nursing Amount of Assist Needed 2 Person Assist Discharge Recommendations PT Discharge Recommendations SNF Rehab Transportation Needs at Discharge Wheelchair/Cabulance
--- NOTE | 2024-06-23 11:28 | PC.NURSE ---
Patient d/c'd to [facility]. Reported given to RN at [facility] via telephone. IVs removed. Pt confirmed that she had all of her belongings. Discharge packet completed and given to facility designee. Pt exited via w/c with [facility] employee.
== END 2024-06-23 11:30 | DRG 470 ==
LOC: OR 06-21 12:05 → AC 06-21 12:05
PROVIDERS: Admitting Provider Orthopaedic Surgery; Family Provider Family Medicine; PCP Physician Assistant Medical; Referring Provider Orthopaedic Surgery; Visit Provider Orthopaedic Surgery
PROC: 0SRC0JZ Replacement of Right Knee Joint with Synthetic Substitute, Open Approach (ICD-10-PCS; CPT 27447; principal; 2024-06-20 13:15)
DX: M17.11 Unilateral primary osteoarthritis, right knee (principal); M25.361 Other instability, right knee; M06.9 Rheumatoid arthritis, unspecified; E78.5 Hyperlipidemia, unspecified; I10 Essential (primary) hypertension; E03.9 Hypothyroidism, unspecified; Z86.79 Personal history of other diseases of the circulatory system; Z86.718 Personal history of other venous thrombosis and embolism; Z79.631 Long term (current) use of antimetabolite agent; Z87.891 Personal history of nicotine dependence
CPT/HCPCS: 73560; 85014; 85018; 93971; 97110; 97116; 97163; 97166; 97530; 97535; C1776; C9290; J0171; J0690; J2250; J2405; J2704; J3010

== ENCOUNTER → 2024-07-06 14:23 | Outpatient (CLI) | payer OTHER, SELFPAY ==
[2024-06-20 17:14] VITALS: BMI 23.0
--- NOTE | 2024-07-06 14:27 | DI.RAD.S_ITS ---
PROCEDURE: XR CHEST 2V INDICATIONS: CHEST PAIN TECHNIQUE: 2 views of the chest were acquired. COMPARISON: [facility], CR, XR CHEST 1V, 04/10/2023, 18:55. FINDINGS: Mild atelectasis in the right lung base. No pleural effusion, pneumothorax, pulmonary edema, or focal consolidation. Large hiatal hernia, with air-fluid level, increased in size from prior exam. Cardiomediastinal silhouette is partially obscured. IMPRESSION: Large hiatal hernia with air-fluid level, increased in size from prior exam. Dictated by: Melissa Canada M.D. on 07/06/2024 at 15:50 Approved by: Melissa Canada M.D. on 07/06/2024 at 15:52
== END ==
PROVIDERS: Family Provider Family Medicine; PCP Physician Assistant Medical; Referring Provider Nurse Practitioner Family; Visit Provider Nurse Practitioner Family
DX: R07.9 Chest pain, unspecified (principal); K44.9 Diaphragmatic hernia without obstruction or gangrene
CPT/HCPCS: 71046

== ENCOUNTER 2024-12-27 06:11 | Inpatient (IN) | payer MEDICARE, OTHER, SELFPAY ==
[2024-06-20 17:14] VITALS: BMI 23.0
[2024-12-27] VITALS (22 sets, daily range): BP systolic 91–159; BP diastolic 50–82; PULSE 66–82; RESP 12–16; TEMP 36.2–37.4; O2SAT 94–98; BMI 23.1; BMI 22.5
--- NOTE | 2024-12-27 | DI.CT.S_ITS ---
PROCEDURE: CT KNEE RIGHT WITHOUT CON INDICATIONS: distal femur fracture TECHNIQUE: Noncontrast 1-1.5 mm axial sections acquired from the mid-patella to the proximal tibia, with coronal and sagittal reformats. COMPARISON: [facility], CT, CT LE RT WO CON, 12/27/2024, 8:22. [facility], CR, XR KNEE RT 1TO2V, 12/27/2024, 14:16. FINDINGS: Image quality: Diagnostic Bones: Patient is status post right total knee arthroplasty with significant beam hardening artifacts from surgical hardware. Again noted is a comminuted and displaced supracondylar distal femoral shaft fracture with significant lateral angulation and up to 1.5 cm overlapping at fracture site. Fracture line is also seen extending to posterior intercondylar portion of distal femur with up to 7 mm diastasis. Additional anterior, medial and posteriorly displaced fractured fragments are also seen. No definite hardware loosening surrounding femoral or tibial prosthesis is seen. No significant patellar subluxation. No dislocation. No additional fracture or or suspicious intraosseous lesions. Soft tissues: Significant soft tissue swelling and edema surrounding distal femoral fracture site is seen. No significant suprapatellar joint effusion is noted. No abnormal soft tissue calcifications or calcified intra-articular loose bodies. Sagittal views shows no gross full-thickness quadriceps tendon or patellar tendon rupture. No obvious ACL or PCL rupture. IMPRESSION: 1. Acute comminuted, angulated and displaced fracture involving supracondylar region of distal femur as described above. Fracture line likely extending to posterior aspect of intercondylar notch. 2. No other fracture or dislocation. No definite hardware loosening is seen. 3. Soft tissue swelling surrounding distal femoral fracture site. No drainable fluid collection. No significant joint effusion. No abnormal soft tissue calcifications. No gross full-thickness right knee tendon or ligament rupture. Dictated by: Diego De La Paz M.D. on 12/27/2024 at 14:55 Approved by: Diego De La Paz M.D. on 12/27/2024 at 15:01
--- NOTE | 2024-12-27 06:32 | DI.RAD.S_ITS ---
PROCEDURE: XR KNEE RT 1TO2V INDICATIONS: knee pain after fall TECHNIQUE: 2 views of the knee were acquired. COMPARISON: [facility], CR, XR KNEE 4+ VIEWS RIGHT, 06/30/2024, 16:09. [facility], CR, XR KNEE RT 1TO2V, 06/20/2024, 15:49. FINDINGS: Bones: Postsurgical changes from right total knee arthroplasty. There is a transverse displaced fracture of the distal femoral metaphysis at the level of the superior arthroplasty margin with posterior and lateral displacement and angulation relative to the femoral shaft. Soft tissues: Overlying soft tissue swelling is present. IMPRESSION: Displaced fracture of the distal femoral metaphysis just above the level of the arthroplasty. There is no significant discrepancy when compared to the overnight preliminary report. Approved by: Darron Latif M.D. on 12/27/2024 at 7:46
--- NOTE | 2024-12-27 06:54 | DI.RAD.S_ITS ---
PROCEDURE: XR CHEST 1V INDICATIONS: pre-op TECHNIQUE: One view of the chest was acquired. COMPARISON: [facility], CR, XR CHEST 2V, 07/06/2024, 14:33. [facility], CR, XR CHEST 1V, 04/10/2023, 18:55. FINDINGS: Surgical changes and devices: None. Lungs and pleura: Lungs are clear. No pleural effusions or pneumothorax. Mediastinum: Mediastinal contours appear normal. Heart size is normal. Moderate to large hiatal hernia. Bones and chest wall: Old healed left-sided rib fractures. No suspicious bony lesions. Overlying soft tissues appear unremarkable. IMPRESSION: No acute cardiopulmonary abnormality is seen. Approved by: Darron Latif M.D. on 12/27/2024 at 7:39
--- NOTE | 2024-12-27 06:55 | EKG_ITS ---
[address] [address] Test Date: 2024-12-27 Pat Name: Eileen Yeh Department: [facility] Room: Gender: Female Tube Worker: GILMA : 1940 Requested By: Order Number: [id number] Reading MD: Shorty Orta Measurements Intervals [place] Rate: 77 P: 50 NM: 164 QRS: 93 QRSD: 78 T: 73 QT: 388 QTc: 439 Interpretive Statements Normal sinus rhythm Rightward axis Septal infarct , age undetermined Electronically Signed On 12-28-2024 17:29:41 PDT by Shorty Orta
--- NOTE | 2024-12-27 07:06 | ED.LOWEXIN ---
HPI - Extremity Injury (Lower) General Chief Complaint: Extremity Injury, Lower Stated Complaint: R knee pain Time Seen by Provider: 12/27/24 06:31 Source: patient and EMS Mode of arrival: EMS History of Present Illness HPI Narrative: 84-year-old female with past medical history of hyperlipidemia, hypothyroidism, comes into the ED from home via EMS for evaluation of right knee pain, states that she got up had a fall landed on knee, she states that she was using the restroom got her legs stuck between her walker and fell, denies any head strike denies any LOC, does only complain of right knee pain but otherwise neurovascularly intact. No other complaints at this time. Related Data Home Medications ?Medication ?Instructions ?Recorded ?Confirmed methotrexate sodium 2.5 mg tablet 6 tab PO QWEEK ##0 08/10/11 06/07/24 levothyroxine 25 mcg tablet 75 mcg PO DAILY 02/27/19 06/07/24 pantoprazole 40 mg tablet,delayed 40 mg PO DAILY 06/07/19 06/07/24 release atorvastatin 20 mg tablet 20 mg PO DAILY 04/11/23 06/07/24 etanercept 50 mg/mL (1 mL) 50 mg SUBCUT QWEEK 12/08/23 06/07/24 subcutaneous syringe (Enbrel) furosemide 20 mg tablet 20 mg PO QMWF 12/08/23 06/07/24 metoprolol succinate 25 mg 25 mg PO DAILY 12/08/23 06/07/24 tablet,extended release 24 hr lisinopril 2.5 mg tablet 5 mg PO DAILY 06/07/24 06/07/24 Previous Rx's ?Medication ?Instructions ?Recorded acetaminophen 325 mg tablet 650 mg (2 x 325 mg) PO Q6H PRN 06/23/24 Fever/Mild Pain (1-3) #90 tabs docusate sodium 100 mg capsule 100 mg PO BID PRN constipation #30 06/23/24 caps ondansetron 4 mg disintegrating 4 mg PO Q8HR PRN nausea and 06/23/24 tablet vomiting #10 tabs oxycodone 5 mg tablet 5 mg PO Q6HR PRN Pain, Moderate 06/23/24 (4-6) #30 tabs Allergies Allergy/AdvReac Type Severity Reaction Status Date / Time aspirin Allergy Severe Anaphylaxis Verified 06/19/24 09:50 levofloxacin Allergy Severe Rash, Verified 06/07/24 13:03 swelling NSAIDS (Non-Steroidal Allergy Intermediate Rash, Verified 06/07/24 13:03 Anti-Inflamma swelling Review of Systems Review of Systems Narrative: General: Denies fever, chills, weight loss HEENT: Denies headache, eye drainage, eye irritation, head trauma, sore throat, voice change Cardiovascular: Denies any chest pain, palpitations, tachycardia Respiratory: Denies any shortness of breath, cough, wheeze, stridor GI/: Denies any abdominal pain, nausea, vomiting, diarrhea, bright red blood per rectum, melanotic stools, urinary frequency, urinary retention, dysuria, hematuria MSK: right knee pain Skin: Denies any rashes, lesions, discoloration Neuro: Denies any headache, lightheadedness, dizziness, fainting, weakness Psych: Denies SI/HI Patient History Medical History (Updated 12/27/24 @ 09:25 by Home Fermin DO) Ulcer of right leg Ribs, multiple fractures (12/14/23) Sternal fracture (12/14/23) History of COVID-19 (~2021) Memory impairment DALE (stress urinary incontinence, female) History of varicose veins DDD (degenerative disc disease) Peripheral neuropathy CAD (coronary artery disease) Gastric ulcer Osteopenia Gout Migraine headache with aura Fracture of inferior pubic ramus Hip fracture, left (~10/2010) Atrial fibrillation Asthma Pulmonary hypertension, mild Tricuspid regurgitation NSVT (nonsustained ventricular tachycardia) Rheumatoid arthritis Tinnitus Depression Neck pain Hypothyroidism GI bleed (~2017) Edema HLD (hyperlipidemia) HTN (hypertension) COPD (chronic obstructive pulmonary disease) Raynauds phenomenon Neuropathy Surgical History (Updated 06/21/24 @ 07:00 by Milli Rosales PA-C) S/P foot surgery, left History of total hip arthroplasty History of total knee arthroplasty (02/09/19) History of left heart catheterization Hx of hand surgery Hx of tonsillectomy Hx of tubal ligation Family History Father Alcoholism /alcohol abuse Mother Migraines Brother History of knee replacement Sister No significant medical problems Son Alcoholism /alcohol abuse Social History (Reviewed 04/11/23 @ 05:22 by GermánKALIA Klein household members: children Smoking Status: Never smoker alcohol intake: former Smoking Status: Never smoker alcohol intake frequency: holidays/special occasions only Exam Narrative Exam Narrative: General: Cooperative, well-developed, not in acute distress HEENT: Normocephalic, atraumatic, PERRLA, normal sclera, eyelids normal Neck: Active full range of motion, atraumatic Chest: Normal to inspection, negative crepitus, no overlying erythema ecchymosis Respiratory: Normal respiratory effort, not in acute respiratory distress, clear to auscultation bilaterally negative cough, wheeze, tachypnea, rhonchi, rales Cardiology: Regular rate rhythm negative gallop, murmur, rubs GI/: No tenderness to palpation, soft, non rigid, normal to inspection, exam deferred MSK: Right knee slightly flexed, TTP of knee joint, decreasem ROM 2/2 to pain, neurovascular intact, Full active range of motion in all 4 extremities, no tenderness to palpation of any bony prominences Skin: No rashes or lesions noted Neuro: Alert awake oriented x3, moves all 4 extremities spontaneously, cranial nerves intact, able to answer all questions appropriately follows commands appropriately Psych: Cooperative, negative suicidal or homicidal ideations Initial Vital Signs Initial Vital Signs: Vital Signs Pulse Rate 77 12/27/24 06:19 Respiratory Rate 14 12/27/24 06:19 Blood Pressure 159/82 H 12/27/24 06:19 Pulse Oximetry 98 12/27/24 06:19 Oxygen Delivery Method Room Air 12/27/24 06:19 Course Orders Ordered: ED Orders 12/27/24 06:32 XR knee RT 1to2V Stat 12/27/24 06:54 XR chest 1V Stat 12/27/24 06:55 EKG-12 Lead Stat 12/27/24 07:01 CBC Auto Diff [Complete Blood Count AUTO DIFF] Stat CMP [Comprehensive Metabolic Panel] Stat Prothrombin Time INR Stat 12/27/24 08:15 CT LE RT wo con Stat 12/27/24 11:52 Urinalysis and Microscopic Stat Discontinued Medications Hydromorphone HCl (Hydromorphone 0.5 Mg Inj) 0.5 mg IV NOW ONE Stop: 12/27/24 06:52 Last Admin: 12/27/24 07:10 Dose: 0.5 mg Documented By: YARELY Hydromorphone HCl (Hydromorphone 0.5 Mg Inj) 0.5 mg IV NOW ONE Stop: 12/27/24 10:26 Last Admin: 12/27/24 10:40 Dose: 0.5 mg Documented By: DANIEL Ondansetron HCl (Ondansetron 4 Mg/2 Ml Inj) 4 mg IV NOW ONE Stop: 12/27/24 06:55 Last Admin: 12/27/24 07:10 Dose: 4 mg Documented By: YARELY Vital Signs Vital signs: Vital Signs - 8 hr 12/27/24 06:19 12/27/24 07:02 12/27/24 07:30 Pulse Rate 77 70 68 Respiratory Rate 14 Blood Pressure 159/82 H Pulse Oximetry 98 98 94 Oxygen Delivery Method Room Air 12/27/24 07:30 12/27/24 08:00 12/27/24 08:00 Pulse Rate 66 Respiratory Rate Blood Pressure 111/55 L 107/61 Pulse Oximetry 94 Oxygen Delivery Method 12/27/24 08:30 12/27/24 08:31 12/27/24 08:31 Pulse Rate 75 72 Respiratory Rate Blood Pressure 127/58 L Pulse Oximetry 95 96 Oxygen Delivery Method 12/27/24 08:48 12/27/24 08:48 12/27/24 09:00 Pulse Rate 76 75 Respiratory Rate Blood Pressure 120/58 L Pulse Oximetry 96 98 Oxygen Delivery Method 12/27/24 09:00 Pulse Rate Respiratory Rate Blood Pressure 119/68 Pulse Oximetry Oxygen Delivery Method MDM - Extremity Injury (Lower) Differential Diagnosis Differential diagnosis: Likely other (Fracture, contusion ) Lab Data 12/27/24 07:01 12/27/24 07:01 Labs: Lab Results 12/27/24 Range/Units 07:01 WBC 7.2 (4.5-11.0) X10^3/uL RBC 3.86 L (4.0-5.2) X10^6/uL Hgb 11.9 L (12.0-16.0) g/dL Hct 36.1 (36-46) % MCV 93.4 (80-100) fL MCH 30.8 (26-34) PG MCHC 32.9 (30-36) % RDW 17.0 H (11.6-14.8) % Plt Count 221 (150-400) X10^3/uL Neut % (Auto) 76.2 H (50-75) % Lymph % (Auto) 14.0 L (25-40) % [place] % (Auto) 8.4 (3-14) % Eos % (Auto) 0.9 L (2-4) % Baso % (Auto) 0.5 (0-2) % Neut # (Auto) 5500 (9453-8821) /uL Lymph # (Auto) 1000 L (9738-1434) /uL [place] # (Auto) 600 (0-900) /uL Eos # (Auto) 100 (0-450) /uL Baso # (Auto) 0 (0-100) /uL PT 12.5 (9.4-12.5) SECONDS INR 1.1 (0.9-1.3) Sodium 140 (137-145) mmol/L Potassium 4.1 (3.4-5.1) mmol/L Chloride 108 H (98-107) mmol/L Carbon Dioxide 26 (22-32) mmol/L BUN 27 H (7-17) mg/dL Creatinine 0.87 (0.52-1.04) mg/dL Estimated GFR > 60 (>60) mL/min BUN/Creatinine Ratio 31.0 H (6-22) Glucose 115 H (70-99) mg/dL Calcium 9.0 (8.4-10.2) mg/dL Total Bilirubin 0.7 (0.2-1.3) mg/dL AST 22 (14-36) IU/L ALT 16 (<35) IU/L Alkaline Phosphatase 113 (38-126) U/L Total Protein 6.6 (6.3-8.2) g/dL Albumin 3.8 (3.5-5.0) g/dL Globulin 2.8 (1.7-4.1) g/dL Albumin/Globulin Ratio 1.4 (1.0-2.8) Imaging Data Extremity x-ray #1: Radiologist's Impression: preliminary he read showing angulated displaced femoral fracture of the femoral component of the right knee prosthesis [address] [address] XRay Report Signed Patient: Eileen Yeh MR#: [id number] : 1940 Acct:[id number] Age/Sex: 84 / F Date of Service: 12/27/24 Loc: ED Accession Number: [id number] Procedure: XR knee RT 1to2V Ordering Provider: Kendrick Andres MD PROCEDURE: XR KNEE RT 1TO2V INDICATIONS: knee pain after fall TECHNIQUE: 2 views of the knee were acquired. COMPARISON: [facility], CR, XR KNEE 4+ VIEWS RIGHT, 06/30/2024, 16:09. [facility], CR, XR KNEE RT 1TO2V, 06/20/2024, 15:49. FINDINGS: Bones: Postsurgical changes from right total knee arthroplasty. There is a transverse displaced fracture of the distal femoral metaphysis at the level of the superior arthroplasty margin with posterior and lateral displacement and angulation relative to the femoral shaft. Soft tissues: Overlying soft tissue swelling is present. IMPRESSION: Displaced fracture of the distal femoral metaphysis just above the level of the arthroplasty. There is no significant discrepancy when compared to the overnight preliminary report. Chest x-ray: Radiologist's Impression: [address] [address] XRay Report Signed Patient: Eileen Yeh MR#: [id number] : 1940 Acct:[id number] Age/Sex: 84 / F Date of Service: 12/27/24 Loc: ED Accession Number: [id number] Procedure: XR chest 1V Ordering Provider: Kendrick Andres MD PROCEDURE: XR CHEST 1V INDICATIONS: pre-op TECHNIQUE: One view of the chest was acquired. COMPARISON: [facility], CR, XR CHEST 2V, 07/06/2024, 14:33. [facility], , XR CHEST 1V, 04/10/2023, 18:55. FINDINGS: Surgical changes and devices: None. Lungs and pleura: Lungs are clear. No pleural effusions or pneumothorax. Mediastinum: Mediastinal contours appear normal. Heart size is normal. Moderate to large hiatal hernia. Bones and chest wall: Old healed left-sided rib fractures. No suspicious bony lesions. Overlying soft tissues appear unremarkable. IMPRESSION: No acute cardiopulmonary abnormality is seen. CT lower extremity: Radiologist's Impression: [address] [address] [address] Scan Report Signed Patient: Eileen Yeh MR#: [id number] : 1940 Acct:[id number] Age/Sex: 84 / F Date of Service: 12/27/24 Loc: ED Accession Number: [id number] Procedure: CT LE RT wo con Ordering Provider: Home Fermin D.O. PROCEDURE: CT LE RT WO CON INDICATIONS: distal femur fx above hardware TECHNIQUE: Noncontrast 2-3 mm axial sections acquired of the right femur, with coronal and sagittal reformats. For radiation dose reduction, the following was used: automated exposure control, adjustment of mA and/or kV according to patient size. COMPARISON: [facility], CR, XR KNEE RT 1TO2V, 12/27/2024, 6:30. FINDINGS: Image quality: Excellent. Bones: Postsurgical changes from bilateral total knee arthroplasties. Displaced and mildly comminuted fracture of the distal femoral metaphysis is seen. The fracture extends to the superior margin of the femoral prosthesis anteriorly. There is at least 3.7 cm proximal displacement and approximately 2.4 cm lateral displacement of the dominant distal fracture fragment relative to the femoral shaft with significant posterior and lateral angulation. Small comminuted fracture fragments are seen along the distal radial shaft fracture line. Postsurgical changes are seen in the right proximal femur from prior femoral neck fracture fixation of uncertain age. Of note, the superior most screw extends approximately 4 mm into the joint space beyond the femoral head articular surface. Mild widening of the medial right hip joint space and lateral subluxation of the femoral head relative to the acetabulum without maggie dislocation. There is chronic shortening of the femoral neck. Healed left inferior pubic ramus fracture deformity is present. A left total hip arthroplasty is noted in expected position. Left knee arthroplasty is within normal limits. Soft tissues: Hemorrhagic material is seen in the popliteal fossa and posterior distal thigh. Atherosclerotic vascular calcifications are present although the vasculature is not well evaluated. An intramuscular lipoma is incidentally noted in the vastus lateralis muscle. There is mild generalized fatty infiltration of the visualized musculature bilaterally. Small bilateral fat containing inguinal hernias. Colonic diverticulosis. IMPRESSION: 1. Displaced and mildly comminuted periprosthetic fracture of the right distal femur with the fracture line extending to the superior margin of the femoral component of the knee arthroplasty. Posterior and lateral displacement and angulation of the fracture are noted. Soft tissue hemorrhage is seen in the posterior distal thigh and popliteal fossa near the fracture site. 2. Postsurgical changes in the right proximal femur from prior fracture fixation. The superior most screw extends approximately 4 mm superior to the femoral head articular surface. 3. Postsurgical changes from left hip and left knee arthroplasties. Remote healed fractures of the left superior and inferior pubic rami. ECG Data Interpretation: EKG interpreted ED physician sinus 77 beats per minute QTC [address] changes no STEMI MDM Narrative Medical decision making narrative: 84-year-old female with past medical history hyperlipidemia hypothyroidism hypertension presenting from home via EMS for evaluation of right knee pain, was waking up went to the restroom states that she got stuck/tangled in her walker fell, no head strike has pain to her right knee, on exam slightly flex neurovascularly intact but tenderness to palpation decreased range of motion secondary to pain, x-ray does show fracture of femur, patient did have total right knee replacement by Dr. Forrest on 06.20.24. 0729: Discussed case with orthopedic surgeon Dr. Forrest, states will reach out to colleagues to see if they would take this patient given patient had total knee done by Dr. Forrest here on May of last year. 0804: Dr. Brannon here in ED evaluating the patient at bedside 0817: Discussed case with Dr. Brannon, requesting CT scan immobilizer, will reach out once results of CT come back, possible disposition here most likely admission to hospitalist 0950: Discussed case with Dr. trent, states patient to be admitted to hospitalist service for planned internal fixation unsure in regards to when at this time. Call placed out to hospitalist for admission The patient's management plan was discussed Dr. Martin, who agrees to admit the patient to their service and assumes care of this patient at this time. Full admission orders will be placed by the primary team. Discharge Plan Departure Patient Disposition: Admitted As Inpatient Clinical Impression: Periprosthetic fracture around internal prosthetic knee joint
[2024-12-27] MEDS: ONDANSETRON 4 MG/2 ML INJ IV (07:10)
[2024-12-27] MEDS: HYDROMORPHONE 0.5 MG INJ IV ×2 (07:10→10:40)
[2024-12-27 07:13] LABS: Add Manual Diff / Slide Review NO; Basophils Absolute Auto 0 /uL (0-100); Basophils Percent Auto 0.5 % (0-2); Eosinophils Absolute Auto 100 /uL (0-450); Eosinophils Percent Auto 0.9 % (2-4); Hematocrit 36.1 % (36-46); Hemoglobin 11.9 g/dL (12.0-16.0); Lymphocytes Absolute Auto 1000 /uL (1100-4500); Mean Corpuscular HGB Conc 32.9 % (30-36); Mean Corpuscular Hemoglobin 30.8 PG (26-34); Mean Corpuscular Volume 93.4 fL (80-100); Monocytes Absolute Auto 600 /uL (0-900); Monocytes Percent Auto 8.4 % (3-14); Neutrophils Absolute Auto 5500 /uL (1500-7000); Neutrophils Percent Auto 76.2 % (50-75); Platelet Count 221 X10^3/uL (150-400); Red Blood Cell Count 3.86 X10^6/uL (4.0-5.2); White Blood Cell Count 7.2 X10^3/uL (4.5-11.0)
[2024-12-27 07:22] LABS: Alanine Aminotransferase 16 IU/L (<35); Albumin 3.8 g/dL (3.5-5.0); Albumin Globulin Ratio 1.4 (1.0-2.8); Alkaline Phosphatase 113 U/L (38-126); Aspartate Aminotransferase 22 IU/L (14-36); Bilirubin Total 0.7 mg/dL (0.2-1.3); Blood Urea Nitrogen 27 mg/dL (7-17); Carbon Dioxide 26 mmol/L (22-32); Chloride 108 mmol/L (98-107); Estimated Glomerular Filt Rate > 60 mL/min (>60); Globulin 2.8 g/dL (1.7-4.1); Glucose 115 mg/dL (70-99); HEMOLYSIS < 15 (0-50); Potassium 4.1 mmol/L (3.4-5.1); Sodium 140 mmol/L (137-145); Total Protein 6.6 g/dL (6.3-8.2)
[2024-12-27 07:35] LABS: INR 1.1 (0.9-1.3); Prothrombin Time 12.5 SECONDS (9.4-12.5)
--- NOTE | 2024-12-27 08:15 | DI.CT.S_ITS ---
PROCEDURE: CT LE RT WO CON INDICATIONS: distal femur fx above hardware TECHNIQUE: Noncontrast 2-3 mm axial sections acquired of the right femur, with coronal and sagittal reformats. For radiation dose reduction, the following was used: automated exposure control, adjustment of mA and/or kV according to patient size. COMPARISON: [facility], CR, XR KNEE RT 1TO2V, 12/27/2024, 6:30. FINDINGS: Image quality: Excellent. Bones: Postsurgical changes from bilateral total knee arthroplasties. Displaced and mildly comminuted fracture of the distal femoral metaphysis is seen. The fracture extends to the superior margin of the femoral prosthesis anteriorly. There is at least 3.7 cm proximal displacement and approximately 2.4 cm lateral displacement of the dominant distal fracture fragment relative to the femoral shaft with significant posterior and lateral angulation. Small comminuted fracture fragments are seen along the distal radial shaft fracture line. Postsurgical changes are seen in the right proximal femur from prior femoral neck fracture fixation of uncertain age. Of note, the superior most screw extends approximately 4 mm into the joint space beyond the femoral head articular surface. Mild widening of the medial right hip joint space and lateral subluxation of the femoral head relative to the acetabulum without maggie dislocation. There is chronic shortening of the femoral neck. Healed left inferior pubic ramus fracture deformity is present. A left total hip arthroplasty is noted in expected position. Left knee arthroplasty is within normal limits. Soft tissues: Hemorrhagic material is seen in the popliteal fossa and posterior distal thigh. Atherosclerotic vascular calcifications are present although the vasculature is not well evaluated. An intramuscular lipoma is incidentally noted in the vastus lateralis muscle. There is mild generalized fatty infiltration of the visualized musculature bilaterally. Small bilateral fat containing inguinal hernias. Colonic diverticulosis. IMPRESSION: 1. Displaced and mildly comminuted periprosthetic fracture of the right distal femur with the fracture line extending to the superior margin of the femoral component of the knee arthroplasty. Posterior and lateral displacement and angulation of the fracture are noted. Soft tissue hemorrhage is seen in the posterior distal thigh and popliteal fossa near the fracture site. 2. Postsurgical changes in the right proximal femur from prior fracture fixation. The superior most screw extends approximately 4 mm superior to the femoral head articular surface. 3. Postsurgical changes from left hip and left knee arthroplasties. Remote healed fractures of the left superior and inferior pubic rami. Approved by: Darron Latif M.D. on 12/27/2024 at 9:19
--- NOTE | 2024-12-27 09:18 | PC.NURSE ---
Wound redress on right lower leg per md discretion.
--- NOTE | 2024-12-27 09:18 | PC.NURSE ---
Wound redress with nonadherent gauze
--- NOTE | 2024-12-27 11:04 | PM.HP.IH.1 ---
History of Present Illness History of Present Illness Date Patient Seen: 12/27/24 Date of Onset of Symptoms: 12/26/24 Chief complaint: R knee pain Narrative: Date of injury:? 12/26/2024 Mechanism of injury: fall The patient is an 84-year-old female who lives at home with her son and is status post total knee arthroplasty in May of 2024.? She sustained a fall last evening and sustained a fracture proximal to her total knee arthroplasty implant.? She was brought to the emergency room by her son.? She currently walks with a walker.? She denies pain elsewhere. Physical exam reveals a well-developed, well-nourished 84-year-old in no acute distress Evaluation of her right lower extremity demonstrates that she has a well-healed surgical scar to her hip and a well-healed surgical scar over her right knee.? There is no erythema or warmth at the knee.? Her knee is in a flexed position.? Distally she is neurologically intact in the saphenous, sural, tibial, deep peroneal and superficial peroneal nerve distributions. She fires her tibialis anterior, gastroc soleus, ehl and fhl. ? She has a nonpalpable posterior tibial and dorsalis pedis pulse.? She does have a dopplerable dorsalis pedis pulse. She had a clean and dry dressing from her foot to below her knee.? This was removed and She has a 2 cm x 2 cm wound over the anterior aspect of her tibia and 2 cm x 2cm wound over the posteromedial aspect of her tibia. ?She has 2+ pitting edema at her foot. Radiographs of her right knee demonstrate a comminuted distal femoral metaphysis fracture and a total knee arthroplasty implant in place.? CT scan of the right femur demonstrates a periprosthetic comminuted distal femoral fracture.? [facility] Medical History (Updated 12/27/24 @ 09:25 by Home Fermin DO) Asthma Atrial fibrillation CAD (coronary artery disease) COPD (chronic obstructive pulmonary disease) DDD (degenerative disc disease) Depression Edema Fracture of inferior pubic ramus Gastric ulcer GI bleed (~2017) Gout Hip fracture, left (~10/2010) History of COVID-19 (~2021) History of varicose veins HLD (hyperlipidemia) HTN (hypertension) Hypothyroidism Memory impairment Migraine headache with aura Neck pain Neuropathy NSVT (nonsustained ventricular tachycardia) Osteopenia Peripheral neuropathy Pulmonary hypertension, mild Raynauds phenomenon Rheumatoid arthritis Ribs, multiple fractures (12/14/23) Sternal fracture (12/14/23) DALE (stress urinary incontinence, female) Tinnitus Tricuspid regurgitation Ulcer of right leg Surgical History (Updated 06/21/24 @ 07:00 by Milli Rosales PA-C) History of left heart catheterization History of total hip arthroplasty History of total knee arthroplasty (02/09/19) Hx of hand surgery Hx of tonsillectomy Hx of tubal ligation S/P foot surgery, left Family History Father Alcoholism /alcohol abuse Mother Migraines Brother History of knee replacement Sister No significant medical problems Son Alcoholism /alcohol abuse Social History household members: children Smoking Status: Never smoker alcohol intake: former Meds Home Medications and Allergies Home Medications ?Medication ?Instructions ?Recorded ?Confirmed ?Type methotrexate sodium 2.5 mg tablet 6 tab PO QWEEK ##0 08/10/11 06/07/24 History levothyroxine 25 mcg tablet 75 mcg PO DAILY 02/27/19 06/07/24 History pantoprazole 40 mg tablet,delayed 40 mg PO DAILY 06/07/19 06/07/24 History release atorvastatin 20 mg tablet 20 mg PO DAILY 04/11/23 06/07/24 History etanercept 50 mg/mL (1 mL) 50 mg SUBCUT QWEEK 12/08/23 06/07/24 History subcutaneous syringe (Enbrel) furosemide 20 mg tablet 20 mg PO QMWF 12/08/23 06/07/24 History metoprolol succinate 25 mg 25 mg PO DAILY 12/08/23 06/07/24 History tablet,extended release 24 hr lisinopril 2.5 mg tablet 5 mg PO DAILY 06/07/24 06/07/24 History acetaminophen 325 mg tablet 650 mg (2 x 325 mg) PO Q6H PRN 06/23/24 Rx Fever/Mild Pain (1-3) #90 tabs docusate sodium 100 mg capsule 100 mg PO BID PRN constipation #30 06/23/24 Rx caps ondansetron 4 mg disintegrating 4 mg PO Q8HR PRN nausea and 06/23/24 Rx tablet vomiting #10 tabs oxycodone 5 mg tablet 5 mg PO Q6HR PRN Pain, Moderate 06/23/24 Rx (4-6) #30 tabs Allergies Allergy/AdvReac Type Severity Reaction Status Date / Time aspirin Allergy Severe Anaphylaxis Verified 06/19/24 09:50 levofloxacin Allergy Severe Rash, Verified 06/07/24 13:03 swelling NSAIDS (Non-Steroidal Allergy Intermediate Rash, Verified 06/07/24 13:03 Anti-Inflamma swelling Exam Vital Signs (past 8 hours): - 12/27/24 06:19 12/27/24 07:02 12/27/24 07:30 Pulse Rate 77 70 68 Respiratory Rate 14 Blood Pressure 159/82 H Pulse Oximetry 98 98 94 Oxygen Delivery Method Room Air 12/27/24 07:30 12/27/24 08:00 12/27/24 08:00 Pulse Rate 66 Respiratory Rate Blood Pressure 111/55 L 107/61 Pulse Oximetry 94 Oxygen Delivery Method 12/27/24 08:30 12/27/24 08:31 12/27/24 08:31 Pulse Rate 75 72 Respiratory Rate Blood Pressure 127/58 L Pulse Oximetry 95 96 Oxygen Delivery Method 12/27/24 08:48 12/27/24 08:48 12/27/24 09:00 Pulse Rate 76 75 Respiratory Rate Blood Pressure 120/58 L Pulse Oximetry 96 98 Oxygen Delivery Method 12/27/24 09:00 Pulse Rate Respiratory Rate Blood Pressure 119/68 Pulse Oximetry Oxygen Delivery Method Oxygen Delivery Method Room Air Objective Labs 12/27/24 07:01 12/27/24 07:01 Labs: Laboratory Results - last 24 hr 12/27/24 07:01 WBC 7.2 RBC 3.86 L Hgb 11.9 L Hct 36.1 MCV 93.4 MCH 30.8 MCHC 32.9 RDW 17.0 H Plt Count 221 Neut % (Auto) 76.2 H Lymph % (Auto) 14.0 L [place] % (Auto) 8.4 Eos % (Auto) 0.9 L Baso % (Auto) 0.5 Neut # (Auto) 5500 Lymph # (Auto) 1000 L [place] # (Auto) 600 Eos # (Auto) 100 Baso # (Auto) 0 PT 12.5 INR 1.1 Sodium 140 Potassium 4.1 Chloride 108 H Carbon Dioxide 26 BUN 27 H Creatinine 0.87 Estimated GFR > 60 BUN/Creatinine Ratio 31.0 H Glucose 115 H Calcium 9.0 Total Bilirubin 0.7 AST 22 ALT 16 Alkaline Phosphatase 113 Total Protein 6.6 Albumin 3.8 Globulin 2.8 Albumin/Globulin Ratio 1.4 Assessment & Plan Assessment and plan (1) Periprosthetic fracture around internal prosthetic knee joint: Status: Acute Plan - Will discuss with Dr. Forrest the timing of surgery. - Recommend x-ray of right knee after immobilizer placed and traction - Dr. Forrest would like CT scan of knee for preop planning. - NPO until timing of surgery finalized - ice and elevation to right knee - pain control and DVT prophylaxis per primary team Time-Based Coding :: [TOTAL MINUTES] spent with patient and on the chart (including review of chart, obtaining history, exam, reviewing outside data, placing orders, documenting exam and treatment plan, and counseling patient) on [DATE]. PROFEE Damage Adjuster Document charge(s): No
--- NOTE | 2024-12-27 11:56 | PC.NURSE ---
Assumed care of pt at this time. Per prior shift RN, knee immobilizer was placed by ortho surgeon. R pedal pulse present, edema noted. Sensation is normal for pt.
[2024-12-27 11:57] LABS: Appearance Urine UA SL CLOUDY; Bilirubin Urine UA NEGATIVE (NEGATIVE); Color Urine UA YELLOW; Glucose Urine UA NEGATIVE (Negative); Ketones Urine UA NEGATIVE (NEGATIVE); Leukocyte Esterase Urine UA NEGATIVE (NEGATIVE); Nitrite Urine UA NEGATIVE (Negative); Occult Blood Urine UA NEGATIVE (Negative); Protein Urine UA NEGATIVE (Negative); Urobilinogen Urine UA 0.2 E.U./dL (0.2)
[2024-12-27 11:58] LABS: Urine Volume 10mL (spun)
[2024-12-27 12:00] LABS: Amorphous Sediment Urine 1+; Bacteria Urine None Seen; Culture Indicated Urine Cult Not Indicated; RBC Urine None Seen (0-5/HPF); Squamous Epithelial Cell Urine None Seen (0-5/HPF); WBC Urine None Seen (0-5/HPF)
--- NOTE | 2024-12-27 13:08 | DI.RAD.S_ITS ---
PROCEDURE: XR KNEE RT 1TO2V INDICATIONS: fracture- post reduction TECHNIQUE: 2 views of the knee were acquired. COMPARISON: [facility], CR, XR KNEE RT 1TO2V, 12/27/2024, 6:30. [facility], CR, XR KNEE RT 1TO2V, 06/20/2024, 15:49. FINDINGS: Bones: Right distal femur periprosthetic fracture again seen. There is decreased posterior angulation when compared to the prior exam. However, there continues to be posterolateral displacement and angulation. Soft tissues: No joint effusion. No suspicious soft tissue calcifications. IMPRESSION: Status post reduction with mildly improved alignment of the displaced angulated periprosthetic fracture of the distal femur. Approved by: Darron Latif M.D. on 12/27/2024 at 15:25
--- NOTE | 2024-12-27 18:01 | PM.HP.1 ---
History of Present Illness History of Present Illness Date Patient Seen: 12/27/24 Time Patient Seen: 18:28 Date of Onset of Symptoms: 12/27/24 Chief complaint: R knee pain Narrative: This is a complex patient who has a history of a right knee replacement within the last year for gross instability. Her knee has been doing reasonably well. She has multiple medical problems including a history of multiple falls. She lives with her son and has been home from rehab for about 3 weeks after a fall and hip fracture. She says that she has had 2 right hip operations and a hip fracture within the last 6 months. She has been to multiple different rehabs and was quite satisfied with [facility]. She was at home and has problems with weakness and balance. She was using her walker when she fell and noted the onset of right knee pain. [facility] Medical History Frequent falls Ulcer of right leg Ribs, multiple fractures (12/14/23) Sternal fracture (12/14/23) History of COVID-19 (~2021) Memory impairment DALE (stress urinary incontinence, female) History of varicose veins DDD (degenerative disc disease) Peripheral neuropathy CAD (coronary artery disease) Gastric ulcer Osteopenia Gout Migraine headache with aura Fracture of inferior pubic ramus Hip fracture, left (~10/2010) Atrial fibrillation Asthma Pulmonary hypertension, mild Tricuspid regurgitation NSVT (nonsustained ventricular tachycardia) Rheumatoid arthritis Tinnitus Depression Neck pain Hypothyroidism GI bleed (~2017) Edema HLD (hyperlipidemia) HTN (hypertension) COPD (chronic obstructive pulmonary disease) Raynauds phenomenon Neuropathy Surgical History S/P foot surgery, left History of total hip arthroplasty History of total knee arthroplasty (02/09/19) History of left heart catheterization Hx of hand surgery Hx of tonsillectomy Hx of tubal ligation Family History Father Alcoholism /alcohol abuse Mother Migraines Brother History of knee replacement Sister No significant medical problems Son Alcoholism /alcohol abuse Social History household members: children Smoking Status: Former smoker alcohol intake: former Meds Home Medications and Allergies Home Medications ?Medication ?Instructions ?Recorded ?Confirmed ?Type methotrexate sodium 2.5 mg tablet 6 tab PO QWEEK ##0 08/10/11 12/27/24 History levothyroxine 25 mcg tablet 75 mcg PO DAILY 02/27/19 12/27/24 History pantoprazole 40 mg tablet,delayed 40 mg PO DAILY 06/07/19 12/27/24 History release atorvastatin 20 mg tablet 20 mg PO DAILY 04/11/23 12/27/24 History etanercept 50 mg/mL (1 mL) 50 mg SUBCUT QWEEK 12/08/23 12/27/24 History subcutaneous syringe (Enbrel) furosemide 20 mg tablet 20 mg PO QMWF 12/08/23 12/27/24 History metoprolol succinate 25 mg 25 mg PO DAILY 12/08/23 12/27/24 History tablet,extended release 24 hr lisinopril 2.5 mg tablet 5 mg PO DAILY 06/07/24 12/27/24 History acetaminophen 325 mg tablet 650 mg (2 x 325 mg) PO Q6H PRN 06/23/24 12/27/24 Rx Fever/Mild Pain (1-3) #90 tabs Allergies Allergy/AdvReac Type Severity Reaction Status Date / Time aspirin Allergy Severe Anaphylaxis Verified 06/19/24 09:50 levofloxacin Allergy Severe Rash, Verified 06/07/24 13:03 swelling NSAIDS (Non-Steroidal Allergy Intermediate Rash, Verified 06/07/24 13:03 Anti-Inflamma swelling Review of Systems Review of Systems Narrative: No new chest pain. She has not been more short of breath. She does have chronic problems with poor balance. She notes significant right knee pain. She has a history of wound healing issues on the right pretibial area. She has been at home with her son. Exam Vital Signs (past 8 hours): - 12/27/24 10:30 12/27/24 11:32 12/27/24 11:33 Temperature Pulse Rate 74 77 Pulse Rate [Right Dorsalis Pedis] Respiratory Rate Blood Pressure 123/60 Pulse Oximetry 98 97 Oxygen Delivery Method Oxygen Flow Rate 12/27/24 11:33 12/27/24 12:00 12/27/24 12:00 Temperature Pulse Rate 73 Pulse Rate [Right Dorsalis Pedis] Respiratory Rate Blood Pressure 109/55 L 106/54 L Pulse Oximetry 98 Oxygen Delivery Method Oxygen Flow Rate 12/27/24 12:04 12/27/24 12:30 12/27/24 12:30 Temperature Pulse Rate 71 Pulse Rate [Right Dorsalis Pedis] 69 Respiratory Rate 16 Blood Pressure 112/56 L Pulse Oximetry 97 Oxygen Delivery Method Room Air Oxygen Flow Rate 12/27/24 13:20 12/27/24 17:43 Temperature 97.2 F L 99.4 F Pulse Rate 78 77 Pulse Rate [Right Dorsalis Pedis] Respiratory Rate 16 16 Blood Pressure 124/74 93/51 L Pulse Oximetry 94 97 Oxygen Delivery Method Room Air Oxygen Flow Rate 0 Oxygen Delivery Method Room Air Oxygen Flow Rate 0 Narrative Exam Narrative: HEENT is benign, she was resting comfortably bed. Cor is slightly irregular, lungs are clear, abdomen soft and benign, the right lower extremity shows wounds on the pretibial area, there is a healed right knee incision, there is gross deformity of her right leg, she has decreased pulses in her right lower extremity they are dopplerable but not palpable. She has mild swelling in the calf. She has some decreased sensation distally in her foot she has trace motion. Objective Labs 12/27/24 07:01 12/27/24 07:01 Labs: Laboratory Results - last 24 hr 12/27/24 12/27/24 07:01 11:52 WBC 7.2 RBC 3.86 L Hgb 11.9 L Hct 36.1 MCV 93.4 MCH 30.8 MCHC 32.9 RDW 17.0 H Plt Count 221 Neut % (Auto) 76.2 H Lymph % (Auto) 14.0 L [place] % (Auto) 8.4 Eos % (Auto) 0.9 L Baso % (Auto) 0.5 Neut # (Auto) 5500 Lymph # (Auto) 1000 L [place] # (Auto) 600 Eos # (Auto) 100 Baso # (Auto) 0 PT 12.5 INR 1.1 Sodium 140 Potassium 4.1 Chloride 108 H Carbon Dioxide 26 BUN 27 H Creatinine 0.87 Estimated GFR > 60 BUN/Creatinine Ratio 31.0 H Glucose 115 H Calcium 9.0 Total Bilirubin 0.7 AST 22 ALT 16 Alkaline Phosphatase 113 Total Protein 6.6 Albumin 3.8 Globulin 2.8 Albumin/Globulin Ratio 1.4 Urine Color Yellow Urine Appearance Sl cloudy Urine pH 6.0 Ur Specific [place] 1.020 Urine Protein Negative Urine Glucose (UA) Negative Urine Ketones Negative Urine Occult Blood Negative Urine Nitrate Negative Urine Bilirubin Negative Urine Urobilinogen 0.2 Ur Leukocyte Esterase Negative Urine RBC None seen Urine WBC None seen Ur Squamous Epith Cells None seen Amorphous Sediment 1+ Urine Bacteria None seen Ur Culture Indicated? Cult not indicated Vol Urine Centrifuged 10ml (spun) x-rays show a right periprosthetic knee fracture with gross displacement it is a supracondylar femur fracture Assessment & Plan Assessment and plan (1) Periprosthetic fracture around internal prosthetic knee joint: Status: Acute (2) Total knee replacement status: Qualifiers: Laterality: right Qualified Code(s): Z96.651 - Presence of right artificial knee joint Status: Acute (3) Coagulopathy: Status: Acute (4) Syncope: Qualifiers: Syncope type: unspecified Qualified Code(s): R55 - Syncope and collapse Status: Acute (5) Non-healing wound of right lower extremity: Status: Acute Plan I have recommended open reduction internal fixation of the right periprosthetic femur fracture. I discussed this in detail with her and her son. She was very complicated. She has a history of multiple falls. She has had a recent right hip fracture. She has a history of a right total knee arthroplasty. She has known significant osteoporosis. She has a nonhealing wound on her right pretibial area. She was chronic numbness in bilateral lower extremities and history of instability with falls. Risks of the procedure options risks benefits and complications were discussed in detail. We will work on getting her set up for ORIF of her right femur. Time-Based Coding :: [TOTAL MINUTES] spent with patient and on the chart (including review of chart, obtaining history, exam, reviewing outside data, placing orders, documenting exam and treatment plan, and counseling patient) on [DATE]. Quality VTE Deep Vein Thrombosis/Pulmonary Embolism Present on Admission: No
[2024-12-27] MEDS: LACTATED RINGERS 1,000 ML 42 ML IV (18:22)
--- NOTE | 2024-12-27 19:16 | PM.OP.1 ---
Operative Date/Time/Diagnoses Date of procedure: 12/28/24 Time of procedure: 18:00 Pre-op diagnosis: Right knee periprosthetic fracture around a right total knee arthroplasty. Post-op diagnosis: same Procedure & Clinicians Procedure: ORIF right femur comminuted periprosthetic femur fracture Same procedure as scheduled: Yes Indications: This is an unfortunate 84-year-old lady with a history of multiple falls. She has had several falls in the last 6 months and has had to hip fractures and had to have surgery on her hip twice. She has been home from rehab about 3 or 4 weeks and she fell and noted the acute onset of right knee pain. Her x-rays show a right distal femur fracture with a right total knee arthroplasty. The procedure of the options risks benefits and complications of open reduction internal fixation were discussed in detail. She does have open wounds on her right tip pretibial area. She has a grossly displaced fracture. The risks benefits including but not limited to infection, bleeding, nonunion, loss of fixation, complications with severe osteoporosis and risk for recurrent injury and recurrent fracture with multiple falls a potential anesthetic complications were discussed in detail. She and her son consent to ORIF of the right distal femur. Surgeon: Ro Forrest Application Systems Architect: Yaneth Fuller Anesthesia Type: General Operative Notes Findings: Severely comminuted right distal femur fracture, soft bone, stable fixation with multiple distal and a few proximal locking screws. Acceptable alignment Closure Type: primary Specimen(s): none sent Prosthetic devices, grafts, tissues, transplants, or devices: Forrest and nephew right distal femur plate with some locking screws Estimated Blood Loss (mL): 200 Blood products transfused: none Tourniquet time (min): 58 Procedure in detail: The patient was brought to the operating room she underwent the induction general anesthesia. A time-out was performed. She was given IV antibiotics. Her right lower extremity was prepped and draped standard sterile fashion. She was noted to have some wounds on the anterior pretibial area which had been present previously and has had previously been seen and managed terminal make up operator in the wound clinic. There did not appear to be active infection. They were clearly nonhealing with significant granulation tissue. She was carefully positioned on a radiolucent table. Lateral incision was made dissection was carried out through skin and subcutaneous tissues. Gelpi retractors were placed. A skilled home care assistant was needed and Dr. Ingram provided assistance with reduction and essential retraction intraoperatively. The fracture was very comminuted and it was not reducible preoperatively. It required significant traction counter traction and manipulation in order to provide an acceptable reduction. The distal femur fracture was meticulously reduced. It was reduced with combination of longitudinal traction and a bone clamp was used to manipulate the proximal fragment and meticulously reduce the femur. It was provisionally held with bone tacks and a lateral femoral plate. A distal femoral plate was carefully tacked to the femur with femur tacks. AP and lateral C-arm image confirmed acceptable reduction and alignment of the plate. The fracture was carefully checked and then the lateral plate was fixed to the distal femur using multiple locking screws distally and combination of nonlocking and locking screws proximally. She had very soft bone. We are slightly adjusted the fracture during the reduction. Adequate fixation was achieved proximally and distally in an acceptable overall reduction. The wound was meticulously irrigated with normal saline. Marcaine was carefully injected. There was a small fragment of the anterior cortex which looked like it might be intra-articular. A gloved hand was carefully passed distally there was a rent into the joint and the femoral component and patella component was palpable. The comminuted femoral fragment was pushed back into the anterior cortex. The wound was meticulously irrigated with normal saline. The wound was closed with interrupted Vicryl barbed stitches and skin chai. The tourniquet was deflated. Total tourniquet time was under an hour. There was minimal bleeding. Complications: none Post-operative Condition: stable Disposition: Acute Care Plan for aftercare: Strict nonweightbearing right lower extremity. Knee [id number] brace with very slight range of motion. Goal is to transfer out of bed to a chair she needs to be nonweightbearing until there is significant healing due to the extremely poor bone quality.
--- NOTE | 2024-12-27 19:27 | DI.RAD.S_ITS ---
PROCEDURE: XR FEMUR RT MIN 2V INDICATIONS: right femur fracture with hip fracture TECHNIQUE: 2 views of the femur were acquired. COMPARISON: [facility], CT, CT KNEE RIGHT WITHOUT CON, 12/27/2024, 14:18. [facility], CR, XR PELVIS 1-2V, 12/27/2024, 19:39. FINDINGS AND IMPRESSION: Again seen is a moderately angulated and displaced supracondylar distal femur periprosthetic fracture. No additional femoral shaft fractures identified. Partially seen bilateral knee arthroplasties, left hip arthroplasty, and proximal femoral fixation hardware Dictated by: Adriel Castanon M.D. on 12/27/2024 at 20:32 Approved by: Adriel Castanon M.D. on 12/27/2024 at 20:34
--- NOTE | 2024-12-27 19:28 | DI.RAD.S_ITS ---
PROCEDURE: XR PELVIS 1-2V INDICATIONS: femur TECHNIQUE: 1 view(s) of the pelvis acquired. COMPARISON: None. FINDINGS AND IMPRESSION: Proximal femoral fixation hardware is present. Mild to moderately impacted and displaced subcapital proximal femur fracture is seen. Due to rotation, the right pubic ring is not well evaluated on this study. Left hip arthroplasty is present. Age-indeterminate left greater trochanter fracture fragment is seen. Lumbosacral degenerative changes. Large fecal loading. Dictated by: Adriel Castanon M.D. on 12/27/2024 at 20:34 Approved by: Adriel Castanon M.D. on 12/27/2024 at 20:36
[2024-12-27] MEDS: HYDROMORPHONE 1 MG INJ IV (20:05)
[2024-12-28] VITALS (18 sets, daily range): BP systolic 89–125; BP diastolic 49–66; PULSE 75–94; RESP 11–21; TEMP 36.3–37.4; O2SAT 94–98; BMI 22.5
--- NOTE | 2024-12-28 | DI.RAD.S_ITS ---
PROCEDURE: XR KNEE RT 3V INDICATIONS: Broken Distal Femur TECHNIQUE: 3 views of the knee were acquired. COMPARISON: [facility], CR, XR KNEE RT 1TO2V, 12/27/2024, 14:16. [facility], CR, XR KNEE RT 1TO2V, 12/27/2024, 6:30. FINDINGS AND IMPRESSION: Multiple fluoroscopic images were obtained for plate/screw fixation of the distal femur periprosthetic fracture. Please see operative note for full details. Dictated by: Adriel Castanon M.D. on 12/28/2024 at 20:43 Approved by: Adriel Castanon M.D. on 12/28/2024 at 20:43
--- NOTE | 2024-12-28 | DI.RAD.S_ITS ---
PROCEDURE: XR KNEE RT 1TO2V INDICATIONS: Post Op Distal Femur TECHNIQUE: 2 views of the knee were acquired. COMPARISON: [facility], CR, XR KNEE RT 3V, 12/28/2024, 18:23. [facility], CR, XR KNEE RT 1TO2V, 12/27/2024, 14:16. [facility], CR, XR FEMUR RT MIN 2V, 12/27/2024, 19:39. FINDINGS AND IMPRESSION: Postoperative changes following plate/screw fixation of the distal femur periprosthetic fracture, with near anatomic alignment. Slightly proud positioning on frontal view of the 4 lower screws. Postoperative soft tissue changes and skin chai are seen. Dictated by: Adriel Castanon M.D. on 12/28/2024 at 20:44 Approved by: Adriel Castanon M.D. on 12/28/2024 at 20:45
--- NOTE | 2024-12-28 07:16 | P.PN_ITS ---
Subjective Subjective Interval history: S: Her right knee pain is controlled. She was a right distal femur periprosthetic fracture. She was going to have surgery last night, but this was delayed due to an emergency section. She denies any other symptoms or complaints. Exam Vital Signs (past 8 hours): - 12/27/24 23:38 12/28/24 03:24 12/28/24 06:49 Temperature 98 F 97.6 F Pulse Rate 74 80 Respiratory Rate 16 16 Blood Pressure 102/59 L 110/57 L Pulse Oximetry 94 94 94 Oxygen Delivery Method Nasal Cannula Oxygen Flow Rate 1 1 1 Fraction of Inspired Oxygen 24 Fraction of Inspired Oxygen 24 SaO2/FiO2 Ratio 391 Oxygen Delivery Method Nasal Cannula Oxygen Flow Rate 1 Narrative Exam Narrative: NAD, alert and oriented. Fluent speech. Lungs are clear, normal rate and effort. Heart is regular, no murmur gallop or rub. Abdomen is soft, non distended. Extremities are free of edema. Right knee has a soft immobilizer on. Objective Labs 12/27/24 07:01 12/27/24 07:01 Labs: Laboratory Results - last 24 hr 12/27/24 12/27/24 07:01 11:52 PT 12.5 INR 1.1 Sodium 140 Potassium 4.1 Chloride 108 H Carbon Dioxide 26 BUN 27 H Creatinine 0.87 Estimated GFR > 60 BUN/Creatinine Ratio 31.0 H Glucose 115 H Calcium 9.0 Total Bilirubin 0.7 AST 22 ALT 16 Alkaline Phosphatase 113 Total Protein 6.6 Albumin 3.8 Globulin 2.8 Albumin/Globulin Ratio 1.4 Urine Color Yellow Urine Appearance Sl cloudy Urine pH 6.0 Ur Specific Sweetser 1.020 Urine Protein Negative Urine Glucose (UA) Negative Urine Ketones Negative Urine Occult Blood Negative Urine Nitrate Negative Urine Bilirubin Negative Urine Urobilinogen 0.2 Ur Leukocyte Esterase Negative Urine RBC None seen Urine WBC None seen Ur Squamous Epith Cells None seen Amorphous Sediment 1+ Urine Bacteria None seen Ur Culture Indicated? Cult not indicated Vol Urine Centrifuged 10ml (spun) [facility] Medical History Frequent falls Ulcer of right leg Ribs, multiple fractures (12/14/23) Sternal fracture (12/14/23) History of COVID-19 (~2021) Memory impairment DALE (stress urinary incontinence, female) History of varicose veins DDD (degenerative disc disease) Peripheral neuropathy CAD (coronary artery disease) Gastric ulcer Osteopenia Gout Migraine headache with aura Fracture of inferior pubic ramus Hip fracture, left (~10/2010) Atrial fibrillation Asthma Pulmonary hypertension, mild Tricuspid regurgitation NSVT (nonsustained ventricular tachycardia) Rheumatoid arthritis Tinnitus Depression Neck pain Hypothyroidism GI bleed (~2017) Edema HLD (hyperlipidemia) HTN (hypertension) COPD (chronic obstructive pulmonary disease) Raynauds phenomenon Neuropathy Surgical History S/P foot surgery, left History of total hip arthroplasty History of total knee arthroplasty (02/09/19) History of left heart catheterization Hx of hand surgery Hx of tonsillectomy Hx of tubal ligation Family History Father Alcoholism /alcohol abuse Mother Migraines Brother History of knee replacement Sister No significant medical problems Son Alcoholism /alcohol abuse Social History household members: children Smoking Status: Former smoker alcohol intake: former Assessment & Plan Assessment & Plan narrative: 1. Distal femur periprosthetic fracture, present on admission and active. 2. Asthma, present on admission and stable. 3. CAD, present on admission and stable. Plan: -pain control -anticipate operative reduction and internal fixation on December 28. -DVT prophylaxis and discharge planning. Time-Based Coding :: [TOTAL MINUTES] spent with patient and on the chart (including review of chart, obtaining history, exam, reviewing outside data, placing orders, documenting exam and treatment plan, and counseling patient) on [DATE]. Quality VTE Deep Vein Thrombosis/Pulmonary Embolism Present on Admission: No
[2024-12-28] MEDS: SODIUM CHLORIDE 0.9% FLUSH 10 ML IV (09:50)
[2024-12-28] MEDS: HEPARIN 5,000 UNIT/ML VIAL 5000 UNIT SUBCUT ×2 (09:50→21:17)
--- NOTE | 2024-12-28 13:12 | CM.DANOTE ---
Initial DCP Assessment Note Pt is an 84 yo female, resident of [place], presents after GLF and is awaiting open reduction internal fixation of right periprosthetic femur fracture. PCP: Sneha Lam and Leslie Williamson Payer: [facility] Reviewed chart, pt discussed in multidisciplinary rounds this morning. Surgery is expected, time unknown. Met w/patient. Patient somnolent and unable to carry on a coherent conversation, patient gives this BOILER PLANT OPERATOR permission to contact her son Josue. Placed call to son who reports patient has not been home long from her month long stay at [facility]. Son was paying privately for part of patient's stay when [facility] carol ran out. Discussed [facility] care and son is hopeful to fill out a Medicaid exterminator termite care application on patient's behalf. This BOILER PLANT OPERATOR will plan to leave this for son at patient's bedside. Discussed patient's discharge plan and son requests referral to [facility]. Emailed initial clinical to Melissa at [facility]. Melissa plans to contact [facility] to discuss patient's remaining SNF benefit and will stay in touch with this SW team. Hospital exempt PASRR completed, needs provider signature. Therapy team will assess after surgery. CM team will plan to follow clinical course closely. ADRIANA Black Discharge Planning/Care Management CM Discharge Assessment Start: 12/27/24 11:57 Freq: Status: Active Protocol: Document 12/28/24 12:50 ZOE (Rec: 12/28/24 13:12 ZOE [id number]) Discharge Planning Assessment Assigned Discharge ADRIANA Colvin Gettering Operator DPOA/Assigned Josue Yeh Designee Name Contact Information [phone] Advance Directives? No Advance Directives No on File History Provided By Family Member,Medical Record Has Patient been No admitted in last 30 days? Comment Patient was admitted May 2024 and discharged to [facility] Prior Living House Arrangements Household Members children Type of Relies on Others transporation used prior to admit Independent with ADL No 's Is patient alert and No oriented? Needs Assistance Bathing,Grooming,Meal Prep,Toileting,Managing With Medications,Home Chores / Shopping Caregiver for No Another Patient/Family Group Home Facility Preference Barriers to Yes Discharge Comment Patient has [facility], SNF auth needed. Patient's last rehab stay was at [facility] for approx one month. Son needed to pay privately for part of patient' s stay. Discharge Plan Group Home Facility Transportation Facility Arrangement Referrals Initiated Group Home,Other If patient plan is No home with home health: Has signed face to face form been completed? If patient plan is Yes SNF: Has PASSR been completed? SNF/HH Preference [facility]. Has Agency SNF been Yes contacted Comment Awaiting feedback from [facility].
[2024-12-28] MEDS: LACTATED RINGERS 1,000 ML 42 ML IV ×2 (16:50→19:41)
[2024-12-28] MEDS: CEFAZOLIN 2 GM/100 ML PREMIX 100 ML IV (17:52)
[2024-12-28] MEDS: TRANEXAMIC ACID 1,000 MG in SODIUM CHLORIDE 0.9% 100 ML 200 MG IV (17:53)
--- NOTE | 2024-12-28 18:26 | SUR.OPER ---
Supine on padded OR bed, head on pillow, arms secured on padded arm boards at <90 degrees abduction, legs uncrossed, safety belt at thigh, tape over blanket over non-operative leg, non-operative heel floated off bed with gel pads.
[2024-12-28] MEDS: BUPIVACAINE 0.5% W/ EPI (PF) 30 ML VIAL INJ (18:32)
[2024-12-28] MEDS: BUPIVACAINE LIPOSOME 266 MG/20 ML VIAL INJ (18:34)
[2024-12-28] MEDS: LACTATED RINGERS 1,000 ML 125 ML IV (21:12)
[2024-12-29] VITALS (8 sets, daily range): BP systolic 79–106; BP diastolic 42–69; PULSE 76–83; RESP 12–18; TEMP 36–36.6; O2SAT 93–97
[2024-12-29] MEDS: LACTATED RINGERS 1,000 ML 125 ML IV (05:23)
--- NOTE | 2024-12-29 07:14 | P.PN_ITS ---
Subjective Subjective Interval history: S: She is doign well. Good pain control. No dyspnea. Exam Vital Signs (past 8 hours): - 12/29/24 00:00 12/29/24 04:00 Temperature 96.8 F L Pulse Rate 77 80 Respiratory Rate 18 18 Blood Pressure 86/48 L 104/64 Pulse Oximetry 96 97 Oxygen Flow Rate 1 1 Fraction of Inspired Oxygen 24 SaO2/FiO2 Ratio 391 Oxygen Delivery Method Nasal Cannula Oxygen Flow Rate 1 Narrative Exam Narrative: NAD, alert and oriented. Fluent speech. Lungs are clear, normal rate and effort. Heart is regular, no murmur gallop or rub. Abdomen is soft, non distended. Extremities are free of edema. Objective Labs 12/29/24 09:07 12/29/24 09:07 [facility] Medical History Frequent falls Ulcer of right leg Ribs, multiple fractures (12/14/23) Sternal fracture (12/14/23) History of COVID-19 (~2021) Memory impairment DALE (stress urinary incontinence, female) History of varicose veins DDD (degenerative disc disease) Peripheral neuropathy CAD (coronary artery disease) Gastric ulcer Osteopenia Gout Migraine headache with aura Fracture of inferior pubic ramus Hip fracture, left (~10/2010) Atrial fibrillation Asthma Pulmonary hypertension, mild Tricuspid regurgitation NSVT (nonsustained ventricular tachycardia) Rheumatoid arthritis Tinnitus Depression Neck pain Hypothyroidism GI bleed (~2017) Edema HLD (hyperlipidemia) HTN (hypertension) COPD (chronic obstructive pulmonary disease) Raynauds phenomenon Neuropathy Surgical History S/P foot surgery, left History of total hip arthroplasty History of total knee arthroplasty (02/09/19) History of left heart catheterization Hx of hand surgery Hx of tonsillectomy Hx of tubal ligation Family History Father Alcoholism /alcohol abuse Mother Migraines Brother History of knee replacement Sister No significant medical problems Son Alcoholism /alcohol abuse Social History household members: children Smoking Status: Former smoker alcohol intake: former Assessment & Plan Assessment & Plan narrative: 1. Distal femur periprosthetic fracture S/P ORIF 6/5, present on admission and active. 2. Asthma, present on admission and stable. 3. CAD, present on admission and stable. Plan: -pain control -PT/OT evaluations. -DVT prophylaxis and discharge planning (SNF). -Discussed with Dr Candido Forrest F2F today. Time-Based Coding :: [TOTAL MINUTES] spent with patient and on the chart (including review of chart, obtaining history, exam, reviewing outside data, placing orders, documenting exam and treatment plan, and counseling patient) on [DATE]. Quality VTE Deep Vein Thrombosis/Pulmonary Embolism Present on Admission: No
--- NOTE | 2024-12-29 08:01 | P.PN_ITS ---
Subjective Subjective Interval history: Resting comfortably in bed, minimal pain. Exam Vital Signs (past 8 hours): - 12/29/24 04:00 Temperature 96.8 F L Pulse Rate 80 Respiratory Rate 18 Blood Pressure 104/64 Pulse Oximetry 97 Oxygen Flow Rate 1 Fraction of Inspired Oxygen 24 SaO2/FiO2 Ratio 391 Oxygen Delivery Method Nasal Cannula Oxygen Flow Rate 1 Narrative Exam Narrative: Alert, some baseline, confusion, unchanged from preoperatively, able to fire toe flexors and extensors, dressing and brace in place, adequate capillary refill, foot warm, neurologically okay distally Objective Labs 12/27/24 07:01 12/27/24 07:01 [facility] Medical History Frequent falls Ulcer of right leg Ribs, multiple fractures (12/14/23) Sternal fracture (12/14/23) History of COVID-19 (~2021) Memory impairment DALE (stress urinary incontinence, female) History of varicose veins DDD (degenerative disc disease) Peripheral neuropathy CAD (coronary artery disease) Gastric ulcer Osteopenia Gout Migraine headache with aura Fracture of inferior pubic ramus Hip fracture, left (~10/2010) Atrial fibrillation Asthma Pulmonary hypertension, mild Tricuspid regurgitation NSVT (nonsustained ventricular tachycardia) Rheumatoid arthritis Tinnitus Depression Neck pain Hypothyroidism GI bleed (~2017) Edema HLD (hyperlipidemia) HTN (hypertension) COPD (chronic obstructive pulmonary disease) Raynauds phenomenon Neuropathy Surgical History S/P foot surgery, left History of total hip arthroplasty History of total knee arthroplasty (02/09/19) History of left heart catheterization Hx of hand surgery Hx of tonsillectomy Hx of tubal ligation Family History Father Alcoholism /alcohol abuse Mother Migraines Brother History of knee replacement Sister No significant medical problems Son Alcoholism /alcohol abuse Social History household members: children Smoking Status: Former smoker alcohol intake: former Assessment & Plan Post-op Postoperative Procedures: Procedures Operation Date: 12/27/24 17:30 <No data on this case meets the specified criteria> Operation Date: 12/28/24 17:30 Actual Procedure Side Surgeon p ORIF Distal Femur Fracture Right Ro Forrest MD Postoperative day: 1 Postoperative status: doing well Postoperative status narrative: We will work on mobilizing her out of bed to a chair she needs to be strict nonweightbearing on the right lower extremity. Postoperative plan: routine post-op care Quality VTE Deep Vein Thrombosis/Pulmonary Embolism Present on Admission: No
[2024-12-29] MEDS: DOCUSATE 100 MG CAPSULE PO ×2 (08:19→20:27)
[2024-12-29] MEDS: PANTOPRAZOLE DR 40 MG TABLET PO (08:19)
[2024-12-29] MEDS: ACETAMINOPHEN 325 MG TABLET 650 MG PO ×2 (08:19→16:34)
[2024-12-29] MEDS: ATORVASTATIN 20 MG TABLET PO (08:21)
[2024-12-29] MEDS: METOPROLOL ER 25 MG TABLET PO (08:21)
[2024-12-29] MEDS: lisinopriL 5 MG TABLET PO (08:21)
[2024-12-29] MEDS: LACTATED RINGERS 1,000 ML 100 ML IV (08:22)
[2024-12-29] MEDS: CEFAZOLIN 2 GM/100 ML PREMIX 100 ML IV ×2 (08:23→16:34)
[2024-12-29 09:19] LABS: Add Manual Diff / Slide Review NO; Basophils Absolute Auto 0 /uL (0-100); Basophils Percent Auto 0.2 % (0-2); Eosinophils Absolute Auto 0 /uL (0-450); Hematocrit 29.1 % (36-46); Hemoglobin 9.7 g/dL (12.0-16.0); Lymphocytes Absolute Auto 700 /uL (1100-4500); Lymphocytes Percent Auto 6.8 % (25-40); Mean Corpuscular HGB Conc 33.3 % (30-36); Mean Corpuscular Hemoglobin 31.6 PG (26-34); Mean Corpuscular Volume 94.9 fL (80-100); Monocytes Absolute Auto 1000 /uL (0-900); Neutrophils Absolute Auto 8000 /uL (1500-7000); Platelet Count 175 X10^3/uL (150-400); Red Blood Cell Count 3.07 X10^6/uL (4.0-5.2); Red Cell Distribution Width 17.1 % (11.6-14.8); White Blood Cell Count 9.6 X10^3/uL (4.5-11.0)
[2024-12-29 09:27] LABS: Blood Urea Nitrogen 18 mg/dL (7-17); Calcium 8.4 mg/dL (8.4-10.2); Carbon Dioxide 24 mmol/L (22-32); Chloride 105 mmol/L (98-107); Estimated Glomerular Filt Rate > 60 mL/min (>60); Glucose 131 mg/dL (70-99); HEMOLYSIS < 15 (0-50); Sodium 137 mmol/L (137-145)
--- NOTE | 2024-12-29 10:45 | PC.NURSE ---
Addendum entered by Hilda De La Rosa R.N. 12/29/24 16:57: Rechecked pt BP several times over hour following original low BP; all VSWNL (see VS). Pt still asymptomatic, worked with PT/OT in afternoon, no orthostatic hypotension noted. During brief change, noted small area of blanchable redness on lower left buttock; placed mepilex dressing and instructed communications manager to consistently reposition. Pt currently eating dinner, call light within reach, plan of care continues. Original Note: Low BP, 80s/50s, pt denies dizziness or lightheadedness, A&Ox3 (baseline). Informed MD Orta, no new orders, continue to observe. Will check BP again in 30 min.
--- NOTE | 2024-12-29 11:41 | DIET.CONS ---
Dietary Consultation Note Admission Date: 12/27/2024 11:55 Assessment: 84 y F admitted after GLF. Dietitian screened for low Tor admission score. Hx of non-healing wounds on right leg. Met with pt at bedside. Report good appetite and no decline in appetite or PO intakes recently. Pt requests chocolate Ensure daily. Diet recall: B-banana L-ham and cheese sandwich D- dinner provided, typically meals like chicken, turkey dishes snacks like yogurt, peanuts, and milk Ht: 162.56 cm Wt: 59.5 kg BMI: 22.5 UBW: pt reports 62 kg is UBW within last year, non-significant weight loss, 60.781 kg on 06/20/24 per EMR Last BM: 12/25/24 (12/28/24 16:44) MNA: 13 Tor Score: 16 Diet: 12/29/24 Dinner General (Regular) Diet Diet Modifications: Food Texture: Level 7 - Regular Liquid Consistency: Level 0 - Thin Labs: RBC 3.07 X10^6/uL (4.0-5.2) L 12/29/24 09:07 Hgb 9.7 g/dL (12.0-16.0) L 12/29/24 09:07 Hct 29.1 % (36-46) L 12/29/24 09:07 Creatinine 0.75 mg/dL (0.52-1.04) 12/29/24 09:07 Nutrition Diagnosis: Increased nutrient needs (protein) r/t healing aeb non healing wounds Interventions: -Discussed nutrition for wounds healing -Ensure original 1x/day EER: 70 g protein per day (1.2 g/kg per day) Monitoring/Evaluations: PO intakes, ONS tolerance Electronically Signed by: Kendy Metzger 12/29/24 11:41 Clinical Dietitian [address] [address]
[2024-12-29] MEDS: ONDANSETRON 4 MG/2 ML INJ IV (13:39)
--- NOTE | 2024-12-29 13:50 | PT.IIE ---
Current Diagnoses Coagulation defect, unspecified (12/27/24) Periprosthetic fracture around other internal prosthetic joint, initial encounter (12/27/24) Syncope and collapse (12/27/24) Unspecified open wound, right lower leg, initial encounter (12/27/24) Presence of right artificial knee joint (12/27/24) Presence of unspecified artificial knee joint (12/27/24) Surgery Performed Operation Date: 12/27/24 17:30 <No data on this case meets the specified criteria> Operation Date: 12/28/24 17:30 Actual Procedures p ORIF Distal Femur Fracture(Right) - Ro Forrest MD Surgical History (Last Reviewed 12/28/24 @ 07:16 by Shorty Orta MD) History of left heart catheterization History of total hip arthroplasty History of total knee arthroplasty (02/09/19) Hx of hand surgery Hx of tonsillectomy Hx of tubal ligation S/P foot surgery, left Medical History (Last Reviewed 12/28/24 @ 07:16 by Shorty Orta MD) Asthma Atrial fibrillation CAD (coronary artery disease) COPD (chronic obstructive pulmonary disease) DDD (degenerative disc disease) Depression Edema Fracture of inferior pubic ramus Frequent falls Gastric ulcer GI bleed (~2017) Gout Hip fracture, left (~10/2010) History of COVID-19 (~2021) History of varicose veins HLD (hyperlipidemia) HTN (hypertension) Hypothyroidism Memory impairment Migraine headache with aura Neck pain Neuropathy NSVT (nonsustained ventricular tachycardia) Osteopenia Peripheral neuropathy Pulmonary hypertension, mild Raynauds phenomenon Rheumatoid arthritis Ribs, multiple fractures (12/14/23) Sternal fracture (12/14/23) DALE (stress urinary incontinence, female) Tinnitus Tricuspid regurgitation Ulcer of right leg Physical Therapy Inpatient Evaluation/Re-Eval M1 PT/OT-IP Prior Functional Status Start: 12/29/24 17:17 Freq: NEEDED Status: Active Protocol: Document 12/29/24 13:50 AB (Rec: 12/29/24 17:40 AB [id number]) Medical Review Prior Functional Status Medical History Yes Reviewed Communication with confusion; slow to respond to questions and instructions Mobility and Gait Pt and son did not provide a clear accurate PLOF of pt: stated that pt is w/c bound but also stated that pt was modified I using a FWW Activities of Daily Pt's son states will now do medications for pt. He Living and IADL's already does the bills and IADL needs. He admits to helping her with LB dressing at ties. Social History Household Members children Living Arrangements House Number of Floors ( One Floor Floors) Number of Stairs To 3 step with left rail to enter Enter/Railing? Home Environment High Toilet,Walk in Shower Home Equipment Front Wheel Walker,Four Wheel Walker,Shower Seat with Backrest,Hand Held Shower,Grab Bars Near Toilet,Grab Bars In Shower Additional Social pt lives with her son History Comment M2 PT-IP Current Condition Start: 12/29/24 17:17 Freq: NEEDED Status: Active Protocol: Document 12/29/24 13:50 AB (Rec: 12/29/24 17:40 AB [id number]) Physical Therapy Current Condition Current Condition Evaluation Date 12/29/24 Treatment Diagnosis R knee periprosthetic fx s/p ORIF; difficulty in walking Onset Date 12/27/24 M3 PT-IP Subjective Start: 12/29/24 17:17 Freq: NEEDED Status: Active Protocol: Document 12/29/24 13:50 AB (Rec: 12/29/24 17:40 AB [id number]) Subjective Physical Therapy Visit Type Type Initial Evaluation Visit Start Time 13:50 Visit Stop Time 15:[address] Forrest ordered R hinge knee brace for pt. Called Dr Candido Forrest's office for brace parameters. Triage nurse stated that per Dr. Forrest: hinge brace set at 0-45 degrees and if possible not to tighten much due to skin integrity. informed triage nurse that PT will try to have it not too tight as much as possible but not compromising fit and proper use of hinge brace. Number of SENIOR ELECTRICAL CONTROLS ENGINEER Visits 0 Physical Therapy Visit Comments Patient Comments agreeable to do PT M4 PT-IP Mobility and Gait Start: 12/29/24 17:17 Freq: NEEDED Status: Active Protocol: Document 12/29/24 13:50 AB (Rec: 12/29/24 17:40 AB [id number]) PT-Bed Mobility Assessment Supine to Sit Supine to Sit Maximum Assistance,1 Person Assistance,2 Person Assistance Sit to Supine Sit to Supine Maximum Assistance,2 Person Assistance,Head of Bed Elevated PT-Transfer Assessment Sit to and From Stand Sit to and from Maximum Assistance,2 Person Assistance,Use of Upper Stand Extremities Equipment Transfer Assistive Bed Rail,Front Wheeled Walker Device Orthotic/Prosthetic Yes Devices or Brace: Comments Mobility Comments pt in bed and agreed to do PT. Son in room. obtained PLOF and home set up. pt with memory issues and with confusion. obtained most of pt's info from pt's son. Per Dr. Forrest: r knee hinge brace set at 0-45 deg. adjusted and set R knee hinge brace but at 0-40 deg due to current brace can only be set on increments of 10 deg. found pt to be needing to be cleaned up. nurse informed and left pt with NAC. checked back on pt after ~ 1hour and agreed to do PT. BP in supine: 120/69. completed supine to sit max A x 1-2 and max cues. able to sit on EOB min A. no c/o dizziness. BP: 114/71. pt sat for a few minutes. nurse in room. educated pt on NWB restriction on RLE and how maintain NWB on RLE in standing. BP rechecked: 125/70. completed sit to stand max A x 2 and max cues. needed min A for maintaining NWB on RLE. pt sat back on EOB and rested. pt agreed to stand again. sit to stand max A x 2 and max cues. able to move sideways towards HOB with pt scooting L foot . pt sat back on EOB. scooted towards HOB in sitting max A. completed sit to supine max A x 2 and max cues. positioned pt in bed. call light and table placed within reach. Gait Assessment Comments Gait Comments unable at this time PT-Balance Assessment Sitting Balance and Reactions Static Sitting Good Balance Ability Dynamic Sitting Fair Balance Ability Standing Balance and Reactions Static Standing Poor Balance Ability Dynamic Standing Poor Balance Ability Device Used FWW M5 PT-IP Objective Assessments Start: 12/29/24 17:17 Freq: NEEDED Status: Active Protocol: Document 12/29/24 13:50 AB (Rec: 12/29/24 17:40 AB [id number]) Orientation Orientation/Cognition Level of Alertness Confusional State Orientation Name Language Function Hard of Hearing Ability Safety Awareness Decreased Safety Awareness Memory Description Short Term Impaired,Fpc Impaired Gross Range of Motion Lower Extremity ROM Assessment Right Impaired Impairments R knee on hinge brace: per Dr. Forrest's operative note: very slight ROM Strength Lower Extremity Strength Assessment Right Impaired Hip 2+/5 Knee 2+/5 Muscle Tone Muscle Tone WNL Yes M6 PT-IP Treatment Start: 12/29/24 17:17 Freq: NEEDED Status: Active Protocol: Document 12/29/24 13:50 AB (Rec: 12/29/24 17:40 AB [id number]) Physical Therapy Treatment Education Education Provided Weight Bearing Status,Safety M7 PT-IP Assessment and Plan Start: 12/29/24 17:17 Freq: NEEDED Status: Active Protocol: Document 12/29/24 13:50 AB (Rec: 12/29/24 17:40 AB [id number]) PT Summary Assessment and Plan Potential Rehabilitation Fair Potential Status of Condition Evolving at Evaluation Summary Impairments Pain,ROM,Strength,Balance,Coordination,Sensation,Tone, Cognition,Bed Mobility,Transfers,Gait,Activity Tolerance Assessment Summary pt is an 84 y/o F s/p fall and sustain a R TKA periprosthetic fx and underwent ORIF POD 1. pt with R knee hinge brace set at 0-40 deg. pt requiring max A x 2 for bed mobility and sit to stand. recommending mechanical lift transfers with nursing staff at this time. pt will need SNF rehab to improve overall strength and function. Goals Bed Mobility Goal Minimal Assistance Transfer Goal Minimal Assistance,Front Wheeled Walker Gait Goal Minimal Assistance,Front Wheel Walker Gait Distance 20 Other Goals improve bed mobility, transfers and ambulation 30 ft CGA Days to Meet Goals 10 Frequency of Treatment Frequency Of Once a Day Treatment Treatment Plan Physical Therapy Bed Mobility Training,Transfer Training,Gait Training, Treatment Plan Therapeutic Exercise,Balance Retraining,Post Op Education,Discharge Planning,Hot or Cold Pack, Neuromuscular Re-ed,Coordination Retraining,Manual Therapy Precautions Brace R knee hinge brace (0-40 deg) Weight Bearing Status Weight Bearing Non-Weight Bearing Status Allowed Weight RLE NWB Bearing Amount ( enter % or #) (%) Recommendations To Nursing Amount of Assist Mechanical Lift Needed Discharge Recommendations PT Discharge SNF Rehab Recommendations Transportation Needs Wheelchair/Cabulance,Stretcher/Ambulance at Discharge - PT assist 2
--- NOTE | 2024-12-29 14:13 | CM.DPC ---
DCP Cont According to Melissa at [facility]; single case agreement is needed from [facility]. [facility] PEDRO Gonzales reportedly will not discuss a single case agreement until this sends the SNF auth request with therapy notes. Spoke with Christian; she confirms that patient has 80+ days left on her SNF benefit. Christian confirms that she needs the therapy notes sent when available, then will consider SNF auth and single case agreement for [facility]. No therapy notes available to send as of 12/29 2:15p. This team will follow this case closely. Contact weekend [facility] Wednesday to continue coordination. Keep [facility] updated. ZOE
--- NOTE | 2024-12-29 15:30 | OT.IP.EVAL ---
Current Diagnoses Coagulation defect, unspecified (12/27/24) Periprosthetic fracture around other internal prosthetic joint, initial encounter (12/27/24) Syncope and collapse (12/27/24) Unspecified open wound, right lower leg, initial encounter (12/27/24) Presence of right artificial knee joint (12/27/24) Presence of unspecified artificial knee joint (12/27/24) Surgery Performed Operation Date: 12/27/24 17:30 <No data on this case meets the specified criteria> Operation Date: 12/28/24 17:30 Actual Procedures p ORIF Distal Femur Fracture(Right) - Ro Forrest MD Past Medical History (Last Reviewed 12/28/24 @ 07:16 by Shorty Orta MD) Asthma Atrial fibrillation CAD (coronary artery disease) COPD (chronic obstructive pulmonary disease) DDD (degenerative disc disease) Depression Edema Fracture of inferior pubic ramus Frequent falls Gastric ulcer GI bleed (~2017) Gout Hip fracture, left (~10/2010) History of COVID-19 (~2021) History of varicose veins HLD (hyperlipidemia) HTN (hypertension) Hypothyroidism Memory impairment Migraine headache with aura Neck pain Neuropathy NSVT (nonsustained ventricular tachycardia) Osteopenia Peripheral neuropathy Pulmonary hypertension, mild Raynauds phenomenon Rheumatoid arthritis Ribs, multiple fractures (12/14/23) Sternal fracture (12/14/23) DALE (stress urinary incontinence, female) Tinnitus Tricuspid regurgitation Ulcer of right leg Surgical History (Last Reviewed 12/28/24 @ 07:16 by Shorty Orta MD) History of left heart catheterization History of total hip arthroplasty History of total knee arthroplasty (02/09/19) Hx of hand surgery Hx of tonsillectomy Hx of tubal ligation S/P foot surgery, left Occupational Therapy Inpatient Evaluation/Re-Eval M1 PT/OT-IP Prior Functional Status Start: 12/29/24 16:16 Freq: Status: Active Protocol: Document 12/29/24 16:16 [facility] (Rec: 12/29/24 16:42 [facility] Desktop) Medical Review Prior Functional Status Mobility and Gait Very unclear as pt and son states uses 4ww inside and fww outdoors, however also states uses wheelchair in the house. Activities of Daily Pt's son states will now do medications for pt. He Living and IADL's already does the bills and IADL needs. He admits to helping her with LB dressing at times. Social History Household Members children Living Arrangements House Number of Floors ( One Floor Floors) Number of Stairs To 3 step with left rail Enter/Railing? Home Environment High Toilet,Walk in Shower Home Equipment Front Wheel Walker,Four Wheel Walker,Shower Seat with Backrest,Hand Held Shower,Grab Bars Near Toilet,Grab Bars In Shower Additional Social Bath mat History Comment M2 OT-IP Current Condition Start: 12/29/24 16:16 Freq: Status: Active Protocol: Document 12/29/24 16:16 [facility] (Rec: 12/29/24 16:42 [facility] Desktop) Occupational Therapy Current Condition Current Condition Evaluation Date 12/29/24 Treatment Diagnosis S/P ORIF right femur comminuted periprosthetic femur fx Diagnosis Onset Date 12/27/24 Post Operative Precautions Other Precautions Right knee ROM 0-45degrees Weight Bearing Status Weight Bearing Non-Weight Bearing Status Allowed Weight RLE Bearing Amount ( enter % or #) (%) M3 OT- IP Subjective and Pain Start: 12/29/24 16:16 Freq: Status: Active Protocol: Document 12/29/24 16:16 [facility] (Rec: 12/29/24 16:42 [facility] Desktop) OT- Subjective Occupational Therapy Visit Type Type Initial Evaluation Visit Start Time 13:53 Visit Stop Time 15:30 Notes Pt seen from [id number] Occupational Therapy Visit Comments Patient Comments Pt easily able to arouse and agreed to get out of bed. Pt's son present for initially and then left the room due to having to do a meeting for work on his computer. Pt having to be cleaned so nursing aid called in. Able to see pt afterwards with PT and nursing. Patient/Caregiver Pt did not state. Goals OT Pain Assessment Pain When Pain Assessed At Rest Pain Present Pain Present Denied Pain M4 OT- IP ADL's Start: 12/29/24 16:16 Freq: Status: Active Protocol: Document 12/29/24 16:16 [facility] (Rec: 12/29/24 16:42 [facility] Desktop) OT [id number] Comments OT Self-Feeding not at meal time Comments OT ADL-Grooming Comments OT Grooming Comments Pt states washed her face earlier. OT ADL-Oral Care Comments Oral Care Comments Not observed. OT ADL-Dressing General Eval Lower Body Dressing Total Assistance Ability Areas Needing Socks,Orthosis/Prosthesis Assistance OT ADL-Toileting General Evaluation Toileting Ability Total Assistance Areas Needing Manage Clothing,Perform Perineal Hygiene Assistance Comments OT Toileting Nursing aids able to do while pt is supine. Comments OT ADL-Bathing Bathing Type Bathing Type Sponge Bath General Evaluation Bathing Ability Total Assistance M5 OT- IP IADL's Start: 12/29/24 16:16 Freq: Status: Active Protocol: Document 12/29/24 16:16 [facility] (Rec: 12/29/24 16:42 [facility] Desktop) OT-Instrumental Activities of Daily Living Deficits IADL Deficits Deficits Identified Home Safety Awareness Home Safety Comments Pt is confused and not able to answer questions consistently. Medication Management Medication Pt 's son states to now do for pt, home health nursing Management Comments has been setting up her pills. Money Management Money Management Caregiver Provides Assistance Meal Preparation Meal Preparation Caregiver Provides Assist Accounts Administrator Accounts Administrator Caregiver Provides Assist M6 OT- IP Functional Cognition Start: 12/29/24 16:16 Freq: Status: Active Protocol: Document 12/29/24 16:16 [facility] (Rec: 12/29/24 16:42 [facility] Desktop) Cognitive Factors Limiting Selfcare Function Cognitive Ability Level of Alertness Alert,Confusional State Patient Orientation Name,Age,Birthday,Month,Year,Place,Situation Attention Span Capable of Focused Attention,Capable of Sustained Ability Attention Ability to Follow Able to Follow One Step Commands with Increased Time, Commands Able to Follow One Step Commands with Repetition Memory Description Short Term Impaired Cognitive Comments Cognitive Assessment Pt needing simple cues to follow in addition to tactile Comments cues. Pt not aware what the call light remote was for and having to educate pt. OT- Vision and Hearing OT- Hearing Assessment OT- Hearing WFL Assessment OT- Vision Assessment Visual Acuity Glasses All The Time Visual Attentiveness WFL Occular Pursuits WFL Vision Assessment Pt able to read the clock. Comments M7 OT- IP Mobility and Balance Start: 12/29/24 16:16 Freq: Status: Active Protocol: Document 12/29/24 16:16 [facility] (Rec: 12/29/24 16:42 [facility] Desktop) OT- Bed Mobility Assessment Supine to Sit Supine to Sit Assist Maximum Assistance,1 Person Assistance Sit to Supine Sit to Supine Assist Total Assistance,2 Person Assistance OT-Transfer Assessment Sit to and From Stand Sit to and from Maximum Assistance,2 Person Assistance Stand Transfers Transfer Ability Maximum Assistance Technique Transfer Destination Bed Devices Transfer Assistive Gait Belt,Front Wheeled Walker Devices Comments Mobility Comments MAXA X 1 to get to the edge of the bed and use of green pad to assist to get her hips forwards. MAX AX 2 to stand to the FWW and nurse present to hold the FWW in place. PT assist pt to make sure pt is NWB. Pt only able to stand for several seconds. MOD/MAXA x2 to scoot to the head of the bed , assist with her RLE and use of green pad. BP supine 119/68. Educated pt to bring her left foot back so able to try to stand with two person assist , in addition educated her to push down with her arms on the FWW to help unweight her RLE. OT- Balance Assessment Sitting Balance and Reactions Static Sitting Fair Balance Ability Dynamic Sitting Poor Balance Ability Standing Balance and Reactions Static Standing Poor Balance Ability Dynamic Standing Poor Balance Ability M8 OT- IP Objective Assessments Start: 12/29/24 16:16 Freq: Status: Active Protocol: Document 12/29/24 16:16 [facility] (Rec: 12/29/24 16:42 [facility] Desktop) OT Gross Range of Motion Upper Extremity Range of Motion ROM Impairments grossly WFL LUE> RUE OT Strength Comments Strength Comments BUE 4-/5 to 4/5 M9 OT- IP Assessment and Plan Start: 12/29/24 16:16 Freq: Status: Active Protocol: Document 12/29/24 16:16 [facility] (Rec: 12/29/24 16:42 [facility] Desktop) OT Summary Assessment and Plan Potential Rehabilitation Good Potential Analytic Complexity Low at Evaluation Summary OT Impairments Pain,Strength,Balance,Functional Cognition,Functional Mobility,Grooming,Dressing,Toileting,Bathing,Toilet Transfers,Shower Transfers,Activity Tolerance Assessment Summary Pt mod complexity and main barriers are decreased strength, endurance, confusion, and needing two person assist to stand to the FWW and follow NWB. Pt not able to transfer at this time. Pt will benefit from skilled rehab. Pt would benefit from SLUMS as pt clears, pt had late sx and therefore her cognition probably affected from sx yet. Goals Self-Feeding Goal Independent Grooming Goal Independent Dressing Goal Moderate Assistance Toileting Goal Moderate Assistance Bathing Goal Moderate Assistance Toilet Transfer Goal Minimal Assistance Shower Transfer Goal Moderate Assistance Days to Meet Goals 20 Frequency of Treatment Other frequency 5x/week Treatment Plan OT Treatment Plan ADL Training,Functional Cognition Training,Functional Mobility,Patient/Family Education,Discharge Planning Other Treatment SLUMS, Transfer with FWW MAX AX 2 to BSC Recommendations and Next Treatment Focus Discharge Recommendations OT Discharge SNF Rehab Recommendations Transportation Needs Wheelchair/Cabulance at Discharge
[2024-12-29] MEDS: SENNOSIDES 8.6 MG TABLET 17.2 MG PO (20:28)
[2024-12-29] MEDS: HEPARIN 5,000 UNIT/ML VIAL 5000 UNIT SUBCUT (20:28)
[2024-12-29] MEDS: SODIUM CHLORIDE 0.9% FLUSH 10 ML IV (20:28)
[2024-12-30] MEDS: ACETAMINOPHEN 325 MG TABLET 650 MG PO ×4 (00:54→20:09)
[2024-12-30] MEDS: LEVOTHYROXINE 25 MCG TABLET 75 MCG PO (05:38)
--- NOTE | 2024-12-30 07:16 | PM.PN.1 ---
Subjective Subjective Interval history: S: She was doing well, she was good pain control. No dyspnea. ORIF right femur comminuted periprosthetic femur fracture 12/28. Exam Vital Signs (past 8 hours): Fraction of Inspired Oxygen 24 SaO2/FiO2 Ratio 391 Oxygen Delivery Method Nasal Cannula Oxygen Flow Rate 0 Narrative Exam Narrative: NAD, alert and oriented. Fluent speech. Lungs are clear, normal rate and effort. Heart is regular, no murmur gallop or rub. Abdomen is soft, non distended. Extremities are free of edema. Right leg dressing in place. Objective Labs 12/29/24 09:07 12/29/24 09:07 Labs: Laboratory Results - last 24 hr 12/29/24 09:07 WBC 9.6 RBC 3.07 L Hgb 9.7 L Hct 29.1 L MCV 94.9 MCH 31.6 MCHC 33.3 RDW 17.1 H Plt Count 175 Neut % (Auto) 83.0 H Lymph % (Auto) 6.8 L Grainger % (Auto) 10.0 Eos % (Auto) 0.0 L Baso % (Auto) 0.2 Neut # (Auto) 8000 H Lymph # (Auto) 700 L Grainger # (Auto) 1000 H Eos # (Auto) 0 Baso # (Auto) 0 Sodium 137 Potassium 4.0 Chloride 105 Carbon Dioxide 24 BUN 18 H Creatinine 0.75 Estimated GFR > 60 BUN/Creatinine Ratio 24.0 H Glucose 131 H Calcium 8.4 PFSH Medical History Frequent falls Ulcer of right leg Ribs, multiple fractures (12/14/23) Sternal fracture (12/14/23) History of COVID-19 (~2021) Memory impairment DALE (stress urinary incontinence, female) History of varicose veins DDD (degenerative disc disease) Peripheral neuropathy CAD (coronary artery disease) Gastric ulcer Osteopenia Gout Migraine headache with aura Fracture of inferior pubic ramus Hip fracture, left (~10/2010) Atrial fibrillation Asthma Pulmonary hypertension, mild Tricuspid regurgitation NSVT (nonsustained ventricular tachycardia) Rheumatoid arthritis Tinnitus Depression Neck pain Hypothyroidism GI bleed (~2017) Edema HLD (hyperlipidemia) HTN (hypertension) COPD (chronic obstructive pulmonary disease) Raynauds phenomenon Neuropathy Surgical History S/P foot surgery, left History of total hip arthroplasty History of total knee arthroplasty (02/09/19) History of left heart catheterization Hx of hand surgery Hx of tonsillectomy Hx of tubal ligation Family History Father Alcoholism /alcohol abuse Mother Migraines Brother History of knee replacement Sister No significant medical problems Son Alcoholism /alcohol abuse Social History household members: children Smoking Status: Former smoker alcohol intake: former Assessment & Plan Assessment & Plan narrative: 1. Distal femur periprosthetic fracture S/P ORIF 12/28, present on admission and active. 2. Asthma, present on admission and stable. 3. CAD, present on admission and stable. Plan: -pain control -SNF for rehab, awaitign auth. -PT/OT -Discussed with Dr Candido Forrest F2F today. Time-Based Coding :: [TOTAL MINUTES] spent with patient and on the chart (including review of chart, obtaining history, exam, reviewing outside data, placing orders, documenting exam and treatment plan, and counseling patient) on [DATE]. Quality VTE Deep Vein Thrombosis/Pulmonary Embolism Present on Admission: No
--- NOTE | 2024-12-30 07:54 | P.PN_ITS ---
Subjective Subjective Interval history: She was resting comfortably in bed. She worked with therapy yesterday to get out of bed to a chair. She has minimal right knee pain. Exam Vital Signs (past 8 hours): Fraction of Inspired Oxygen 24 SaO2/FiO2 Ratio 391 Oxygen Delivery Method Nasal Cannula Oxygen Flow Rate 0 Narrative Exam Narrative: Her braces intact, she is able to fire toe flexors and extensors her foot is warm and viable, has a dressing on pretibial area, she is alert with slight confusion no change from baseline Objective Labs 12/29/24 09:07 12/29/24 09:07 Labs: Laboratory Results - last 24 hr 12/29/24 09:07 WBC 9.6 RBC 3.07 L Hgb 9.7 L Hct 29.1 L MCV 94.9 MCH 31.6 MCHC 33.3 RDW 17.1 H Plt Count 175 Neut % (Auto) 83.0 H Lymph % (Auto) 6.8 L [place] % (Auto) 10.0 Eos % (Auto) 0.0 L Baso % (Auto) 0.2 Neut # (Auto) 8000 H Lymph # (Auto) 700 L [place] # (Auto) 1000 H Eos # (Auto) 0 Baso # (Auto) 0 Sodium 137 Potassium 4.0 Chloride 105 Carbon Dioxide 24 BUN 18 H Creatinine 0.75 Estimated GFR > 60 BUN/Creatinine Ratio 24.0 H Glucose 131 H Calcium 8.4 PFSH Medical History Frequent falls Ulcer of right leg Ribs, multiple fractures (12/14/23) Sternal fracture (12/14/23) History of COVID-19 (~2021) Memory impairment DALE (stress urinary incontinence, female) History of varicose veins DDD (degenerative disc disease) Peripheral neuropathy CAD (coronary artery disease) Gastric ulcer Osteopenia Gout Migraine headache with aura Fracture of inferior pubic ramus Hip fracture, left (~10/2010) Atrial fibrillation Asthma Pulmonary hypertension, mild Tricuspid regurgitation NSVT (nonsustained ventricular tachycardia) Rheumatoid arthritis Tinnitus Depression Neck pain Hypothyroidism GI bleed (~2017) Edema HLD (hyperlipidemia) HTN (hypertension) COPD (chronic obstructive pulmonary disease) Raynauds phenomenon Neuropathy Surgical History S/P foot surgery, left History of total hip arthroplasty History of total knee arthroplasty (02/09/19) History of left heart catheterization Hx of hand surgery Hx of tonsillectomy Hx of tubal ligation Family History Father Alcoholism /alcohol abuse Mother Migraines Brother History of knee replacement Sister No significant medical problems Son Alcoholism /alcohol abuse Social History household members: children Smoking Status: Former smoker alcohol intake: former Assessment & Plan Post-op Postoperative Procedures: Procedures Operation Date: 12/27/24 17:30 <No data on this case meets the specified criteria> Operation Date: 12/28/24 17:30 Actual Procedure Side Surgeon p ORIF Distal Femur Fracture Right Ro Forrest MD Postoperative day: 2 Postoperative status: doing well Postoperative status narrative: Nonweightbearing on the right lower extremity, mobilized chair Postoperative plan: routine post-op care Postoperative plan narrative: We will need ECF at the time of discharge. Quality VTE Deep Vein Thrombosis/Pulmonary Embolism Present on Admission: No
[2024-12-30] MEDS: DOCUSATE 100 MG CAPSULE PO ×2 (08:38→20:08)
[2024-12-30] MEDS: ATORVASTATIN 20 MG TABLET PO (08:38)
[2024-12-30] MEDS: OXYCODONE IR 10 MG TABLET PO (08:38)
[2024-12-30] MEDS: PANTOPRAZOLE DR 40 MG TABLET PO (08:39)
[2024-12-30] MEDS: HEPARIN 5,000 UNIT/ML VIAL 5000 UNIT SUBCUT ×2 (08:39→20:09)
[2024-12-30 08:40] VITALS: BP 109/67; PULSE 72
[2024-12-30] MEDS: lisinopriL 5 MG TABLET PO (08:40)
[2024-12-30 08:41] VITALS: BP 109/67; PULSE 71
[2024-12-30] MEDS: METOPROLOL ER 25 MG TABLET PO (08:41)
[2024-12-30 08:44] VITALS: BP 109/67; PULSE 81; RESP 15; TEMP 37.2; O2SAT 93
[2024-12-30] MEDS: OXYCODONE IR 5 MG TABLET PO (09:32)
[2024-12-30] MEDS: SODIUM CHLORIDE 0.9% FLUSH 10 ML IV ×2 (09:32→20:20)
[2024-12-30 09:33] VITALS: BP 106/58; PULSE 61
--- NOTE | 2024-12-30 10:10 | PT.IPTN ---
Current Diagnoses Coagulation defect, unspecified (12/27/24) Periprosthetic fracture around other internal prosthetic joint, initial encounter (12/27/24) Syncope and collapse (12/27/24) Unspecified open wound, right lower leg, initial encounter (12/27/24) Presence of right artificial knee joint (12/27/24) Presence of unspecified artificial knee joint (12/27/24) Surgery Performed Operation Date: 12/27/24 17:30 <No data on this case meets the specified criteria> Operation Date: 12/28/24 17:30 Actual Procedures p ORIF Distal Femur Fracture(Right) - Ro Forrest MD Physical Therapy Treatment Note M2 PT-IP Current Condition Start: 12/29/24 17:17 Freq: NEEDED Status: Active Protocol: Document 12/29/24 13:50 AB (Rec: 12/29/24 17:40 AB [id number]) Physical Therapy Current Condition Current Condition Evaluation Date 12/29/24 Treatment Diagnosis R knee periprosthetic fx s/p ORIF; difficulty in walking Onset Date 12/27/24 M3 PT-IP Subjective Start: 12/29/24 17:17 Freq: NEEDED Status: Active Protocol: Document 12/30/24 10:10 [facility] (Rec: 12/30/24 12:29 [facility] Desktop) Subjective Physical Therapy Visit Type Type Treatment Note Visit Start Time 10:10 Visit Stop Time 10:45 Number of OIL AND GAS DRAFTER Visits 35 Physical Therapy Visit Comments Patient Comments agreed to do PT Therapy Pain Assessment Pain When Pain Assessed During Mobility Location right knee Scale Used pain scale not stated Pain Behaviors Guarding,Holding Area Pain Management Distraction,Modification of Treatment,Re-positioning, Techniques Timing of Activity with Medications M4 PT-IP Mobility and Gait Start: 12/29/24 17:17 Freq: NEEDED Status: Active Protocol: Document 12/30/24 10:10 AB (Rec: 12/30/24 12:29 [facility] Desktop) PT-Bed Mobility Assessment Supine to Sit Supine to Sit Maximum Assistance,1 Person Assistance,Head of Bed Elevated,Bedrails PT-Transfer Assessment Sit to and From Stand Sit to and from Maximum Assistance,2 Person Assistance,Use of Upper Stand Extremities Equipment Transfer Assistive Gait Belt,Front Wheeled Walker Device Orthotic/Prosthetic No Devices or Brace: Transfers Transfer Destination Chair Transfer Technique Lateral Scoot Transfer Ability Level of Assist Maximum Assistance,Total Assistance,2 Person Assistance ,Use of Upper Extremities Comments Mobility Comments pt in bed and agreed to do PT. completed supine to sit max A and max cues. HOB elevated and pt used bed rail to assist. pt needed increase time to process instructions requiring max cues. sit to stand from EOB max A x 2 and max cues. needed assist for NWB on RLE. unable to step/stand pivot to chair using FWW. pt sat back on EOB. pt completed slide board transfer bed to chair requiring max x 2 to total A x 2 and max cues. positioned pt on the chair. call light and table placed within reach. Gait Assessment Comments Gait Comments unable at this time M5 PT-IP Objective Assessments Start: 12/29/24 17:17 Freq: NEEDED Status: Active Protocol: Document 12/29/24 13:50 AB (Rec: 12/29/24 17:40 AB [id number]) Orientation Orientation/Cognition Level of Alertness Confusional State Orientation Name Language Function Hard of Hearing Ability Safety Awareness Decreased Safety Awareness Memory Description Short Term Impaired,Web Production Assistant Impaired Gross Range of Motion Lower Extremity ROM Assessment Right Impaired Impairments R knee on hinge brace: per Dr. Forrest's operative note: very slight ROM Strength Lower Extremity Strength Assessment Right Impaired Hip 2+/5 Knee 2+/5 Muscle Tone Muscle Tone WNL Yes M6 PT-IP Treatment Start: 12/29/24 17:17 Freq: NEEDED Status: Active Protocol: Document 12/30/24 10:10 AB (Rec: 12/30/24 12:29 AB Desktop) Physical Therapy Treatment Education Education Provided Weight Bearing Status,Safety M7 PT-IP Assessment and Plan Start: 12/29/24 17:17 Freq: NEEDED Status: Active Protocol: Document 12/30/24 10:10 AB (Rec: 12/30/24 12:29 AB Desktop) PT Summary Assessment and Plan Potential Rehabilitation Fair Potential Summary Impairments Pain,ROM,Strength,Balance,Coordination,Sensation,Tone, Cognition,Bed Mobility,Transfers,Gait,Activity Tolerance Progress Towards Slow Progress due to Activity Tolerance,Slow Progress - Goals Other Assessment Summary pt requiring max A x 2 for sit to stand using FWW for support; able to slide board transfer to chair requiring max A x 2 to total A x 2 and max cues. pt will need SNF rehab to improve overall strength and mobility. Goals Bed Mobility Goal Minimal Assistance Transfer Goal Minimal Assistance,Front Wheeled Walker Gait Goal Minimal Assistance,Front Wheel Walker Gait Distance 20 Other Goals improve bed mobility, transfers and ambulation 30 ft CGA Days to Meet Goals 10 Frequency of Treatment Frequency Of Once a Day Treatment Treatment Plan Physical Therapy Bed Mobility Training,Transfer Training,Gait Training, Treatment Plan Therapeutic Exercise,Balance Retraining,Post Op Education,Discharge Planning,Hot or Cold Pack, Neuromuscular Re-ed,Coordination Retraining,Manual Therapy Precautions Brace R knee hinge brace (0-40 deg) Weight Bearing Status Weight Bearing Non-Weight Bearing Status Allowed Weight RLE NWB Bearing Amount ( enter % or #) (%) Recommendations To Nursing Amount of Assist Mechanical Lift Needed Discharge Recommendations PT Discharge SNF Rehab Recommendations Transportation Needs Wheelchair/Cabulance,Stretcher/Ambulance at Discharge - PT assist 2
--- NOTE | 2024-12-30 14:01 | CM.DPC ---
DCP Cont Update on patient's insurance: Patient's primary insurance is [facility] and [place] is secondary. [facility] Policy number [id number]. Admitting has confirmed and chart has been updated. Oddly, Jiménez PEDRO Christian made no mention of another insurance coverage when we spoke Friday 12/29. Spoke with Melissa at [facility], updated with new information. Melissa will need to submit auth request to [facility] ([employer]) first. Melissa can do this over the weekend but is unsure when the determination will come through. Emailed Melissa verification of [facility] benefits and updated clinical including therapy notes. Plan: Discharge likely to [facility], patient's first choice, pending auth from [facility] ([employer] via [employer] van. Of Note: son decided to complete the [facility] application online. ROSA MARIA team following closely for coordination. Patient continues to need SNF at [place]. [facility]
--- NOTE | 2024-12-30 16:02 | PC.NURSE ---
Patients bottom on Left butt check is red but blanching. There is a spot purple in color at top of gluteal cleft. It appears to be a scare from prev. injury. Mepilex dressing was placed for prevention to bottom.
[2024-12-30 19:33] VITALS: BP 100/60; PULSE 90; RESP 15; TEMP 36.3; O2SAT 95
[2024-12-30] MEDS: SENNOSIDES 8.6 MG TABLET 17.2 MG PO (20:09)
[2024-12-31] MEDS: LEVOTHYROXINE 25 MCG TABLET 75 MCG PO (06:48)
--- NOTE | 2024-12-31 07:19 | PM.PN.1 ---
Subjective Subjective Interval history: Summary: 84-year-old female with a ground level fall and a right femur comminuted periprosthetic femur fracture. She was status post ORIF on 12/28 and awaiting [facility] facility placement pending insurance approval. She has been stable, had good pain control, and a stable hemoglobin. Anticipated discharge on Wednesday [facility] or [place] pending insurance authorization. S: She is doing well, she is comfortable in bed. Good pain control, no dyspnea or other concerns. Exam Vital Signs (past 8 hours): Fraction of Inspired Oxygen 24 SaO2/FiO2 Ratio 391 Oxygen Delivery Method Nasal Cannula Oxygen Flow Rate 0 Narrative Exam Narrative: NAD, alert and oriented. Fluent speech. Lungs are clear, normal rate and effort. Heart is regular, no murmur gallop or rub. Abdomen is soft, non distended. Extremities are free of edema. Objective Labs 12/29/24 09:07 12/29/24 09:07 [facility] Medical History Frequent falls Ulcer of right leg Ribs, multiple fractures (12/14/23) Sternal fracture (12/14/23) History of COVID-19 (~2021) Memory impairment DALE (stress urinary incontinence, female) History of varicose veins DDD (degenerative disc disease) Peripheral neuropathy CAD (coronary artery disease) Gastric ulcer Osteopenia Gout Migraine headache with aura Fracture of inferior pubic ramus Hip fracture, left (~10/2010) Atrial fibrillation Asthma Pulmonary hypertension, mild Tricuspid regurgitation NSVT (nonsustained ventricular tachycardia) Rheumatoid arthritis Tinnitus Depression Neck pain Hypothyroidism GI bleed (~2017) Edema HLD (hyperlipidemia) HTN (hypertension) COPD (chronic obstructive pulmonary disease) Raynauds phenomenon Neuropathy Surgical History S/P foot surgery, left History of total hip arthroplasty History of total knee arthroplasty (02/09/19) History of left heart catheterization Hx of hand surgery Hx of tonsillectomy Hx of tubal ligation Family History Father Alcoholism /alcohol abuse Mother Migraines Brother History of knee replacement Sister No significant medical problems Son Alcoholism /alcohol abuse Social History household members: children Smoking Status: Former smoker alcohol intake: former Assessment & Plan Assessment & Plan narrative: 1. Distal femur periprosthetic fracture S/P ORIF 12/28, present on admission and active. 2. Asthma, present on admission and stable. 3. CAD, present on admission and stable. Plan: -pain control -SNF for rehab, awaitign auth. -PT/OT -Enoxaparin for DVT prophylaxis. DVT prophylaxis: She was said to be allergic to aspirin (rash), would recommend enoxaparin at [facility] facility for DVT prophylaxis. Time-Based Coding :: [TOTAL MINUTES] spent with patient and on the chart (including review of chart, obtaining history, exam, reviewing outside data, placing orders, documenting exam and treatment plan, and counseling patient) on [DATE]. Quality VTE Deep Vein Thrombosis/Pulmonary Embolism Present on Admission: No
[2024-12-31] MEDS: ATORVASTATIN 20 MG TABLET PO (08:12)
[2024-12-31] MEDS: PANTOPRAZOLE DR 40 MG TABLET PO (08:12)
[2024-12-31] MEDS: DOCUSATE 100 MG CAPSULE PO ×2 (08:12→20:04)
[2024-12-31] MEDS: polyethylene glycoL 3350 17 GM POWD.PACK PO (08:12)
[2024-12-31] MEDS: lisinopriL 5 MG TABLET PO (08:12)
[2024-12-31] MEDS: HEPARIN 5,000 UNIT/ML VIAL 5000 UNIT SUBCUT ×2 (08:14→20:04)
[2024-12-31 08:18] VITALS: BP 108/64; PULSE 82; RESP 16; TEMP 36.6; O2SAT 91
[2024-12-31] MEDS: ACETAMINOPHEN 325 MG TABLET 650 MG PO ×2 (08:40→20:04)
[2024-12-31 08:53] VITALS: BP 108/64; PULSE 82
[2024-12-31] MEDS: METOPROLOL ER 25 MG TABLET PO (08:53)
[2024-12-31 09:10] VITALS: BP 110/60
--- NOTE | 2024-12-31 10:42 | CM.DPNOTE ---
DCP note SPORTS TEAM MANAGER reviewed EMR per provider in morning rounds, medically stable to dc once ins auth SNF secured SPORTS TEAM MANAGER emailed Melissa at [facility] with updates, auth pending (likely will not get ins auth on Wednesday). PASRR completed, signature needed. P: anticipate dc to [facility] once auth secured, transport pending. [facility] 01/01 vs 01/02. will continue to follow closely for DCP coordination ADRIANA Plunkett
--- NOTE | 2024-12-31 11:24 | PT.IPTN ---
Current Diagnoses Coagulation defect, unspecified (12/27/24) Periprosthetic fracture around other internal prosthetic joint, initial encounter (12/27/24) Syncope and collapse (12/27/24) Unspecified open wound, right lower leg, initial encounter (12/27/24) Presence of right artificial knee joint (12/27/24) Presence of unspecified artificial knee joint (12/27/24) Surgery Performed Operation Date: 12/27/24 17:30 <No data on this case meets the specified criteria> Operation Date: 12/28/24 17:30 Actual Procedures p ORIF Distal Femur Fracture(Right) - Ro Forrest MD Physical Therapy Treatment Note M2 PT-IP Current Condition Start: 12/29/24 17:17 Freq: NEEDED Status: Active Protocol: Document 12/29/24 13:50 AB (Rec: 12/29/24 17:40 AB [id number]) Physical Therapy Current Condition Current Condition Evaluation Date 12/29/24 Treatment Diagnosis R knee periprosthetic fx s/p ORIF; difficulty in walking Onset Date 12/27/24 M3 PT-IP Subjective Start: 12/29/24 17:17 Freq: NEEDED Status: Active Protocol: Document 12/31/24 10:59 MB (Rec: 12/31/24 11:24 MB Desktop) Subjective Physical Therapy Visit Type Type Treatment Note Visit Start Time 10:59 Visit Stop Time 11:15 Number of BARBERING INSTRUCTOR Visits 16 Physical Therapy Visit Comments Patient Comments Pt is agreeable to PT. Therapy Pain Assessment Pain When Pain Assessed During Mobility Location right knee Scale Used Not rated, does not limit therapy M4 PT-IP Mobility and Gait Start: 12/29/24 17:17 Freq: NEEDED Status: Active Protocol: Document 12/31/24 10:59 MB (Rec: 12/31/24 11:24 MB Desktop) PT-Bed Mobility Assessment Supine to Sit Supine to Sit Maximum Assistance,1 Person Assistance,Head of Bed Elevated,Bedrails Sit to Supine Sit to Supine Maximum Assistance,1 Person Assistance,Bedrails Scooting Scooting to Edge of Maximum Assistance Bed Scooting Up and Down Maximum Assistance in Bed PT-Transfer Assessment Comments Mobility Comments Pt makes a great effort with bed mobility to the right EOB with cues and pt requires max A because PT must hold right leg up at all times, even when EOB, as foot does not reach and lowering would increase knee flexion . HOB increased, cues and use of rail for scooting, cues for half bridge through left foot on mattress and left hip and this aides pt in scooting to EOB and back to bed. Lower rail on bed also used with left hand. To get back to bed, max A to lift right leg back in bed and bed in Trendelenburg and pt also pushes through left foot and PT holds/unweights right leg and pt uses head of bed rails to help scoot up to the HOB. PT-Balance Assessment Sitting Balance and Reactions Static Sitting Fair Balance Ability Dynamic Sitting Fair Balance Ability Comments Other Balance Tests/ PT must hold right leg up at all times with sitting Deviations/Treatment : M5 PT-IP Objective Assessments Start: 12/29/24 17:17 Freq: NEEDED Status: Active Protocol: Document 12/29/24 13:50 AB (Rec: 12/29/24 17:40 AB [id number]) Orientation Orientation/Cognition Level of Alertness Confusional State Orientation Name Language Function Hard of Hearing Ability Safety Awareness Decreased Safety Awareness Memory Description Short Term Impaired,[facility] Impaired Gross Range of Motion Lower Extremity ROM Assessment Right Impaired Impairments R knee on hinge brace: per Dr. Forrest's operative note: very slight ROM Strength Lower Extremity Strength Assessment Right Impaired Hip 2+/5 Knee 2+/5 Muscle Tone Muscle Tone WNL Yes M6 PT-IP Treatment Start: 12/29/24 17:17 Freq: NEEDED Status: Active Protocol: Document 12/31/24 10:59 MB (Rec: 12/31/24 11:24 MB Desktop) Physical Therapy Treatment Education Education Provided Weight Bearing Status,Safety M7 PT-IP Assessment and Plan Start: 12/29/24 17:17 Freq: NEEDED Status: Active Protocol: Document 12/31/24 10:59 MB (Rec: 12/31/24 11:24 MB Desktop) PT Summary Assessment and Plan Potential Rehabilitation Fair Potential Status of Condition Evolving at Evaluation Summary Impairments Pain,ROM,Strength,Balance,Coordination,Cognition,Bed Mobility,Transfers,Gait,Activity Tolerance Progress Towards Slow Progress due to Activity Tolerance,Slow Progress - Goals Other Assessment Summary Pt makes a good effort with bed mobility and sitting balance today in setting of her age and orthopedic injury and in right knee brace. PT must manage her right LE at all times for unweighting for scooting to the right EOB, with sitting and to get back to bed and to scoot up to HOB. When she is on a lower surface, working on transfer to the left via SB would be a good option for transfer training. Currently, she will require total lift for OOB to chair given NWB right LE and knee immobilizer status. Goals Bed Mobility Goal Minimal Assistance Transfer Goal Minimal Assistance,Front Wheeled Walker Gait Goal Minimal Assistance,Front Wheel Walker Gait Distance 20 Other Goals improve bed mobility, transfers and ambulation 30 ft CGA Pt will perform SB transfer to the left with no more than CGA Days to Meet Goals 10 Frequency of Treatment Frequency Of Once a Day Treatment Treatment Plan Physical Therapy Bed Mobility Training,Transfer Training,Gait Training, Treatment Plan Therapeutic Exercise,Balance Retraining,Post Op Education,Discharge Planning,Hot or Cold Pack, Neuromuscular Re-ed,Coordination Retraining,Manual Therapy Precautions Brace R knee hinge brace (0-40 deg) Weight Bearing Status Weight Bearing Non-Weight Bearing Status Allowed Weight RLE NWB Bearing Amount ( enter % or #) (%) Recommendations To Nursing Amount of Assist Mechanical Lift Needed Discharge Recommendations PT Discharge SNF Rehab Recommendations Transportation Needs Wheelchair/Cabulance,Stretcher/Ambulance at Discharge - PT assist 2
[2024-12-31] MEDS: SODIUM CHLORIDE 0.9% FLUSH 10 ML IV ×2 (12:13→12:14)
--- NOTE | 2024-12-31 16:32 | P.PN_ITS ---
Subjective Subjective Interval history: She was out of bed with the nurses to a chair. She has minimal pain. She is urinating without difficulty. She has been strict nonweightbearing. Exam Vital Signs (past 8 hours): - 12/31/24 08:53 12/31/24 09:10 Pulse Rate 82 Blood Pressure 108/64 110/60 Fraction of Inspired Oxygen 24 SaO2/FiO2 Ratio 391 Oxygen Delivery Method Nasal Cannula Oxygen Flow Rate 0 Narrative Exam Narrative: She is resting comfortably in bed her dressings intact her braces in an adequate position she does have a pretibial dressing which he was noted to be intact with minimal drainage she can fire toe flexors and extensors and has adequate capillary refill in her foot and ankle Objective Labs 12/29/24 09:07 12/29/24 09:07 [facility] Medical History Frequent falls Ulcer of right leg Ribs, multiple fractures (12/14/23) Sternal fracture (12/14/23) History of COVID-19 (~2021) Memory impairment DALE (stress urinary incontinence, female) History of varicose veins DDD (degenerative disc disease) Peripheral neuropathy CAD (coronary artery disease) Gastric ulcer Osteopenia Gout Migraine headache with aura Fracture of inferior pubic ramus Hip fracture, left (~10/2010) Atrial fibrillation Asthma Pulmonary hypertension, mild Tricuspid regurgitation NSVT (nonsustained ventricular tachycardia) Rheumatoid arthritis Tinnitus Depression Neck pain Hypothyroidism GI bleed (~2017) Edema HLD (hyperlipidemia) HTN (hypertension) COPD (chronic obstructive pulmonary disease) Raynauds phenomenon Neuropathy Surgical History S/P foot surgery, left History of total hip arthroplasty History of total knee arthroplasty (02/09/19) History of left heart catheterization Hx of hand surgery Hx of tonsillectomy Hx of tubal ligation Family History Father Alcoholism /alcohol abuse Mother Migraines Brother History of knee replacement Sister No significant medical problems Son Alcoholism /alcohol abuse Social History household members: children Smoking Status: Former smoker alcohol intake: former Assessment & Plan Post-op Postoperative Procedures: Procedures Operation Date: 12/27/24 17:30 <No data on this case meets the specified criteria> Operation Date: 12/28/24 17:30 Actual Procedure Side Surgeon p ORIF Distal Femur Fracture Right Ro Forrest MD Postoperative day: 3 Postoperative status: doing well Postoperative plan: routine post-op care Postoperative plan narrative: She needs to continue to be strict nonweightbearing. She was medically stabilizing. I anticipate she probably can be discharged to rehab probably tomorrow. We can change her pretibial dressing prior to discharge. I would recommend we discontinue her Fletcher in the early a.m.. Quality VTE Deep Vein Thrombosis/Pulmonary Embolism Present on Admission: No
--- NOTE | 2024-12-31 16:39 | PC.NURSE ---
Pt repositioned frequently. Denies discomfort all day. Right knee brace in place; CMS intact. SL LFA intact/patent. Call light w/in reach, bed alarm on for pt safety, Pt calls appropriately for needs. Continue w/plan of care.
[2024-12-31 19:00] VITALS: BP 88/60; PULSE 90; RESP 18; TEMP 36.8; O2SAT 94
[2024-12-31] MEDS: SENNOSIDES 8.6 MG TABLET 17.2 MG PO (20:04)
[2024-12-31] MEDS: SODIUM CHLORIDE 0.9% 500 ML 1000 ML IV (20:05)
[2024-12-31 20:07] VITALS: BP 88/60
[2024-12-31 21:21] VITALS: BP 104/59
[2025-01-01 04:55] LABS: Hematocrit 28.2 % (36-46); Hemoglobin 9.3 g/dL (12.0-16.0); Mean Corpuscular HGB Conc 33.1 % (30-36); Mean Corpuscular Hemoglobin 31.5 PG (26-34); Mean Corpuscular Volume 95.1 fL (80-100); Platelet Count 224 X10^3/uL (150-400); Red Blood Cell Count 2.97 X10^6/uL (4.0-5.2); Red Cell Distribution Width 17.3 % (11.6-14.8); White Blood Cell Count 7.2 X10^3/uL (4.5-11.0)
[2025-01-01 05:08] LABS: BUN Creatinine Ratio 30.6 (6-22); Blood Urea Nitrogen 26 mg/dL (7-17); Calcium 8.2 mg/dL (8.4-10.2); Carbon Dioxide 26 mmol/L (22-32); Chloride 108 mmol/L (98-107); Estimated Glomerular Filt Rate > 60 mL/min (>60); Glucose 100 mg/dL (70-99); HEMOLYSIS < 15 (0-50); Potassium 4.4 mmol/L (3.4-5.1); Sodium 137 mmol/L (137-145)
[2025-01-01] MEDS: LEVOTHYROXINE 25 MCG TABLET 75 MCG PO (05:24)
[2025-01-01 08:00] VITALS: BP 117/68; PULSE 83; RESP 17; TEMP 36.8; O2SAT 97
[2025-01-01] MEDS: HEPARIN 5,000 UNIT/ML VIAL 5000 UNIT SUBCUT ×2 (08:30→20:47)
[2025-01-01 08:31] VITALS: BP 117/68; PULSE 83
[2025-01-01] MEDS: METOPROLOL ER 25 MG TABLET PO (08:31)
[2025-01-01] MEDS: PANTOPRAZOLE DR 40 MG TABLET PO (08:31)
[2025-01-01] MEDS: ATORVASTATIN 20 MG TABLET PO (08:32)
[2025-01-01] MEDS: lisinopriL 5 MG TABLET PO (08:32)
[2025-01-01] MEDS: DOCUSATE 100 MG CAPSULE PO ×2 (08:32→20:47)
[2025-01-01] MEDS: FUROSEMIDE 20 MG TABLET PO (08:36)
[2025-01-01] MEDS: ACETAMINOPHEN 325 MG TABLET 650 MG PO ×3 (08:36→20:47)
[2025-01-01 09:15] VITALS: BP 110/60
[2025-01-01] MEDS: SODIUM CHLORIDE 0.9% FLUSH 10 ML IV ×2 (09:30→20:48)
--- NOTE | 2025-01-01 10:31 | CM.DPNOTE ---
DCP note CHIROPRACTIC PRACTICE MANAGER reviewed EMR per chart review/provider in morning rounds, medically stable to DC to SNF today. per Melissa at [facility], ins auth pending. no further clinicals needed at this time CHIROPRACTIC PRACTICE MANAGER spoke with son Josue ([phone]). remains agreeable with plan/confirms preference for pt to dc to [facility] when auth available. P: anticipate dc later today vs tomorrow pending SNF auth. will continue to follow closely for DCP coordination ADRIANA Plunkett
--- NOTE | 2025-01-01 11:42 | PT.IPTN ---
Current Diagnoses Coagulation defect, unspecified (12/27/24) Periprosthetic fracture around other internal prosthetic joint, initial encounter (12/27/24) Syncope and collapse (12/27/24) Unspecified open wound, right lower leg, initial encounter (12/27/24) Presence of right artificial knee joint (12/27/24) Presence of unspecified artificial knee joint (12/27/24) Surgery Performed Operation Date: 12/27/24 17:30 <No data on this case meets the specified criteria> Operation Date: 12/28/24 17:30 Actual Procedures p ORIF Distal Femur Fracture(Right) - Ro Forrest MD Physical Therapy Treatment Note M2 PT-IP Current Condition Start: 12/29/24 17:17 Freq: NEEDED Status: Active Protocol: Document 12/29/24 13:50 AB (Rec: 12/29/24 17:40 AB [id number]) Physical Therapy Current Condition Current Condition Evaluation Date 12/29/24 Treatment Diagnosis R knee periprosthetic fx s/p ORIF; difficulty in walking Onset Date 12/27/24 M3 PT-IP Subjective Start: 12/29/24 17:17 Freq: NEEDED Status: Active Protocol: Document 01/01/25 11:00 MB (Rec: 01/01/25 11:41 MB Desktop) Subjective Physical Therapy Visit Type Type Treatment Note Visit Start Time 11:00 Visit Stop Time 11:30 Notes PT/OT co-treat d/t complexity and functional tasks both appropriate for skilled therapists Number of HIM CLERK Visits 0 Physical Therapy Visit Comments Patient Comments Pt is agreeable to PT. Therapy Pain Assessment Pain When Pain Assessed At Rest Location right knee Scale Used 2 M4 PT-IP Mobility and Gait Start: 12/29/24 17:17 Freq: NEEDED Status: Active Protocol: Document 01/01/25 11:00 MB (Rec: 01/01/25 11:41 MB Desktop) PT-Bed Mobility Assessment Supine to Sit Supine to Sit Maximum Assistance,1 Person Assistance,Head of Bed Elevated,Bedrails Scooting Scooting to Edge of Dependent Bed PT-Transfer Assessment Comments Mobility Comments For bed mobility, lots of cues and PT holds right leg to maintain position and to prevent leg falling off the side of the bed. Second person does assist occ as pt loses sitting balance posteriorly, cues for hand placement and use of HOB and bottom of bed rails and for scooting, using left foot to bridge and scoot out At the end of mobility, OT uses pad to scoot hips out to EOB as PT holds right leg. Right foot placed on step to set-up SB for SB transfer to w/c to the left. Pt requires max A for positioning SB, does follow commands to lean right and left and does assist with SB transfer to the left, providing 25% of the work and then +2 max A from PT and OT to do all of transfer. Left up in w/c with nsg and OT and pt agreement for lunch. W/c does not have elevating leg rests and so created elevation with SB under legs and pillow support . Pt can move legs as needed and team determines similar to recliner and that pt is not restrained. Lift sling under pt and she to perform OT tasks at sink, have lunch in w/c and then nsg to assist back to bed with total lift. PT-Balance Assessment Sitting Balance and Reactions Static Sitting Fair Balance Ability Dynamic Sitting Fair Balance Ability Comments Other Balance Tests/ Pt is able to rest right foot on step today and so PT Deviations/Treatment does not have to hold it up at all times : M5 PT-IP Objective Assessments Start: 12/29/24 17:17 Freq: NEEDED Status: Active Protocol: Document 12/29/24 13:50 AB (Rec: 12/29/24 17:40 AB [id number]) Orientation Orientation/Cognition Level of Alertness Confusional State Orientation Name Language Function Hard of Hearing Ability Safety Awareness Decreased Safety Awareness Memory Description Short Term Impaired,Aircraft Structural Repairer Impaired Gross Range of Motion Lower Extremity ROM Assessment Right Impaired Impairments R knee on hinge brace: per Dr. Forrest's operative note: very slight ROM Strength Lower Extremity Strength Assessment Right Impaired Hip 2+/5 Knee 2+/5 Muscle Tone Muscle Tone WNL Yes M6 PT-IP Treatment Start: 12/29/24 17:17 Freq: NEEDED Status: Active Protocol: Document 01/01/25 11:00 MB (Rec: 01/01/25 11:41 MB Desktop) Physical Therapy Treatment Education Education Provided Weight Bearing Status,Safety M7 PT-IP Assessment and Plan Start: 12/29/24 17:17 Freq: NEEDED Status: Active Protocol: Document 01/01/25 11:00 MB (Rec: 01/01/25 11:41 MB Desktop) PT Summary Assessment and Plan Potential Rehabilitation Fair Potential Status of Condition Evolving at Evaluation Summary Impairments Pain,ROM,Strength,Balance,Coordination,Cognition,Bed Mobility,Transfers,Gait,Activity Tolerance Progress Towards Slow Progress due to Activity Tolerance,Slow Progress - Goals Other Assessment Summary Progressed with functional mobility training today with SB and pt performs 25% effort and requires +2 max A to complete safely. Pt to sit up in w/c with knee precautions in place for lunch and then nsg to return pt to bed with total lift and plan agreed by Safia, primary nurse, OT and PT, and pt. Goals Bed Mobility Goal Minimal Assistance Transfer Goal Minimal Assistance,Front Wheeled Walker Gait Goal Minimal Assistance,Front Wheel Walker Gait Distance 20 Other Goals improve bed mobility, transfers and ambulation 30 ft CGA Pt will perform SB transfer to the left with no more than CGA Days to Meet Goals 10 Frequency of Treatment Frequency Of Once a Day Treatment Treatment Plan Physical Therapy Bed Mobility Training,Transfer Training,Gait Training, Treatment Plan Therapeutic Exercise,Balance Retraining,Post Op Education,Discharge Planning,Hot or Cold Pack, Neuromuscular Re-ed,Coordination Retraining,Manual Therapy Other Recommend finding w/c with elevating leg rest for next Recommendations and time up in w/c/practicing SB transfer Next Treatment Focus Precautions Brace R knee hinge brace (0-40 deg) Weight Bearing Status Weight Bearing Non-Weight Bearing Status Allowed Weight RLE NWB Bearing Amount ( enter % or #) (%) Recommendations To Nursing Amount of Assist Mechanical Lift Needed Discharge Recommendations PT Discharge SNF Rehab Recommendations Transportation Needs Wheelchair/Cabulance,Stretcher/Ambulance at Discharge - PT assist 2
--- NOTE | 2025-01-01 12:35 | OT.IP.TRT ---
Current Diagnoses Coagulation defect, unspecified (12/27/24) Periprosthetic fracture around other internal prosthetic joint, initial encounter (12/27/24) Syncope and collapse (12/27/24) Unspecified open wound, right lower leg, initial encounter (12/27/24) Presence of right artificial knee joint (12/27/24) Presence of unspecified artificial knee joint (12/27/24) Surgery Performed Operation Date: 12/27/24 17:30 <No data on this case meets the specified criteria> Operation Date: 12/28/24 17:30 Actual Procedures p ORIF Distal Femur Fracture(Right) - Ro Forrest MD Occupational Therapy Treatment Note M2 OT-IP Current Condition Start: 12/29/24 16:16 Freq: Status: Active Protocol: Document 12/29/24 16:16 [facility] (Rec: 12/29/24 16:42 [facility] Desktop) Occupational Therapy Current Condition Current Condition Evaluation Date 12/29/24 Treatment Diagnosis S/P ORIF right femur comminuted periprosthetic femur fx Diagnosis Onset Date 12/27/24 Post Operative Precautions Other Precautions Right knee ROM 0-45degrees Weight Bearing Status Weight Bearing Non-Weight Bearing Status Allowed Weight RLE Bearing Amount ( enter % or #) (%) M3 OT- IP Subjective and Pain Start: 12/29/24 16:16 Freq: Status: Active Protocol: Document 01/01/25 12:12 [facility]IE (Rec: 01/01/25 12:35 BECCASCAIDEN [id number]) OT- Subjective Occupational Therapy Visit Type Type Treatment Note Visit Start Time 11:05 Visit Stop Time 11:40 Notes Pt reclined in bed and agreeable to OT/PT co-tx. Occupational Therapy Visit Comments Patient Comments agreeable to therapy Patient/Caregiver Pt did not state. Goals OT Pain Assessment Pain When Pain Assessed throughout Pain Present Pain Present Pain Reported Location right knee Intensity 3 Scale Used Numeric (0 - 10) Pain Behaviors Holding Area Management Distraction,Re-positioning Techniques M4 OT- IP ADL's Start: 12/29/24 16:16 Freq: Status: Active Protocol: Document 01/01/25 12:12 CASIE (Rec: 01/01/25 12:35 BECCASCAIDEN [id number]) OT [id number] General Evaluation Self-Feeding Ability Independent OT ADL-Grooming Comments OT Grooming Comments pt oden her hair up in w/c at sink side on set-up of comb. OT ADL-Oral Care General Eval Oral Care Ability Standby Assistance Comments Oral Care Comments pt is able to manage toothpaste lid, applying toothpaste, and brushing on set up of items. pt needs assist to rinse out her toothbrush as she is unable to reach from the w/c. OT ADL-Dressing General Eval Lower Body Dressing Total Assistance Ability Areas Needing Socks,Orthosis/Prosthesis Assistance Comments OT Dressing Comments pt attempted to don L sock while reclined in bed, pt lacks the ROM to perform from this position. OT then donned sock and pulled it up toward her heel allowing pt opportunity to finish pulling up sock, but pt continues to be unable in current position. OT ADL-Toileting Comments OT Toileting not observed Comments OT ADL-Bathing Comments OT Bathing Comments not observed M5 OT- IP IADL's Start: 12/29/24 16:16 Freq: Status: Active Protocol: Document 12/29/24 16:16 [facility] (Rec: 12/29/24 16:42 [facility] Desktop) OT-Instrumental Activities of Daily Living Deficits IADL Deficits Deficits Identified Home Safety Awareness Home Safety Comments Pt is confused and not able to answer questions consistently. Medication Management Medication Pt 's son states to now do for pt, home health nursing Management Comments has been setting up her pills. Money Management Money Management Caregiver Provides Assistance Meal Preparation Meal Preparation Caregiver Provides Assist Kiln Car Repairer Kiln Car Repairer Caregiver Provides Assist M6 OT- IP Functional Cognition Start: 12/29/24 16:16 Freq: Status: Active Protocol: Document 12/29/24 16:16 [facility] (Rec: 12/29/24 16:42 [facility] Desktop) Cognitive Factors Limiting Selfcare Function Cognitive Ability Level of Alertness Alert,Confusional State Patient Orientation Name,Age,Birthday,Month,Year,Place,Situation Attention Span Capable of Focused Attention,Capable of Sustained Ability Attention Ability to Follow Able to Follow One Step Commands with Increased Time, Commands Able to Follow One Step Commands with Repetition Memory Description Short Term Impaired Cognitive Comments Cognitive Assessment Pt needing simple cues to follow in addition to tactile Comments cues. Pt not aware what the call light remote was for and having to educate pt. OT- Vision and Hearing OT- Hearing Assessment OT- Hearing WFL Assessment OT- Vision Assessment Visual Acuity Glasses All The Time Visual Attentiveness WFL Occular Pursuits WFL Vision Assessment Pt able to read the clock. Comments M7 OT- IP Mobility and Balance Start: 12/29/24 16:16 Freq: Status: Active Protocol: Document 01/01/25 12:12 CASIE (Rec: 01/01/25 12:35 [facility] [id number]) OT- Bed Mobility Assessment Supine to Sit Supine to Sit Assist Maximum Assistance,1 Person Assistance,Head of Bed Elevated,Bedrails Scooting Scooting to Edge of Total Assistance,2 Person Assistance Bed OT-Transfer Assessment Transfers Transfer Ability Maximum Assistance,2 Person Assistance Technique Transfer Destination Wheelchair Transfer Technique slide board Devices Transfer Assistive Gait Belt,Sliding Board Devices Comments Mobility Comments Pt requires frequent step by step cues for bed mobility while PT holds R LE to maintain position. OT assists with occasional LOB posteriorly, cues for hand placement, and managing bed rails and buttons. OT uses bed pad to complete scooting pt's hips to EOB. Pts R LE placed on step. Pt requires max A to position slide board. Pt assists with slide board t/f to the L, providing approximately 25% of the work. It requires max A x2 to complete t/f. Pt's w/c does not have elevating leg rest, pt was positioned with sliding board behind LES and multiple pillows for appropriate support to prevent too much knee flexion. OT- Balance Assessment Sitting Balance and Reactions Static Sitting Fair Balance Ability Dynamic Sitting Fair Balance Ability M8 OT- IP Objective Assessments Start: 12/29/24 16:16 Freq: Status: Active Protocol: Document 12/29/24 16:16 [facility] (Rec: 12/29/24 16:42 [facility] Desktop) OT Gross Range of Motion Upper Extremity Range of Motion ROM Impairments grossly WFL LUE> RUE OT Strength Comments Strength Comments BUE 4-/5 to 4/5 M9 OT- IP Assessment and Plan Start: 12/29/24 16:16 Freq: Status: Active Protocol: Document 01/01/25 12:12 CASIE (Rec: 01/01/25 12:35 [facility] [id number]) OT Summary Assessment and Plan Potential Rehabilitation Good Potential Analytic Complexity Low at Evaluation Summary OT Impairments Pain,Strength,Balance,Functional Cognition,Functional Mobility,Grooming,Dressing,Toileting,Bathing,Toilet Transfers,Shower Transfers,Activity Tolerance Assessment Summary Pt is pleasant, cooperative, and somewhat confused, but agreeable to participating in tx. Pt requires frequent step by step instructions and frequent cues to participate actively and safely. Pt assisted in slide board t/f to w/c, performing approximately 25% and requiring max A x2 to complete. Pt was able to perform sink side ADLs on set up with increased cues to complete hair combing task. Pts nsg arrived with PT to discuss pt's positioning in w/c with slide board and multiple pillows below LEs and meggan pad beneath pt. Nsg, Safia, was in agreement for positioning as being safe and non-restrained. Nsg encouraged pt to try to sit up through lunch. Pt was left up in w/c with tray in front of her, call light in reach, and all needs met . Pt will benefit from skilled rehab. Pt may benefit from SLUMs assessment. Goals Self-Feeding Goal Independent Grooming Goal Independent Dressing Goal Moderate Assistance Toileting Goal Moderate Assistance Bathing Goal Moderate Assistance Toilet Transfer Goal Minimal Assistance Shower Transfer Goal Moderate Assistance Days to Meet Goals 20 Frequency of Treatment Other frequency 5x/week Treatment Plan OT Treatment Plan ADL Training,Functional Cognition Training,Functional Mobility,Patient/Family Education,Discharge Planning Other Treatment SLUMS, slide board max A x2 Recommendations and Next Treatment Focus Discharge Recommendations OT Discharge SNF Rehab Recommendations Transportation Needs Wheelchair/Cabulance at Discharge
--- NOTE | 2025-01-01 15:19 | PC.NURSE ---
Pt right leg remains in brace. CMS + Sat in chair w/PT, via meggan sling. Med x 2 w/ Tylenol for discomfort w/ good relief. Call light w/in reach, pt calls appropriately for needs Continue w/ plan of care.
--- NOTE | 2025-01-01 19:02 | PM.PN.1 ---
Subjective Subjective Interval history: Summary: 84-year-old female with a ground level fall and a right femur comminuted periprosthetic femur fracture. She was status post ORIF on 12/28 and awaiting senior care facility placement pending insurance approval. She has been stable, had good pain control, and a stable hemoglobin. Anticipated discharge on [facility] or [facility] pending insurance authorization. S: She is doing well, she is comfortable in bed. Good pain control, no dyspnea or other concerns. Exam Vital Signs (past 8 hours): Fraction of Inspired Oxygen 24 SaO2/FiO2 Ratio 391 Oxygen Delivery Method Nasal Cannula Oxygen Flow Rate 0 Narrative Exam Narrative: NAD, alert and oriented. Fluent speech. Lungs are clear, normal rate and effort. Heart is regular, no murmur gallop or rub. Abdomen is soft, non distended. Extremities are free of edema. Objective Labs 01/01/25 04:15 01/01/25 04:15 Labs: Laboratory Results - last 24 hr 01/01/25 04:15 WBC 7.2 RBC 2.97 L Hgb 9.3 L Hct 28.2 L MCV 95.1 MCH 31.5 MCHC 33.1 RDW 17.3 H Plt Count 224 Sodium 137 Potassium 4.4 Chloride 108 H Carbon Dioxide 26 BUN 26 H Creatinine 0.85 Estimated GFR > 60 BUN/Creatinine Ratio 30.6 H Glucose 100 H Calcium 8.2 L PFSH Medical History Frequent falls Ulcer of right leg Ribs, multiple fractures (12/14/23) Sternal fracture (12/14/23) History of COVID-19 (~2021) Memory impairment DALE (stress urinary incontinence, female) History of varicose veins DDD (degenerative disc disease) Peripheral neuropathy CAD (coronary artery disease) Gastric ulcer Osteopenia Gout Migraine headache with aura Fracture of inferior pubic ramus Hip fracture, left (~10/2010) Atrial fibrillation Asthma Pulmonary hypertension, mild Tricuspid regurgitation NSVT (nonsustained ventricular tachycardia) Rheumatoid arthritis Tinnitus Depression Neck pain Hypothyroidism GI bleed (~2017) Edema HLD (hyperlipidemia) HTN (hypertension) COPD (chronic obstructive pulmonary disease) Raynauds phenomenon Neuropathy Surgical History S/P foot surgery, left History of total hip arthroplasty History of total knee arthroplasty (02/09/19) History of left heart catheterization Hx of hand surgery Hx of tonsillectomy Hx of tubal ligation Family History Father Alcoholism /alcohol abuse Mother Migraines Brother History of knee replacement Sister No significant medical problems Son Alcoholism /alcohol abuse Social History household members: children Smoking Status: Former smoker alcohol intake: former Assessment & Plan Assessment & Plan narrative: 1. Distal femur periprosthetic fracture S/P ORIF 12/28, present on admission and active. 2. Asthma, present on admission and stable. 3. CAD, present on admission and stable. Plan: -pain control -SNF for rehab, [facility]. -PT/OT -watch h/h slow downtrend since admit down to 9.3 currently. -Enoxaparin for DVT prophylaxis. DVT prophylaxis: She was said to be allergic to aspirin (rash), would recommend enoxaparin at senior care facility for DVT prophylaxis. Time-Based Coding :: [TOTAL MINUTES] spent with patient and on the chart (including review of chart, obtaining history, exam, reviewing outside data, placing orders, documenting exam and treatment plan, and counseling patient) on [DATE]. Quality VTE Deep Vein Thrombosis/Pulmonary Embolism Present on Admission: No
--- NOTE | 2025-01-01 19:57 | P.PN_ITS ---
Subjective Subjective Interval history: Making progress with PT. her sheet manufacturing supervisor is Dr. Singh. She was wondering about her Enbrel. I told her that we probably should check with him as she had recent surgery. She was able to void after her Fletcher was discontinued. She does not have nausea and is not having severe pain. Exam Vital Signs (past 8 hours): Fraction of Inspired Oxygen 24 SaO2/FiO2 Ratio 391 Oxygen Delivery Method Nasal Cannula Oxygen Flow Rate 0 Narrative Exam Narrative: She was resting comfortably in bed she was able to fire toe flexors and extensors, her braces in place. Her calf is soft distally she is neurologically intact distally Objective Labs 01/01/25 04:15 01/01/25 04:15 Labs: Laboratory Results - last 24 hr 01/01/25 04:15 WBC 7.2 RBC 2.97 L Hgb 9.3 L Hct 28.2 L MCV 95.1 MCH 31.5 MCHC 33.1 RDW 17.3 H Plt Count 224 Sodium 137 Potassium 4.4 Chloride 108 H Carbon Dioxide 26 BUN 26 H Creatinine 0.85 Estimated GFR > 60 BUN/Creatinine Ratio 30.6 H Glucose 100 H Calcium 8.2 L [facility] Medical History Frequent falls Ulcer of right leg Ribs, multiple fractures (12/14/23) Sternal fracture (12/14/23) History of COVID-19 (~2021) Memory impairment DALE (stress urinary incontinence, female) History of varicose veins DDD (degenerative disc disease) Peripheral neuropathy CAD (coronary artery disease) Gastric ulcer Osteopenia Gout Migraine headache with aura Fracture of inferior pubic ramus Hip fracture, left (~10/2010) Atrial fibrillation Asthma Pulmonary hypertension, mild Tricuspid regurgitation NSVT (nonsustained ventricular tachycardia) Rheumatoid arthritis Tinnitus Depression Neck pain Hypothyroidism GI bleed (~2017) Edema HLD (hyperlipidemia) HTN (hypertension) COPD (chronic obstructive pulmonary disease) Raynauds phenomenon Neuropathy Surgical History S/P foot surgery, left History of total hip arthroplasty History of total knee arthroplasty (02/09/19) History of left heart catheterization Hx of hand surgery Hx of tonsillectomy Hx of tubal ligation Family History Father Alcoholism /alcohol abuse Mother Migraines Brother History of knee replacement Sister No significant medical problems Son Alcoholism /alcohol abuse Social History household members: children Smoking Status: Former smoker alcohol intake: former Assessment & Plan Post-op Assessment and plan (1) Non-healing wound of right lower extremity: (2) Periprosthetic fracture around internal prosthetic knee joint: (3) Total knee replacement status: Postoperative Procedures: Procedures Operation Date: 12/27/24 17:30 <No data on this case meets the specified criteria> Operation Date: 12/28/24 17:30 Actual Procedure Side Surgeon p ORIF Distal Femur Fracture Right Ro Forrest MD Postoperative day: 4 Postoperative status: doing well Postoperative status narrative: She was making slow steady progress with physical therapy. Her Fletcher was the seed and she has been able to void spontaneously. She was not having urological symptoms. Postoperative plan: routine post-op care Quality VTE Deep Vein Thrombosis/Pulmonary Embolism Present on Admission: No
[2025-01-01] MEDS: SENNOSIDES 8.6 MG TABLET 17.2 MG PO (20:47)
[2025-01-02] MEDS: LEVOTHYROXINE 25 MCG TABLET 75 MCG PO (06:10)
--- NOTE | 2025-01-02 07:36 | PM.PNPO.1 ---
Subjective Subjective Date Patient Seen: 01/02/25 Time Patient Seen: 07:36 Interval history: Patient's pain is controlled with oral medication. ?Pain is localized to surgical site. ?Patient declines any new numbness or tingling at the surgical extremity. ?Patient denies any shortness of breath, dizziness, light-headedness, nausea, vomiting, fever or chills. She is able and ambulate with assistance and void. Exam Vital Signs (past 8 hours): Fraction of Inspired Oxygen 24 SaO2/FiO2 Ratio 391 Oxygen Delivery Method Nasal Cannula Oxygen Flow Rate 0 Narrative Exam Narrative: Right leg locked in full extension in hinged knee brace. Pt is able to DF and PF against resistance. 5/5 strength in hip flexors, quadriceps, hamstrings, DF, PF, EHL left. Sensation to light touch intact throughout BLE. Calves soft, compressible, nontender. Resp Effort & Inspection: normal respiratory effort and able to speak in complete sentences Objective Labs 01/01/25 04:15 01/01/25 04:15 [facility] Medical History Frequent falls Ulcer of right leg Ribs, multiple fractures (12/14/23) Sternal fracture (12/14/23) History of COVID-19 (~2021) Memory impairment DALE (stress urinary incontinence, female) History of varicose veins DDD (degenerative disc disease) Peripheral neuropathy CAD (coronary artery disease) Gastric ulcer Osteopenia Gout Migraine headache with aura Fracture of inferior pubic ramus Hip fracture, left (~10/2010) Atrial fibrillation Asthma Pulmonary hypertension, mild Tricuspid regurgitation NSVT (nonsustained ventricular tachycardia) Rheumatoid arthritis Tinnitus Depression Neck pain Hypothyroidism GI bleed (~2017) Edema HLD (hyperlipidemia) HTN (hypertension) COPD (chronic obstructive pulmonary disease) Raynauds phenomenon Neuropathy Surgical History S/P foot surgery, left History of total hip arthroplasty History of total knee arthroplasty (02/09/19) History of left heart catheterization Hx of hand surgery Hx of tonsillectomy Hx of tubal ligation Family History Father Alcoholism /alcohol abuse Mother Migraines Brother History of knee replacement Sister No significant medical problems Son Alcoholism /alcohol abuse Social History household members: children Smoking Status: Former smoker alcohol intake: former Assessment & Plan Post-op Postoperative Procedures: Procedures Operation Date: 12/27/24 17:30 <No data on this case meets the specified criteria> Operation Date: 12/28/24 17:30 Actual Procedure Side Surgeon p ORIF Distal Femur Fracture Right Ro Forrest MD Postoperative day: 5 Postoperative status: doing well Postoperative plan: routine post-op care and ambulate Postoperative plan narrative: Discharge once approved for SNF. Ambulate with assistive devices. NWB with surgical leg for 6 weeks post-op. Enoxaparin for DVT prophylaxis. Baseline pain relief with acetaminophen 500mg every 4 hours as needed. Oxycodone 5mg q4hr prn for breakthrough pain. Keep dressing clean and dry. Keep dressing on until first office visit. If dressing becomes dirty or disrupted, replace with appropriate sized dressing. Follow up in clinic in 7-10 days for wound check. Contact clinic if there are any questions or concerns. Time Spent With Patient Time with patient: less than 15 minutes Quality VTE Deep Vein Thrombosis/Pulmonary Embolism Present on Admission: No
[2025-01-02 07:59] VITALS: BP 108/65; PULSE 88; RESP 19; TEMP 37; O2SAT 92
[2025-01-02] MEDS: ACETAMINOPHEN 325 MG TABLET 650 MG PO (10:13)
[2025-01-02] MEDS: HEPARIN 5,000 UNIT/ML VIAL 5000 UNIT SUBCUT (10:13)
[2025-01-02 10:14] VITALS: BP 108/65; PULSE 88
[2025-01-02] MEDS: lisinopriL 5 MG TABLET PO (10:14)
[2025-01-02] MEDS: PANTOPRAZOLE DR 40 MG TABLET PO (10:14)
[2025-01-02] MEDS: METOPROLOL ER 25 MG TABLET PO (10:14)
[2025-01-02] MEDS: SODIUM CHLORIDE 0.9% FLUSH 10 ML IV (10:15)
[2025-01-02] MEDS: ATORVASTATIN 20 MG TABLET PO (10:15)
--- NOTE | 2025-01-02 10:27 | DIET.PN1 ---
Dietary Progress Note Assessment: RD f/u 75-100% recent recorded PO intakes. F/u with pt at bedside, reports good appetite still and tolerating ONS 1x/d. Ht: 162.56 cm Wt: 59.5 kg BMI: 22.5 Last BM: 01/02/25 (01/02/25 10:11) MNA: 13 Tor Score: 15 Diet: 12/29/24 Dinner General (Regular) Diet Diet Modifications: Food Texture: Level 7 - Regular Liquid Consistency: Level 0 - Thin Nutrition Percent Meal Consumed 75% 01/02/25 10:11 Percent Meal Consumed 100% 01/01/25 10:45 Labs: RBC 2.97 X10^6/uL (4.0-5.2) L 01/01/25 04:15 Hgb 9.3 g/dL (12.0-16.0) L 01/01/25 04:15 Hct 28.2 % (36-46) L 01/01/25 04:15 Creatinine 0.85 mg/dL (0.52-1.04) 01/01/25 04:15 Electronically Signed by: Kendy Metzger 01/02/25 10:27 Clinical Dietitian [address] [address]
--- NOTE | 2025-01-02 10:47 | PM.DS.1 ---
History of Present Illness History of Present Illness Date Patient Seen: 01/02/25 Time Patient Seen: 18:28 Date of Onset of Symptoms: 12/27/24 Chief complaint: R knee pain Narrative: Per admitting provider, This is a complex patient who has a history of a right knee replacement within the last year for gross instability. Her knee has been doing reasonably well. She has multiple medical problems including a history of multiple falls. She lives with her son and has been home from rehab for about 3 weeks after a fall and hip fracture. She says that she has had 2 right hip operations and a hip fracture within the last 6 months. She has been to multiple different rehabs and was quite satisfied with [facility]. She was at home and has problems with weakness and balance. She was using her walker when she fell and noted the onset of right knee pain. Discharge Providers Provider Date of admission: 12/27/24 11:55 Discharge Date: 01/02/25 Primary care physician: Sneha Lam PA-C Consults: 12/29/24 07:49 Consult to Discharge Planning Routine Comment: Consult to Occupational Therapy Evaluate & Treat Comment: Physician Instructions: Evaluate and treat Consult to Physical Therapy Evaluate & Treat Comment: Physician Instructions: Evaluate and Treat Consult to Physician Routine Comment: Consulting Provider: Ro Forrest Reason for consultation: requested by Dr. Abraham, established pt. Has provider been notified: Yes Discharge provider: Home Gonzalez DO Summary Hospital Course Discharge Diagnosis: 1. Distal femur periprosthetic fracture S/P ORIF 12/28, present on admission and active. 2. Asthma, present on admission and stable. 3. CAD, present on admission and stable. 4. Acute blood loss anemia due to above surgery, stable. Hospital Course: 82 y/y with PMH of HTN, CAD, COPD, Hypothyroidism, A-fib, neuropathy, Raynauds, RA who was admitted after a reapir of a distal femur periprosthetic fracture on 12/28/2024. Her post operative course was only complicated by a mild acute blood loss anemia but stabilized after surgery. No changes to her home medications were recommended. She reported aspirin allergy so post operative DVT prophylaxis is recommended with Lovenox. After therapy evaluations she was recommended for SNF, where she was transferred on 01/02/25. Time Spent with Patient Time spent: Greater than 30 minutes Exam Vital Signs (past 8 hours): - 01/02/25 07:59 01/02/25 10:14 01/02/25 10:14 Temperature 98.6 F Pulse Rate 88 88 88 Respiratory Rate 19 Blood Pressure 108/65 108/65 108/65 Pulse Oximetry 92 Oxygen Flow Rate 0 Fraction of Inspired Oxygen 24 SaO2/FiO2 Ratio 391 Oxygen Delivery Method Nasal Cannula Oxygen Flow Rate 0 Narrative Exam Narrative: NAD, alert and oriented. Fluent speech. Lungs are clear, normal rate and effort. Heart is regular, no murmur gallop or rub. Abdomen is soft, non distended. Extremities are free of edema. Objective Labs 01/01/25 04:15 01/01/25 04:15 [facility] Medical History Frequent falls Ulcer of right leg Ribs, multiple fractures (12/14/23) Sternal fracture (12/14/23) History of COVID-19 (~2021) Memory impairment DALE (stress urinary incontinence, female) History of varicose veins DDD (degenerative disc disease) Peripheral neuropathy CAD (coronary artery disease) Gastric ulcer Osteopenia Gout Migraine headache with aura Fracture of inferior pubic ramus Hip fracture, left (~10/2010) Atrial fibrillation Asthma Pulmonary hypertension, mild Tricuspid regurgitation NSVT (nonsustained ventricular tachycardia) Rheumatoid arthritis Tinnitus Depression Neck pain Hypothyroidism GI bleed (~2017) Edema HLD (hyperlipidemia) HTN (hypertension) COPD (chronic obstructive pulmonary disease) Raynauds phenomenon Neuropathy Surgical History S/P foot surgery, left History of total hip arthroplasty History of total knee arthroplasty (02/09/19) History of left heart catheterization Hx of hand surgery Hx of tonsillectomy Hx of tubal ligation Family History Father Alcoholism /alcohol abuse Mother Migraines Brother History of knee replacement Sister No significant medical problems Son Alcoholism /alcohol abuse Social History household members: children Smoking Status: Former smoker alcohol intake: former Discharge Plan Discharge Plan Patient Disposition: SNF Transfer to: [facility] Provider Discharge Comment: follow up with [facility] orthopedics in 10-14 days. No changes recommended to home medications on discharge to SNF. Discharge orders & Medications Prescriptions: New sennosides [senna] 8.6 mg Tablet 17.2 mg PO BEDTIME 14 Days Qty: 28 0RF polyethylene glycol 3350 17 gram Powder In Packet 17 gm PO DAILY 14 Days Qty: 14 0RF docusate sodium 100 mg Capsule 100 mg PO BID Qty: 60 0RF ondansetron 4 mg Tablet,Disintegrating 4 mg PO Q4HR PRN (Reason: Nausea And Vomiting) 30 Days Qty: 30 0RF oxycodone 5 mg Tablet 5 mg PO Q3H PRN (Reason: Pain, Moderate (4-6)) 7 Days Qty: 10 0RF enoxaparin [Lovenox] 40 mg/0.4 mL syringe 40 mg SUBCUT DAILY 20 Days Qty: 8 0RF Continued methotrexate sodium 2.5 mg Tablet 6 tab PO QWEEK Qty: 0 Rx Instructions: Every Wednesday atorvastatin 20 mg tablet 20 mg PO DAILY furosemide 20 mg Tablet 20 mg PO QMWF metoprolol succinate 25 mg Tablet Extended Release 24 Hr 25 mg PO DAILY Enbrel 50 mg/mL (1 mL) Syringe 50 mg SUBCUT QWEEK Rx Instructions: Wednesday' lisinopril 2.5 mg tablet 5 mg PO DAILY acetaminophen 325 mg Tablet 650 mg PO Q6H PRN (Reason: Fever/Mild Pain (1-3)) Qty: 90 0RF levothyroxine 25 mcg tablet 75 mcg PO DAILY pantoprazole 40 mg Tablet,Delayed Release (Dr/Ec) 40 mg PO DAILY Follow up/Referrals: Ro Forrest MD [Physician, Orthopedic Surgery] Sneha Lam PA-C [Primary Care Provider, Medical] Discharge Health Status Precautions: Holt Diet/Activity/Treatments Diet: Diet as Tolerated Food texture: Regular Activity: Out of bed for and standing strict nonweightbearing on the right lower extremity. Continue right knee [id number] brace. Cold/Heat Therapy: Use ice on right knee several times a day. Other treatments: Dressing change to right pretibial area as needed, wound care consult Skin/Wound/Dressing Care Report to your healthcare provider any signs of infection, such as:: chills, fever, night sweats, increased pain, unusual drainage and unusual redness Dressing: Leave dressing on knee. Knee dressing is waterproof. Okay to remove Sammy wrap and cleanse and checked deep dressing as needed Visit Report/Discharge Packet Instructions: DI for Hip Fracture, DI for Hip Replacement, How to Prevent Falls, DI for Open Reduction Internal Fixation Surgery, DI for Prescription Opioid Use, Senna, Ondansetron, Enoxaparin Injection, Polyethylene Glycol 3350, Oxycodone Stand Alone Forms: Patient Portal/API, Surgery Discharge Discharge Data Primary Care Provider: Sneha Lam VTE Deep Vein Thrombosis/Pulmonary Embolism Present on Admission: No
--- NOTE | 2025-01-02 11:30 | OT.IP.TRT ---
Current Diagnoses Coagulation defect, unspecified (12/27/24) Periprosthetic fracture around other internal prosthetic joint, initial encounter (12/27/24) Syncope and collapse (12/27/24) Unspecified open wound, right lower leg, initial encounter (12/27/24) Presence of right artificial knee joint (12/27/24) Presence of unspecified artificial knee joint (12/27/24) Surgery Performed Operation Date: 12/27/24 17:30 <No data on this case meets the specified criteria> Operation Date: 12/28/24 17:30 Actual Procedures p ORIF Distal Femur Fracture(Right) - Ro Forrest MD Occupational Therapy Treatment Note M2 OT-IP Current Condition Start: 12/29/24 16:16 Freq: Status: Active Protocol: Document 12/29/24 16:16 [facility] (Rec: 12/29/24 16:42 [facility] Desktop) Occupational Therapy Current Condition Current Condition Evaluation Date 12/29/24 Treatment Diagnosis S/P ORIF right femur comminuted periprosthetic femur fx Diagnosis Onset Date 12/27/24 Post Operative Precautions Other Precautions Right knee ROM 0-45degrees Weight Bearing Status Weight Bearing Non-Weight Bearing Status Allowed Weight RLE Bearing Amount ( enter % or #) (%) M3 OT- IP Subjective and Pain Start: 12/29/24 16:16 Freq: Status: Active Protocol: Document 01/02/25 11:44 [facility] (Rec: 01/02/25 11:52 [facility] Desktop) OT- Subjective Occupational Therapy Visit Type Type Treatment Note Visit Start Time 11:30 Visit Stop Time 11:43 Occupational Therapy Visit Comments Patient Comments Pt just waking up and agreed to do SLUMS. Patient/Caregiver TO get better. Goals OT Pain Assessment Pain When Pain Assessed During Mobility Pain Present Pain Present Pain Reported Location right knee Pain Behaviors Facial Grimacing,Holding Area M4 OT- IP ADL's Start: 12/29/24 16:16 Freq: Status: Active Protocol: Document 01/01/25 12:12 [facility] (Rec: 01/01/25 12:35 [facility] [id number]) OT MBR-Iwkj-Shmijak General Evaluation Self-Feeding Ability Independent OT ADL-Grooming Comments OT Grooming Comments pt oden her hair up in w/c at sink side on set-up of comb. OT ADL-Oral Care General Eval Oral Care Ability Standby Assistance Comments Oral Care Comments pt is able to manage toothpaste lid, applying toothpaste, and brushing on set up of items. pt needs assist to rinse out her toothbrush as she is unable to reach from the w/c. OT ADL-Dressing General Eval Lower Body Dressing Total Assistance Ability Areas Needing Socks,Orthosis/Prosthesis Assistance Comments OT Dressing Comments pt attempted to don L sock while reclined in bed, pt lacks the ROM to perform from this position. OT then donned sock and pulled it up toward her heel allowing pt opportunity to finish pulling up sock, but pt continues to be unable in current position. OT ADL-Toileting Comments OT Toileting not observed Comments OT ADL-Bathing Comments OT Bathing Comments not observed M5 OT- IP IADL's Start: 12/29/24 16:16 Freq: Status: Active Protocol: Document 12/29/24 16:16 [facility] (Rec: 12/29/24 16:42 [facility] Desktop) OT-Instrumental Activities of Daily Living Deficits IADL Deficits Deficits Identified Home Safety Awareness Home Safety Comments Pt is confused and not able to answer questions consistently. Medication Management Medication Pt 's son states to now do for pt, home health nursing Management Comments has been setting up her pills. Money Management Money Management Caregiver Provides Assistance Meal Preparation Meal Preparation Caregiver Provides Assist Cylinder Grinder Cylinder Grinder Caregiver Provides Assist M6 OT- IP Functional Cognition Start: 12/29/24 16:16 Freq: Status: Active Protocol: Document 01/02/25 11:44 [facility] (Rec: 01/02/25 11:52 [facility] Desktop) Cognitive Factors Limiting Selfcare Function Cognitive Ability Level of Alertness Alert Patient Orientation Name,Age,Birthday,Month,Year,Place,Situation Attention Span Capable of Focused Attention,Capable of Sustained Ability Attention Ability to Follow Able to Follow One Step Commands with Increased Time, Commands Able to Follow One Step Commands with Repetition Memory Description Short Term Impaired,Working Impaired Cognitive Tests SLUMS Pt scored 17/30 on the SLUMS and just woke up after napping and therefore would benefit form redo of the SLUMS at a later day. Pt not able to calculate 100-23, able to states 5 animals in one minute, able to recall 3/5 objects after time passes, not able to states 4 digit number backwards, not able draw the numbers on the clock symmetrically or draw the hour hands accurately after time given, and able to answer 3/4 questions right after paragraph read. Pt would just say, I don't know. Pt's score implies dementia, but would be good to retest at a later date. M7 OT- IP Mobility and Balance Start: 12/29/24 16:16 Freq: Status: Active Protocol: Document 01/01/25 12:12 [facility] (Rec: 01/01/25 12:35 [facility] [id number]) OT- Bed Mobility Assessment Supine to Sit Supine to Sit Assist Maximum Assistance,1 Person Assistance,Head of Bed Elevated,Bedrails Scooting Scooting to Edge of Total Assistance,2 Person Assistance Bed OT-Transfer Assessment Transfers Transfer Ability Maximum Assistance,2 Person Assistance Technique Transfer Destination Wheelchair Transfer Technique slide board Devices Transfer Assistive Gait Belt,Sliding Board Devices Comments Mobility Comments Pt requires frequent step by step cues for bed mobility while PT holds R LE to maintain position. OT assists with occasional LOB posteriorly, cues for hand placement, and managing bed rails and buttons. OT uses bed pad to complete scooting pt's hips to EOB. Pts R LE placed on step. Pt requires max A to position slide board. Pt assists with slide board t/f to the L, providing approximately 25% of the work. It requires max A x2 to complete t/f. Pt's w/c does not have elevating leg rest, pt was positioned with sliding board behind LES and multiple pillows for appropriate support to prevent too much knee flexion. OT- Balance Assessment Sitting Balance and Reactions Static Sitting Fair Balance Ability Dynamic Sitting Fair Balance Ability M8 OT- IP Objective Assessments Start: 12/29/24 16:16 Freq: Status: Active Protocol: Document 12/29/24 16:16 [facility] (Rec: 12/29/24 16:42 [facility] Desktop) OT Gross Range of Motion Upper Extremity Range of Motion ROM Impairments grossly WFL LUE> RUE OT Strength Comments Strength Comments BUE 4-/5 to 4/5 M9 OT- IP Assessment and Plan Start: 12/29/24 16:16 Freq: Status: Active Protocol: Document 01/02/25 11:44 [facility] (Rec: 01/02/25 11:52 [facility] Desktop) OT Summary Assessment and Plan Potential Rehabilitation Good Potential Analytic Complexity Low at Evaluation Summary OT Impairments Pain,Strength,Balance,Functional Cognition,Functional Mobility,Grooming,Dressing,Toileting,Bathing,Toilet Transfers,Shower Transfers,Activity Tolerance Progress Towards Progressing Toward Goals,Slow Progress due to Cognition Goals Assessment Summary Pt able to complete SLUMS however a little groggy from just waking up and would benefit from retest when more alert. Pt scored 17/30 whish implies dementia. Pt to go to skilled rehab when medically stable. Goals Self-Feeding Goal Independent Grooming Goal Independent Dressing Goal Moderate Assistance Toileting Goal Moderate Assistance Bathing Goal Moderate Assistance Toilet Transfer Goal Minimal Assistance Shower Transfer Goal Moderate Assistance Days to Meet Goals 20 Frequency of Treatment Other frequency 5x/week Treatment Plan OT Treatment Plan ADL Training,Functional Cognition Training,Functional Mobility,Patient/Family Education,Discharge Planning Discharge Recommendations OT Discharge SNF Rehab Recommendations Transportation Needs Wheelchair/Cabulance at Discharge
--- NOTE | 2025-01-02 14:01 | CM.DPNOTE ---
DCP Note CURING MACHINE OPERATOR reviewed EMR per [facility] from [facility], got auth. cleared to dc today. no transport. CURING MACHINE OPERATOR updated RN/TUBE SPLICER/provider. gave RN report number. per RN/therapy notes, pt likely more appropriate for stretcher transport due to fx and pain. meggan lift. CURING MACHINE OPERATOR spoke with Son Josue Garcia [phone], son in agreement with plan to dc to [facility] today. Son reports verbal understanding that there may be a bill associated with BLS transport. in agreement that with pt's pain is is likely safest for pt. denies other CM/DCP needs or questions. CURING MACHINE OPERATOR updated pt in room. in agreement with plan. denies questions. CURING MACHINE OPERATOR spoke with Kya at [facility]. scheduled transport for 1400. CURING MACHINE OPERATOR completed transport form and placed in chart CC Domitila emailed [facility]ook [facility]/scripts/meds/order/dc summary. per Mook, did not get email. CURING MACHINE OPERATOR forwarded it again. Domitila placed the PAS[facility]/scripts/meds in pts' chart. P: dc today to [facility] via [facility] at 1400. CM team will continue to follow as needed for DCP coordination ADRIANA Plunkett
--- NOTE | 2025-01-02 19:33 | PC.NURSE ---
Pt discharged to [facility] at 1410, escorted off floor in stretcher accompanied by transport team. IV removed, discharge teaching included in packet for facility. This nurse called 3 separate times to give report: at 1412-no answer, at 1452-this nurse left message, at 1403-staff at receiving facility was too busy and took down a call back number, still awaiting call back. Patient left the floor with all belongings.
== END 2025-01-02 14:15 | DRG 481 ==
LOC: ED 09:52 → AC 11:56
PROVIDERS: Emergency Medicine; Hospitalist; Orthopaedic Surgery; Admitting Provider Internal Medicine; Emergency Provider Student in an Organized Health Care Education/Training Program; Family Provider Family Medicine; PCP Physician Assistant Medical; Referring Provider Student in an Organized Health Care Education/Training Program; Visit Provider Internal Medicine
PROC: 0QSB04Z Reposition Right Lower Femur with Internal Fixation Device, Open Approach (ICD-10-PCS; CPT 27470; principal; 2024-12-28 17:30)
DX: M80.051A Age-related osteoporosis with current pathological fracture, right femur, initial encounter for fracture (principal); D62 Acute posthemorrhagic anemia; D68.9 Coagulation defect, unspecified; M97.11XA Periprosthetic fracture around internal prosthetic right knee joint, initial encounter; R29.6 Repeated falls; R55 Syncope and collapse; I25.10 Atherosclerotic heart disease of native coronary artery without angina pectoris; I10 Essential (primary) hypertension; M06.9 Rheumatoid arthritis, unspecified; E78.5 Hyperlipidemia, unspecified; E03.9 Hypothyroidism, unspecified; Z87.891 Personal history of nicotine dependence; Z79.890 Hormone replacement therapy; Z79.631 Long term (current) use of antimetabolite agent
CPT/HCPCS: 36415; 71045; 72170; 73552; 73560; 73562; 73700; 76000; 80048; 80053; 81001; 85025; 85027; 85610; 93005; 94762; 96374; 96375; 96376; 97129; 97162; 97166; 97530; 97535; 99284; C1713; J0330; J0666; J0690; J1100; J1171; J1644; J2405; J2704; J3010; J8610